=== PATIENT | female | born 1975 | race Caucasian/White ===

== ENCOUNTER 2016-08-14 11:57 | Inpatient (IN) | payer BC ==
--- NOTE | 2016-08-14 12:13 | EDM.PDOC ---
ED HPI GI/ABDOMINAL - General Chief Complaint: Gastrointestinal Problem Stated Complaint: PT WOULD LIKE TO GET CHECK Time Seen by Provider: 08/14/16 12:05 Source of Information: Reports: Patient, Family History Limitations: Reports: No limitations - History of Present Illness INITIAL COMMENTS - FREE TEXT/NARRATIVE: HISTORY AND PHYSICAL: [40-year-old female presenting to the emergency department with abdominal pain, diarrhea. Patient was sent to the emergency room by . Abdominal x-ray and chest x-ray were sent from [facility] to our radiology department.] History of Present Illness: [2 weeks of not feeling well, she is having more diarrhea] Review of Systems: As per history of present illness and below otherwise all systems reviewed and negative. Past medical history: As per history of present illness and as reviewed below otherwise noncontributory. Surgical history: As per history of present illness and as reviewed below otherwise noncontributory. Social history: No reported history of drug or alcohol abuse. Family history: As per history of present illness and as reviewed below otherwise noncontributory. Physical exam: HEENT: Atraumatic, normocehpalic, pupils reactive, negative for conjunctival pallor or scleral icterus, mucous membranes moist, throat clear, neck supple, nontender, trachea midline. Lungs: Clear to auscultation, breath sounds equal bilaterally, chest non tender. Heart: S1S2, regular, negative for clicks, rubs, or JVD. Abdomen: Soft, nondistended, tender to right upper and lower quadrant on initial exam. After the CT scan re-examination abd of abddomen is non-tender. Negative for masses or hepatossplenmegaly. Negative for costovertebral tenderness. Pelvis: Stable nontender. Genitourinary: Deferred. Rectal: Deferred Extremities: Atraumatic, negative for cords or calf pain. Neurovascular unremarkable. Neuro: Awake, alert, oriented. Cranial nerves II through XII unremarkable. Cerebellum unremarkable. Motor and sensory unremarkable throughout. Exam nonfocal. Discussed case with Dr. Hardin. He will come to the emergency department to evaluate the patient. Diagnostics: [CBC CMP lactic acid amylase lipase CT abdomen hCG] Therapeutics: [IV fluids x2 L] Impression: [#1 dehydration #2] tachycardia #3 metabolic acidosis Patient meets SIRS criteria Plan: [Admission] Definitive disposition and diagnosis as appropriate pending reevaluation and review of above. Timing/Duration: Reports: Week(s): (2), Gradual onset Quality: Reports: fullness Severity: moderate Associated Symptoms (-Female): Reports: constipation - Related Data Allergies/ADRs: Allergies Allergy/AdvReac Type Severity Reaction Status Date / Time No Known Allergies Allergy Unverified 06/05/16 14:43 Home Meds: Home Meds Ibuprofen 2 tab PO ASDIRECTED PRN 04/24/15 [History] Omeprazole [priLOSEC OTC] 20 mg PO DAILY 04/24/15 [History] Albuterol Sulfate [Proair Respiclick] 2 puff INH Q4H PRN 08/14/16 [History] Calcium Carbonate/Vitamin D3 [Calcium 500 mg Chewable Tablet] 500 mg PO BID [History] Cholecalciferol (Vitamin D3) [D3 Dots] 5,000 units PO DAILY 08/14/16 [History] Cyanocobalamin (Vitamin B12) [Vitamin B12] 1,000 mcg PO DAILY 08/14/16 [History] Diclofenac Sodium [Voltaren] 1 applic TOP QID PRN 08/14/16 [History] Hydrocodone/Acetaminophen [Hydrocodon-Acetaminophn 10-325] 5 - 325 mg PO ASDIRECTED PRN 08/14/16 [History] Magnesium Oxide 08/14/16 [History] Mometasone Furoate [Nasonex] 2 spray INH DAILY PRN 08/14/16 [History] Multivitamin [Multivitamins] 1 tab DAILY 08/14/16 [History] Multivitamin-Minerals No.55 [Centrum Flavor Burst Adult] 1 tab PO DAILY [History] Ondansetron [Ondansetron Odt] 4 mg PO TID PRN 08/14/16 [History] SUMAtriptan [Imitrex] 25 mg PO DAILY PRN 08/14/16 [History] Valproic Acid 500 mg PO BID 08/14/16 [History] Vit B12/Intrins Fact/Fa Cmb #2 [Intrinsi [id number]] 1,000 mcg SL DAILY [History] Vitamin D3/Vitamin K2 [D3 + K2 Dots 1,000 Unit] 5,000 units PO DAILY 08/14/16 [ History] Past Medical History - Past Health History Medical/Surgical History: Denies Medical/Surgical History Other Respiratory History: Reports 5 yr history of smoking when quite young, quit 10-11 yrs, re-started 5 yrs ago current use 1 - 1 1/2 packs/day Other Gastrointestinal History: hx: Ulcers, experience abdominal pain from time to time Other OB/BYN History: LMP 1 month ago Other Musculoskeletal History: had low bulging discs, now degenerative disc disease, chronic low back pain - Infectious Disease History Infectious Disease History: Reports: Other (see below) Other Infectious Disease History: unknown - Past Surgical History Other GI Surgeries/Procedures: "gastric bypass" Other Musculoskeletal Surgeries/Procedures:: surgery on same hand 1 week ago Social & Family History - Tobacco Use Smoking Status *Q: Current Every Day Smoker Years of Tobacco use: 10 Packs/Tins Daily: 1.5 - Recreational Drug Use Recreational Drug Use: No Drug Use in Last 12 Months: No ED ROS GENERAL - Review of Systems Review Of Systems: ROS reveals no pertinent complaints other than HPI. ED EXAM, GI/ABD - Physical Exam Exam: See Below (see dictation) Course - Vital Signs Last Recorded V/S: Last Vital Signs Temp 37.5 C 08/15/16 08:00 Pulse 109 H 08/14/16 18:03 Resp 28 H 08/15/16 09:00 BP 120/81 08/15/16 09:00 Pulse Ox 98 08/15/16 09:00 - Orders/Labs/Meds Orders: Active Orders 24 hr Category Date Time Status Patient Status [ADT] Stat ADT 08/14/16 17:29 Active CULTURE BLOOD [BC] Stat Lab 08/14/16 14:55 Received CULTURE BLOOD [BC] Stat Lab 08/14/16 15:14 Received Sodium Chloride 0.9% [Saline Flush] Med 08/14/16 12:14 Active 10 ml FLUSH ASDIRECTED PRN Sodium Chloride 0.9% [Saline Flush] Med 08/14/16 12:31 Active 10 ml FLUSH ASDIRECTED PRN Sodium Chloride 0.9% [Saline Flush] Med 08/14/16 12:14 Active 2.5 ml FLUSH ASDIRECTED PRN Sodium Chloride 0.9% [Saline Flush] Med 08/14/16 12:31 Active 2.5 ml FLUSH ASDIRECTED PRN Blood Culture x2 Reflex Set [OM.PC] Stat Ot 08/14/16 14:01 Ordered Saline Lock Insert [OM.PC] Stat Ot 08/14/16 12:14 Ordered Saline Lock Insert [OM.PC] Stat Ot 08/14/16 12:31 Ordered Medication Orders Acetaminophen (Tylenol) 325 mg PO Q6H PRN PRN Reason: Pain Last Admin: 08/15/16 04:00 Dose: 325 mg Admin: 08/14/16 21:07 Dose: 325 mg Folic Acid (Folic Acid) 1 mg SUBCUT DAILY [facility] Last Admin: 08/15/16 09:15 Dose: 1 mg Admin: 08/14/16 18:51 Dose: 1 mg Sodium Chloride (Normal Saline) 1,000 mls @ 200 mls/hr IV ASDIRECTED [facility] Last Admin: 08/15/16 05:20 Dose: 200 mls/hr Infusion: 08/15/16 05:20 Dose: 200 mls/hr Admin: 08/15/16 00:40 Dose: 200 mls/hr Infusion: 08/14/16 23:20 Dose: 200 mls/hr Admin: 08/14/16 18:50 Dose: 200 mls/hr Lorazepam (Ativan) 0 mg IVPUSH Q4H PRN; Protocol PRN Reason: agitation Last Admin: 08/15/16 07:48 Dose: 2 mg Admin: 08/15/16 00:21 Dose: 1 mg Admin: 08/14/16 20:41 Dose: 1 mg Omeprazole (Omeprazole) 20 mg PO ACBREAKFAST [facility] Last Admin: 08/15/16 07:35 Dose: 20 mg Ondansetron HCl (Zofran) 4 mg IVPUSH Q4H PRN PRN Reason: Nausea Sodium Chloride (Saline Flush) 10 ml FLUSH ASDIRECTED PRN PRN Reason: Keep Vein Open Sodium Chloride (Saline Flush) 2.5 ml FLUSH ASDIRECTED PRN PRN Reason: Keep Vein Open Sodium Chloride (Saline Flush) 10 ml FLUSH ASDIRECTED PRN PRN Reason: Keep Vein Open Sodium Chloride (Saline Flush) 2.5 ml FLUSH ASDIRECTED PRN PRN Reason: Keep Vein Open Thiamine HCl (Vitamin B-1) 100 mg IV DAILY [facility] Last Admin: 08/15/16 09:14 Dose: 100 mg Admin: 08/14/16 18:52 Dose: 100 mg Valproic Acid (Depakene) 500 mg PO BID [facility]IRIN Last Admin: 08/15/16 09:14 Dose: 500 mg Admin: 08/14/16 20:40 Dose: 500 mg Labs: Laboratory Tests 08/14/16 08/14/16 08/14/16 Range/Units 13:03 13:03 13:03 WBC 10.67 (4.0-11.0) K/uL RBC 3.43 L (4.30-5.90) M/uL Hgb 11.9 L (12.0-16.0) g/dL Hct 36.8 (36.0-46.0) % MCV 107.3 H (80.0-98.0) fL MCH 34.7 H (27.0-32.0) pg MCHC 32.3 (31.0-37.0) g/dL RDW Std Deviation 73.5 H (28.0-62.0) fl RDW Coeff of Amanda 19 H (11.0-15.0) % Plt Count 192 (150-400) K/uL MPV 10.50 (7.40-12.00) fL Neut % (Auto) 84.4 H (48.0-80.0) % Lymph % (Auto) 8.2 L (16.0-40.0) % Lewis % (Auto) 6.7 (0.0-15.0) % Eos % (Auto) 0.1 (0.0-7.0) % Baso % (Auto) 0.6 (0.0-1.5) % Neut # 9.0 H (1.4-5.7) K/uL Lymph # 0.9 (0.6-2.4) K/uL Lewis # 0.7 (0.0-0.8) K/uL Eos # 0.0 (0.0-0.7) K/uL Baso # 0.1 (0.0-0.1) K/uL Nucleated RBC % 0.0 /100WBC Nucleated RBCs # 0 K/uL Lactate 9.5 H (0.20-2.00) mmol/L Sodium 135 L (136-146) mmol/L Potassium 4.5 (3.5-5.1) mmol/L Chloride 103 (98-110) mmol/L Carbon Dioxide 16 L (21-31) mmol/L BUN 5 L (6.0-23.0) mg/dL Creatinine 0.5 L (0.6-1.5) mg/dL Est Cr Clr Drug Dosing 148.35 mL/min Estimated GFR (MDRD) > 60.0 ml/min Glucose 155 H (60-110) mg/dL Calcium 7.1 L (8.8-10.8) mg/dL Total Bilirubin 2.0 H (0.1-1.5) mg/dL AST 203 H (5-40) IU/L ALT 49 (8-54) IU/L Alkaline Phosphatase 445 H (40-150) Troponin I (0.0-0.29) NG/ML Total Protein 5.3 L (6.0-8.0) g/dL Albumin 1.6 L (3.5-5.0) g/dL Globulin 3.7 H (2.0-3.5) g/dL Albumin/Globulin Ratio 0.4 L (1.3-2.8) Amylase 22 (10-90) U/L Lipase < 8 (7-80) U/L HCG, Quant mIU/mL Urine Color Urine Appearance Urine pH (5.0-8.0) Ur Specific [place] (1.001-1.035) Urine Protein (NEGATIVE) mg/dL Urine Glucose (UA) (NEGATIVE) mg/dL Urine Ketones (NEGATIVE) mg/dL Urine Occult Blood (NEGATIVE) Urine Nitrite (NEGATIVE) Urine Bilirubin (NEGATIVE) Urine Ictotest Urine Urobilinogen (<2.0) EU/dL Ur Leukocyte Esterase (NEGATIVE) Urine RBC (0-2/HPF) Urine WBC (0-5/HPF) Ur Epithelial Cells (NONE-FEW) Urine Bacteria (NEGATIVE) Urine Opiates Screen (NEGATIVE) Ur Oxycodone Screen (NEGATIVE) Urine Methadone Screen (NEGATIVE) Ur Barbiturates Screen (NEGATIVE) Ur Phencyclidine Scrn (NEGATIVE) Ur Amphetamine Screen (NEGATIVE) U Methamphetamines Scrn (NEGATIVE) U Benzodiazepines Scrn (NEGATIVE) U Cocaine Metab Screen (NEGATIVE) U Marijuana (THC) Screen (NEGATIVE) Ethyl Alcohol mg/dL 08/14/16 08/14/16 08/14/16 Range/Units 13:03 13:03 14:42 WBC (4.0-11.0) K/uL RBC (4.30-5.90) M/uL Hgb (12.0-16.0) g/dL Hct (36.0-46.0) % MCV (80.0-98.0) fL MCH (27.0-32.0) pg MCHC (31.0-37.0) g/dL RDW Std Deviation (28.0-62.0) fl RDW Coeff of Amanda (11.0-15.0) % Plt Count (150-400) K/uL MPV (7.40-12.00) fL Neut % (Auto) (48.0-80.0) % Lymph % (Auto) (16.0-40.0) % Lewis % (Auto) (0.0-15.0) % Eos % (Auto) (0.0-7.0) % Baso % (Auto) (0.0-1.5) % Neut # (1.4-5.7) K/uL Lymph # (0.6-2.4) K/uL Lewis # (0.0-0.8) K/uL Eos # (0.0-0.7) K/uL Baso # (0.0-0.1) K/uL Nucleated RBC % /100WBC Nucleated RBCs # K/uL Lactate (0.20-2.00) mmol/L Sodium (136-146) mmol/L Potassium (3.5-5.1) mmol/L Chloride (98-110) mmol/L Carbon Dioxide (21-31) mmol/L BUN (6.0-23.0) mg/dL Creatinine (0.6-1.5) mg/dL Est Cr Clr Drug Dosing mL/min Estimated GFR (MDRD) ml/min Glucose (60-110) mg/dL Calcium (8.8-10.8) mg/dL Total Bilirubin (0.1-1.5) mg/dL AST (5-40) IU/L ALT (8-54) IU/L Alkaline Phosphatase (40-150) Troponin I (0.0-0.29) NG/ML Total Protein (6.0-8.0) g/dL Albumin (3.5-5.0) g/dL Globulin (2.0-3.5) g/dL Albumin/Globulin Ratio (1.3-2.8) Amylase (10-90) U/L Lipase (7-80) U/L HCG, Quant < 1.2 mIU/mL Urine Color YELLOW Urine Appearance CLEAR Urine pH 6.5 (5.0-8.0) Ur Specific [place] <= 1.005 (1.001-1.035) Urine Protein NEGATIVE (NEGATIVE) mg/dL Urine Glucose (UA) NEGATIVE (NEGATIVE) mg/dL Urine Ketones NEGATIVE (NEGATIVE) mg/dL Urine Occult Blood NEGATIVE (NEGATIVE) Urine Nitrite NEGATIVE (NEGATIVE) Urine Bilirubin MODERATE H (NEGATIVE) Urine Ictotest POSITIVE Urine Urobilinogen 2.0 H (<2.0) EU/dL Ur Leukocyte Esterase NEGATIVE (NEGATIVE) Urine RBC NONE SEEN (0-2/HPF) Urine WBC 0-1 (0-5/HPF) Ur Epithelial Cells RARE (NONE-FEW) Urine Bacteria RARE (NEGATIVE) Urine Opiates Screen (NEGATIVE) Ur Oxycodone Screen (NEGATIVE) Urine Methadone Screen (NEGATIVE) Ur Barbiturates Screen (NEGATIVE) Ur Phencyclidine Scrn (NEGATIVE) Ur Amphetamine Screen (NEGATIVE) U Methamphetamines Scrn (NEGATIVE) U Benzodiazepines Scrn (NEGATIVE) U Cocaine Metab Screen (NEGATIVE) U Marijuana (THC) Screen (NEGATIVE) Ethyl Alcohol 229.2 mg/dL 08/14/16 08/14/16 08/14/16 Range/Units 14:42 14:55 14:55 WBC (4.0-11.0) K/uL RBC (4.30-5.90) M/uL Hgb (12.0-16.0) g/dL Hct (36.0-46.0) % MCV (80.0-98.0) fL MCH (27.0-32.0) pg MCHC (31.0-37.0) g/dL RDW Std Deviation (28.0-62.0) fl RDW Coeff of Amanda (11.0-15.0) % Plt Count (150-400) K/uL MPV (7.40-12.00) fL Neut % (Auto) (48.0-80.0) % Lymph % (Auto) (16.0-40.0) % Lewis % (Auto) (0.0-15.0) % Eos % (Auto) (0.0-7.0) % Baso % (Auto) (0.0-1.5) % Neut # (1.4-5.7) K/uL Lymph # (0.6-2.4) K/uL Lewis # (0.0-0.8) K/uL Eos # (0.0-0.7) K/uL Baso # (0.0-0.1) K/uL Nucleated RBC % /100WBC Nucleated RBCs # K/uL Lactate 8.4 H (0.20-2.00) mmol/L Sodium (136-146) mmol/L Potassium (3.5-5.1) mmol/L Chloride (98-110) mmol/L Carbon Dioxide (21-31) mmol/L BUN (6.0-23.0) mg/dL Creatinine (0.6-1.5) mg/dL Est Cr Clr Drug Dosing mL/min Estimated GFR (MDRD) ml/min Glucose (60-110) mg/dL Calcium (8.8-10.8) mg/dL Total Bilirubin (0.1-1.5) mg/dL AST (5-40) IU/L ALT (8-54) IU/L Alkaline Phosphatase (40-150) Troponin I < 0.10 (0.0-0.29) NG/ML Total Protein (6.0-8.0) g/dL Albumin (3.5-5.0) g/dL Globulin (2.0-3.5) g/dL Albumin/Globulin Ratio (1.3-2.8) Amylase (10-90) U/L Lipase (7-80) U/L HCG, Quant mIU/mL Urine Color Urine Appearance Urine pH (5.0-8.0) Ur Specific [place] (1.001-1.035) Urine Protein (NEGATIVE) mg/dL Urine Glucose (UA) (NEGATIVE) mg/dL Urine Ketones (NEGATIVE) mg/dL Urine Occult Blood (NEGATIVE) Urine Nitrite (NEGATIVE) Urine Bilirubin (NEGATIVE) Urine Ictotest Urine Urobilinogen (<2.0) EU/dL Ur Leukocyte Esterase (NEGATIVE) Urine RBC (0-2/HPF) Urine WBC (0-5/HPF) Ur Epithelial Cells (NONE-FEW) Urine Bacteria (NEGATIVE) Urine Opiates Screen NEGATIVE (NEGATIVE) Ur Oxycodone Screen NEGATIVE (NEGATIVE) Urine Methadone Screen NEGATIVE (NEGATIVE) Ur Barbiturates Screen NEGATIVE (NEGATIVE) Ur Phencyclidine Scrn NEGATIVE (NEGATIVE) Ur Amphetamine Screen NEGATIVE (NEGATIVE) U Methamphetamines Scrn NEGATIVE (NEGATIVE) U Benzodiazepines Scrn NEGATIVE (NEGATIVE) U Cocaine Metab Screen NEGATIVE (NEGATIVE) U Marijuana (THC) Screen NEGATIVE (NEGATIVE) Ethyl Alcohol mg/dL Meds: Medications Generic Name Dose Route Start Last Admin Trade Name Freq PRN Reason Stop Dose Admin Acetaminophen 325 mg 08/14/16 20:29 08/15/16 04:00 Tylenol PO 325 mg Q6H PRN Administration Pain Folic Acid 1 mg 08/14/16 18:30 08/15/16 09:15 Folic Acid SUBCUT 1 mg DAILY SHIRIN Administration Sodium Chloride 1,000 mls @ 200 mls/hr 08/14/16 18:15 08/15/16 05:20 Normal Saline IV 200 mls/hr ASDIRECTED SHIRIN Administration Lorazepam 0 mg 08/14/16 18:33 08/15/16 07:48 Ativan IVPUSH 2 mg Q4H PRN Administration agitation Protocol Omeprazole 20 mg 08/15/16 07:30 08/15/16 07:35 Omeprazole PO 20 mg ACBREAKFAST SHIRIN Administration Ondansetron HCl 4 mg 08/14/16 18:08 Zofran IVPUSH Q4H PRN Nausea Sodium Chloride 10 ml 08/14/16 12:14 Saline Flush FLUSH ASDIRECTED PRN Keep Vein Open Sodium Chloride 2.5 ml 08/14/16 12:14 Saline Flush FLUSH ASDIRECTED PRN Keep Vein Open Sodium Chloride 10 ml 08/14/16 12:31 Saline Flush FLUSH ASDIRECTED PRN Keep Vein Open Sodium Chloride 2.5 ml 08/14/16 12:31 Saline Flush FLUSH ASDIRECTED PRN Keep Vein Open Thiamine HCl 100 mg 08/14/16 18:30 08/15/16 09:14 Vitamin B-1 IV 100 mg DAILY [facility]IN Administration Valproic Acid 500 mg 08/14/16 21:00 08/15/16 09:14 Depakene PO 500 mg BID SH[facility]IN Administration Discontinued Medications Generic Name Dose Route Start Last Admin Trade Name Freq PRN Reason Stop Dose Admin Acetaminophen 650 mg 08/14/16 12:50 08/14/16 12:57 Tylenol PO 08/14/16 12:51 650 mg NOW STA Administration Dextrose/Water 50 ml 08/15/16 05:47 08/15/16 05:47 Dextrose 50% In Water IVPUSH 08/15/16 05:48 50 ml ONETIME ONE Administration Sodium Chloride 1,000 mls @ 999 mls/hr 08/14/16 13:52 08/14/16 14:19 Normal Saline IV 08/14/16 14:52 999 mls/hr STAT ONE Administration Sodium Chloride 1,000 mls @ 999 mls/hr 08/14/16 15:12 08/14/16 15:39 Normal Saline IV 08/14/16 16:12 999 mls/hr .Bolus ONE Administration Sodium Chloride 1,000 mls @ 999 mls/hr 08/14/16 19:31 08/14/16 19:54 Normal Saline IV 08/14/16 20:31 999 mls/hr ONETIME ONE Administration Magnesium Sulfate 4 gm/ Premix 100 mls @ 50 mls/hr 08/14/16 20:22 08/14/16 21 :01 IV 08/14/16 22:21 50 mls/hr ONETIME ONE Administration Iopamidol 80 ml 08/14/16 14:15 08/14/16 14:15 Isovue Multipack-370 (76%) IVPUSH 08/14/16 14:16 80 ml ONETIME STA Administration Departure - Departure Time of Disposition: 18:00 Disposition: Admitted As Inpatient 68 Condition: good Clinical Impression: Hypokalemia, Dehydration - My Orders Last 24 Hours: My Active Orders 08/14/16 12:14 Sodium Chloride 0.9% [Saline Flush] 10 ml FLUSH ASDIRECTED PRN Sodium Chloride 0.9% [Saline Flush] 2.5 ml FLUSH ASDIRECTED PRN Saline Lock Insert [OM.PC] Stat 08/14/16 12:31 Sodium Chloride 0.9% [Saline Flush] 10 ml FLUSH ASDIRECTED PRN Sodium Chloride 0.9% [Saline Flush] 2.5 ml FLUSH ASDIRECTED PRN Saline Lock Insert [OM.PC] Stat 08/14/16 14:01 Blood Culture x2 Reflex Set [OM.PC] Stat 08/14/16 14:55 CULTURE BLOOD [BC] Stat 08/14/16 15:14 CULTURE BLOOD [BC] Stat 08/14/16 17:29 Patient Status [ADT] Stat - Assessment/Plan Last 24 Hours: My Active Orders 08/14/16 12:14 Sodium Chloride 0.9% [Saline Flush] 10 ml FLUSH ASDIRECTED PRN Sodium Chloride 0.9% [Saline Flush] 2.5 ml FLUSH ASDIRECTED PRN Saline Lock Insert [OM.PC] Stat 08/14/16 12:31 Sodium Chloride 0.9% [Saline Flush] 10 ml FLUSH ASDIRECTED PRN Sodium Chloride 0.9% [Saline Flush] 2.5 ml FLUSH ASDIRECTED PRN Saline Lock Insert [OM.PC] Stat 08/14/16 14:01 Blood Culture x2 Reflex Set [OM.PC] Stat 08/14/16 14:55 CULTURE BLOOD [BC] Stat 08/14/16 15:14 CULTURE BLOOD [BC] Stat 08/14/16 17:29 Patient Status [ADT] Stat
[2016-08-14] MEDS ORDERED: Sodium Chloride 0.9% 10 ML Syringe FLUSH PRN ×2 (12:14→12:31)
[2016-08-14] MEDS ORDERED: Sodium Chloride 0.9% 2.5 ML Syringe FLUSH PRN ×2 (12:14→12:31)
[2016-08-14] MEDS ORDERED: Acetaminophen 325 MG Tab PO STA (12:50)
[2016-08-14 13:39] LABS: CHLORIDE,CL 103 mmol/L (98-110); SODIUM,NA 135 mmol/L (136-146)
[2016-08-14] MEDS ORDERED: Sodium Chloride 0.9% 1,000 ML IV ONE ×3 (13:52→19:31)
[2016-08-14] MEDS ORDERED: Iopamidol 755 MG/ML 500 ML Multipack Bottle IVPUSH STA (14:15)
--- NOTE | 2016-08-14 14:31 | CT ---
CT of the abdomen and pelvis with contrast. HISTORY: Pain TECHNIQUE: Axial CT images were obtained of the abdomen and pelvis following administration of 80 mL of Isovue-370 in the right arm without complication. Coronal and sagittal reconstructions obtained. FINDINGS: The lungs are clear without focal consolidation. There is a small left pleural effusion. The liver appears markedly hypodense. The gallbladder appears normal. Splenic granulomata are noted. The gallbladder is distended, otherwise unremarkable. The kidneys enhance and function symmetricall y without evidence of obstructive uropathy. There is a small amount of abdominal ascites and free pe lvic fluid. Postsurgical changes are noted secondary to gastric bypass. The portal system appears pa tent. The large and small bowel are normal in caliber without evidence of obstruction. No focal pericoloni c inflammation or stranding. Appendix appears normal. The urinary bladder appears normal. No free ai r. No suspicious osseous abnormalities identified. There are healing left posterior rib fractures. Ther e is a moderate compression deformity at L1 resulting in kyphosis, unchanged. IMPRESSION: 1. Severe hypodense liver with small amount of abdominal ascites, this may represent steatohepatitis . 2. Trace left pleural effusion. 3. Old L1 compression fracture and healing left rib fractures. 4. Postsurgical changes secondary to gastric bypass.
[2016-08-14] MEDS ORDERED: Ondansetron 4 MG/2 ML SDV IVPUSH PRN (18:08)
--- NOTE | 2016-08-14 18:15 | PCM.HP ---
H&P History of Present Illness - General Date of Service: 08/14/16 Admit Problem/Dx: Admission Diagnosis/Problem Admission Diagnosis/Problem Dehydration - History of Present Illness Initial Comments - Free Text/Narative: 40 yo female with pmh of alcohol abuse and gastric bypass. 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 The past week she has noticed increased weakness and fatigue. She has had frequent loose green stools. She stopped eating in hopes it will decrease her diarrhea. She also reports numbness and burning of her feet which has limited her mobility. She reports not getting out of bed in the past three days. Her has had to use diapers as she has not been able to get up out of bed. She denies any recent antibiotic use. She admits to not follow up with doctors after her gastric bypass and does not take any vitamins. She denies any alcohol use. Her when I talked privately with him reports that she has had been in treatment before and has cut back on her drinking but still drinks heavily. She drinks 4-5 airport bottles of liquer a day. He reports she does not feel well in the the morning until she has had two bottles. [facility] referred [facility] to the ED. IN the ED she was noted to have a heart rate in the 150s. Blood pressure of 115/82. Her lactic acid was 9.5 She was given [address] scan of abdomen and pelvis reported no intestinal obstruction or pericolic inflamation. There was steatohepatitis and gallbladder appears normal. Abdomen Pain Score (Numeric/FACES): 7 Headache Pain Score (Numeric/FACES): 4 - Related Data Allergies/Adverse Reactions: Allergies Allergy/AdvReac Type Severity Reaction Status Date / Time No Known Allergies Allergy Unverified 06/05/16 14:43 Home Medications: Home Meds Ibuprofen 2 tab PO ASDIRECTED PRN 04/24/15 [History] Omeprazole [priLOSEC OTC] 20 mg PO DAILY 04/24/15 [History] Albuterol Sulfate [Proair Respiclick] 2 puff INH Q4H PRN 08/14/16 [History] Calcium Carbonate/Vitamin D3 [Calcium 500 mg Chewable Tablet] 500 mg PO BID [History] Cholecalciferol (Vitamin D3) [D3 Dots] 5,000 units PO DAILY 08/14/16 [History] Cyanocobalamin (Vitamin B12) [Vitamin B12] 1,000 mcg PO DAILY 08/14/16 [History] Diclofenac Sodium [Voltaren] 1 applic TOP QID PRN 08/14/16 [History] Hydrocodone/Acetaminophen [Hydrocodon-Acetaminophn 10-325] 5 - 325 mg PO ASDIRECTED PRN 08/14/16 [History] Magnesium Oxide 08/14/16 [History] Mometasone Furoate [Nasonex] 2 spray INH DAILY PRN 08/14/16 [History] Multivitamin [Multivitamins] 1 tab DAILY 08/14/16 [History] Multivitamin-Minerals No.55 [Centrum Flavor Burst Adult] 1 tab PO DAILY [History] Ondansetron [Ondansetron Odt] 4 mg PO TID PRN 08/14/16 [History] SUMAtriptan [Imitrex] 25 mg PO DAILY PRN 08/14/16 [History] Valproic Acid 500 mg PO BID 08/14/16 [History] Vit B12/Intrins Fact/Fa Cmb #2 [Intrinsi [id number]] 1,000 mcg SL DAILY [History] Vitamin D3/Vitamin K2 [D3 + K2 Dots 1,000 Unit] 5,000 units PO DAILY 08/14/16 [ History] Past Medical History - Past Health History Medical/Surgical History: Denies Medical/Surgical History HEENT History: Reports: Head Other HEENT History: had a traumatic brain injury 3 months ago Cardiovascular History: Reports: None Other Respiratory History: Reports 5 yr history of smoking when quite young, quit 10-11 yrs, re-started 5 yrs ago current use 1 - 1 1/2 packs/day Other Gastrointestinal History: hx: Ulcers, experience abdominal pain from time to time Other OB/BYN History: LMP 1 month ago Other Musculoskeletal History: had low bulging discs, now degenerative disc disease, chronic low back pain - Infectious Disease History Infectious Disease History: Reports: Other (see below) Other Infectious Disease History: unknown - Past Surgical History Other GI Surgeries/Procedures: "gastric bypass" Other Musculoskeletal Surgeries/Procedures:: surgery on same hand 1 week ago Social & Family History - Tobacco Use Smoking Status *Q: Current Every Day Smoker Years of Tobacco use: 10 Packs/Tins Daily: 1.5 - Recreational Drug Use Recreational Drug Use: No Drug Use in Last 12 Months: No H&P Review of Systems - Review of Systems: Review Of Systems: See Below General: Reports: chills, malaise, weakness, fatigue, decreased appetite, weight loss. Denies: fever, night sweats HEENT: Reports: no symptoms Pulmonary: Reports: Cough. Denies: Shortness of Breath, Wheezing, Pleuritic Chest Pain Cardiovascular: Reports: no symptoms. Denies: chest pain, palpitations, dyspnea on exertion, orthopnea, PND, edema, syncope Gastrointestinal: Reports: Diarrhea. Denies: Black stool, Bloody stool, Constipation, Difficulty swallowing, Hematemesis, Hematochezia, Melena Genitourinary: Reports: no symptoms Musculoskeletal: Reports: no symptoms Skin: Reports: no symptoms Psychiatric: Reports: no symptoms Neurological: Reports: No Symptoms Hematologic/Lymphatic: Reports: no symptoms Immunologic: Reports: no symptoms Exam - Exam Exam: See Below - Vital Signs Vital Signs: Last Vital Signs Temp 36.3 C 08/14/16 12:03 Pulse 109 H 08/14/16 14:20 Resp 18 08/14/16 14:20 BP 121/82 08/14/16 14:20 Pulse Ox 97 08/14/16 14:20 Weight: 68.039 kg - Exam General: alert, oriented HEENT: Nares patent, Posterior pharynx clear Neck: supple, trachea midline, 2 Lungs: Clear to auscultation, Normal respiratory effort Cardiovascular: regular rate, regular rhythm Abdomen: normal bowel sounds, soft, tenderness (mild tenderness to epigastrum). No: peritoneal signs, distention Extremities: normal inspection Skin: warm, dry, intact Neurological: No: focal deficit - Patient Data Result Diagrams: 08/15/16 04:51 08/15/16 04:51 EKG INTERPRETATION Rhythm: other (sinus tachycardia) Rate (beats/min): 112 P-wave: present QRS: normal ST-T: normal *Q Meaningful Use (ADM) - VTE *Q VTE Criteria *Q: - Stroke *Q Stroke Criteria *Q: - AMI *Q AMI Criteria *Q: Problem List Initiated/Reviewed/Updated: Yes Orders Last 24hrs: Active Orders 24 hr Category Date Time Status Patient Status [ADT] Stat ADT 08/14/16 17:29 Active Abdomen Comp [US] Routine Exams 08/14/16 18:04 Ordered CXR [Chest 1V Frontal] [CR] Routine Exams 08/14/16 18:00 Ordered CULTURE STOOL + CAMPY+SHIGATOX [RM] Routine Lab 08/14/16 18:01 Uncollected CULTURE URINE [RM] Stat Lab 08/14/16 14:42 Received Clostridium Difficile [CDIFF TOX A+B] [OP] Routine Lab 08/14/16 18:01 Uncollected INR,PT,PROTHROMBIN TIME [COAG] Routine Lab 08/14/16 18:05 Ordered KETONES,BLOOD [CHEM] Routine Lab 08/14/16 17:57 Ordered LACTIC ACID,WHOLE BLOOD [BG] Q5H Lab 08/14/16 19:00 Ordered LACTIC ACID,WHOLE BLOOD [BG] Q5H Lab 08/15/16 00:00 Ordered LACTIC ACID,WHOLE BLOOD [BG] Q5H Lab 08/15/16 05:00 Ordered LACTIC ACID,WHOLE BLOOD [BG] Q5H Lab 08/15/16 10:00 Ordered WBC, STOOL [OP] Routine Lab 08/14/16 18:01 Uncollected Sodium Chloride 0.9% [Normal Saline] 1,000 ml Med 08/14/16 18:15 Ordered IV ASDIRECTED Medication Orders Sodium Chloride (Normal Saline) 1,000 mls @ 200 mls/hr IV ASDIRECTED SHIRIN Sodium Chloride (Saline Flush) 10 ml FLUSH ASDIRECTED PRN PRN Reason: Keep Vein Open Sodium Chloride (Saline Flush) 2.5 ml FLUSH ASDIRECTED PRN PRN Reason: Keep Vein Open Sodium Chloride (Saline Flush) 10 ml FLUSH ASDIRECTED PRN PRN Reason: Keep Vein Open Sodium Chloride (Saline Flush) 2.5 ml FLUSH ASDIRECTED PRN PRN Reason: Keep Vein Open Assessment/Plan Comment:: 40 yo female admitted for dehydration, diarrhea, lactic acidosis and alcohol abuse. Her physical exam is rather benign and she does not appear septic. We will resuscitate with IV fluids and trend her lactic acid. We will place on CIWA protocol with thaimine and folic acid. Stool studies have been sent for evaluation of her diarrhea. Her peripheral neuropathy could be from ETOH vs Vit B12 deficiency.
[2016-08-14] MEDS: Sodium Chloride 0.9% 1,000 ML IV SCH (18:50)
[2016-08-14] MEDS: Folic Acid 50 MG/10 ML MDV SUBCUT SCH (18:51)
[2016-08-14] MEDS: Thiamine 200 MG/2 ML MDV IV SCH (18:52)
[2016-08-14] MEDS ORDERED: Magnesium Sulfate/Water 4 GM in Premix Bag 1 BAG IV ONE (20:22)
[2016-08-14] MEDS: Valproic Acid 250 MG/5 ML Soln 5 ML UD Cup PO SCH (20:40)
[2016-08-14] MEDS: LORazepam 2 MG/ML MDV IVPUSH PRN (20:41)
[2016-08-14] MEDS: Acetaminophen 325 MG Tab PO PRN (21:07)
[2016-08-15] MEDS: LORazepam 2 MG/ML MDV IVPUSH PRN ×3 (00:21→14:28)
[2016-08-15] MEDS: Sodium Chloride 0.9% 1,000 ML IV SCH ×3 (00:40→11:42)
[2016-08-15] MEDS: Acetaminophen 325 MG Tab PO PRN (04:00)
[2016-08-15 05:17] LABS: CHLORIDE,CL 102 mmol/L (98-110); SODIUM,NA 130 mmol/L (136-146)
[2016-08-15] MEDS ORDERED: 50% Dextrose in Water 50 ML Syringe IVPUSH ONE (05:47)
[2016-08-15] MEDS ORDERED: Omeprazole 20 MG Cap.CR PO SCH (07:30)
[2016-08-15] MEDS: Thiamine 200 MG/2 ML MDV IV SCH (09:14)
[2016-08-15] MEDS: Valproic Acid 250 MG/5 ML Soln 5 ML UD Cup PO SCH (09:14)
[2016-08-15] MEDS: Folic Acid 50 MG/10 ML MDV SUBCUT SCH (09:15)
--- NOTE | 2016-08-15 10:00 | US ---
EXAMINATION: Right upper quadrant ultrasound HISTORY: Evaluate for cholecystitis COMPARISON: CT dated 08/14/2016 TECHNIQUE: Grayscale and color Doppler images obtained of the right upper quadrant. FINDINGS: The pancreas is not well characterized. The liver is markedly echogenic without a focal he patic mass. The right kidney measures 11.4 cm [id number] without evidence of hydronephrosis. The g allbladder wall thickness is normal. No pericholecystic fluid or shadowing gallstones. There is simpson keo nonshadowing filling defect near the neck of the gallbladder. The common bile duct is also mildl y prominent at 8 mm. There is possibly a filling defect measuring 8 mm within the distal common bile duct also demonstrating notable shadowing. Sonographic Holt sign is not reported. IMPRESSION: 1. Probable filling defect within the distal common bile duct measuring 8 mm, suggesting choledochol ithiasis. 2. The proximal common bile duct is also dilated measuring 8 mm. 3. The gallbladder is mildly distended however no gallbladder wall thickening or pericholecystic flu id is noted. 4. Possible nonshadowing cholelithiasis versus focal sludge. 5. Markedly fatty infiltration of the liver.
[2016-08-15] MEDS ORDERED: Potassium Chloride 20 MEQ Tab.ER PO ONE (10:12)
[2016-08-15] MEDS ORDERED: Phosphorus #1 250 MG Tab PO ONE (10:12)
[2016-08-15] MEDS ORDERED: Sodium Chloride 0.9% 1,000 ML IV ONE (10:14)
[2016-08-15] MEDS: Piperacillin/Tazobactam 3.375 GM in Sodium Chloride 0.9% 50 ML IV SCH ×2 (10:47→15:29)
--- NOTE | 2016-08-15 14:17 | CR ---
EXAM DATE: 08/14/16 PATIENT'S AGE: 40 Patient: AMI DUMAS Facility: [place], [place] Site . Site : [id number] Study: XRay Chest [id number]/17/2017 8:17:23 AM Ordering Physician: Lashawn Sandoval Final Report: HISTORY: Follow up. FINDINGS: AP portable chest radiograph is compared with 14 August 2016. EKG leads overlie the thorax. There are low lung volumes present. There is linear density seen in the left mid lung without change. Atelectasis seen at the left base. Heart is normal in size. No cephalization. No lobar consolidation or pleural effusion is seen. IMPRESSION: 1. Scarring in the left mid lung. 2. Linear atelectasis at the left base. Dictated by Lucero Willis MD @ 08/15/2016 8:21:27 AM Dictated by: Lucero Willis MD @ 08/15/2016 08:21:42 (Electronic Signature) Report Signed by Proxy and Original Signed Document filed in the Medical Record. MTDD
--- NOTE | 2016-08-15 15:59 | PCM.DCSUM1 ---
Discharge Summary - Hospital Course HPI Initial Comments: 40 yo female admitted on 08/14/16 with severe dehydration, lactic acidemia, steatohepatitis and alcohol withdrawl with pmh of alcohol abuse and gastric bypass. 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 Past week before addmitted she had noticed increased weakness and fatigue. She had frequent loose green stools. She stopped eating in hopes it will decrease her diarrhea. She also reported numbness and burning of her feet which had limited her mobility. She reported not getting out of bed in the past three days. Her has had to use diapers as she had not been able to get up. She denied any recent antibiotic use. She admited to not following up with doctors after her gastric bypass and does not take any vitamins. She denies any alcohol use but was positive in ED for ETOH. Her when talked privately with reported that she had been in treatment before and had cut back on her drinking but still drinks heavily. She drinks 4-5 airport bottles of liquer a day. He reported she did not feel well in the the morning until she has had two bottles. She was seen in Dr. Contreras's clinic who referred her to the ED. In the ED she was noted to have a heart rate in the 150s. Blood pressure of 115/82. Her lactic acid was 9.5 She was given [address] scan of abdomen and pelvis reported no intestinal obstruction or pericolic inflamation but left pleural fluid. There was steatohepatitis and gallbladder appears normal. Patient was addmitted and US was scheduled but not available until following morning. - Discharge Data Discharge Date: 08/15/16 Discharge Disposition: DC/Tfer to Acute Hospital 02 Condition: Fair - Patient Summary/Data Operative Procedure(s) Performed: closed reduction pin fixation of right small and ring finger proximal phalanx fractures - Discharge Plan Home Medications: Home Meds Ibuprofen 2 tab PO ASDIRECTED PRN 04/24/15 [History] Omeprazole [priLOSEC OTC] 20 mg PO DAILY 04/24/15 [History] Albuterol Sulfate [Proair Respiclick] 2 puff INH Q4H PRN 08/14/16 [History] Calcium Carbonate/Vitamin D3 [Calcium 500 mg Chewable Tablet] 500 mg PO BID [History] Cholecalciferol (Vitamin D3) [D3 Dots] 5,000 units PO DAILY 08/14/16 [History] Cyanocobalamin (Vitamin B12) [Vitamin B12] 1,000 mcg PO DAILY 08/14/16 [History] Diclofenac Sodium [Voltaren] 1 applic TOP QID PRN 08/14/16 [History] Hydrocodone/Acetaminophen [Hydrocodon-Acetaminophn 10-325] 5 - 325 mg PO ASDIRECTED PRN 08/14/16 [History] Magnesium Oxide 08/14/16 [History] Mometasone Furoate [Nasonex] 2 spray INH DAILY PRN 08/14/16 [History] Multivitamin [Multivitamins] 1 tab DAILY 08/14/16 [History] Multivitamin-Minerals No.55 [Centrum Flavor Burst Adult] 1 tab PO DAILY [History] Ondansetron [Ondansetron Odt] 4 mg PO TID PRN 08/14/16 [History] SUMAtriptan [Imitrex] 25 mg PO DAILY PRN 08/14/16 [History] Valproic Acid 500 mg PO BID 08/14/16 [History] Vit B12/Intrins Fact/Fa Cmb #2 [Intrinsi [id number]] 1,000 mcg SL DAILY [History] Vitamin D3/Vitamin K2 [D3 + K2 Dots 1,000 Unit] 5,000 units PO DAILY 08/14/16 [ History] Referrals: Tawnya Hastings DO [Primary Care Provider] - - Discharge Summary/Plan Comment DC Time >30 min.: Yes Discharge Summary/Plan Comment: 40 yo female admitted on 08/14/16 with severe dehydration, lactic acidemia, steatohepatitis and alcohol withdrawl with pmh of alcohol abuse and gastric bypass. 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 Past week before addmitted she had noticed increased weakness and fatigue. She had frequent loose green stools. She stopped eating in hopes it will decrease her diarrhea. She also reported numbness and burning of her feet which had limited her mobility. She reported not getting out of bed in the past three days. Her has had to use diapers as she had not been able to get up. She denied any recent antibiotic use. She admited to not following up with doctors after her gastric bypass and does not take any vitamins. She denies any alcohol use but was positive in ED for ETOH. Her when talked privately with reported that she had been in treatment before and had cut back on her drinking but still drinks heavily. She drinks 4-5 airport bottles of liquer a day. He reported she did not feel well in the the morning until she has had two bottles. She was seen in Dr. Contreras's clinic who referred her to the ED. In the ED she was noted to have a heart rate in the 150s. Blood pressure of 115/82. Her lactic acid was 9.5 She was given [address] scan of abdomen and pelvis reported no intestinal obstruction or pericolic inflamation but left pleural fluid. There was steatohepatitis and gallbladder appears normal. Patient was addmitted and US was scheduled but not available until following morning. Patient was resuscitated with IV fluids and lactic acid was trended. Patient was placed on CIWA protocol with thaimine and folic acid. Stool studies were sent and were + WBC but neg for shiga toxins,camplobacter,and clostridium. Labs in am showed normal white count, anemia hgb 10.2, low platletes 141, phos 1.9, bicar 20 up from 16, total bili of 3.2, Ast 177, ALT 42, ALK Phos 386. and Ultrasound showed filling defect with distal common bile duct measuring 8mm, suggesting choledochoithiasis, proximal common bile duct dilated 8mm, gallbladder mildly distended but no galbladder wall thickening or percholecystic fluid noted, possible nonshadowing cholelithiasis versus focal sludge, and markedly fatty liver inflitration. Surgery was consulted and given the patients current condition and lack of resources it would be suggested that we transfer patient for possible ERCP which may be difficult secondary to history of gastric bypass. [facility], [facility], [facility], [facility] all were unable to accept the patient either due to complexity, lack of GI endoscopy in house, or availbe beds. Patient was accepted by [facility], Dr. Molina , Internal Medicine with GI Dr. Dodd as well saying that the procedure if needed could be done. Patient's was notified as the patient was still intoxicated and did want the transfer. Patient was transferred by fixed wing. - Patient Data Vitals - Most Recent: Last Vital Signs Temp 37.2 C 08/15/16 12:00 Pulse 109 H 08/14/16 18:03 Resp 33 H 08/15/16 15:00 BP 115/88 08/15/16 15:00 Pulse Ox 96 08/15/16 15:00 Weight - Most Recent: 73.1 kg I&O - Last 24 hours: Intake & Output 08/15/16 08/15/16 08/15/16 06:59 14:59 22:59 Intake Total 4280 Output Total 461 Balance 3819 Lab Results - Last 24 hrs: Laboratory Results - last 24 hr 08/14/16 08/14/16 08/14/16 Range/Units 18:40 18:40 18:40 WBC (4.0-11.0) K/uL RBC (4.30-5.90) M/uL Hgb (12.0-16.0) g/dL Hct (36.0-46.0) % MCV (80.0-98.0) fL MCH (27.0-32.0) pg MCHC (31.0-37.0) g/dL RDW Std Deviation (28.0-62.0) fl RDW Coeff of Amanda (11.0-15.0) % Plt Count (150-400) K/uL MPV (7.40-12.00) fL Neut % (Auto) (48.0-80.0) % Lymph % (Auto) (16.0-40.0) % [place] % (Auto) (0.0-15.0) % Eos % (Auto) (0.0-7.0) % Baso % (Auto) (0.0-1.5) % Neut # (1.4-5.7) K/uL Lymph # (0.6-2.4) K/uL [place] # (0.0-0.8) K/uL Eos # (0.0-0.7) K/uL Baso # (0.0-0.1) K/uL Nucleated RBC % /100WBC Nucleated RBCs # K/uL INR 1.16 H (0.86-1.11) Lactate 7.5 H (0.20-2.00) mmol/L Sodium (136-146) mmol/L Potassium (3.5-5.1) mmol/L Chloride (98-110) mmol/L Carbon Dioxide (21-31) mmol/L BUN (6.0-23.0) mg/dL Creatinine (0.6-1.5) mg/dL Est Cr Clr Drug Dosing mL/min Estimated GFR (MDRD) ml/min Glucose (60-110) mg/dL POC Glucose (60-110) mg/dL Calcium (8.8-10.8) mg/dL Phosphorus (2.4-4.7) mg/dL Magnesium (1.5-2.3) mEq/L Total Bilirubin (0.1-1.5) mg/dL AST (5-40) IU/L ALT (8-54) IU/L Alkaline Phosphatase (40-150) Total Protein (6.0-8.0) g/dL Albumin (3.5-5.0) g/dL Globulin (2.0-3.5) g/dL Albumin/Globulin Ratio (1.3-2.8) Vitamin B12 (200-1100) PG/ML Ketones NEGATIVE (NEG) 08/14/16 08/14/16 08/15/16 Range/Units 18:40 18:40 00:18 WBC (4.0-11.0) K/uL RBC (4.30-5.90) M/uL Hgb (12.0-16.0) g/dL Hct (36.0-46.0) % MCV (80.0-98.0) fL MCH (27.0-32.0) pg MCHC (31.0-37.0) g/dL RDW Std Deviation (28.0-62.0) fl RDW Coeff of Amanda (11.0-15.0) % Plt Count (150-400) K/uL MPV (7.40-12.00) fL Neut % (Auto) (48.0-80.0) % Lymph % (Auto) (16.0-40.0) % [place] % (Auto) (0.0-15.0) % Eos % (Auto) (0.0-7.0) % Baso % (Auto) (0.0-1.5) % Neut # (1.4-5.7) K/uL Lymph # (0.6-2.4) K/uL [place] # (0.0-0.8) K/uL Eos # (0.0-0.7) K/uL Baso # (0.0-0.1) K/uL Nucleated RBC % /100WBC Nucleated RBCs # K/uL INR (0.86-1.11) Lactate 4.7 H (0.20-2.00) mmol/L Sodium (136-146) mmol/L Potassium (3.5-5.1) mmol/L Chloride (98-110) mmol/L Carbon Dioxide (21-31) mmol/L BUN (6.0-23.0) mg/dL Creatinine (0.6-1.5) mg/dL Est Cr Clr Drug Dosing mL/min Estimated GFR (MDRD) ml/min Glucose (60-110) mg/dL POC Glucose (60-110) mg/dL Calcium (8.8-10.8) mg/dL Phosphorus 2.6 (2.4-4.7) mg/dL Magnesium 0.9 L (1.5-2.3) mEq/L Total Bilirubin (0.1-1.5) mg/dL AST (5-40) IU/L ALT (8-54) IU/L Alkaline Phosphatase (40-150) Total Protein (6.0-8.0) g/dL Albumin (3.5-5.0) g/dL Globulin (2.0-3.5) g/dL Albumin/Globulin Ratio (1.3-2.8) Vitamin B12 > 2000 H (200-1100) PG/ML Ketones (NEG) 08/15/16 08/15/16 08/15/16 Range/Units 04:51 04:51 04:51 WBC 10.26 (4.0-11.0) K/uL RBC 2.87 L (4.30-5.90) M/uL Hgb 10.2 L (12.0-16.0) g/dL Hct 30.2 L (36.0-46.0) % MCV 105.2 H (80.0-98.0) fL MCH 35.5 H (27.0-32.0) pg MCHC 33.8 (31.0-37.0) g/dL RDW Std Deviation 71.0 H (28.0-62.0) fl RDW Coeff of Amanda 18 H (11.0-15.0) % Plt Count 141 L (150-400) K/uL MPV 10.60 (7.40-12.00) fL Neut % (Auto) 79.0 (48.0-80.0) % Lymph % (Auto) 14.0 L (16.0-40.0) % [place] % (Auto) 6.3 (0.0-15.0) % Eos % (Auto) 0.3 (0.0-7.0) % Baso % (Auto) 0.4 (0.0-1.5) % Neut # 8.1 H (1.4-5.7) K/uL Lymph # 1.4 (0.6-2.4) K/uL [place] # 0.7 (0.0-0.8) K/uL Eos # 0.0 (0.0-0.7) K/uL Baso # 0.0 (0.0-0.1) K/uL Nucleated RBC % 0.0 /100WBC Nucleated RBCs # 0 K/uL INR (0.86-1.11) Lactate 2.3 H (0.20-2.00) mmol/L Sodium 130 L (136-146) mmol/L Potassium 3.8 (3.5-5.1) mmol/L Chloride 102 (98-110) mmol/L Carbon Dioxide 20 L (21-31) mmol/L BUN 3 L (6.0-23.0) mg/dL Creatinine 0.4 L (0.6-1.5) mg/dL Est Cr Clr Drug Dosing 184.95 mL/min Estimated GFR (MDRD) > 60.0 ml/min Glucose 59 L (60-110) mg/dL POC Glucose (60-110) mg/dL Calcium 5.8 L (8.8-10.8) mg/dL Phosphorus 1.9 L (2.4-4.7) mg/dL Magnesium 1.7 (1.5-2.3) mEq/L Total Bilirubin 3.2 H (0.1-1.5) mg/dL AST 177 H (5-40) IU/L ALT 42 (8-54) IU/L Alkaline Phosphatase 386 H (40-150) Total Protein 4.2 L (6.0-8.0) g/dL Albumin 1.4 L (3.5-5.0) g/dL Globulin 2.8 (2.0-3.5) g/dL Albumin/Globulin Ratio 0.5 L (1.3-2.8) Vitamin B12 (200-1100) PG/ML Ketones (NEG) 08/15/16 08/15/16 08/15/16 Range/Units 05:43 06:43 09:52 WBC (4.0-11.0) K/uL RBC (4.30-5.90) M/uL Hgb (12.0-16.0) g/dL Hct (36.0-46.0) % MCV (80.0-98.0) fL MCH (27.0-32.0) pg MCHC (31.0-37.0) g/dL RDW Std Deviation (28.0-62.0) fl RDW Coeff of Amanda (11.0-15.0) % Plt Count (150-400) K/uL MPV (7.40-12.00) fL Neut % (Auto) (48.0-80.0) % Lymph % (Auto) (16.0-40.0) % [place] % (Auto) (0.0-15.0) % Eos % (Auto) (0.0-7.0) % Baso % (Auto) (0.0-1.5) % Neut # (1.4-5.7) K/uL Lymph # (0.6-2.4) K/uL [place] # (0.0-0.8) K/uL Eos # (0.0-0.7) K/uL Baso # (0.0-0.1) K/uL Nucleated RBC % /100WBC Nucleated RBCs # K/uL INR (0.86-1.11) Lactate 3.7 H (0.20-2.00) mmol/L Sodium (136-146) mmol/L Potassium (3.5-5.1) mmol/L Chloride (98-110) mmol/L Carbon Dioxide (21-31) mmol/L BUN (6.0-23.0) mg/dL Creatinine (0.6-1.5) mg/dL Est Cr Clr Drug Dosing mL/min Estimated GFR (MDRD) ml/min Glucose (60-110) mg/dL POC Glucose 50 L 92 (60-110) mg/dL Calcium (8.8-10.8) mg/dL Phosphorus (2.4-4.7) mg/dL Magnesium (1.5-2.3) mEq/L Total Bilirubin (0.1-1.5) mg/dL AST (5-40) IU/L ALT (8-54) IU/L Alkaline Phosphatase (40-150) Total Protein (6.0-8.0) g/dL Albumin (3.5-5.0) g/dL Globulin (2.0-3.5) g/dL Albumin/Globulin Ratio (1.3-2.8) Vitamin B12 (200-1100) PG/ML Ketones (NEG) JANET Results - Last 24 hrs: Microbiology 08/14/16 17:58 Campylobacter Antigen Assay - Final Stool / Feces NEGATIVE CAMPYLOBACTER AG - Final NEGATIVE FOR SHIGA TOXIN 1 - Final NEGATIVE FOR SHIGA TOXIN 2 08/14/16 21:12 Influenza Type A Antigen Screen - Final Nasopharyngeal Swab - Nare, Left NEGATIVE INFLUENZA A VIRUS AG Influenza Type B Antigen Screen - Final NEGATIVE INFLUENZA B VIRUS AG 08/14/16 17:58 Clostridium difficile Toxin A&B (M) - Final Stool / Feces Negative for C.Diff Toxin/AG 08/14/16 17:58 Stool for WBCs - Final Stool / Feces POSITIVE FOR WBC'S Med Orders - Current: Current Medications Acetaminophen (Tylenol) 325 mg PO Q6H PRN PRN Reason: Pain Last Admin: 08/15/16 04:00 Dose: 325 mg Folic Acid (Folic Acid) 1 mg SUBCUT DAILY [facility] Last Admin: 08/15/16 09:15 Dose: 1 mg Sodium Chloride (Normal Saline) 1,000 mls @ 200 mls/hr IV ASDIRECTED [facility] Last Admin: 08/15/16 11:42 Dose: 200 mls/hr Piperacillin Sod/Tazobactam (Sod 3.375 gm/ Sodium Chloride) 50 mls @ 100 mls/ hr IV Q6H [facility] Last Admin: 08/15/16 15:29 Dose: 100 mls/hr Lorazepam (Ativan) 0 mg IVPUSH Q4H PRN; Protocol PRN Reason: agitation Last Admin: 08/15/16 14:28 Dose: 2 mg Omeprazole (Omeprazole) 20 mg PO ACBREAKFAST [facility] Last Admin: 08/15/16 07:35 Dose: 20 mg Ondansetron HCl (Zofran) 4 mg IVPUSH Q4H PRN PRN Reason: Nausea Sodium Chloride (Saline Flush) 10 ml FLUSH ASDIRECTED PRN PRN Reason: Keep Vein Open Sodium Chloride (Saline Flush) 2.5 ml FLUSH ASDIRECTED PRN PRN Reason: Keep Vein Open Sodium Chloride (Saline Flush) 10 ml FLUSH ASDIRECTED PRN PRN Reason: Keep Vein Open Sodium Chloride (Saline Flush) 2.5 ml FLUSH ASDIRECTED PRN PRN Reason: Keep Vein Open Thiamine HCl (Vitamin B-1) 100 mg IV DAILY [facility] Last Admin: 08/15/16 09:14 Dose: 100 mg Valproic Acid (Depakene) 500 mg PO BID [facility] Last Admin: 08/15/16 09:14 Dose: 500 mg Discontinued Medications Acetaminophen (Tylenol) 650 mg PO NOW STA Stop: 08/14/16 12:51 Last Admin: 08/14/16 12:57 Dose: 650 mg Dextrose/Water (Dextrose 50% In Water) 50 ml IVPUSH ONETIME ONE Stop: 08/15/16 05:48 Last Admin: 08/15/16 05:47 Dose: 50 ml Sodium Chloride (Normal Saline) 1,000 mls @ 999 mls/hr IV STAT ONE Stop: 08/14/16 14:52 Last Admin: 08/14/16 14:19 Dose: 999 mls/hr Sodium Chloride (Normal Saline) 1,000 mls @ 999 mls/hr IV .Bolus ONE Stop: 08/14/16 16:12 Last Admin: 08/14/16 15:39 Dose: 999 mls/hr Sodium Chloride (Normal Saline) 1,000 mls @ 999 mls/hr IV ONETIME ONE Stop: 08/14/16 20:31 Last Admin: 08/14/16 19:54 Dose: 999 mls/hr Magnesium Sulfate 4 gm/ Premix 100 mls @ 50 mls/hr IV ONETIME ONE Stop: 08/14/16 22:21 Last Admin: 08/14/16 21:01 Dose: 50 mls/hr Sodium Chloride (Normal Saline) 1,000 mls @ 999 mls/hr IV .BOLUS ONE Stop: 08/15/16 11:14 Last Admin: 08/15/16 10:15 Dose: 999 mls/hr Iopamidol (Isovue Multipack-370 (76%)) 80 ml IVPUSH ONETIME STA Stop: 08/14/16 14:16 Last Admin: 08/14/16 14:15 Dose: 80 ml Potassium Chloride (Klor-Con M20) 40 meq PO ONETIME ONE Stop: 08/15/16 10:13 Last Admin: 08/15/16 10:28 Dose: 40 meq Sodium Phosphate (Neutra-Phos) 500 mg PO ONETIME ONE Stop: 08/15/16 10:13 Last Admin: 08/15/16 10:28 Dose: 500 mg *Q Meaningful Use (DIS) - VTE *Q VTE Criteria *Q: VTE Anticoagulation Contraindications: Medical/procedure contrai - Stroke *Q Stroke Criteria *Q: - AMI *Q AMI Criteria *Q:
[2016-08-15 16:35] VITALS: BP 119/79
== END 2016-08-15 16:40 | DRG 720 ==
LOC: MW.ED 11:57 → MW.MS 16:30 → OBSVTOIN 17:29 → MW.ICU 17:58
PROVIDERS: ADMIT Internal Medicine; ATTEND Internal Medicine
DX: R65.10 Systemic inflammatory response syndrome (SIRS) of non-infectious origin without acute organ dysfunction (principal); E86.0 Dehydration; R19.7 Diarrhea, unspecified; E87.2 Acidosis; F10.10 Alcohol abuse, uncomplicated; R00.0 Tachycardia, unspecified; R53.1 Weakness; Z87.891 Personal history of nicotine dependence; Z98.84 Bariatric surgery status; Z87.820 Personal history of traumatic brain injury; Z79.899 Other long term (current) drug therapy
CPT/HCPCS: 36415; 71010; 71010-26; 74177; 74177-26; 76705; 76705-26; 80053; 80305; 81001; 82009; 82150; 82607; 82962; 83605; 83630; 83690; 83735; 84100; 84484; 84702; 85025; 85610; 87040; 87046; 87086; 87324; 87804; 87899; 93005; 96360; 96361; 99284; 99285-25; A9270-GY; G0480; J2060; J2543; J3411; J3475; J7040; J7050; J7060; Q9967

== ENCOUNTER 2016-10-03 22:58 | Emergency (ER) | payer BC ==
--- NOTE | 2016-10-03 23:35 | EDM.PDOC ---
ED HPI Trauma - General Chief Complaint: Upper Extremity Injury/Pain Stated Complaint: CUT FINGER Source: Reports: Patient History Limitations: Reports: No limitations - History of Present Illness INITIAL COMMENTS - FREE TEXT/NARRATIVE: PEDS HISTORY AND PHYSICAL: HISTORY AND PHYSICAL: History of present illness: [41-year-old female with a history of brain injury and no anticoagulants now status post avulsion of a small piece of the finger pad of her left index finger while cutting some food with a knife. He happened prior to arrival. She came to the emergency apartment because it had persistent bleeding. The bleeding is now hemostatic. She has no other complaints she still use and move the finger normally is mildly sore at the wound does not involve the fingernail. Tetanus is not up-to-date and will be updated here.] Review of systems: As per history of present illness and below otherwise all systems reviewed and negative. Past medical history: As per history of present illness and as reviewed below otherwise noncontributory. Surgical history: As per history of present illness and as reviewed below otherwise noncontributory. Social history: No reported history of drug or alcohol abuse. Family history: As per history of present illness and as reviewed below otherwise noncontributory. Physical exam: 0.5 cm x 0.75 cm superficial avulsion extreme distal aspect of left index finger. Pad only no nail or nailbed involvement. No bony exposure. Missing piece from Avulsion is approximately 2 mm thick. No gross contamination HEENT: Normocephalic, atraumatic, pupils normal and symmetrical, supple neck, no meningismus, normal color Lungs: Normal and symmetrical chest wall excursion bilateral with no tachypnea or increased work of breathing, grossly normal chest exam Heart: No tachycardia in triage Abdomen: Normal-appearing, nondistended, no visible mass or asymmetry Pelvis: Normal-appearing Genitourinary: Deferred Rectal exam: Deferred Extremities: Atraumatic, normal use and range of motion, no visible evidence of gross neurovascular compromise Neuro: Awake, alert, oriented. Normal and appropriate mental status. Cranial nerves grossly unremarkable. Motor function normal. Nonfocal neurologic exam. Diagnostics: [] Therapeutics: [TdAP given] Impression: [Avulsion left index finger] Tetanus administration Plan: [Small avulsion uncomplicated no further workup or treatment indicated tetanus given followup PCP for wound check return for signs of] Definitive disposition and diagnosis as appropriate pending reevaluation and review of above. Allergies/ADRs: Allergies No Known Allergies Allergy (Verified 10/03/16 23:02) unalbe to verify with patient Home Medications: Ambulatory Orders Ibuprofen 2 tab PO ASDIRECTED PRN 04/24/15 [Confirmed 04/25/15] Omeprazole [priLOSEC OTC] 20 mg PO DAILY 04/24/15 [Confirmed 08/14/16] Albuterol Sulfate [Proair Respiclick] 2 puff INH Q4H PRN 08/14/16 [Confirmed ] Calcium Carbonate/Vitamin D3 [Calcium 500 mg Chewable Tablet] 500 mg PO BID [Confirmed 08/14/16] Cholecalciferol (Vitamin D3) [D3 Dots] 5,000 units PO DAILY 08/14/16 [Confirmed 08/14/16] Cyanocobalamin (Vitamin B12) [Vitamin B12] 1,000 mcg PO DAILY 08/14/16 [ Confirmed 08/14/16] Diclofenac Sodium [Voltaren] 1 applic TOP QID PRN 08/14/16 [Confirmed 08/14/16] Hydrocodone/Acetaminophen [Hydrocodon-Acetaminophn 10-325] 5 - 325 mg PO ASDIRECTED PRN 08/14/16 [Confirmed 08/14/16] Magnesium Oxide 08/14/16 Mometasone Furoate [Nasonex] 2 spray INH DAILY PRN 08/14/16 [Confirmed 08/14/16] Multivitamin [Multivitamins] 1 tab DAILY 08/14/16 [Confirmed 08/14/16] Multivitamin-Minerals No.55 [Centrum Flavor Burst Adult] 1 tab PO DAILY [Confirmed 08/14/16] Ondansetron [Ondansetron Odt] 4 mg PO TID PRN 08/14/16 [Confirmed 08/14/16] SUMAtriptan [Imitrex] 25 mg PO DAILY PRN 08/14/16 [Confirmed 08/14/16] Valproic Acid 500 mg PO BID 08/14/16 [Confirmed 08/14/16] Vit B12/Intrins Fact/Fa Cmb #2 [Intrinsi [id number]] 1,000 mcg SL DAILY [Confirmed 08/14/16] Vitamin D3/Vitamin K2 [D3 + K2 Dots 1,000 Unit] 5,000 units PO DAILY 08/14/16 [ Confirmed 08/14/16] Past Medical History - Past Health History Medical/Surgical History: Denies Medical/Surgical History HEENT History: Reports: Head Other HEENT History: had a traumatic brain injury 3 months ago Cardiovascular History: Reports: None Other Respiratory History: Reports 5 yr history of smoking when quite young, quit 10-11 yrs, re-started 5 yrs ago current use 1 - 1 1/2 packs/day Other Gastrointestinal History: hx: Ulcers, experience abdominal pain from time to time Other OB/BYN History: LMP 1 month ago Other Musculoskeletal History: had low bulging discs, now degenerative disc disease, chronic low back pain - Infectious Disease History Infectious Disease History: Reports: Other (see below) Other Infectious Disease History: unknown - Past Surgical History Other GI Surgeries/Procedures: "gastric bypass" Other Musculoskeletal Surgeries/Procedures:: surgery on same hand 1 week ago Social & Family History - Tobacco Use Smoking Status *Q: Current Every Day Smoker Years of Tobacco use: 10 Packs/Tins Daily: 1.5 Second Hand Smoke Exposure: Yes - Caffeine Use Caffeine Use: Reports: Coffee, Soda - Alcohol Use Days Per Week of Alcohol Use: 7 Number of Drinks Per Day: 1 Total Drinks Per Week: 7 - Recreational Drug Use Recreational Drug Use: No Drug Use in Last 12 Months: No Review of Systems - Review of Systems Review Of Systems: See Below (History of present illness) Trauma Exam - Physical Exam Exam: See Below (History of present illness) Course - Vital Signs Last Recorded V/S: Last Vital Signs Temp 36.5 C 10/03/16 23:03 Pulse 80 10/03/16 23:03 Resp 16 10/03/16 23:03 BP 101/60 10/03/16 23:03 Pulse Ox 98 10/03/16 23:03 - Orders/Labs/Meds Orders: Active Orders 24 hr Category Date Time Status Vaccines to be Administered [RC] PER UNIT ROUTINE Care 10/04/16 00:04 Active Meds: Medications Discontinued Medications Generic Name Dose Route Start Last Admin Trade Name Freq PRN Reason Stop Dose Admin Bacitracin 1 dose 10/04/16 00:03 Bacitracin Oint 1 Gm TOP 10/04/16 00:04 ONETIME ONE Diphtheria/Tetanus/Acell Pertussis 0.5 ml 10/04/16 00:04 Adacel IM 10/04/16 00:05 .ONCE ONE Departure - Departure Time of Disposition: 00:08 Disposition: Home, Self-Care 01 Condition: good Clinical Impression: Fingertip avulsion, Tetanus-diphtheria vaccination administered at current visit Referrals: Tawnya Hastings DO [Primary Care Provider] - Forms: ED Department Discharge Additional Instructions: You have a fingertip avulsion. Case a small piece of your fingertip is missing. Apply anabolic ointment and keep it covered while healing. Watch for supper water pat dry and apply ointment as needed. Followup PCP for recheck. Return for signs of infection. Your tetanus has been updated today and they'll be good for 5 years and also includes pertussis (whooping cough )vaccination - My Orders Last 24 Hours: My Active Orders 10/04/16 00:04 Vaccines to be Administered [RC] PER UNIT ROUTINE - Assessment/Plan Last 24 Hours: My Active Orders 10/04/16 00:04 Vaccines to be Administered [RC] PER UNIT ROUTINE
[2016-10-04] MEDS ORDERED: Bacitracin Oint 1 GM U/D Packet TOP ONE (00:03)
[2016-10-04] MEDS ORDERED: Diphtheria,Pertussis(Acell),Tetanus Vaccine 0.5 ML Syringe IM ONE (00:04)
[2016-10-04 01:44] VITALS: BP 105/60
== END 2016-10-04 00:16 | disposition home or self-care (01) ==
LOC: MW.ED 22:58
DX: S61.201A Unspecified open wound of left index finger without damage to nail, initial encounter (principal); F17.210 Nicotine dependence, cigarettes, uncomplicated; Z98.84 Bariatric surgery status; Z79.899 Other long term (current) drug therapy; Z23 Encounter for immunization; Z98.890 Other specified postprocedural states; W26.0XXA Contact with knife, initial encounter; Y93.G3 Activity, cooking and baking
CPT/HCPCS: 90715; 96372; 99282; 99283-25

== ENCOUNTER 2017-02-07 17:50 | Inpatient (IN) | payer BC ==
[2017-02-08] MEDS ORDERED: Sodium Chloride 0.9% 1,000 ML IV ONE (10:36)
[2017-02-08] MEDS ORDERED: Sodium Chloride 0.9% 2.5 ML Syringe FLUSH PRN (10:36)
[2017-02-08] MEDS ORDERED: Sodium Chloride 0.9% 10 ML Syringe FLUSH PRN (10:36)
--- NOTE | 2017-02-08 10:46 | EDM.PDOC ---
ED HPI GENERAL MEDICAL PROBLEM - General Stated Complaint: AMS Time Seen by Provider: 02/08/17 10:36 - History of Present Illness INITIAL COMMENTS - FREE TEXT/NARRATIVE: HISTORY AND PHYSICAL: History of present illness: The patient is a 41-year-old female with a history of chronic back pain for which she takes tramadol and gabapentin and follows at [facility] with ; she represents today via EMS for inability to arouse/altered mental status for which she was seen yesterday in our ER. Please see my note from yesterday but the patient was seen and admitted for altered mental status of unclear etiology. 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 She was on Depakote for seizures while she was drinking and she stopped that when she stopped assuming alcohol. She was recently restarted on that 4-5 days ago by her provider for depression and possible bipolar disorder. The patient has not seen a psychiatrist. The patient's continues to smoke cigarettes and her family member had just recently refilled her medications and declined that she had taken an overdose yesterday as all the pills were present. The patient had a full workup yesterday and was admitted to our hospitalist and at sometime early this morning she became more awake and wanted to leave and her family member signed her out AMA. According to the report from EMS she was confused when she went home and thought she was in [place] but she went to sleep and at some point in the evening got up and had a fall. The family thought that her right ankle looks swollen and they placed an Jp bandage on it. This morning they were unable to arouse her and when they were able to communicate with her they felt she was more confused than when she was leaving the hospital yesterday. The patient again does not offer any information to me about this history as she is arousable to voice and painful stimuli and follows simple commands here in the ED but is nonverbal. Please review my note from yesterday discussing and at least 4 day history of "nodding off" where she puts her chin to chest and is not responding and then her waking up and her increased somnolence over the last 4 days. Also see my note for the description of the twitching of the hands and the concern by family members yesterday that she might be having seizures. Both yesterday and today she presented without any loss of bowel or bladder and no tongue trauma. Review of systems: As per history of present illness and below otherwise all systems reviewed and negative. Past medical history: As per history of present illness and as reviewed below otherwise noncontributory. Surgical history: As per history of present illness and as reviewed below otherwise noncontributory. Social history: No reported history of drug or alcohol abuse. Family history: As per history of present illness and as reviewed below otherwise noncontributory. Physical exam: General: Well-developed well-nourished female who is nontoxic and maintaining her airway. She is arousable to voice and stimulation and can follow simple commands. Vital signs of the note by me HEENT: Atraumatic, normocephalic, pupils reactive and midrange, negative for conjunctival pallor or scleral icterus, mucous membranes moist, throat clear, neck supple, nontender, trachea midline.There is no evidence of any facial swelling defects or deformities and there is no scalp tenderness or deformities. There are no midline step-offs or deformities of the cervical spine appreciated Lungs: Clear to auscultation but very poor effort and diminished breath sounds in the bases, breath sounds equal bilaterally, chest nontender.Her no palpable deformities of the chest wall, no ecchymosis or erythema and no crepitus Heart: S1S2, regular, negative for clicks, rubs, or JVD. Abdomen: Soft, nondistended, nontender. Negative for masses or hepatosplenomegaly. Negative for costovertebral tenderness. Pelvis: Stable nontender.No lateral hip tenderness Genitourinary: Deferred. Rectal: Deferred. Extremities: Atraumatic with full range of motion passively with the exception of the right lateral ankle where there is some soft tissue swelling and an Jp was on at least by the family on arrival which was removed by us, there is no ecchymosis or erythema no palpable bony deformities and the pulses are intact. The legs are, negative for cords .Neurovascular unremarkable. Neuro: Arousable to voice and painful stimuli which is improved from yesterday' s ER visit. Motor and sensory unremarkable throughout. Exam nonfocal. Back: There are no midline step-offs or deformities of the thoracic or lumbar spine no posterior rib deformities crepitus and no visible evidence of any soft tissue injuries such as abrasion ecchymosis or erythema. Skin: Normal turgor no evidence of any diaphoresis and no evidence of any rashes or lesions Diagnostics: EKG CBC CMP EtOH level troponin ammonia UDS CT scan of the head Patient had a portable chest x-ray, TSH, prolactin, UCG UA UDS valproic acid ( which was 34.6) as well as an ABG yesterday in either her ER for hospitalization stay. Those have been reviewed and will not be repeated. Therapeutics: IV O2 monitor IV fluids air cast to ankle 1245: Case was discussed with the family member at bedside as well as our hospitalist Dr. Fan. We will admit again for observation and further intervention with neurology tomorrow and further monitoring Impression: #1 altered mental status etiology unclear #2 right ankle sprain #3 history of trauma to brain bleed, alcohol abuse Definitive disposition and diagnosis as appropriate pending reevaluation and review of above. - Related Data Allergies Allergy/AdvReac Type Severity Reaction Status Date / Time No Known Allergies Allergy Verified 02/07/17 17:58 Home Meds: Home Meds Ibuprofen 2 tab PO ASDIRECTED PRN 04/24/15 [History] Omeprazole [priLOSEC OTC] 20 mg PO DAILY 04/24/15 [History] Albuterol Sulfate [Proair Respiclick] 2 puff INH Q4H PRN 08/14/16 [History] Calcium Carbonate/Vitamin D3 [Calcium 500 mg Chewable Tablet] 500 mg PO BID [History] Cholecalciferol (Vitamin D3) [D3 Dots] 5,000 units PO DAILY 08/14/16 [History] Cyanocobalamin (Vitamin B12) [Vitamin B12] 1,000 mcg PO DAILY 08/14/16 [History] Diclofenac Sodium [Voltaren] 1 applic TOP QID PRN 08/14/16 [History] Hydrocodone/Acetaminophen [Hydrocodon-Acetaminophn 10-325] 5 - 325 mg PO ASDIRECTED PRN 08/14/16 [History] Magnesium Oxide 08/14/16 [History] Mometasone Furoate [Nasonex] 2 spray INH DAILY PRN 08/14/16 [History] Multivitamin [Multivitamins] 1 tab DAILY 08/14/16 [History] Multivitamin-Minerals No.55 [Centrum Flavor Burst Adult] 1 tab PO DAILY [History] Ondansetron [Ondansetron Odt] 4 mg PO TID PRN 08/14/16 [History] SUMAtriptan [Imitrex] 25 mg PO DAILY PRN 08/14/16 [History] Valproic Acid 250 mg PO TID 08/14/16 [History] Vit B12/Intrins Fact/Fa Cmb #2 [Intrinsi Z13-Syulfw] 1,000 mcg SL DAILY [History] Vitamin D3/Vitamin K2 [D3 + K2 Dots 1,000 Unit] 5,000 units PO DAILY 08/14/16 [ History] Baclofen 20 mg PO TID PRN 02/07/17 [History] Gabapentin [Neurontin] 1 cap PO TID 02/07/17 [History] Cyanocobalamin (Vitamin B-12) [Cyanocobalamin Injection] 1 ml IM WEEKLY [History] Folic Acid 1 mg PO DAILY 02/08/17 [History] Methocarbamol 750 mg PO TID PRN 02/08/17 [History] Rizatriptan Benzoate [Rizatriptan] 1 tab PO Q2HR PRN MDD 2 doses 02/08/17 [ History] Spironolactone [Aldactone] 1 tab PO BID 02/08/17 [History] Venlafaxine HCl [Venlafaxine HCl ER] 75 mg PO DAILY 02/08/17 [History] Past Medical History - Past Health History Medical/Surgical History: Denies Medical/Surgical History HEENT History: Reports: Head Other HEENT History: had a traumatic brain injury June 2016 Cardiovascular History: Reports: None Respiratory History: Reports: Other (See Below) Other Respiratory History: Reports 5 yr history of smoking when quite young, quit 10-11 yrs, re-started 5 yrs ago current use 1 - 1 1/2 packs/day Gastrointestinal History: Reports: Hepatitis Other Gastrointestinal History: hx: Ulcers, experience abdominal pain from time to time VETERINARIAN History: Reports: Other OB/BYN History: LMP 1 month ago Musculoskeletal History: Reports: Other (See Below) Other Musculoskeletal History: had low bulging discs, now degenerative disc disease, chronic low back pain Neurological History: Reports: Brain Injury, Seizure Psychiatric History: Reports: Depression, PTSD Hematologic History: Reports: None Immunologic History: Reports: None Oncologic (Cancer) History: Reports: None - Infectious Disease History Infectious Disease History: Reports: Other (See Below) Other Infectious Disease History: unknown - Past Surgical History GI Surgical History: Reports: Bariatric Procedure Other GI Surgeries/Procedures: "gastric bypass" Musculoskeletal Surgical History: Reports: Other (See Below) Other Musculoskeletal Surgeries/Procedures:: surgery on hand X 2 in 2015 Social & Family History - Family History Family Medical History: Noncontributory - Tobacco Use Smoking Status *Q: Current Every Day Smoker Years of Tobacco use: 10 Packs/Tins Daily: 1.5 Second Hand Smoke Exposure: Yes - Caffeine Use Caffeine Use: Reports: Coffee, Soda - Alcohol Use Days Per Week of Alcohol Use: 7 Number of Drinks Per Day: 1 Total Drinks Per Week: 7 - Recreational Drug Use Recreational Drug Use: No Drug Use in Last 12 Months: No ED ROS GENERAL - Review of Systems Review Of Systems: ROS reveals no pertinent complaints other than HPI. ED EXAM, GENERAL - Physical Exam Exam: See Below (see dictation) Course - Vital Signs Last Recorded V/S: Last Vital Signs Temp 36.3 C 02/08/17 10:44 Pulse 75 02/08/17 10:44 Resp 16 02/08/17 12:00 BP 117/71 02/08/17 12:00 Pulse Ox 95 02/08/17 12:00 - Orders/Labs/Meds Orders: Active Orders 24 hr Category Date Time Status Patient Status [ADT] Stat ADT 02/08/17 12:49 Ordered Cardiac Monitoring [RC] . DIRECTED Care 02/08/17 10:37 Active EKG Documentation Completion [RC] STAT Care 02/08/17 10:37 Active Oxygen Therapy, ED [RC] ASDIRECTED Care 02/08/17 10:37 Active Pulse Oximetry [RC] ASDIRECTED Care 02/08/17 10:37 Active Ankle Min 3V Rt [CR] Stat Exams 02/08/17 10:36 Taken Head wo Cont [CT] Stat Exams 02/08/17 10:38 Taken BLOOD GAS ARTERIAL [BG] Stat Lab 02/08/17 12:05 Ordered Sodium Chloride 0.9% [Saline Flush] Med 02/08/17 10:36 Active 10 ml FLUSH ASDIRECTED PRN Sodium Chloride 0.9% [Saline Flush] Med 02/08/17 10:36 Active 2.5 ml FLUSH ASDIRECTED PRN DME for Discharge [COMM] Stat Ot 02/08/17 11:54 Ordered Saline Lock Insert [OM.PC] Stat Ot 02/08/17 10:37 Ordered Medication Orders Sodium Chloride (Saline Flush) 10 ml FLUSH ASDIRECTED PRN PRN Reason: Keep Vein Open Sodium Chloride (Saline Flush) 2.5 ml FLUSH ASDIRECTED PRN PRN Reason: Keep Vein Open Labs: Laboratory Tests 02/08/17 02/08/17 02/08/17 Range/Units 11:00 11:00 11:00 WBC 7.80 (4.0-11.0) K/uL RBC 4.97 (4.30-5.90) M/uL Hgb 14.1 (12.0-16.0) g/dL Hct 43.1 (36.0-46.0) % MCV 86.7 (80.0-98.0) fL MCH 28.4 (27.0-32.0) pg MCHC 32.7 (31.0-37.0) g/dL RDW Std Deviation 59.1 (28.0-62.0) fl RDW Coeff of Amanda 19 H (11.0-15.0) % Plt Count 230 (150-400) K/uL MPV 10.60 (7.40-12.00) fL Neut % (Auto) 71.2 (48.0-80.0) % Lymph % (Auto) 19.6 (16.0-40.0) % [place] % (Auto) 7.9 (0.0-15.0) % Eos % (Auto) 1.0 (0.0-7.0) % Baso % (Auto) 0.3 (0.0-1.5) % Neut # (Auto) 5.6 (1.4-5.7) K/uL Lymph # (Auto) 1.5 (0.6-2.4) K/uL [place] # (Auto) 0.6 (0.0-0.8) K/uL Eos # (Auto) 0.1 (0.0-0.7) K/uL Baso # (Auto) 0.0 (0.0-0.1) K/uL Nucleated RBC % 0.0 /100WBC Nucleated RBCs # 0 K/uL Sodium 142 (136-146) mmol/L Potassium 3.9 (3.5-5.1) mmol/L Chloride 110 (98-110) mmol/L Carbon Dioxide 25 (21-31) mmol/L BUN 7 (6.0-23.0) mg/dL Creatinine 0.7 (0.6-1.5) mg/dL Est Cr Clr Drug Dosing TNP Estimated GFR (MDRD) > 60.0 ml/min Glucose 94 (60-110) mg/dL Calcium 8.5 L (8.8-10.8) mg/dL Total Bilirubin 0.3 (0.1-1.5) mg/dL AST 18 (5-40) IU/L ALT 11 (8-54) IU/L Alkaline Phosphatase 97 (40-150) Ammonia (14-68) UG/DL Troponin I < 0.10 (0.0-0.29) NG/ML Total Protein 6.2 (6.0-8.0) g/dL Albumin 3.2 L (3.5-5.0) g/dL Globulin 3.0 (2.0-3.5) g/dL Albumin/Globulin Ratio 1.1 L (1.3-2.8) Urine Opiates Screen (NEGATIVE) Ur Oxycodone Screen (NEGATIVE) Urine Methadone Screen (NEGATIVE) Ur Barbiturates Screen (NEGATIVE) Ur Phencyclidine Scrn (NEGATIVE) Ur Amphetamine Screen (NEGATIVE) U Methamphetamines Scrn (NEGATIVE) U Benzodiazepines Scrn (NEGATIVE) U Cocaine Metab Screen (NEGATIVE) U Marijuana (THC) Screen (NEGATIVE) Ethyl Alcohol < 10.0 mg/dL 02/08/17 02/08/17 Range/Units 11:00 12:05 WBC (4.0-11.0) K/uL RBC (4.30-5.90) M/uL Hgb (12.0-16.0) g/dL Hct (36.0-46.0) % MCV (80.0-98.0) fL MCH (27.0-32.0) pg MCHC (31.0-37.0) g/dL RDW Std Deviation (28.0-62.0) fl RDW Coeff of Amanda (11.0-15.0) % Plt Count (150-400) K/uL MPV (7.40-12.00) fL Neut % (Auto) (48.0-80.0) % Lymph % (Auto) (16.0-40.0) % [place] % (Auto) (0.0-15.0) % Eos % (Auto) (0.0-7.0) % Baso % (Auto) (0.0-1.5) % Neut # (Auto) (1.4-5.7) K/uL Lymph # (Auto) (0.6-2.4) K/uL [place] # (Auto) (0.0-0.8) K/uL Eos # (Auto) (0.0-0.7) K/uL Baso # (Auto) (0.0-0.1) K/uL Nucleated RBC % /100WBC Nucleated RBCs # K/uL Sodium (136-146) mmol/L Potassium (3.5-5.1) mmol/L Chloride (98-110) mmol/L Carbon Dioxide (21-31) mmol/L BUN (6.0-23.0) mg/dL Creatinine (0.6-1.5) mg/dL Est Cr Clr Drug Dosing Estimated GFR (MDRD) ml/min Glucose (60-110) mg/dL Calcium (8.8-10.8) mg/dL Total Bilirubin (0.1-1.5) mg/dL AST (5-40) IU/L ALT (8-54) IU/L Alkaline Phosphatase (40-150) Ammonia 58 (14-68) UG/DL Troponin I (0.0-0.29) NG/ML Total Protein (6.0-8.0) g/dL Albumin (3.5-5.0) g/dL Globulin (2.0-3.5) g/dL Albumin/Globulin Ratio (1.3-2.8) Urine Opiates Screen NEGATIVE (NEGATIVE) Ur Oxycodone Screen NEGATIVE (NEGATIVE) Urine Methadone Screen NEGATIVE (NEGATIVE) Ur Barbiturates Screen NEGATIVE (NEGATIVE) Ur Phencyclidine Scrn NEGATIVE (NEGATIVE) Ur Amphetamine Screen NEGATIVE (NEGATIVE) U Methamphetamines Scrn NEGATIVE (NEGATIVE) U Benzodiazepines Scrn NEGATIVE (NEGATIVE) U Cocaine Metab Screen NEGATIVE (NEGATIVE) U Marijuana (THC) Screen NEGATIVE (NEGATIVE) Ethyl Alcohol mg/dL Meds: Medications Generic Name Dose Route Start Last Admin Trade Name Alex PRN Reason Stop Dose Admin Sodium Chloride 10 ml 02/08/17 10:36 Saline Flush FLUSH ASDIRECTED PRN Keep Vein Open Sodium Chloride 2.5 ml 02/08/17 10:36 Saline Flush FLUSH ASDIRECTED PRN Keep Vein Open Discontinued Medications Generic Name Dose Route Start Last Admin Trade Name Alex PRN Reason Stop Dose Admin Sodium Chloride 1,000 mls @ 999 mls/hr 02/08/17 10:36 02/08/17 10:40 Normal Saline IV 02/08/17 11:36 999 mls/hr STAT ONE Administration Departure - Departure Time of Disposition: 12:51 Disposition: Admitted As Inpatient 68 Condition: Good Clinical Impression: Altered mental status Qualifiers: Altered mental status type: unspecified Qualified Code(s): R41.82 - Altered mental status, unspecified - Discharge Information Referrals: PCP,Unknown [Primary Care Provider] - - My Orders Last 24 Hours: My Active Orders 02/08/17 10:36 Ankle Min 3V Rt [CR] Stat Sodium Chloride 0.9% [Saline Flush] 10 ml FLUSH ASDIRECTED PRN Sodium Chloride 0.9% [Saline Flush] 2.5 ml FLUSH ASDIRECTED PRN 02/08/17 10:37 Cardiac Monitoring [RC] . DIRECTED EKG Documentation Completion [RC] STAT Oxygen Therapy, ED [RC] ASDIRECTED Pulse Oximetry [RC] ASDIRECTED Saline Lock Insert [OM.PC] Stat 02/08/17 10:38 Head wo Cont [CT] Stat 02/08/17 11:54 DME for Discharge [COMM] Stat 02/08/17 12:05 BLOOD GAS ARTERIAL [BG] Stat 02/08/17 12:49 Patient Status [ADT] Stat - Assessment/Plan Last 24 Hours: My Active Orders 02/08/17 10:36 Ankle Min 3V Rt [CR] Stat Sodium Chloride 0.9% [Saline Flush] 10 ml FLUSH ASDIRECTED PRN Sodium Chloride 0.9% [Saline Flush] 2.5 ml FLUSH ASDIRECTED PRN 02/08/17 10:37 Cardiac Monitoring [RC] . DIRECTED EKG Documentation Completion [RC] STAT Oxygen Therapy, ED [RC] ASDIRECTED Pulse Oximetry [RC] ASDIRECTED Saline Lock Insert [OM.PC] Stat 02/08/17 10:38 Head wo Cont [CT] Stat 02/08/17 11:54 DME for Discharge [COMM] Stat 02/08/17 12:05 BLOOD GAS ARTERIAL [BG] Stat 02/08/17 12:49 Patient Status [ADT] Stat
[2017-02-08 11:30] LABS: CHLORIDE,CL 110 mmol/L (98-110); SODIUM,NA 142 mmol/L (136-146)
--- NOTE | 2017-02-08 13:37 | PCM.HP ---
H&P History of Present Illness - General Date of Service: 02/08/17 Admit Problem/Dx: Admission Diagnosis/Problem Admission Diagnosis/Problem Altered mental status Source of Information: Patient, Family, Old Records History Limitations: Reports: Altered Mental Status - History of Present Illness Initial Comments - Free Text/Narative: The patient is a 41-year-old lady who is brought to the emergency department today out of concern for altered mental status. She was brought in by EMS. The patient's aunt is with her today. The patient also does not spontaneously open her eyes or grimace. The patient is not able to participate in any meaningful way in her history of physical therefore information has been taken from her previous charting and her family member. 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 The patient had been getting progressively worse over the past several days and prior to presentation the patient was completely obtunded and not able to be aroused. It was also thought that she had some twitching that might of been secondary to seizure activity. The patient did not have any loss of bowel or bladder control and when the patient was catheterized in the emergency room greater than 1 L of urine was obtained. It's unknown if the patient had overdosed on any of her medications or what medication that she might have a reaction to. The patient's adult family members says that she has been diligent with her medications. The records indicate the patient also had been restarted on Depakote 4-5 days prior to presentation. The patient also yesterday evening had recovered somewhat and left AGAINST MEDICAL ADVICE. There was a good deal of confusion between her and the patient and it was noted that the patient had signed her name has "LOVE". Upon returning home the patient thought that she was in [place] and still remained very confused. Physical examination today is unchanged although, the patient will arouse with some difficulty and she is oriented but appears to be confused and delays her answers. The patient has denied any pain and she does not seem to be able to give a good accounting of possibly what happened to her. She keeps repeating that she is abnormally tired. Onset of Symptoms: Reports: Unknown/Unsure Improves with: Reports: None Worsens with: Reports: None - Related Data Allergies/Adverse Reactions: Allergies Allergy/AdvReac Type Severity Reaction Status Date / Time No Known Allergies Allergy Verified 02/07/17 17:58 Home Medications: Home Meds Ibuprofen 2 tab PO ASDIRECTED PRN 04/24/15 [History] Omeprazole [priLOSEC OTC] 20 mg PO DAILY 04/24/15 [History] Albuterol Sulfate [Proair Respiclick] 2 puff INH Q4H PRN 08/14/16 [History] Calcium Carbonate/Vitamin D3 [Calcium 500 mg Chewable Tablet] 500 mg PO BID [History] Cholecalciferol (Vitamin D3) [D3 Dots] 5,000 units PO DAILY 08/14/16 [History] Cyanocobalamin (Vitamin B12) [Vitamin B12] 1,000 mcg PO DAILY 08/14/16 [History] Diclofenac Sodium [Voltaren] 1 applic TOP QID PRN 08/14/16 [History] Hydrocodone/Acetaminophen [Hydrocodon-Acetaminophn 10-325] 5 - 325 mg PO ASDIRECTED PRN 08/14/16 [History] Magnesium Oxide 08/14/16 [History] Mometasone Furoate [Nasonex] 2 spray INH DAILY PRN 08/14/16 [History] Multivitamin [Multivitamins] 1 tab DAILY 08/14/16 [History] Multivitamin-Minerals No.55 [Centrum Flavor Burst Adult] 1 tab PO DAILY [History] Ondansetron [Ondansetron Odt] 4 mg PO TID PRN 08/14/16 [History] SUMAtriptan [Imitrex] 25 mg PO DAILY PRN 08/14/16 [History] Valproic Acid 250 mg PO TID 08/14/16 [History] Vit B12/Intrins Fact/Fa Cmb #2 [Intrinsi [id number]] 1,000 mcg SL DAILY [History] Vitamin D3/Vitamin K2 [D3 + K2 Dots 1,000 Unit] 5,000 units PO DAILY 08/14/16 [ History] Baclofen 20 mg PO TID PRN 02/07/17 [History] Gabapentin [Neurontin] 1 cap PO TID 02/07/17 [History] Cyanocobalamin (Vitamin B-12) [Cyanocobalamin Injection] 1 ml IM WEEKLY [History] Folic Acid 1 mg PO DAILY 02/08/17 [History] Methocarbamol 750 mg PO TID PRN 02/08/17 [History] Rizatriptan Benzoate [Rizatriptan] 1 tab PO Q2HR PRN MDD 2 doses 02/08/17 [ History] Spironolactone [Aldactone] 1 tab PO BID 02/08/17 [History] Venlafaxine HCl [Venlafaxine HCl ER] 75 mg PO DAILY 02/08/17 [History] Past Medical History - Past Health History Medical/Surgical History: Denies Medical/Surgical History HEENT History: Reports: Head Other HEENT History: had a traumatic brain injury June 2016 Cardiovascular History: Reports: None Respiratory History: Reports: Other (See Below) Other Respiratory History: Reports 5 yr history of smoking when quite young, quit 10-11 yrs, re-started 5 yrs ago current use 1 - 1 1/2 packs/day Gastrointestinal History: Reports: Hepatitis Other Gastrointestinal History: hx: Ulcers, experience abdominal pain from time to time [employer] History: Reports: Other OB/BYN History: LMP 1 month ago Musculoskeletal History: Reports: Other (See Below) Other Musculoskeletal History: had low bulging discs, now degenerative disc disease, chronic low back pain Neurological History: Reports: Brain Injury, Seizure Psychiatric History: Reports: Depression, PTSD Hematologic History: Reports: None Immunologic History: Reports: None Oncologic (Cancer) History: Reports: None - Infectious Disease History Infectious Disease History: Reports: Other (See Below) Other Infectious Disease History: unknown - Past Surgical History GI Surgical History: Reports: Bariatric Procedure Other GI Surgeries/Procedures: "gastric bypass" Musculoskeletal Surgical History: Reports: Other (See Below) Other Musculoskeletal Surgeries/Procedures:: surgery on hand X 2 in 2014 Social & Family History - Family History Family Medical History: Noncontributory - Tobacco Use Smoking Status *Q: Current Every Day Smoker Years of Tobacco use: 10 Packs/Tins Daily: 1.5 Second Hand Smoke Exposure: Yes - Caffeine Use Caffeine Use: Reports: Coffee, Soda - Alcohol Use Days Per Week of Alcohol Use: 7 Number of Drinks Per Day: 1 Total Drinks Per Week: 7 - Recreational Drug Use Recreational Drug Use: No Drug Use in Last 12 Months: No H&P Review of Systems - Review of Systems: Review Of Systems: See Below Free Text/Narrative: Not reliable secondary to the patient's altered mental status although she is able to tell me her location, date and time and her full name. Exam - Exam Exam: See Below - Vital Signs Vital Signs: Last Vital Signs Temp 36.3 C 02/08/17 10:44 Pulse 68 02/08/17 13:09 Resp 14 02/08/17 13:09 BP 127/85 02/08/17 13:09 Pulse Ox 100 02/08/17 13:09 Weight: 88.4 kg - Exam Quality Assessment: No: Supplemental Oxygen General: Oriented, Lethargic. No: Alert HEENT: EACs Clear, Nares Patent. No: Mucosa Moist & [place] (Dry) Neck: Supple Lungs: Clear to Auscultation Cardiovascular: Regular Rate, Regular Rhythm GI/Abdominal Exam: Soft, Non-Tender, No Distention Back Exam: Decreased Range of Motion Extremities: No Pedal Edema Skin: Warm, Dry Neuro Extensive - Mental Status: Oriented x3. No: Alert Psychiatric: Normal Affect, Normal Mood. No: Alert - Patient Data Result Diagrams: 02/08/17 11:00 02/08/17 11:00 *Q Meaningful Use (ADM) - VTE *Q VTE Criteria *Q: VTE Mechanical Contraindications *Q: At Risk for Falls VTE Pharmacological Contraindications *Q: Risk of Bleeding - Stroke *Q Stroke Criteria *Q: - AMI *Q AMI Criteria *Q: - Problem List (1) Altered mental status SNOMED Code(s): 355866652 ICD Code: R41.82 - ALTERED MENTAL STATUS, UNSPECIFIED Status: Acute Priority: High Current Visit: Yes Qualifiers: Altered mental status type: disorientation Qualified Code(s): R41.0 - Disorientation, unspecified (2) History of seizure SNOMED Code(s): 121902249 ICD Code: Z87.898 - PERSONAL HISTORY OF OTHER SPECIFIED CONDITIONS Status: Chronic Priority: High Current Visit: Yes (3) History of fracture of skull SNOMED Code(s): 783315959 ICD Code: Z87.81 - PERSONAL HISTORY OF (HEALED) TRAUMATIC FRACTURE Status: Chronic Priority: High Current Visit: Yes (4) Hyperammonemia SNOMED Code(s): 1689022 ICD Code: 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, UNSPECIFIED Status: Chronic Priority: Medium Current Visit: No Onset Date: ~02/07/17 Problem Details: 83 mcg/dL Problem List Initiated/Reviewed/Updated: Yes Orders Last 24hrs: Active Orders 24 hr Category Date Time Status Patient Status [ADT] Routine ADT 02/08/17 13:25 Active Notify Provider Consults [RC] ASDIRECTED Care 02/08/17 13:31 Active Oxygen Therapy [RC] PRN Care 02/08/17 13:25 Active Up With Assistance [RC] ASDIRECTED Care 02/08/17 13:25 Active VTE/DVT Education [RC] PER UNIT ROUTINE Care 02/08/17 13:25 Active Vital Signs [RC] Q4H Care 02/08/17 13:25 Active Consult to Physician [CONS] Routine Cons 02/08/17 13:25 Active Clear Liquid Diet [DIET] Diet 02/08/17 Dinner Active MRA Head Without Contrast [Ang Head wo Cont] [MR] Exams 02/08/17 13:35 Ordered Routine CBC WITH AUTO DIFF [HEME] AM Lab 02/09/17 05:11 Ordered COMPREHENSIVE METABOLIC PN,CMP [CHEM] AM Lab 02/09/17 05:11 Ordered MAGNESIUM [CHEM] AM Lab 02/09/17 05:11 Ordered PHOSPHORUS [CHEM] AM Lab 02/09/17 05:11 Ordered Acetaminophen [Tylenol] Med 02/08/17 13:25 Ordered 650 mg PO Q4H PRN Nicotine [Habitrol] Med 02/09/17 09:00 Ordered 21 mg TRDERM DAILY Sodium Chloride 0.9% [Normal Saline] 1,000 ml Med 02/08/17 13:30 Ordered IV ASDIRECTED VTE Mechanical Contraindications [AST] Per Unit Routine Oth 02/08/17 13:25 Ordered VTE Pharmacological Contraindications [AST] Per Unit Oth 02/08/17 13:25 Ordered Routine Resuscitation Status Routine Resus Stat 02/08/17 13:25 Ordered Medication Orders Acetaminophen (Tylenol) 650 mg PO Q4H PRN PRN Reason: Pain (Mild 1-3)/fever Sodium Chloride (Normal Saline) 1,000 mls @ 100 mls/hr IV ASDIRECTED SHIRIN Nicotine (Habitrol) 21 mg TRDERM DAILY SHIRIN Sodium Chloride (Saline Flush) 10 ml FLUSH ASDIRECTED PRN PRN Reason: Keep Vein Open Sodium Chloride (Saline Flush) 2.5 ml FLUSH ASDIRECTED PRN PRN Reason: Keep Vein Open Assessment/Plan Comment:: The patient is a 41-year-old lady who left AGAINST MEDICAL ADVICE from the ICU early this morning. The patient had repeat presented to the emergency department at a concern with her family members for continuing confusion. The patient does not appear to be alert and she is somewhat lethargic although she is oriented 3. This may be related secondary to possible seizure disorder and or medication usage. The patient's toxicology and alcohol screens of all been negative. I have ordered a consult with neurology and have also ordered an MRI of her brain in order to ascertain any further possibility of damage to her brain. She does have a history of skull fracture with cerebral hemorrhage in June 2016. The patient will be placed on telemetry as an inpatient, her vital signs will be monitored very closely and I've also ordered neuro checks for her. I've ordered a comprehensive metabolic panel, CBC for the morning. I suspect that it'll take time for the patient to regain her mental faculties. Her treatment plan will be adjusted accordingly. She'll be kept on a clear liquid diet in order to prevent aspiration.
[2017-02-08] MEDS: Sodium Chloride 0.9% 1,000 ML IV SCH (14:06)
[2017-02-08] MEDS ORDERED: Nicotine 21 MG/24 Hr Patch TRDERM ONE (14:11)
[2017-02-08] MEDS ORDERED: LORazepam 2 MG/ML MDV IM PRN (17:55)
[2017-02-08] MEDS ORDERED: LORazepam 1 MG Tab PO PRN (17:56)
--- NOTE | 2017-02-08 18:16 | PCM.SN ---
- Free Text/Narrative Note: Patient is a 41-year-old lady who was admitted this morning after leaving AGAINST MEDICAL ADVICE earlier this morning around 4 a.m. The patient came back to the emergency department and was subsequently admitted secondary to altered mental status. The patient has been somnolent and difficult to arouse. I was called to the intensive care unit after the patient had removed her IV, taken off her telemetry and expressed a desire to go home. I had a discussion with the patient and the patient signed and the patient had exhibited bizarre, rambling speech that oftentimes did not make sense. The patient also had misidentified and misused words and referring to common objects as example used the word "eyeball" when referring to her aunt. Also the patient had insisted that the ICU nurse would be available to monitor her medications at her yard sale tomorrow. The patient is also strongly adamant about going out and smoking. She wants to staff to accompany her off-campus in order to have her cigarette. The patient has an MRI as well as a neurology consult tomorrow and my purpose of having this completed is to ensure that there are no organic causes for the patient's bizarre behavior and previous stupor. Patient's alcohol level was not detectable and urine toxicology screens were negative for drugs of abuse. The patient has exhibited psychotic behavior as evidenced earlier in the note. Because of this behavior as well as needing to exclude organic causes of the patient's behavior I have placed the patient on medical hold. I have informed the patient of ramifications of leaving the hospital regardless of clearance. I've also discussed the case with the patient's aunt who is with her. I'm afraid given the patient's agitation and bizarre behavior that restraints might be likely. I have asked the nurse to call for an order if any of these restraints are needed. The patient may likely need to have to be transferred to psychiatric facility tomorrow.
[2017-02-08] MEDS: Acetaminophen 325 MG Tab PO PRN (21:10)
[2017-02-08] MEDS ORDERED: Ibuprofen 800 MG Tab PO PRN (22:11)
[2017-02-08] MEDS: Omeprazole 20 MG Cap.CR PO SCH (22:40)
[2017-02-09] MEDS: Phenazopyridine 200 MG Tab PO SCH ×2 (00:06→06:07)
[2017-02-09] MEDS: Sulfamethoxazole/Trimethoprim 800-160 MG Tab PO SCH ×2 (00:34→08:57)
[2017-02-09] MEDS: Acetaminophen 325 MG Tab PO PRN (05:03)
[2017-02-09 06:30] LABS: CHLORIDE,CL 110 mmol/L (98-110); SODIUM,NA 141 mmol/L (136-146)
[2017-02-09] MEDS ORDERED: Magnesium Oxide 400 MG Tab PO ONE (08:02)
[2017-02-09 08:25] VITALS: BP 110/80
[2017-02-09] MEDS: Omeprazole 20 MG Cap.CR PO SCH (08:57)
[2017-02-09] MEDS: Sodium Chloride 0.9% 1,000 ML IV SCH (08:58)
[2017-02-09] MEDS ORDERED: Nicotine 21 MG/24 Hr Patch TRDERM SCH (09:00)
[2017-02-09] MEDS ORDERED: LORazepam 2 MG/ML MDV IVPUSH ONE (09:25)
--- NOTE | 2017-02-09 10:13 | PCM.PN ---
- General Info Date of Service: 02/09/17 Admission Dx/Problem (Free Text): Admission Diagnosis/Problem Admission Diagnosis/Problem Altered mental status - Patient Data Vitals - Most Recent: Last Vital Signs Temp 98.0 F 02/09/17 08:00 Pulse 79 02/09/17 08:00 Resp 18 02/09/17 08:00 BP 110/80 02/09/17 08:00 Pulse Ox 94 L 02/09/17 08:00 Weight - Most Recent: 83 kg I&O - Last 24 Hours: Intake & Output 02/08/17 02/09/17 02/09/17 22:59 06:59 14:59 Intake Total 487 1700 Output Total 1300 Balance 487 400 Lab Results Last 24 Hours: Laboratory Results - last 24 hr 02/08/17 02/09/17 02/09/17 Range/Units 22:15 05:03 05:03 WBC 9.11 (4.0-11.0) K/uL RBC 4.59 (4.30-5.90) M/uL Hgb 12.8 (12.0-16.0) g/dL Hct 39.5 (36.0-46.0) % MCV 86.1 (80.0-98.0) fL MCH 27.9 (27.0-32.0) pg MCHC 32.4 (31.0-37.0) g/dL RDW Std Deviation 57.1 (28.0-62.0) fl RDW Coeff of Amanda 18 H (11.0-15.0) % Plt Count 237 (150-400) K/uL MPV 10.70 (7.40-12.00) fL Neut % (Auto) 60.0 (48.0-80.0) % Lymph % (Auto) 28.2 (16.0-40.0) % [place] % (Auto) 9.0 (0.0-15.0) % Eos % (Auto) 2.4 (0.0-7.0) % Baso % (Auto) 0.4 (0.0-1.5) % Neut # (Auto) 5.5 (1.4-5.7) K/uL Lymph # (Auto) 2.6 H (0.6-2.4) K/uL [place] # (Auto) 0.8 (0.0-0.8) K/uL Eos # (Auto) 0.2 (0.0-0.7) K/uL Baso # (Auto) 0.0 (0.0-0.1) K/uL Nucleated RBC % 0.0 /100WBC Nucleated RBCs # 0 K/uL Sodium 141 (136-146) mmol/L Potassium 3.6 (3.5-5.1) mmol/L Chloride 110 (98-110) mmol/L Carbon Dioxide 23 (21-31) mmol/L BUN 9 (6.0-23.0) mg/dL Creatinine 0.6 (0.6-1.5) mg/dL Est Cr Clr Drug Dosing 122.09 mL/min Estimated GFR (MDRD) > 60.0 ml/min Glucose 78 (60-110) mg/dL Calcium 8.6 L (8.8-10.8) mg/dL Phosphorus 3.7 (2.4-4.7) mg/dL Magnesium 1.3 L (1.5-2.3) mEq/L Total Bilirubin 0.4 (0.1-1.5) mg/dL AST 16 (5-40) IU/L ALT 10 (8-54) IU/L Alkaline Phosphatase 88 (40-150) Total Protein 5.9 L (6.0-8.0) g/dL Albumin 3.0 L (3.5-5.0) g/dL Globulin 2.9 (2.0-3.5) g/dL Albumin/Globulin Ratio 1.0 L (1.3-2.8) Urine Color YELLOW Urine Appearance SLT CLOUDY Urine pH 6.0 (5.0-8.0) Ur Specific [place] 1.025 (1.001-1.035) Urine Protein TRACE (NEGATIVE) mg/dL Urine Glucose (UA) NEGATIVE (NEGATIVE) mg/dL Urine Ketones TRACE H (NEGATIVE) mg/dL Urine Occult Blood LARGE H (NEGATIVE) Urine Nitrite POSITIVE H (NEGATIVE) Urine Bilirubin SMALL H (NEGATIVE) Urine Ictotest NEGATIVE Urine Urobilinogen 0.2 (<2.0) EU/dL Ur Leukocyte Esterase SMALL (NEGATIVE) Urine RBC 10-15 (0-2/HPF) Urine WBC 20-40 (0-5/HPF) Ur Epithelial Cells MODERATE (NONE-FEW) Urine Bacteria 2+ H (NEGATIVE) Urine Mucus FEW (NONE-MOD) Med Orders - Current: Current Medications Acetaminophen (Tylenol) 650 mg PO Q4H PRN PRN Reason: Pain (Mild 1-3)/fever Last Admin: 02/09/17 05:03 Dose: 650 mg Ibuprofen (Motrin) 800 mg PO Q12H PRN PRN Reason: Pain Last Admin: 02/08/17 22:40 Dose: 800 mg Lorazepam (Ativan) 1 mg IM Q6H PRN PRN Reason: Agitation Lorazepam (Ativan) 1 mg PO Q6H PRN PRN Reason: Agitation Last Admin: 02/08/17 20:54 Dose: 1 mg Nicotine (Habitrol) 21 mg TRDERM Q24H [facility] Last Admin: 02/09/17 08:57 Dose: 21 mg Omeprazole (Omeprazole) 20 mg PO DAILY [facility] Last Admin: 02/09/17 08:57 Dose: 20 mg Phenazopyridine HCl (Pyridium) 100 mg PO TID [facility] Stop: 02/11/17 23:34 Last Admin: 02/09/17 06:07 Dose: 100 mg Sodium Chloride (Saline Flush) 10 ml FLUSH ASDIRECTED PRN PRN Reason: Keep Vein Open Sodium Chloride (Saline Flush) 2.5 ml FLUSH ASDIRECTED PRN PRN Reason: Keep Vein Open Trimethoprim/Sulfamethoxazole (Septra Ds) 1 tab PO BID [facility] Last Admin: 02/09/17 08:57 Dose: 1 tab Discontinued Medications Sodium Chloride (Normal Saline) 1,000 mls @ 999 mls/hr IV STAT ONE Stop: 02/08/17 11:36 Last Admin: 02/08/17 10:40 Dose: 999 mls/hr Sodium Chloride (Normal Saline) 1,000 mls @ 100 mls/hr IV ASDIRECTED [facility] Last Admin: 02/09/17 08:58 Dose: 100 mls/hr Lorazepam (Ativan) 1 mg IVPUSH ONETIME ONE Stop: 02/09/17 09:26 Last Admin: 02/09/17 09:25 Dose: 1 mg Magnesium Oxide (Magnesium Oxide) 400 mg PO ONETIME ONE Stop: 02/09/17 08:03 Last Admin: 02/09/17 08:57 Dose: 400 mg Nicotine (Habitrol) 21 mg TRDERM ONETIME ONE Stop: 02/08/17 14:12 Last Admin: 02/08/17 14:28 Dose: 21 mg Phenazopyridine HCl (Pyridium) 100 mg PO TID SHIRIN Stop: 02/12/17 22:16 - My Orders Last 24 Hours: My Active Orders 02/09/17 10:15 Folic Acid 1 mg SUBCUT DAILY Thiamine [Vitamin B-1] 100 mg IV DAILY - Plan Plan:: The patient is a 41-year-old lady who left AGAINST MEDICAL ADVICE from the ICU early this morning. The patient had repeat presented to the emergency department at a concern with her family members for continuing confusion. The patient does not appear to be alert and she is somewhat lethargic although she is oriented 3. This may be related secondary to possible seizure disorder and or medication usage. The patient's toxicology and alcohol screens of all been negative. I have ordered a consult with neurology and have also ordered an MRI of her brain in order to ascertain any further possibility of damage to her brain. She does have a history of skull fracture with cerebral hemorrhage in June 2016. The patient will be placed on telemetry as an inpatient, her vital signs will be monitored very closely and I've also ordered neuro checks for her. I've ordered a comprehensive metabolic panel, CBC for the morning. I suspect that it'll take time for the patient to regain her mental faculties. Her treatment plan will be adjusted accordingly. She'll be kept on a clear liquid diet in order to prevent aspiration.
[2017-02-09] MEDS ORDERED: Thiamine 200 MG/2 ML MDV IV SCH (10:15)
[2017-02-09] MEDS ORDERED: Folic Acid 50 MG/10 ML MDV SUBCUT SCH (10:15)
[2017-02-09] MEDS ORDERED: Thiamine 100 MG in Sodium Chloride 0.9% 50 ML IV SCH (11:00)
--- NOTE | 2017-02-09 11:24 | MR ---
EXAMINATION: MRA head without contrast HISTORY: Altered mental status COMPARISON: CT dated 02/08/2017 TECHNIQUE: Axial T2 and [id number] images obtained. MIP reconstructions also obtained. FINDINGS: There is a small area of encephalomalacia within the left temporal lobe anteriorly, corresponding to an area of previous hemorrhage. There is no mass, mass effect, or midline shift. The ventricles and s ulci are otherwise unremarkable. Cerebellar pontine angle and midbrain appear grossly normal. The cer ebellum is normal. The craniocervical junction is normal. The orbits and globes are symmetric. The ex pected flow voids are present. Mastoid air cells and paranasal sinuses are clear. The distal internal carotid artery is normal. The vertebral and basilar artery are normal. The anteri or, middle, and posterior cerebral arteries are unremarkable. There is a origin of the right po sterior cerebral artery. No aneurysm or significant stricture. IMPRESSION: 1. Small area of encephalomalacia within the left temporal lobe anteriorly. 2. Grossly unremarkable intracranial articular circulation.
--- NOTE | 2017-02-09 12:01 | PCM.DCSUM1 ---
Discharge Summary - Hospital Course Brief History: This 41 year old lady with pmh of of alcohol abuse with seizures and TBI after a fall while intoxicated last June presented to the ED out of concern for altered mental status. She was brought in by EMS. The patient's aunt was with her. The patient was not spontaneously opening her eyes or grimacing to pain. The patient was not able to participate in any meaningful way in her history of physical therefore information has been taken from her previous charting and her family member. 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 It was also noted that she had been on valproic acid secondary to seizures, thought to be from alcohol, and bipolar disease. The patient had been getting progressively worse over the past several days and prior to presentation the patient was completely obtunded and not able to be aroused. It was also thought that she had some twitching that might of been secondary to seizure activity. The patient did not have any loss of bowel or bladder control and when the patient was catheterized in the emergency room greater than 1 L of urine was obtained. It's unknown if the patient had overdosed on any of her medications or what medication that she might have a reaction to. The patient's adult family members says that she has been diligent with her medications. Per family reports, Depakote dose was increased to 3 tabs from 1-2 daily. She had stopped that and then restarted in 4 -5 days prior to presentation. She was initially admitted 02/07/17 then woke up later that evening had recovered somewhat and left AGAINST MEDICAL ADVICE. There was a good deal of confusion between her aunt and the patient and it was noted that the patient had signed her name has "LOVE". Upon returning home the patient thought that she was in [place] and still remained very confused. Initial Valproic acid level noted 34.6, she has not been taking it for 3-4 days due to being obtunded and sleeping all day. She was placed on medical hold and MRI of brain ordered. - Discharge Data Discharge Date: 02/09/17 Discharge Disposition: Home, Self-Care 01 Condition: Stable - Patient Summary/Data Consults: Consultations 02/09/17 12:00 Consult to Physician [CONS] Routine - Patient Instructions Diet: Regular Diet as Tolerated Activity: As Tolerated Driving: Do Not Drive Showering/Bathing: May Shower Notify Provider of: Fever, Increased Pain, Swelling and Redness, Drainage, Nausea and/or Vomiting - Discharge Plan Prescriptions/Med Rec: Sulfamethoxazole/Trimethoprim [Bactrim Ds Tablet] 1 each PO BID #6 tablet Home Medications: Home Meds Ibuprofen 400 mg PO Q6H PRN 04/24/15 [History] Albuterol Sulfate [Proair Respiclick] 2 puff INH Q4H PRN 08/14/16 [History] Calcium Carbonate/Vitamin D3 [Calcium 500 mg Chewable Tablet] 500 mg PO BID [History] Cholecalciferol (Vitamin D3) [D3 Dots] 5,000 units PO DAILY 08/14/16 [History] Mometasone Furoate [Nasonex] 2 spray NASBOTH DAILY PRN 08/14/16 [History] Multivitamin [Multivitamins] 1 tab PO DAILY 08/14/16 [History] Multivitamin-Minerals No.55 [Centrum Flavor Burst Adult] 1 tab PO DAILY [History] Ondansetron [Ondansetron ODT] 4 mg PO TID PRN 08/14/16 [History] Baclofen 20 mg PO TID PRN 02/07/17 [History] Gabapentin [Neurontin] 900 mg PO TID 02/07/17 [History] Cyanocobalamin (Vitamin B-12) [Cyanocobalamin Injection] 1,000 mcg IM Q30D 02/08 [History] Folic Acid 1 mg PO DAILY 02/08/17 [History] Methocarbamol 750 mg PO TID PRN 02/08/17 [History] Rizatriptan Benzoate [Rizatriptan] 20 mg PO Q2HR PRN MDD 2 doses 02/08/17 [ History] Spironolactone [Aldactone] 25 mg PO BID 02/08/17 [History] Iron Aspgly&PS/B12/C/Ca/FA/Suc [Niferex-150 Forte] 150 mg PO BID 02/09/17 [ History] Sulfamethoxazole/Trimethoprim [Bactrim Ds Tablet] 1 each PO BID #6 tablet [Rx] traMADol [Ultram] 50 mg PO BID PRN 02/09/17 [History] Patient Handouts: Confusion Referrals: Tawnya Hastings DO [Physician] - 02/12/17 12:30 pm (hospital follow up) - Discharge Summary/Plan Comment DC Time >30 min.: No Discharge Summary/Plan Comment: Discharge Diagnoses: AMS- resolved Hx TBI Alcohol abuse- sober for 6 mos Seizure disorder, secondary to alcohol abuse Myra more alert and oriented today. Requesting for discharge immediately this am. She remained on psychiatric hold due to AMS and behavior on admission. MRI performed this morning, which showed small area of encephalomalacia within the left temporal lobe anteriorly, grossly unremarkable intracranial articular circulation. The area of encephalomalacia corresponds to previous TBI from fall in June. I spoke with Dr. Keane, Tele Psych who agreed to evaluate patient for need of inpatient transfer for psychiatric care. He evaluated her and feels this is likely more her normal presentation and she is safe for discharge as long as she is medically stable. He reports this may be from Depakote dosing increase which caused her to be more obtunded and sleeping. He recommends holding this as well as her Effexor. He recommends staying away from Effexor with individuals with TBI due to it potentially causing erratic behaviors. We have arranged her to see her PCP, Dr. Hastings on and I will attempt to call her and update her on medication change for now. Please see Dr. Keane's consultation note. He does recommend restarting Depakote and monitoring very closely. Aunt at bedside and patient very anxious to be discharge home. She is ambulating with ankle brace in place for sprain. She is alert and oriented. Showing no signs of hallucinations or other disturbances. Aunt feels she is back to her normal and wants to take her home. She will be discharged home today. She did have UTI and will be placed on Bactrim DS BID for 3 more days. She is to return to ED or clinic if concerns should arise. - General Info Date of Service: 02/09/17 Admission Dx/Problem (Free Text: AMS Subjective Update: Alert and Oriented. Argumentative and wants to be discharged. But is willing to complete psych evaluation and MRI of brain. Denies any chest pain or SOB. No neck pain - Review of Systems General: Reports: No Symptoms. Denies: Fever HEENT: Reports: No Symptoms. Denies: Sinus Congestion, Sore Throat Pulmonary: Reports: No Symptoms. Denies: Shortness of Breath Cardiovascular: Reports: No Symptoms. Denies: Chest Pain Gastrointestinal: Reports: No Symptoms. Denies: Abdominal Pain, Diarrhea, Nausea, Vomiting Genitourinary: Reports: No Symptoms. Denies: Dysuria, Frequency, Burning, Pain Musculoskeletal: Reports: Joint Pain (R ankle pain, in splint able to ambulate. ) Neurological: Reports: Confusion (intermittent, but aunt reports she is at baseline.). Denies: Dizziness, Headache, Seizure, Weakness, Change in Speech Psychiatric: Reports: No Symptoms - Patient Data Vitals - Most Recent: Last Vital Signs Temp 98.0 F 02/09/17 08:00 Pulse 79 02/09/17 08:00 Resp 18 02/09/17 08:00 BP 110/80 02/09/17 08:00 Pulse Ox 94 L 02/09/17 08:00 Weight - Most Recent: 83 kg I&O - Last 24 hours: Intake & Output 02/08/17 02/09/17 02/09/17 22:59 06:59 14:59 Intake Total 487 1700 Output Total 1300 Balance 487 400 Lab Results - Last 24 hrs: Laboratory Results - last 24 hr 02/08/17 02/09/17 02/09/17 Range/Units 22:15 05:03 05:03 WBC 9.11 (4.0-11.0) K/uL RBC 4.59 (4.30-5.90) M/uL Hgb 12.8 (12.0-16.0) g/dL Hct 39.5 (36.0-46.0) % MCV 86.1 (80.0-98.0) fL MCH 27.9 (27.0-32.0) pg MCHC 32.4 (31.0-37.0) g/dL RDW Std Deviation 57.1 (28.0-62.0) fl RDW Coeff of Amanda 18 H (11.0-15.0) % Plt Count 237 (150-400) K/uL MPV 10.70 (7.40-12.00) fL Neut % (Auto) 60.0 (48.0-80.0) % Lymph % (Auto) 28.2 (16.0-40.0) % [place] % (Auto) 9.0 (0.0-15.0) % Eos % (Auto) 2.4 (0.0-7.0) % Baso % (Auto) 0.4 (0.0-1.5) % Neut # (Auto) 5.5 (1.4-5.7) K/uL Lymph # (Auto) 2.6 H (0.6-2.4) K/uL [place] # (Auto) 0.8 (0.0-0.8) K/uL Eos # (Auto) 0.2 (0.0-0.7) K/uL Baso # (Auto) 0.0 (0.0-0.1) K/uL Nucleated RBC % 0.0 /100WBC Nucleated RBCs # 0 K/uL Sodium 141 (136-146) mmol/L Potassium 3.6 (3.5-5.1) mmol/L Chloride 110 (98-110) mmol/L Carbon Dioxide 23 (21-31) mmol/L BUN 9 (6.0-23.0) mg/dL Creatinine 0.6 (0.6-1.5) mg/dL Est Cr Clr Drug Dosing 122.09 mL/min Estimated GFR (MDRD) > 60.0 ml/min Glucose 78 (60-110) mg/dL Calcium 8.6 L (8.8-10.8) mg/dL Phosphorus 3.7 (2.4-4.7) mg/dL Magnesium 1.3 L (1.5-2.3) mEq/L Total Bilirubin 0.4 (0.1-1.5) mg/dL AST 16 (5-40) IU/L ALT 10 (8-54) IU/L Alkaline Phosphatase 88 (40-150) Total Protein 5.9 L (6.0-8.0) g/dL Albumin 3.0 L (3.5-5.0) g/dL Globulin 2.9 (2.0-3.5) g/dL Albumin/Globulin Ratio 1.0 L (1.3-2.8) Urine Color YELLOW Urine Appearance SLT CLOUDY Urine pH 6.0 (5.0-8.0) Ur Specific [place] 1.025 (1.001-1.035) Urine Protein TRACE (NEGATIVE) mg/dL Urine Glucose (UA) NEGATIVE (NEGATIVE) mg/dL Urine Ketones TRACE H (NEGATIVE) mg/dL Urine Occult Blood LARGE H (NEGATIVE) Urine Nitrite POSITIVE H (NEGATIVE) Urine Bilirubin SMALL H (NEGATIVE) Urine Ictotest NEGATIVE Urine Urobilinogen 0.2 (<2.0) EU/dL Ur Leukocyte Esterase SMALL (NEGATIVE) Urine RBC 10-15 (0-2/HPF) Urine WBC 20-40 (0-5/HPF) Ur Epithelial Cells MODERATE (NONE-FEW) Urine Bacteria 2+ H (NEGATIVE) Urine Mucus FEW (NONE-MOD) Med Orders - Current: Current Medications Acetaminophen (Tylenol) 650 mg PO Q4H PRN PRN Reason: Pain (Mild 1-3)/fever Last Admin: 02/09/17 05:03 Dose: 650 mg Folic Acid (Folic Acid) 1 mg SUBCUT DAILY [facility] Thiamine HCl 100 mg/ Sodium (Chloride) 51 mls @ 204 mls/hr IV DAILY [facility] Ibuprofen (Motrin) 800 mg PO Q12H PRN PRN Reason: Pain Last Admin: 02/08/17 22:40 Dose: 800 mg Lorazepam (Ativan) 1 mg IM Q6H PRN PRN Reason: Agitation Lorazepam (Ativan) 1 mg PO Q6H PRN PRN Reason: Agitation Last Admin: 02/08/17 20:54 Dose: 1 mg Nicotine (Habitrol) 21 mg TRDERM Q24H [facility] Last Admin: 02/09/17 08:57 Dose: 21 mg Omeprazole (Omeprazole) 20 mg PO DAILY [facility] Last Admin: 02/09/17 08:57 Dose: 20 mg Phenazopyridine HCl (Pyridium) 100 mg PO TID [facility] Stop: 02/11/17 23:34 Last Admin: 02/09/17 06:07 Dose: 100 mg Sodium Chloride (Saline Flush) 10 ml FLUSH ASDIRECTED PRN PRN Reason: Keep Vein Open Sodium Chloride (Saline Flush) 2.5 ml FLUSH ASDIRECTED PRN PRN Reason: Keep Vein Open Trimethoprim/Sulfamethoxazole (Septra Ds) 1 tab PO BID [facility] Last Admin: 02/09/17 08:57 Dose: 1 tab Discontinued Medications Sodium Chloride (Normal Saline) 1,000 mls @ 999 mls/hr IV STAT ONE Stop: 02/08/17 11:36 Last Admin: 02/08/17 10:40 Dose: 999 mls/hr Sodium Chloride (Normal Saline) 1,000 mls @ 100 mls/hr IV ASDIRECTED [facility] Last Admin: 02/09/17 08:58 Dose: 100 mls/hr Lorazepam (Ativan) 1 mg IVPUSH ONETIME ONE Stop: 02/09/17 09:26 Last Admin: 02/09/17 09:25 Dose: 1 mg Magnesium Oxide (Magnesium Oxide) 400 mg PO ONETIME ONE Stop: 02/09/17 08:03 Last Admin: 02/09/17 08:57 Dose: 400 mg Nicotine (Habitrol) 21 mg TRDERM ONETIME ONE Stop: 02/08/17 14:12 Last Admin: 02/08/17 14:28 Dose: 21 mg Phenazopyridine HCl (Pyridium) 100 mg PO TID [facility] Stop: 02/12/17 22:16 - Exam General: Reports: Alert, Oriented, Cooperative, No Acute Distress Neck: Reports: Supple Lungs: Reports: Clear to Auscultation, Normal Respiratory Effort Cardiovascular: Reports: Regular Rate, Regular Rhythm GI/Abdominal Exam: Normal Bowel Sounds, Soft, Non-Tender, No Organomegaly, No Distention, No Abnormal Bruit, No Mass, Pelvis Stable Neurological: Reports: No New Focal Deficit Psy/Mental Status: Reports: Alert, Normal Affect, Normal Mood *Q Meaningful Use (DIS) - VTE *Q VTE Criteria *Q: VTE Mechanical Contraindications *Q: At Risk for Falls VTE Pharmacological Contraindications *Q: Risk of Bleeding - Stroke *Q Stroke Criteria *Q: - AMI *Q AMI Criteria *Q:
--- NOTE | 2017-02-09 16:12 | CT ---
EXAM DATE: 02/08/17 PATIENT'S AGE: 41 Patient: AMI DUMAS Facility: [place], [place] Site . Site : 1975 Study: CT Head [id number]/10/2017 11:17:07 AM Ordering Physician: Kalen Garrido Final Report: HISTORY: Headache. TECHNIQUE: Noncontrast head CT. COMPARISON: 02/07/2017. FINDINGS: There is no acute intracranial hemorrhage or acute ischemic infarct. No mass effect midline shift. No hydrocephalus. No acute loss of pope-white differentiation. Mastoid air cells are clear. Paranasal sinuses are clear. No skull fracture. IMPRESSION: No acute intracranial disease. Dictated by Guido Lema MD @ 02/08/2017 11:24:02 AM Dictated by: Guido Lema MD @ 02/08/2017 11:24:07 (Electronic Signature) Report Signed by Proxy. [facility] HEALTHTiffanie
--- NOTE | 2017-02-09 16:14 | CR ---
EXAM DATE: 02/08/17 PATIENT'S AGE: 41 Patient: AMI DUMAS Facility: [place], [place] Site . Site : 1975 Study: XRay Extremity Right Ankle [id number]/10/2017 11:31:21 AM Ordering Physician: Kalen Garrido Final Report: HISTORY: Right ankle pain. TECHNIQUE: Three views of the right ankle. COMPARISON: No prior. FINDINGS: There is subtle obliquely oriented lucency within the distal fibular metaphysis which is of uncertain chronicity. This may reflect deformity related to a remote fracture. Possibility of an acute fracture is not excluded. A CT would allow determination chronicity of this finding. There is a small focus of ossification distal to the medial malleolar tip which may relate either to prior avulsion fracture or to heterotopic ossification. That finding is similarly of uncertain chronicity. An os trigonum is present. Small plantar calcaneal spur. Slight spurring at the Achilles attachment posterior calcaneus. IMPRESSION: 1. Subtle obliquely oriented lucency involving the distal fibular metaphysis which is of uncertain chronicity. This may relate to a more remote fracture though the possibility of an acute fracture is not entirely excluded. 2. Ossicle distal to the medial malleolar tip may relate either to prior avulsion fracture or heterotopic ossification. 3. CT would allow better determination of the acuity of these findings. Dictated by Guido Lema MD @ 02/08/2017 11:45:44 AM Dictated by: Guido Lema MD @ 02/08/2017 11:45:48 (Electronic Signature) Report Signed by Proxy. REBECCA
--- NOTE | 2017-02-09 21:37 | CONS ---
DATE OF CONSULTATION: 02/09/2017 DATE OF : 1975 PRIMARY CARE PHYSICIAN: None PCP This is a 60-minute inpatient clinical event. IDENTIFICATION: The patient is a 41-year-old female who was admitted to the inpatient Med/Surg unit at [facility] in [place], [place] for altered mental status. She is seen for psychiatric evaluation. CHIEF COMPLAINT: "I fell down and sprain my ankle." HISTORY OF PRESENT ILLNESS: The patient is a 41-year-old female, who was admitted on February 07, 2017 through the ER with altered mental status. She was brought to the unit but then left AMA but then brought back by her family because they were concerned about her. Medical workup so far is proving negative, but inpatient staff has concern that the patient has been psychotic and paranoid. For her part, the patient is denying that she is psychotic or paranoid and she states that she only came into hospital because when she woke up after sleeping pretty heavy she got up from bed and sprained her ankle. Her aunt who was with her also participates in the interview, agrees with this assessment stating that the patient "has been doing really good for the past 6 months." The patient states that she had been drinking heavily up until about 6 months ago, but then she got sober. She states that she was using at least 1 to 2 bottles of liquor a day prior to getting sober. She states "I fell and hit my head and that is what did it." She states she is attending AA to stay sober. She states that she had most recently been on Depakote till about a week ago. She has been taking Depakote to help with her mood and her primary MD, Dr. Hastings has been giving this to her according to the patient and the aunt. She states that on January 17 her daughter got . She had been having a hard time with this emotionally. She states that she was "depressed after my daughter got out" and then her primary MD was concerned that the patient may have been getting maniac, so he increased the Depakote. After the Depakote was increased, the patient's aunt states that the patient "slept for like 5 days straight." The patient states "I knew it was my medicine" and she states that is why she sprained her ankle when she got out of bed because she was so sedated. She stopped taking the Depakote not too long ago and she states that she is feeling so much better and aunt is stating that the patient is looking a lot better and more alert too. The patient denies that she is suicidal or homicidal. She denies any psychotic, delusional, or paranoia symptoms. She does state that her "memory is sketchy" since she had the fall and hit her head a while back, but she feels that she is doing really good and she agrees with her aunt's assessment. She states "I am off the wheelchair, off the walker, and off the alcohol, I am doing really good." Clinical staff is reporting that the patient does have reported history of alcoholism, but on admission her BAL was 0 and U-tox was negative. The patient wants to follow up with her regular outpatient doctor to get her psychiatric medications once she is deemed medically stable. She does not feel she needs a transfer to Psychiatry at this point in time. MEDICATIONS: At the time of presentation per clinic staff report the patient is prescribed. 1. Depakote. 2. Effexor. 3. Neurontin. 4. Baclofen. 5. Methocarbamol. ALLERGIES: No known drug allergies. PAST MEDICAL HISTORY: 1. History of alcohol-related seizures. 2. Status post TBI secondary to fall in 2015. REVIEW OF SYSTEMS: Aside from neuro, all other major organ systems are negative at this point in time for acute difficulties or complications. FAMILY PSYCHIATRIC AND CD HISTORY: None reported. PAST PSYCHIATRIC AND CD HISTORY: The patient denies any previous psychiatric hospitalizations or chemical dependency treatments. She states she has been sober from alcohol for 6 months, now she attends to help with her sobriety. Denies any previous suicide attempts, self-injurious behavior, eating disorder history. PAST PSYCHIATRIC DIAGNOSIS: Includes major depressive disorder, possible bipolar affective disease, primary outpatient provider is [facility]. SOCIAL HISTORY: The patient is born and raised in . She is 2nd of two siblings and one sister. The patient's parents were throughout childhood and adolescence. She did not father growing up. Mother was a nurse. The patient's highest level education is 2 years of college. 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 She has 3 children from the marriage. Her works at [employer]. The patient lives in [place], [place]. Denies any legal difficulties. MENTAL STATUS EXAMINATION: The patient is a 41-year-old white female, in no apparent distress. Speech is of regular rate and rhythm. The patient is cognitively oriented x2 to person and place but not to date, thinking it is January 08, 2017. Mood is good overall but frustrated with her hospitalization and worried about potential psych transfer. Affect is cooperative overall for the purposes of the inpatient psychiatric consult. There is no behavioral or stated evidence of acute suicidal or homicidal ideation or acute psychotic delusional paranoid symptoms. Thought processes appear organized for the cognitive deficit of lack of awareness of date. There are no acute manic symptoms or loose associations evident. Judgment and insight appear unimpaired. Overall motivation for help appears good. VITAL SIGNS: At the time of presentation, 110/80, 79, 18, 98 degrees. IMPRESSION: 1. Sterling I:. a. Depression, not otherwise specified, F32.9. b. Anxiety disorder, not otherwise specified, F41.9. c. Rule out bipolar affective disease, not otherwise specified versus mixed type. d. History of alcohol dependence, currently in remission x6 months. 2. Sterling II: None. 3. Sterling III:. a. History of alcohol-related seizures per staff report. b. Status post traumatic brain injury secondary to fall in 2015. 4. Sterling IV: Moderate to severe. 5. Sterling V: 65 to 70. PLAN: 1. Sobriety. 2. Hold Depakote. 3. Hold Effexor XR. 4. Recent increase in Depakote maybe causing patient's increased somnolence and this is the reason for holding her psych medications. 5. Recommend the patient is able to be discharged back to community from psychiatric standpoint when she is deemed medically stable. 6. We will recommend the patient to follow up soon with outpatient Psychiatry and primary MD to review her prescribed medications as the recent changes may have been contributory to her current hospitalization. 7. We will continue to follow up with patient on an as-needed basis while she remains on the Inpatient Medical Unit [facility]. 8. We will follow up with the patient's service or complications in the interim. 9. Crisis plan is in place. JAIME NEGRON /[id number]
[2017-02-09] MEDS ORDERED: Phenazopyridine 200 MG Tab PO SCH (22:15)
== END 2017-02-09 12:45 | disposition home or self-care (01) | DRG 861 ==
LOC: MW.ED 17:50 → MW.ICU 19:20 → MW.ED 19:21 → MW.ICU 20:19 → MW.ED 02-08 04:30 → UNDOADMIN 02-08 12:49 → MW.ICU 02-08 12:49 → MW.ED 02-08 12:49 → UNDOADMIN 02-08 13:25 → MW.ICU 02-08 13:25 → MW.ED 02-09 12:45 → UNDODISIN 02-09 12:45
PROVIDERS: ADMIT Internal Medicine; ATTEND Internal Medicine
DX: R41.82 Altered mental status, unspecified (principal); E72.20 Disorder of urea cycle metabolism, unspecified; F32.9 Major depressive disorder, single episode, unspecified; F43.10 Post-traumatic stress disorder, unspecified; S93.401A Sprain of unspecified ligament of right ankle, initial encounter; W19.XXXA Unspecified fall, initial encounter; Y92.019 Unspecified place in single-family (private) house as the place of occurrence of the external cause; F17.210 Nicotine dependence, cigarettes, uncomplicated; F10.21 Alcohol dependence, in remission; Z87.820 Personal history of traumatic brain injury; Z79.899 Other long term (current) drug therapy; Z87.898 Personal history of other specified conditions; Z87.81 Personal history of (healed) traumatic fracture; G40.89 Other seizures; Z53.21 Procedure and treatment not carried out due to patient leaving prior to being seen by health care provider
CPT/HCPCS: 36415; 36600; 70450; 70450-26; 70544; 70544-26; 71010; 71010-26; 73610-26-RT; 73610-RT; 80053; 80164; 80305; 81001; 81025; 82140; 82803; 82962; 83735; 84100; 84146; 84443; 84484; 85025; 86803; 87340; 87389; 93005; 96360; 99284; 99285-25; 99291; A9270-GY; G0480; J2060; J7040; J7042

== ENCOUNTER 2017-04-28 10:34 | Emergency (ER) | payer BC ==
--- NOTE | 2017-04-28 10:49 | EDM.PDOC ---
ED HPI GENERAL MEDICAL PROBLEM - General Stated Complaint: POSSIBLE SEIZURE Time Seen by Provider: 04/28/17 10:40 Source of Information: Reports: Patient, Other (Friend) History Limitations: Reports: No Limitations - History of Present Illness INITIAL COMMENTS - FREE TEXT/NARRATIVE: HISTORY AND PHYSICAL: History of present illness: Patient is a 41-year-old female who is brought to the emergency room by a friend after having a seizure in her vehicle. The friend states that they were leaving the house to come to the hospital for a meeting when she noticed Myra having a seizure. The friend reports that this lasted approximately "4 minutes... Became to when I got to the hospital". Patient was ambulatory into the emergency department in hospital for special care via wheelchair. Upon arrival, initially the staff reported that she was disoriented and was unaware of the events that occurred prior to arrival to the emergency room. Upon my physical assessment, the patient is alert and oriented (person, place, time, and events). 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 She states she's last saw her neurologist 2 weeks ago in [place], and has no new changes to any of her medications or routine. Asked about her medication usage she states "I have a bunch of them". She does not have a current list with her and did not share her current medication routine with nursing staff. Patient's friend is at the bedside. Patient was not incontinent of urine or stool. She denies any headache, blurred vision, nausea, vomiting or diarrhea. She denies any chest pain or shortness of breath. She denies any recent injury or trauma. Did not fall or hit her head as a result of the seizure activity. Review of systems: As per history of present illness and below otherwise all systems reviewed and negative. Past medical history: As per history of present illness and as reviewed below otherwise noncontributory. Surgical history: As per history of present illness and as reviewed below otherwise noncontributory. Social history: No reported history of drug or alcohol abuse. Family history: As per history of present illness and as reviewed below otherwise noncontributory. Physical exam: Gen.: Well-developed and well-nourished 41-year-old female. Upon physical assessment she is alert and oriented. Answers questions appropriately. HEENT: Atraumatic, normocephalic, pupils reactive, negative for conjunctival pallor or scleral icterus, mucous membranes moist, throat clear, neck supple, nontender, trachea midline. Lungs: Clear to auscultation, breath sounds equal bilaterally, chest nontender. Heart: S1S2, regular, negative for clicks, rubs, or JVD. Abdomen: Soft, nondistended, nontender. Negative for masses or hepatosplenomegaly. Negative for costovertebral tenderness. Pelvis: Stable nontender. Genitourinary: Deferred. Rectal: Deferred. Extremities: Atraumatic, negative for cords or calf pain. Neurovascular unremarkable. Neuro: Awake, alert, oriented. Cranial nerves II through XII unremarkable. Cerebellum unremarkable. Motor and sensory unremarkable throughout. Exam nonfocal. The patient first arrived she was disoriented and told nursing staff that she "wanted to leave". Upon my physical examination the patient is now alert and oriented 3. A general exam was completed. I encouraged that we follow through with some routine lab work and imaging, the patient declined and stated she wanted to sign out AMA. Her friend is at the bedside and states that she will drive the patient to her house. Regardless of multiple attempts to have the patient evaluated she signed out AGAINST MEDICAL ADVICE. She was ambulatory upon discharge and remained A&O x 3. Diagnostics: [] Therapeutics: [] Impression: Medical Screening Plan: 1. Patient declined further care 2. Signed out AGAINST MEDICAL ADVICE Definitive disposition and diagnosis as appropriate pending reevaluation and review of above. Onset: Today Onset Date: 04/28/17 Duration: Minutes: - Related Data Allergies Allergy/AdvReac Type Severity Reaction Status Date / Time No Known Allergies Allergy Verified 02/07/17 17:58 Home Meds: Home Meds Ibuprofen 400 mg PO Q6H PRN 04/24/15 [History] Albuterol Sulfate [Proair Respiclick] 2 puff INH Q4H PRN 08/14/16 [History] Calcium Carbonate/Vitamin D3 [Calcium 500 mg Chewable Tablet] 500 mg PO BID [History] Cholecalciferol (Vitamin D3) [D3 Dots] 5,000 units PO DAILY 08/14/16 [History] Mometasone Furoate [Nasonex] 2 spray NASBOTH DAILY PRN 08/14/16 [History] Multivitamin [Multivitamins] 1 tab PO DAILY 08/14/16 [History] Multivitamin-Minerals No.55 [Centrum Flavor Burst Adult] 1 tab PO DAILY [History] Ondansetron [Ondansetron ODT] 4 mg PO TID PRN 08/14/16 [History] Baclofen 20 mg PO TID PRN 02/07/17 [History] Gabapentin [Neurontin] 900 mg PO TID 02/07/17 [History] Cyanocobalamin (Vitamin B-12) [Cyanocobalamin Injection] 1,000 mcg IM Q30D 02/08 [History] Folic Acid 1 mg PO DAILY 02/08/17 [History] Methocarbamol 750 mg PO TID PRN 02/08/17 [History] Rizatriptan Benzoate [Rizatriptan] 20 mg PO Q2HR PRN MDD 2 doses 02/08/17 [ History] Spironolactone [Aldactone] 25 mg PO BID 02/08/17 [History] Iron Aspgly&PS/B12/C/Ca/FA/Suc [Niferex-150 Forte] 150 mg PO BID 02/09/17 [ History] Sulfamethoxazole/Trimethoprim [Bactrim Ds Tablet] 1 each PO BID #6 tablet [Rx] traMADol [Ultram] 50 mg PO BID PRN 02/09/17 [History] Past Medical History - Past Health History Medical/Surgical History: Denies Medical/Surgical History HEENT History: Reports: Head Other HEENT History: had a traumatic brain injury June 2016 Cardiovascular History: Reports: None Respiratory History: Reports: Other (See Below) Other Respiratory History: Reports 5 yr history of smoking when quite young, quit 10-11 yrs, re-started 5 yrs ago current use 1 - 1 1/2 packs/day Gastrointestinal History: Reports: Hepatitis Other Gastrointestinal History: hx: Ulcers, experience abdominal pain from time to time 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 OB/BYN History: LMP 1 month ago Musculoskeletal History: Reports: Other (See Below) Other Musculoskeletal History: had low bulging discs, now degenerative disc disease, chronic low back pain Neurological History: Reports: Brain Injury, Seizure Psychiatric History: Reports: Depression, PTSD Hematologic History: Reports: None Immunologic History: Reports: None Oncologic (Cancer) History: Reports: None - Infectious Disease History Infectious Disease History: Reports: Other (See Below) Other Infectious Disease History: unknown - Past Surgical History HEENT Surgical History: Reports: None Respiratory Surgical History: Reports: None Neurological Surgical History: Reports: None Social & Family History - Family History Family Medical History: Noncontributory - Tobacco Use Smoking Status *Q: Current Every Day Smoker Years of Tobacco use: 10 Packs/Tins Daily: 1.5 Second Hand Smoke Exposure: Yes - Caffeine Use Caffeine Use: Reports: Coffee, Soda - Alcohol Use Days Per Week of Alcohol Use: 7 Number of Drinks Per Day: 1 Total Drinks Per Week: 7 - Recreational Drug Use Recreational Drug Use: No Drug Use in Last 12 Months: No ED ROS GENERAL - Review of Systems Review Of Systems: ROS reveals no pertinent complaints other than HPI. ED EXAM, NEURO - Physical Exam Exam: See Below (See dictation) Departure - Departure Time of Disposition: 10:49 Disposition: Against Medical Advice 07 Clinical Impression: Encounter for medical screening examination - Discharge Information Referrals: PCP,None [Primary Care Provider] -
[2017-04-28 11:09] VITALS: BP 160/104
== END 2017-04-28 10:45 | disposition left against medical advice (07) ==
LOC: MW.ED 10:34
DX: Z13.858 Encounter for screening for other nervous system disorders (principal); F17.210 Nicotine dependence, cigarettes, uncomplicated; Z79.899 Other long term (current) drug therapy
CPT/HCPCS: 99282

== ENCOUNTER 2018-02-27 13:36 | Inpatient (IN) | payer BC ==
[2018-02-27] MEDS ORDERED: Sodium Chloride 0.9% 1,000 ML IV ONE (13:40)
--- NOTE | 2018-02-27 13:41 | EDM.PDOC ---
ED HPI GENERAL MEDICAL PROBLEM - General Chief Complaint: General Stated Complaint: AMB Time Seen by Provider: 02/27/18 13:40 Source of Information: Reports: Patient, EMS - History of Present Illness INITIAL COMMENTS - FREE TEXT/NARRATIVE: HISTORY AND PHYSICAL: History of present illness: [] Patient presents via EMS She has a history of traumatic brain injury 2 years prior, over the last month she has decreased her oral intake she appears very dehydrated she does have skin tenting She is unable to provide history on her own No review of systems provided Review of systems: As per history of present illness and below otherwise all systems reviewed and negative. Past medical history: As per history of present illness and as reviewed below otherwise noncontributory. Surgical history: As per history of present illness and as reviewed below otherwise noncontributory. Social history: No reported history of drug or alcohol abuse. Family history: As per history of present illness and as reviewed below otherwise noncontributory. Physical exam: HEENT: Atraumatic, normocephalic, pupils reactive, negative for conjunctival pallor or scleral icterus, mucous membranes moist, throat clear, neck supple, nontender, trachea midline. Lungs: Clear to auscultation, breath sounds equal bilaterally, chest nontender. Heart: S1S2, regular, negative for clicks, rubs, or JVD. Abdomen: Soft, nondistended, nontender. Negative for masses or hepatosplenomegaly. Negative for costovertebral tenderness. Pelvis: Stable nontender. Genitourinary: Deferred. Rectal: Deferred. Extremities: Atraumatic, negative for cords or calf pain. Neurovascular unremarkable. Neuro: Awake, alert, oriented. Cranial nerves II through XII unremarkable. Cerebellum unremarkable. Motor and sensory unremarkable throughout. Exam nonfocal. 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 Generalized Pain Score (Numeric/FACES): 4 - Related Data Allergies Allergy/AdvReac Type Severity Reaction Status Date / Time No Known Allergies Allergy Verified 02/27/18 13:46 Home Meds: Home Meds Multivitamin-Minerals No.55 [Centrum Flavor Burst Adult] 1 tab PO DAILY [History] Gabapentin [Neurontin] 900 mg PO TID 02/07/17 [History] Methocarbamol 750 mg PO TID PRN 02/08/17 [History] Spironolactone [Aldactone] 25 mg PO BID 02/08/17 [History] Amitriptyline [Elavil] 50 mg PO BEDTIME 02/27/18 [History] Oxybutynin 10 mg PO DAILY 02/27/18 [History] Past Medical History - Past Health History Medical/Surgical History: Denies Medical/Surgical History HEENT History: Reports: Head Other HEENT History: had a traumatic brain injury June 2016 Cardiovascular History: Reports: None Respiratory History: Reports: Other (See Below) Other Respiratory History: Reports 5 yr history of smoking when quite young, quit 10-11 yrs, re-started 5 yrs ago current use 1 - 1 1/2 packs/day Gastrointestinal History: Reports: Hepatitis Other Gastrointestinal History: hx: Ulcers, experience abdominal pain from time to time 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 Musculoskeletal History: Reports: Other (See Below) Other Musculoskeletal History: had low bulging discs, now degenerative disc disease, chronic low back pain Neurological History: Reports: Brain Injury, Seizure Psychiatric History: Reports: Depression, PTSD Hematologic History: Reports: None Immunologic History: Reports: None Oncologic (Cancer) History: Reports: None - Infectious Disease History Infectious Disease History: Reports: Other (See Below) Other Infectious Disease History: unknown - Past Surgical History HEENT Surgical History: Reports: None Respiratory Surgical History: Reports: None Neurological Surgical History: Reports: None Social & Family History - Family History Family Medical History: Noncontributory - Caffeine Use Caffeine Use: Reports: Coffee, Soda ED ROS GENERAL - Review of Systems Review Of Systems: See Below ED EXAM, GENERAL - Physical Exam Exam: See Below Course - Vital Signs Last Recorded V/S: Last Vital Signs Temp 97.6 F 02/27/18 13:42 Pulse 116 H 02/27/18 13:42 Resp 20 02/27/18 13:42 BP 107/58 L 02/27/18 13:42 Pulse Ox 93 L 02/27/18 13:42 - Orders/Labs/Meds Orders: Active Orders 24 hr Category Date Time Status EKG Documentation Completion [RC] STAT Care 02/27/18 13:40 Active Chest 1V Frontal [CR] Stat Exams 02/27/18 13:40 Taken CULTURE BLOOD [BC] Stat Lab 02/27/18 14:53 Received CULTURE BLOOD [BC] Stat Lab 02/27/18 15:10 Results CULTURE URINE [RM] Stat Lab 02/27/18 16:09 Ordered UA W/MICROSCOPIC [URIN] Stat Lab 02/27/18 13:39 Ordered Blood Culture x2 Reflex Set [OM.PC] Stat Oth 02/27/18 14:18 Ordered Labs: Laboratory Tests 02/27/18 02/27/18 02/27/18 Range/Units 14:53 14:53 14:53 WBC 21.88 H (4.0-11.0) K/uL RBC 2.63 L (4.30-5.90) M/uL Hgb 9.0 L (12.0-16.0) g/dL Hct 27.9 L (36.0-46.0) % MCV 106.1 H (80.0-98.0) fL MCH 34.2 H (27.0-32.0) pg MCHC 32.3 (31.0-37.0) g/dL RDW Std Deviation 53.7 (28.0-62.0) fl RDW Coeff of Amanda 14 (11.0-15.0) % Plt Count 146 L (150-400) K/uL MPV 10.90 (7.40-12.00) fL Add Manual Diff YES Neutrophils % (Manual) 88 H (48.0-80.0) % Band Neutrophils % 2 % Lymphocytes % (Manual) 8 L (16.0-40.0) % Monocytes % (Manual) 2 (0.0-15.0) % Nucleated RBC % 0.0 /100WBC Absolute Seg Neuts 19.3 H (1.4-5.7) Band Neutrophils # 0.4 Lymphocytes # (Manual) 1.8 (0.6-2.4) Monocytes # (Manual) 0.4 (0.0-0.8) Nucleated RBCs # 0 K/uL Lactate 1.3 (0.20-2.00) mmol/L Sodium 144 (136-145) mmol/L Potassium 3.1 L (3.5-5.1) mmol/L Chloride 110 H (98-107) mmol/L Carbon Dioxide 28.3 (21.0-32.0) mmol/L BUN 29 H (7.0-18.0) mg/dL Creatinine 0.9 (0.6-1.0) mg/dL Est Cr Clr Drug Dosing 71.40 mL/min Estimated GFR (MDRD) > 60.0 ml/min Glucose 68 L (74-106) mg/dL Calcium 7.7 L (8.5-10.1) mg/dL Total Bilirubin 1.3 H (0.2-1.0) mg/dL AST 46 H (15-37) IU/L ALT 52 (14-63) IU/L Alkaline Phosphatase 209 H (46-116) U/L Creatine Kinase 62 (26-308) U/L CK-MB (CK-2) (0-3.6) ng/mL Troponin I < 0.050 (0.000-0.056) ng/mL Total Protein 5.3 L (6.4-8.2) g/dL Albumin 0.7 L (3.4-5.0) g/dL Globulin 4.6 H (2.0-3.5) g/dL Albumin/Globulin Ratio 0.2 L (1.3-2.8) 02/27/18 Range/Units 14:53 WBC (4.0-11.0) K/uL RBC (4.30-5.90) M/uL Hgb (12.0-16.0) g/dL Hct (36.0-46.0) % MCV (80.0-98.0) fL MCH (27.0-32.0) pg MCHC (31.0-37.0) g/dL RDW Std Deviation (28.0-62.0) fl RDW Coeff of Amanda (11.0-15.0) % Plt Count (150-400) K/uL MPV (7.40-12.00) fL Add Manual Diff Neutrophils % (Manual) (48.0-80.0) % Band Neutrophils % % Lymphocytes % (Manual) (16.0-40.0) % Monocytes % (Manual) (0.0-15.0) % Nucleated RBC % /100WBC Absolute Seg Neuts (1.4-5.7) Band Neutrophils # Lymphocytes # (Manual) (0.6-2.4) Monocytes # (Manual) (0.0-0.8) Nucleated RBCs # K/uL Lactate (0.20-2.00) mmol/L Sodium (136-145) mmol/L Potassium (3.5-5.1) mmol/L Chloride (98-107) mmol/L Carbon Dioxide (21.0-32.0) mmol/L BUN (7.0-18.0) mg/dL Creatinine (0.6-1.0) mg/dL Est Cr Clr Drug Dosing mL/min Estimated GFR (MDRD) ml/min Glucose (74-106) mg/dL Calcium (8.5-10.1) mg/dL Total Bilirubin (0.2-1.0) mg/dL AST (15-37) IU/L ALT (14-63) IU/L Alkaline Phosphatase (46-116) U/L Creatine Kinase (26-308) U/L CK-MB (CK-2) 0.9 (0-3.6) ng/mL Troponin I (0.000-0.056) ng/mL Total Protein (6.4-8.2) g/dL Albumin (3.4-5.0) g/dL Globulin (2.0-3.5) g/dL Albumin/Globulin Ratio (1.3-2.8) Meds: Medications Discontinued Medications Generic Name Dose Route Start Last Admin Trade Name Freq PRN Reason Stop Dose Admin Sodium Chloride 1,000 mls @ 999 mls/hr 02/27/18 13:40 02/27/18 14:00 Normal Saline IV 02/27/18 14:40 999 mls/hr STAT ONE Administration Departure - Departure Time of Disposition: 16:18 Disposition: Admitted As Inpatient 68 Condition: Poor Clinical Impression: Pneumonia - Discharge Information Referrals: PCP,None [Primary Care Provider] - Forms: ED Department Discharge - My Orders Last 24 Hours: My Active Orders 02/27/18 13:39 UA W/MICROSCOPIC [URIN] Stat 02/27/18 13:40 EKG Documentation Completion [RC] STAT Chest 1V Frontal [CR] Stat 02/27/18 14:18 Blood Culture x2 Reflex Set [OM.PC] Stat 02/27/18 14:53 CULTURE BLOOD [BC] Stat 02/27/18 15:10 CULTURE BLOOD [BC] Stat 02/27/18 16:09 CULTURE URINE [RM] Stat - Assessment/Plan Last 24 Hours: My Active Orders 02/27/18 13:39 UA W/MICROSCOPIC [URIN] Stat 02/27/18 13:40 EKG Documentation Completion [RC] STAT Chest 1V Frontal [CR] Stat 02/27/18 14:18 Blood Culture x2 Reflex Set [OM.PC] Stat 02/27/18 14:53 CULTURE BLOOD [BC] Stat 02/27/18 15:10 CULTURE BLOOD [BC] Stat 02/27/18 16:09 CULTURE URINE [RM] Stat
[2018-02-27 15:21] LABS: CHLORIDE,CL 110 mmol/L (98-107); SODIUM,NA 144 mmol/L (136-145)
[2018-02-27] MEDS ORDERED: Morphine 10 MG/ML Syringe IVPUSH PRN (17:12)
[2018-02-27] MEDS ORDERED: METHOCARBAMOL 750 MG PO PRN (17:17)
[2018-02-27] MEDS ORDERED: Calcium Gluconate 10% 1 GM/10 ML SDV IVPUSH ONE (17:17)
--- NOTE | 2018-02-27 17:32 | PCM.HP ---
H&P History of Present Illness - General Date of Service: 02/27/18 Admit Problem/Dx: Admission Diagnosis/Problem Admission Diagnosis/Problem Pneumonia The patient is a 42-year-old lady who had presented to the emergency department because the family had noticed that she appears to be very dehydrated and has decreased her oral intake over the past several weeks. The patient has a history of traumatic brain injury when she slipped and fell on ice and suffered a skull fracture 2 years ago. The patient was last admitted to acute hospitalization in January 2017. Because of the patient's TBI she is not able to participate in any meaningful way with her history and physical. Therefore, most of the information has been obtained from her previous charting and laboratory studies as no family members are available. Source of Information: Old Records History Limitations: Reports: Altered Mental Status - History of Present Illness Onset of Symptoms: Reports: Gradual Duration of Symptoms: Reports: Week(s): Associated Symptoms: Reports: Loss of Appetite Generalized Pain Score (Numeric/FACES): 4 - Related Data Allergies/Adverse Reactions: Allergies Allergy/AdvReac Type Severity Reaction Status Date / Time No Known Allergies Allergy Verified 02/27/18 13:46 Home Medications: Home Meds Multivitamin-Minerals No.55 [Centrum Flavor Burst Adult] 1 tab PO DAILY [History] Gabapentin [Neurontin] 900 mg PO TID 02/07/17 [History] Methocarbamol 750 mg PO TID PRN 02/08/17 [History] Spironolactone [Aldactone] 25 mg PO BID 02/08/17 [History] Amitriptyline [Elavil] 50 mg PO BEDTIME 02/27/18 [History] Oxybutynin 10 mg PO DAILY 02/27/18 [History] Past Medical History - Past Health History Medical/Surgical History: Denies Medical/Surgical History HEENT History: Reports: Head Other HEENT History: had a traumatic brain injury June 2016 Cardiovascular History: Reports: None Respiratory History: Reports: Other (See Below) Other Respiratory History: Reports 5 yr history of smoking when quite young, quit 10-11 yrs, re-started 5 yrs ago current use 1 - 1 1/2 packs/day Gastrointestinal History: Reports: Hepatitis Other Gastrointestinal History: hx: Ulcers, experience abdominal pain from time to time [employer] History: Reports: Other OB/BYN History: LMP 1 month ago Musculoskeletal History: Reports: Other (See Below) Other Musculoskeletal History: had low bulging discs, now degenerative disc disease, chronic low back pain Neurological History: Reports: Brain Injury, Seizure Psychiatric History: Reports: Depression, PTSD Hematologic History: Reports: None Immunologic History: Reports: None Oncologic (Cancer) History: Reports: None - Infectious Disease History Infectious Disease History: Reports: Other (See Below) Other Infectious Disease History: unknown - Past Surgical History HEENT Surgical History: Reports: None Respiratory Surgical History: Reports: None Neurological Surgical History: Reports: None Social & Family History - Family History Family Medical History: Noncontributory - Tobacco Use Smoking Status *Q: Former Smoker Used Tobacco, but Quit: Yes Month/Year Tobacco Last Used: january 2018 - Caffeine Use Caffeine Use: Reports: Coffee, Soda - Recreational Drug Use Recreational Drug Use: No H&P Review of Systems - Review of Systems: Review Of Systems: Unable To Obtain Exam - Exam Exam: See Below - Vital Signs Vital Signs: Last Vital Signs Temp 36.4 C 02/27/18 13:42 Pulse 116 H 02/27/18 13:42 Resp 20 02/27/18 13:42 BP 107/58 L 02/27/18 13:42 Pulse Ox 93 L 02/27/18 13:42 Weight: 54.431 kg - Exam Quality Assessment: No: Supplemental Oxygen, Urinary Catheter (Generally incontinent) General: Alert, Cooperative, Mild Distress. No: Oriented HEENT: Conjunctiva Clear, EOMI, Nares Patent. No: Mucosa Moist & [place] (Very dry , poor oral hygiene) Neck: Supple, Trachea Midline Lungs: Decreased Breath Sounds, Crackles, Rales (Predominantly left side). No: Clear to Auscultation Cardiovascular: Regular Rate, Regular Rhythm GI/Abdominal Exam: Normal Bowel Sounds, Soft, Non-Tender, No Distention (Female) Exam: Deferred Rectal (Female) Exam: Normal Exam Back Exam: Normal Inspection. No: Full Range of Motion (Age changes) Extremities: Normal Inspection, No Pedal Edema Skin: Warm, Dry, Intact, Other (Decreased skin turgor) Neurological: No: Cranial Nerves Intact (Traumatic brain injury) Neuro Extensive - Mental Status: Alert. No: Oriented x3 Psychiatric: Alert - Patient Data Lab Results Last 24 hrs: Laboratory Results - last 24 hr 0902/27/18 02/27/18 Range/Units 14:53 14:53 14:53 WBC 21.88 H (4.0-11.0) K/uL RBC 2.63 L (4.30-5.90) M/uL Hgb 9.0 L (12.0-16.0) g/dL Hct 27.9 L (36.0-46.0) % MCV 106.1 H (80.0-98.0) fL MCH 34.2 H (27.0-32.0) pg MCHC 32.3 (31.0-37.0) g/dL RDW Std Deviation 53.7 (28.0-62.0) fl RDW Coeff of Amanda 14 (11.0-15.0) % Plt Count 146 L (150-400) K/uL MPV 10.90 (7.40-12.00) fL Add Manual Diff YES Neutrophils % (Manual) 88 H (48.0-80.0) % Band Neutrophils % 2 % Lymphocytes % (Manual) 8 L (16.0-40.0) % Monocytes % (Manual) 2 (0.0-15.0) % Nucleated RBC % 0.0 /100WBC Absolute Seg Neuts 19.3 H (1.4-5.7) Band Neutrophils # 0.4 Lymphocytes # (Manual) 1.8 (0.6-2.4) Monocytes # (Manual) 0.4 (0.0-0.8) Nucleated RBCs # 0 K/uL Lactate 1.3 (0.20-2.00) mmol/L Sodium 144 (136-145) mmol/L Potassium 3.1 L (3.5-5.1) mmol/L Chloride 110 H (98-107) mmol/L Carbon Dioxide 28.3 (21.0-32.0) mmol/L BUN 29 H (7.0-18.0) mg/dL Creatinine 0.9 (0.6-1.0) mg/dL Est Cr Clr Drug Dosing 71.40 mL/min Estimated GFR (MDRD) > 60.0 ml/min Glucose 68 L (74-106) mg/dL Calcium 7.7 L (8.5-10.1) mg/dL Total Bilirubin 1.3 H (0.2-1.0) mg/dL AST 46 H (15-37) IU/L ALT 52 (14-63) IU/L Alkaline Phosphatase 209 H (46-116) U/L Creatine Kinase 62 (26-308) U/L CK-MB (CK-2) (0-3.6) ng/mL Troponin I < 0.050 (0.000-0.056) ng/mL Total Protein 5.3 L (6.4-8.2) g/dL Albumin 0.7 L (3.4-5.0) g/dL Globulin 4.6 H (2.0-3.5) g/dL Albumin/Globulin Ratio 0.2 L (1.3-2.8) Urine Color Urine Appearance Urine pH (5.0-8.0) Ur Specific [place] (1.001-1.035) Urine Protein (NEGATIVE) mg/dL Urine Glucose (UA) (NEGATIVE) mg/dL Urine Ketones (NEGATIVE) mg/dL Urine Occult Blood (NEGATIVE) Urine Nitrite (NEGATIVE) Urine Bilirubin (NEGATIVE) Urine Ictotest Urine Urobilinogen (<2.0) EU/dL Ur Leukocyte Esterase (NEGATIVE) Urine RBC (0-2/HPF) Urine WBC (0-5/HPF) Ur Epithelial Cells (NONE-FEW) Urine Bacteria (NEGATIVE) 02/27/18 02/27/18 Range/Units 14:53 16:25 WBC (4.0-11.0) K/uL RBC (4.30-5.90) M/uL Hgb (12.0-16.0) g/dL Hct (36.0-46.0) % MCV (80.0-98.0) fL MCH (27.0-32.0) pg MCHC (31.0-37.0) g/dL RDW Std Deviation (28.0-62.0) fl RDW Coeff of Amanda (11.0-15.0) % Plt Count (150-400) K/uL MPV (7.40-12.00) fL Add Manual Diff Neutrophils % (Manual) (48.0-80.0) % Band Neutrophils % % Lymphocytes % (Manual) (16.0-40.0) % Monocytes % (Manual) (0.0-15.0) % Nucleated RBC % /100WBC Absolute Seg Neuts (1.4-5.7) Band Neutrophils # Lymphocytes # (Manual) (0.6-2.4) Monocytes # (Manual) (0.0-0.8) Nucleated RBCs # K/uL Lactate (0.20-2.00) mmol/L Sodium (136-145) mmol/L Potassium (3.5-5.1) mmol/L Chloride (98-107) mmol/L Carbon Dioxide (21.0-32.0) mmol/L BUN (7.0-18.0) mg/dL Creatinine (0.6-1.0) mg/dL Est Cr Clr Drug Dosing mL/min Estimated GFR (MDRD) ml/min Glucose (74-106) mg/dL Calcium (8.5-10.1) mg/dL Total Bilirubin (0.2-1.0) mg/dL AST (15-37) IU/L ALT (14-63) IU/L Alkaline Phosphatase (46-116) U/L Creatine Kinase (26-308) U/L CK-MB (CK-2) 0.9 (0-3.6) ng/mL Troponin I (0.000-0.056) ng/mL Total Protein (6.4-8.2) g/dL Albumin (3.4-5.0) g/dL Globulin (2.0-3.5) g/dL Albumin/Globulin Ratio (1.3-2.8) Urine Color DARK YELLOW Urine Appearance SLT CLOUDY Urine pH 6.5 (5.0-8.0) Ur Specific [place] 1.015 (1.001-1.035) Urine Protein TRACE (NEGATIVE) mg/dL Urine Glucose (UA) NEGATIVE (NEGATIVE) mg/dL Urine Ketones TRACE H (NEGATIVE) mg/dL Urine Occult Blood MODERATE (NEGATIVE) Urine Nitrite POSITIVE H (NEGATIVE) Urine Bilirubin SMALL H (NEGATIVE) Urine Ictotest NEGATIVE Urine Urobilinogen >=8.0 H (<2.0) EU/dL Ur Leukocyte Esterase SMALL (NEGATIVE) Urine RBC 5-10 (0-2/HPF) Urine WBC 3-5 (0-5/HPF) Ur Epithelial Cells MODERATE (NONE-FEW) Urine Bacteria 3+ H (NEGATIVE) Result Diagrams: 02/27/18 14:53 02/27/18 14:53 Epifanio Results Last 24 hrs: Microbiology 02/27/18 15:10 Anaerobic Blood Culture - Final Blood - Venous - Lab Draw *Q Meaningful Use (ADM) - VTE *Q VTE Mechanical Contraindications *Q: At Risk for Falls - Problem List (1) Left lower lobe pneumonia SNOMED Code(s): 193714728 ICD Code: J18.1 - LOBAR PNEUMONIA, UNSPECIFIED ORGANISM Status: Acute Priority: High Current Visit: Yes Qualifiers: Pneumonia type: due to unspecified organism Qualified Code(s): J18.1 - Lobar pneumonia, unspecified organism (2) Traumatic brain injury SNOMED Code(s): 236990889 ICD Code: S06.9X9A - UNSP INTRACRANIAL INJURY W LOC OF UNSP DURATION, INIT Status: Acute Current Visit: Yes (3) Anemia SNOMED Code(s): 175070716 ICD Code: D64.9 - ANEMIA, UNSPECIFIED Status: Chronic Priority: High Current Visit: Yes Qualifiers: Anemia type: other cause Other causes of anemia: chronic disease, other Qualified Code(s): D63.8 - Anemia in other chronic diseases classified elsewhere (4) Altered mental status SNOMED Code(s): 416158501 ICD Code: R41.82 - ALTERED MENTAL STATUS, UNSPECIFIED Status: Acute Priority: Medium Current Visit: Yes Qualifiers: Altered mental status type: disorientation Qualified Code(s): R41.0 - Disorientation, unspecified Problem List Initiated/Reviewed/Updated: Yes Orders Last 24hrs: Active Orders 24 hr Category Date Time Status Patient Status [ADT] Routine ADT 02/27/18 17:12 Active Bedrest Bathroom Privileges [RC] ASDIRECTED Care 02/27/18 17:12 Active EKG Documentation Completion [RC] STAT Care 02/27/18 13:40 Active Intake and Output [RC] QSHIFT Care 02/27/18 17:14 Active Oxygen Therapy [RC] PRN Care 02/27/18 17:12 Active Urinary Catheter Assessment [RC] ASDIRECTED Care 02/27/18 17:12 Active VTE/DVT Education [RC] PER UNIT ROUTINE Care 02/27/18 17:12 Active Vital Signs [RC] Q4H Care 02/27/18 17:12 Active Mechanical Soft Diet [DIET] Diet 02/28/18 Breakfast Active Chest 1V Frontal [CR] Stat Exams 02/27/18 13:40 Taken CBC WITH AUTO DIFF [HEME] AM Lab 02/28/18 05:11 Ordered COMPREHENSIVE METABOLIC PN,CMP [CHEM] AM Lab 02/28/18 05:11 Ordered CULTURE BLOOD [BC] Stat Lab 02/27/18 14:53 Received CULTURE BLOOD [BC] Stat Lab 02/27/18 15:10 Results CULTURE URINE [RM] Stat Lab 02/27/18 16:25 Received MAGNESIUM [CHEM] AM Lab 02/28/18 05:11 Ordered PHOSPHORUS [CHEM] AM Lab 02/28/18 05:11 Ordered Acetaminophen [Tylenol] Med 02/27/18 17:12 Active 650 mg PO Q4H PRN Docusate Sodium [Colace] Med 02/27/18 17:12 Active 100 mg PO BID PRN Enoxaparin [Lovenox] Med 02/27/18 17:15 Active 40 mg SUBCUT Q24H Gabapentin [Neurontin] Med 02/27/18 22:00 Active 900 mg PO TID Levofloxacin/Dextrose 5%-Water [Levaquin in D5W 750 MG/ Med 02/27/18 17:30 Active 150 ML] 750 mg Premix Bag 1 bag IV Q24H Methocarbamol [Methocarbamol] Med 02/27/18 17:17 Active 750 mg PO TID PRN Morphine Med 02/27/18 17:12 Active 2 mg IVPUSH Q2H PRN Oxybutynin Med 02/28/18 09:00 Active 10 mg PO DAILY Sodium Chloride 0.9% [Normal Saline] 1,000 ml Med 02/27/18 17:15 Active IV ASDIRECTED Spironolactone [Aldactone] Med 02/27/18 21:00 Active 25 mg PO BID Temazepam [Restoril] Med 02/27/18 17:12 Active 15 mg PO BEDTIME PRN oxyCODONE Med 02/27/18 17:12 Active 5 mg PO Q4H PRN Blood Culture x2 Reflex Set [OM.PC] Stat Oth 02/27/18 14:18 Ordered VTE Mechanical Contraindications [AST] Per Unit Routine Oth 02/27/18 17:12 Ordered Resuscitation Status Routine Resus Stat 02/27/18 17:12 Ordered Medication Orders Acetaminophen (Tylenol) 650 mg PO Q4H PRN PRN Reason: Pain (Mild 1-3)/fever Docusate Sodium (Colace) 100 mg PO BID PRN PRN Reason: Constipation Enoxaparin Sodium (Lovenox) 40 mg SUBCUT Q24H SHIRIN Gabapentin (Neurontin) 900 mg PO TID SHIRIN Sodium Chloride (Normal Saline) 1,000 mls @ 125 mls/hr IV ASDIRECTED SHIRIN Levofloxacin/Dextrose 750 mg/ (Premix) 150 mls @ 100 mls/hr IV Q24H SHIRIN Morphine Sulfate (Morphine) 2 mg IVPUSH Q2H PRN PRN Reason: Pain (severe 7-10) Stop: 02/28/18 17:15 Non-Formulary Medication (Methocarbamol [Methocarbamol]) 750 mg PO TID PRN PRN Reason: Pain Oxybutynin Chloride (Oxybutynin) 10 mg PO DAILY SHIRIN Oxycodone HCl (Oxycodone) 5 mg PO Q4H PRN PRN Reason: Pain (moderate 4-6) Spironolactone (Aldactone) 25 mg PO BID SHIRIN Temazepam (Restoril) 15 mg PO BEDTIME PRN PRN Reason: Sleep Assessment/Plan Comment:: The patient is a 42-year-old lady who had been admitted to inpatient hospitalization secondary to severe left lung pneumonia. The patient's vital signs do show hypoxia on room air at 93%. She is also tachycardic at 116 bpm. The patient will be started secondary to her dehydration on normal saline at 125 mL per hour. As the patient appears to have a urinary tract infection as well as pneumonia she has been started on Levaquin 750 mg IV on a daily basis. Cultures have been obtained. The patient's antibiotics will be changed as cultures and sensitivities indicated. Physical therapy has also been ordered. I have also ordered repeat laboratory testing several morning. Oral care has also been ordered for the patient. The patient might likely need to have assisted care in the future. The patient will also be kept on a regular mechanical soft diet as tolerated. With the patient's severe dehydration her hemoglobin is been noted to be at 9.0 g/dL. I think that with the fluid resuscitation that the patient's hemoglobin may drop to transfusion levels. If her hemoglobin has dropped to 7.0 g/dL we will consider transfusion.
[2018-02-27] MEDS: Enoxaparin 40 MG/0.4 ML Syringe SUBCUT SCH (17:54)
[2018-02-27] MEDS: Levofloxacin/Dextrose 5%-Water 750 MG in Premix Bag 1 BAG IV SCH (17:54)
[2018-02-27] MEDS: Sodium Chloride 0.9% 1,000 ML IV SCH (17:55)
[2018-02-27] MEDS ORDERED: Haloperidol Lactate 5 MG/ML SDV IM ONE ×2 (19:34→22:09)
[2018-02-27] MEDS: Spironolactone 25 MG Tab PO SCH (20:25)
[2018-02-27] MEDS: Gabapentin 300 MG Cap PO SCH (21:47)
[2018-02-27] MEDS ORDERED: LORazepam 2 MG/ML SDV IVPUSH ONE (23:26)
[2018-02-28] MEDS: Sodium Chloride 0.9% 1,000 ML IV SCH (04:11)
[2018-02-28] MEDS: Gabapentin 300 MG Cap PO SCH ×3 (06:23→21:38)
[2018-02-28 06:36] LABS: CHLORIDE,CL 112 mmol/L (98-107); SODIUM,NA 142 mmol/L (136-145)
[2018-02-28] MEDS ORDERED: Morphine 2 MG/ML Syringe IVPUSH PRN (08:30)
[2018-02-28] MEDS: NS + KCl 20mEq/L 1,000 ML IV SCH ×2 (10:26→21:38)
--- NOTE | 2018-02-28 12:55 | PCM.PN ---
<Roc Oneill - Last Filed: 02/28/18 12:59> - General Info Date of Service: 02/28/18 Subjective Update: Myra Bryant is a 42 y/o non-verbal female with history of traumatic brain injury who was admitted for CAP and UTI. Does not look to be in distress. Remained afebrile overnight. - Patient Data Vitals - Most Recent: Last Vital Signs Temp 36.7 C 02/28/18 08:00 Pulse 90 02/28/18 08:00 Resp 16 02/28/18 08:00 BP 100/62 02/28/18 08:00 Pulse Ox 93 L 02/28/18 08:00 Weight - Most Recent: 60.963 kg I&O - Last 24 Hours: Intake & Output 02/27/18 02/28/18 02/28/18 22:59 06:59 14:59 Intake Total 250 Output Total 35 225 Balance -35 25 Lab Results Last 24 Hours: Laboratory Results - last 24 hr 02/27/18 02/27/18 02/27/18 Range/Units 14:53 14:53 14:53 WBC 21.88 H (4.0-11.0) K/uL RBC 2.63 L (4.30-5.90) M/uL Hgb 9.0 L (12.0-16.0) g/dL Hct 27.9 L (36.0-46.0) % MCV 106.1 H (80.0-98.0) fL MCH 34.2 H (27.0-32.0) pg MCHC 32.3 (31.0-37.0) g/dL RDW Std Deviation 53.7 (28.0-62.0) fl RDW Coeff of Amanda 14 (11.0-15.0) % Plt Count 146 L (150-400) K/uL MPV 10.90 (7.40-12.00) fL Add Manual Diff YES Neutrophils % (Manual) 88 H (48.0-80.0) % Band Neutrophils % 2 % Lymphocytes % (Manual) 8 L (16.0-40.0) % Monocytes % (Manual) 2 (0.0-15.0) % Eosinophils % (Manual) (0.0-7.0) % Nucleated RBC % 0.0 /100WBC Absolute Seg Neuts 19.3 H (1.4-5.7) Band Neutrophils # 0.4 Lymphocytes # (Manual) 1.8 (0.6-2.4) Monocytes # (Manual) 0.4 (0.0-0.8) Eosinophils # (Manual) (0.0-0.7) Nucleated RBCs # 0 K/uL Lactate 1.3 (0.20-2.00) mmol/L Sodium 144 (136-145) mmol/L Potassium 3.1 L (3.5-5.1) mmol/L Chloride 110 H (98-107) mmol/L Carbon Dioxide 28.3 (21.0-32.0) mmol/L BUN 29 H (7.0-18.0) mg/dL Creatinine 0.9 (0.6-1.0) mg/dL Est Cr Clr Drug Dosing 71.40 mL/min Estimated GFR (MDRD) > 60.0 ml/min Glucose 68 L (74-106) mg/dL Calcium 7.7 L (8.5-10.1) mg/dL Phosphorus (2.6-4.7) mg/dL Magnesium (1.8-2.4) mg/dL Total Bilirubin 1.3 H (0.2-1.0) mg/dL AST 46 H (15-37) IU/L ALT 52 (14-63) IU/L Alkaline Phosphatase 209 H (46-116) U/L Creatine Kinase 62 (26-308) U/L CK-MB (CK-2) (0-3.6) ng/mL Troponin I < 0.050 (0.000-0.056) ng/mL Total Protein 5.3 L (6.4-8.2) g/dL Albumin 0.7 L (3.4-5.0) g/dL Globulin 4.6 H (2.0-3.5) g/dL Albumin/Globulin Ratio 0.2 L (1.3-2.8) Urine Color Urine Appearance Urine pH (5.0-8.0) Ur Specific [place] (1.001-1.035) Urine Protein (NEGATIVE) mg/dL Urine Glucose (UA) (NEGATIVE) mg/dL Urine Ketones (NEGATIVE) mg/dL Urine Occult Blood (NEGATIVE) Urine Nitrite (NEGATIVE) Urine Bilirubin (NEGATIVE) Urine Ictotest Urine Urobilinogen (<2.0) EU/dL Ur Leukocyte Esterase (NEGATIVE) Urine RBC (0-2/HPF) Urine WBC (0-5/HPF) Ur Epithelial Cells (NONE-FEW) Urine Bacteria (NEGATIVE) 02/27/18 02/27/18 02/28/18 Range/Units 14:53 16:25 05:30 WBC 17.19 H (4.0-11.0) K/uL RBC 2.72 L (4.30-5.90) M/uL Hgb 9.1 L (12.0-16.0) g/dL Hct 28.9 L (36.0-46.0) % MCV 106.3 H (80.0-98.0) fL MCH 33.5 H (27.0-32.0) pg MCHC 31.5 (31.0-37.0) g/dL RDW Std Deviation 54.3 (28.0-62.0) fl RDW Coeff of Amanda 14 (11.0-15.0) % Plt Count 137 L (150-400) K/uL MPV 11.30 (7.40-12.00) fL Add Manual Diff YES Neutrophils % (Manual) 74 (48.0-80.0) % Band Neutrophils % 4 % Lymphocytes % (Manual) 16 (16.0-40.0) % Monocytes % (Manual) 3 (0.0-15.0) % Eosinophils % (Manual) 3 (0.0-7.0) % Nucleated RBC % 0.0 /100WBC Absolute Seg Neuts 12.7 H (1.4-5.7) Band Neutrophils # 0.7 Lymphocytes # (Manual) 2.8 H (0.6-2.4) Monocytes # (Manual) 0.5 (0.0-0.8) Eosinophils # (Manual) 0.5 (0.0-0.7) Nucleated RBCs # 0 K/uL Lactate (0.20-2.00) mmol/L Sodium (136-145) mmol/L Potassium (3.5-5.1) mmol/L Chloride (98-107) mmol/L Carbon Dioxide (21.0-32.0) mmol/L BUN (7.0-18.0) mg/dL Creatinine (0.6-1.0) mg/dL Est Cr Clr Drug Dosing mL/min Estimated GFR (MDRD) ml/min Glucose (74-106) mg/dL Calcium (8.5-10.1) mg/dL Phosphorus (2.6-4.7) mg/dL Magnesium (1.8-2.4) mg/dL Total Bilirubin (0.2-1.0) mg/dL AST (15-37) IU/L ALT (14-63) IU/L Alkaline Phosphatase (46-116) U/L Creatine Kinase (26-308) U/L CK-MB (CK-2) 0.9 (0-3.6) ng/mL Troponin I (0.000-0.056) ng/mL Total Protein (6.4-8.2) g/dL Albumin (3.4-5.0) g/dL Globulin (2.0-3.5) g/dL Albumin/Globulin Ratio (1.3-2.8) Urine Color DARK YELLOW Urine Appearance SLT CLOUDY Urine pH 6.5 (5.0-8.0) Ur Specific [place] 1.015 (1.001-1.035) Urine Protein TRACE (NEGATIVE) mg/dL Urine Glucose (UA) NEGATIVE (NEGATIVE) mg/dL Urine Ketones TRACE H (NEGATIVE) mg/dL Urine Occult Blood MODERATE (NEGATIVE) Urine Nitrite POSITIVE H (NEGATIVE) Urine Bilirubin SMALL H (NEGATIVE) Urine Ictotest NEGATIVE Urine Urobilinogen >=8.0 H (<2.0) EU/dL Ur Leukocyte Esterase SMALL (NEGATIVE) Urine RBC 5-10 (0-2/HPF) Urine WBC 3-5 (0-5/HPF) Ur Epithelial Cells MODERATE (NONE-FEW) Urine Bacteria 3+ H (NEGATIVE) 02/28/18 Range/Units 05:30 WBC (4.0-11.0) K/uL RBC (4.30-5.90) M/uL Hgb (12.0-16.0) g/dL Hct (36.0-46.0) % MCV (80.0-98.0) fL MCH (27.0-32.0) pg MCHC (31.0-37.0) g/dL RDW Std Deviation (28.0-62.0) fl RDW Coeff of Amanda (11.0-15.0) % Plt Count (150-400) K/uL MPV (7.40-12.00) fL Add Manual Diff Neutrophils % (Manual) (48.0-80.0) % Band Neutrophils % % Lymphocytes % (Manual) (16.0-40.0) % Monocytes % (Manual) (0.0-15.0) % Eosinophils % (Manual) (0.0-7.0) % Nucleated RBC % /100WBC Absolute Seg Neuts (1.4-5.7) Band Neutrophils # Lymphocytes # (Manual) (0.6-2.4) Monocytes # (Manual) (0.0-0.8) Eosinophils # (Manual) (0.0-0.7) Nucleated RBCs # K/uL Lactate (0.20-2.00) mmol/L Sodium 142 (136-145) mmol/L Potassium 3.0 L (3.5-5.1) mmol/L Chloride 112 H (98-107) mmol/L Carbon Dioxide 24.0 (21.0-32.0) mmol/L BUN 22 H (7.0-18.0) mg/dL Creatinine 0.8 (0.6-1.0) mg/dL Est Cr Clr Drug Dosing 89.96 mL/min Estimated GFR (MDRD) > 60.0 ml/min Glucose 73 L (74-106) mg/dL Calcium 7.6 L (8.5-10.1) mg/dL Phosphorus 2.5 L (2.6-4.7) mg/dL Magnesium 2.1 (1.8-2.4) mg/dL Total Bilirubin 1.0 (0.2-1.0) mg/dL AST 46 H (15-37) IU/L ALT 49 (14-63) IU/L Alkaline Phosphatase 204 H (46-116) U/L Creatine Kinase (26-308) U/L CK-MB (CK-2) (0-3.6) ng/mL Troponin I (0.000-0.056) ng/mL Total Protein 5.0 L (6.4-8.2) g/dL Albumin 0.6 L (3.4-5.0) g/dL Globulin 4.4 H (2.0-3.5) g/dL Albumin/Globulin Ratio 0.1 L (1.3-2.8) Urine Color Urine Appearance Urine pH (5.0-8.0) Ur Specific [place] (1.001-1.035) Urine Protein (NEGATIVE) mg/dL Urine Glucose (UA) (NEGATIVE) mg/dL Urine Ketones (NEGATIVE) mg/dL Urine Occult Blood (NEGATIVE) Urine Nitrite (NEGATIVE) Urine Bilirubin (NEGATIVE) Urine Ictotest Urine Urobilinogen (<2.0) EU/dL Ur Leukocyte Esterase (NEGATIVE) Urine RBC (0-2/HPF) Urine WBC (0-5/HPF) Ur Epithelial Cells (NONE-FEW) Urine Bacteria (NEGATIVE) Epifanio Results Last 24 Hours: Microbiology 02/27/18 15:10 Anaerobic Blood Culture - Final Blood - Venous - Lab Draw Med Orders - Current: Current Medications Acetaminophen (Tylenol) 650 mg PO Q4H PRN PRN Reason: Pain (Mild 1-3)/fever Docusate Sodium (Colace) 100 mg PO BID PRN PRN Reason: Constipation Enoxaparin Sodium (Lovenox) 40 mg SUBCUT Q24H [facility] Last Admin: 02/27/18 17:54 Dose: 40 mg Gabapentin (Neurontin) 900 mg PO TID [facility] Last Admin: 02/28/18 06:23 Dose: Not Given Levofloxacin/Dextrose 750 mg/ (Premix) 150 mls @ 100 mls/hr IV Q24H [facility] Last Admin: 02/27/18 17:54 Dose: 100 mls/hr Potassium Chloride/Sodium Chloride (Normal Saline With 20 Meq Kcl) 1,000 mls @ 125 mls/hr IV ASDIRECTED [facility] Last Admin: 02/28/18 10:26 Dose: 125 mls/hr Morphine Sulfate (Morphine) 2 mg IVPUSH Q2H PRN PRN Reason: Pain (severe 7-10) Stop: 02/28/18 17:15 Non-Formulary Medication (Methocarbamol [Methocarbamol]) 750 mg PO TID PRN PRN Reason: Pain Oxybutynin Chloride (Oxybutynin) 10 mg PO DAILY [facility] Oxycodone HCl (Oxycodone) 5 mg PO Q4H PRN PRN Reason: Pain (moderate 4-6) Spironolactone (Aldactone) 25 mg PO BID [facility] Last Admin: 02/27/18 20:25 Dose: 25 mg Temazepam (Restoril) 15 mg PO BEDTIME PRN PRN Reason: Sleep Discontinued Medications Calcium Gluconate (Calcium Gluconate) 1 gm IVPUSH ONETIME ONE Stop: 02/27/18 17:18 Last Admin: 02/27/18 17:55 Dose: 1 gm Haloperidol Lactate (Haldol) 2.5 mg IM ONETIME ONE Stop: 02/27/18 19:35 Last Admin: 02/27/18 19:49 Dose: 2.5 mg Haloperidol Lactate (Haldol) 5 mg IM ONETIME ONE Stop: 02/27/18 22:10 Last Admin: 02/27/18 22:43 Dose: 5 mg Sodium Chloride (Normal Saline) 1,000 mls @ 999 mls/hr IV STAT ONE Stop: 02/27/18 14:40 Last Admin: 02/27/18 14:00 Dose: 999 mls/hr Sodium Chloride (Normal Saline) 1,000 mls @ 125 mls/hr IV ASDIRECTED [facility] Last Admin: 02/28/18 04:11 Dose: 125 mls/hr Lorazepam (Ativan) 1 mg IVPUSH ONETIME ONE Stop: 02/27/18 23:27 Last Admin: 02/28/18 00:11 Dose: 1 mg Morphine Sulfate (Morphine) 2 mg IVPUSH Q2H PRN PRN Reason: Pain (severe 7-10) Stop: 02/28/18 17:15 Last Admin: 02/27/18 21:46 Dose: 2 mg - Exam General: Alert, No Acute Distress, Other (non verbal) Lungs: Other (Decreased left lung sounds with some rhonchi.) Cardiovascular: Regular Rate, Regular Rhythm GI/Abdominal Exam: Normal Bowel Sounds, Soft, Non-Tender Extremities: Normal Inspection, Non-Tender, No Pedal Edema Skin: Warm, Dry - Problem List Review Problem List Initiated/Reviewed/Updated: Yes - My Orders Last 24 Hours: My Active Orders 02/28/18 10:15 NS + KCl 20mEq/L [Normal Saline with 20 mEq KCl] 1,000 ml IV ASDIRECTED - Plan Plan:: 1. Community acquired pneumonia- continue with IV levaquin for now. 2. Urinary tract infection- continue with IV levaquin. Pending ID and susceptibilities 3. Hypokalemia- Ordered NS+KCl 20 mEq. Will continue to monitor. 4. Macrocytic anemia- ordered iron panel, B12 and folate levels. 5. Severe protein malnutrition- Patient may possibly need placement. Will speak with family regarding their wishes. 6. Leukocytosis due to above Dispo: 1-2 days. <Ant Fan M - Last Filed: 02/28/18 15:49> - General Info Admission Dx/Problem (Free Text): I seen and examined the patient independently of medical auditor. The patient is a 42-year-old lady with a history of traumatic brain injury 2 years ago from a fall on ice resulting in skull fracture and history of alcohol abuse who presented to the emergency department with alteration in her mentation. The patient had been not eating for several days. She was severely dehydrated. The patient also required 7.5 mg of Haldol yesterday evening as she was pulling out IVs and Evans catheter. Today the patient is somewhat lethargic although she appears comfortable. The patient also has exhibited some traits associated with severe protein malnutrition and that her total albumin was less than then 1.0 mg /dL. She does not have any peripheral swelling associated with hypoalbuminemia. The patient also has shown signs of anemia but this has been stable in spite of hydration. The patient will have repeat laboratory testing with regards to hemoglobin and may be considered for transfusion. The patient also has mild thrombocytopenia which also indicates or nutritional status. The patient will also be kept on antibiotics for her UTI until cultures have returned. I have reviewed and agree with the medical residents plan of care. See orders. - Patient Data Vitals - Most Recent: Last Vital Signs Temp 36.3 C 02/28/18 12:00 Pulse 98 02/28/18 12:00 Resp 16 02/28/18 12:00 BP 99/69 02/28/18 12:00 Pulse Ox 92 L 02/28/18 12:00 I&O - Last 24 Hours: Intake & Output 02/28/18 02/28/18 02/28/18 06:59 14:59 22:59 Intake Total 250 Output Total 225 Balance 25 Lab Results Last 24 Hours: Laboratory Results - last 24 hr 02/27/18 02/28/18 02/28/18 Range/Units 16:25 05:30 05:30 WBC 17.19 H (4.0-11.0) K/uL RBC 2.72 L (4.30-5.90) M/uL Hgb 9.1 L (12.0-16.0) g/dL Hct 28.9 L (36.0-46.0) % MCV 106.3 H (80.0-98.0) fL MCH 33.5 H (27.0-32.0) pg MCHC 31.5 (31.0-37.0) g/dL RDW Std Deviation 54.3 (28.0-62.0) fl RDW Coeff of Amanda 14 (11.0-15.0) % Plt Count 137 L (150-400) K/uL MPV 11.30 (7.40-12.00) fL Add Manual Diff YES Neutrophils % (Manual) 74 (48.0-80.0) % Band Neutrophils % 4 % Lymphocytes % (Manual) 16 (16.0-40.0) % Monocytes % (Manual) 3 (0.0-15.0) % Eosinophils % (Manual) 3 (0.0-7.0) % Nucleated RBC % 0.0 /100WBC Absolute Seg Neuts 12.7 H (1.4-5.7) Band Neutrophils # 0.7 Lymphocytes # (Manual) 2.8 H (0.6-2.4) Monocytes # (Manual) 0.5 (0.0-0.8) Eosinophils # (Manual) 0.5 (0.0-0.7) Nucleated RBCs # 0 K/uL Sodium 142 (136-145) mmol/L Potassium 3.0 L (3.5-5.1) mmol/L Chloride 112 H (98-107) mmol/L Carbon Dioxide 24.0 (21.0-32.0) mmol/L BUN 22 H (7.0-18.0) mg/dL Creatinine 0.8 (0.6-1.0) mg/dL Est Cr Clr Drug Dosing 89.96 mL/min Estimated GFR (MDRD) > 60.0 ml/min Glucose 73 L (74-106) mg/dL Calcium 7.6 L (8.5-10.1) mg/dL Phosphorus 2.5 L (2.6-4.7) mg/dL Magnesium 2.1 (1.8-2.4) mg/dL Iron (50-175) ug/dL TIBC (250-450) ug/dL % Saturation (20-55) % Ferritin (8-252) ng/mL Total Bilirubin 1.0 (0.2-1.0) mg/dL AST 46 H (15-37) IU/L ALT 49 (14-63) IU/L Alkaline Phosphatase 204 H (46-116) U/L Total Protein 5.0 L (6.4-8.2) g/dL Albumin 0.6 L (3.4-5.0) g/dL Globulin 4.4 H (2.0-3.5) g/dL Albumin/Globulin Ratio 0.1 L (1.3-2.8) Vitamin B12 (193-986) pg/mL Folate (8.60-58.90) ng/mL Urine Color DARK YELLOW Urine Appearance SLT CLOUDY Urine pH 6.5 (5.0-8.0) Ur Specific [place] 1.015 (1.001-1.035) Urine Protein TRACE (NEGATIVE) mg/dL Urine Glucose (UA) NEGATIVE (NEGATIVE) mg/dL Urine Ketones TRACE H (NEGATIVE) mg/dL Urine Occult Blood MODERATE (NEGATIVE) Urine Nitrite POSITIVE H (NEGATIVE) Urine Bilirubin SMALL H (NEGATIVE) Urine Ictotest NEGATIVE Urine Urobilinogen >=8.0 H (<2.0) EU/dL Ur Leukocyte Esterase SMALL (NEGATIVE) Urine RBC 5-10 (0-2/HPF) Urine WBC 3-5 (0-5/HPF) Ur Epithelial Cells MODERATE (NONE-FEW) Urine Bacteria 3+ H (NEGATIVE) 02/28/18 02/28/18 02/28/18 Range/Units 13:27 13:27 13:27 WBC (4.0-11.0) K/uL RBC (4.30-5.90) M/uL Hgb (12.0-16.0) g/dL Hct (36.0-46.0) % MCV (80.0-98.0) fL MCH (27.0-32.0) pg MCHC (31.0-37.0) g/dL RDW Std Deviation (28.0-62.0) fl RDW Coeff of Amanda (11.0-15.0) % Plt Count (150-400) K/uL MPV (7.40-12.00) fL Add Manual Diff Neutrophils % (Manual) (48.0-80.0) % Band Neutrophils % % Lymphocytes % (Manual) (16.0-40.0) % Monocytes % (Manual) (0.0-15.0) % Eosinophils % (Manual) (0.0-7.0) % Nucleated RBC % /100WBC Absolute Seg Neuts (1.4-5.7) Band Neutrophils # Lymphocytes # (Manual) (0.6-2.4) Monocytes # (Manual) (0.0-0.8) Eosinophils # (Manual) (0.0-0.7) Nucleated RBCs # K/uL Sodium (136-145) mmol/L Potassium (3.5-5.1) mmol/L Chloride (98-107) mmol/L Carbon Dioxide (21.0-32.0) mmol/L BUN (7.0-18.0) mg/dL Creatinine (0.6-1.0) mg/dL Est Cr Clr Drug Dosing mL/min Estimated GFR (MDRD) ml/min Glucose (74-106) mg/dL Calcium (8.5-10.1) mg/dL Phosphorus (2.6-4.7) mg/dL Magnesium (1.8-2.4) mg/dL Iron 15 L (50-175) ug/dL TIBC 38 L (250-450) ug/dL % Saturation 39.47 (20-55) % Ferritin 875 H (8-252) ng/mL Total Bilirubin (0.2-1.0) mg/dL AST (15-37) IU/L ALT (14-63) IU/L Alkaline Phosphatase (46-116) U/L Total Protein (6.4-8.2) g/dL Albumin (3.4-5.0) g/dL Globulin (2.0-3.5) g/dL Albumin/Globulin Ratio (1.3-2.8) Vitamin B12 2281 H (193-986) pg/mL Folate 10.70 (8.60-58.90) ng/mL Urine Color Urine Appearance Urine pH (5.0-8.0) Ur Specific [place] (1.001-1.035) Urine Protein (NEGATIVE) mg/dL Urine Glucose (UA) (NEGATIVE) mg/dL Urine Ketones (NEGATIVE) mg/dL Urine Occult Blood (NEGATIVE) Urine Nitrite (NEGATIVE) Urine Bilirubin (NEGATIVE) Urine Ictotest Urine Urobilinogen (<2.0) EU/dL Ur Leukocyte Esterase (NEGATIVE) Urine RBC (0-2/HPF) Urine WBC (0-5/HPF) Ur Epithelial Cells (NONE-FEW) Urine Bacteria (NEGATIVE) Epifanio Results Last 24 Hours: Microbiology 02/27/18 15:10 Aerobic Blood Culture - Preliminary Blood - Venous - Lab Draw NO GROWTH AFTER 1 DAY Anaerobic Blood Culture - Final 02/27/18 14:53 Aerobic Blood Culture - Preliminary Blood - Venous NO GROWTH AFTER 1 DAY Anaerobic Blood Culture - Preliminary NO GROWTH AFTER 1 DAY Med Orders - Current: Current Medications Acetaminophen (Tylenol) 650 mg PO Q4H PRN PRN Reason: Pain (Mild 1-3)/fever Docusate Sodium (Colace) 100 mg PO BID PRN PRN Reason: Constipation Enoxaparin Sodium (Lovenox) 40 mg SUBCUT Q24H [facility] Last Admin: 02/27/18 17:54 Dose: 40 mg Gabapentin (Neurontin) 900 mg PO TID [facility] Last Admin: 02/28/18 14:24 Dose: 900 mg Levofloxacin/Dextrose 750 mg/ (Premix) 150 mls @ 100 mls/hr IV Q24H [facility] Last Admin: 02/27/18 17:54 Dose: 100 mls/hr Potassium Chloride/Sodium Chloride (Normal Saline With 20 Meq Kcl) 1,000 mls @ 125 mls/hr IV ASDIRECTED [facility] Last Admin: 02/28/18 10:26 Dose: 125 mls/hr Morphine Sulfate (Morphine) 2 mg IVPUSH Q2H PRN PRN Reason: Pain (severe 7-10) Stop: 02/28/18 17:15 Last Admin: 02/28/18 14:41 Dose: 2 mg Non-Formulary Medication (Methocarbamol [Methocarbamol]) 750 mg PO TID PRN PRN Reason: Pain Oxybutynin Chloride (Oxybutynin) 10 mg PO DAILY [facility] Last Admin: 02/28/18 14:24 Dose: 10 mg Oxycodone HCl (Oxycodone) 5 mg PO Q4H PRN PRN Reason: Pain (moderate 4-6) Spironolactone (Aldactone) 25 mg PO BID [facility] Last Admin: 02/28/18 14:24 Dose: 25 mg Temazepam (Restoril) 15 mg PO BEDTIME PRN PRN Reason: Sleep Discontinued Medications Calcium Gluconate (Calcium Gluconate) 1 gm IVPUSH ONETIME ONE Stop: 02/27/18 17:18 Last Admin: 02/27/18 17:55 Dose: 1 gm Haloperidol Lactate (Haldol) 2.5 mg IM ONETIME ONE Stop: 02/27/18 19:35 Last Admin: 02/27/18 19:49 Dose: 2.5 mg Haloperidol Lactate (Haldol) 5 mg IM ONETIME ONE Stop: 02/27/18 22:10 Last Admin: 02/27/18 22:43 Dose: 5 mg Sodium Chloride (Normal Saline) 1,000 mls @ 999 mls/hr IV STAT ONE Stop: 02/27/18 14:40 Last Admin: 02/27/18 14:00 Dose: 999 mls/hr Sodium Chloride (Normal Saline) 1,000 mls @ 125 mls/hr IV ASDIRECTED [facility] Last Admin: 02/28/18 04:11 Dose: 125 mls/hr Lorazepam (Ativan) 1 mg IVPUSH ONETIME ONE Stop: 02/27/18 23:27 Last Admin: 02/28/18 00:11 Dose: 1 mg Morphine Sulfate (Morphine) 2 mg IVPUSH Q2H PRN PRN Reason: Pain (severe 7-10) Stop: 02/28/18 17:15 Last Admin: 02/27/18 21:46 Dose: 2 mg - Problem List & Annotations (1) Left lower lobe pneumonia SNOMED Code(s): 115626835 Code(s): J18.1 - LOBAR PNEUMONIA, UNSPECIFIED ORGANISM Status: Acute Priority: High Current Visit: Yes Qualifiers: Pneumonia type: due to unspecified organism Qualified Code(s): J18.1 - Lobar pneumonia, unspecified organism (2) Traumatic brain injury SNOMED Code(s): 718086781 Code(s): S06.9X9A - UNSP INTRACRANIAL INJURY W LOC OF UNSP DURATION, INIT Status: Acute Current Visit: Yes (3) Anemia SNOMED Code(s): 604172061 Code(s): D64.9 - ANEMIA, UNSPECIFIED Status: Chronic Priority: High Current Visit: Yes Qualifiers: Anemia type: other cause Other causes of anemia: chronic disease, other Qualified Code(s): D63.8 - Anemia in other chronic diseases classified elsewhere (4) Altered mental status SNOMED Code(s): 573107873 Code(s): R41.82 - ALTERED MENTAL STATUS, UNSPECIFIED Status: Acute Priority: Medium Current Visit: Yes Qualifiers: Altered mental status type: disorientation Qualified Code(s): R41.0 - Disorientation, unspecified - My Orders Last 24 Hours: My Active Orders 02/27/18 17:12 Patient Status [ADT] Routine Bedrest Bathroom Privileges [RC] ASDIRECTED Oxygen Therapy [RC] PRN Urinary Catheter Assessment [RC] ASDIRECTED VTE/DVT Education [RC] PER UNIT ROUTINE Vital Signs [RC] Q4H Acetaminophen [Tylenol] 650 mg PO Q4H PRN Docusate Sodium [Colace] 100 mg PO BID PRN Temazepam [Restoril] 15 mg PO BEDTIME PRN oxyCODONE 5 mg PO Q4H PRN VTE Mechanical Contraindications [AST] Per Unit Routine Resuscitation Status Routine 02/27/18 17:14 Intake and Output [RC] QSHIFT 02/27/18 17:15 Enoxaparin [Lovenox] 40 mg SUBCUT Q24H 02/27/18 17:17 Methocarbamol [Methocarbamol] 750 mg PO TID PRN 02/27/18 17:30 Levofloxacin/Dextrose 5%-Water [Levaquin in D5W 750 MG/150 ML] 750 mg Premix Bag 1 bag IV Q24H 02/27/18 21:00 Spironolactone [Aldactone] 25 mg PO BID 02/27/18 22:00 Gabapentin [Neurontin] 900 mg PO TID 02/28/18 08:30 Morphine 2 mg IVPUSH Q2H PRN 02/28/18 09:00 Oxybutynin 10 mg PO DAILY 02/28/18 Breakfast Mechanical Soft Diet [DIET]
[2018-02-28] MEDS: Oxybutynin 5 MG Tab PO SCH (14:24)
[2018-02-28] MEDS: Spironolactone 25 MG Tab PO SCH ×2 (14:24→20:35)
[2018-02-28] MEDS ORDERED: LORazepam 2 MG/ML SDV IM PRN (17:22)
[2018-02-28] MEDS ORDERED: LORazepam 2 MG/ML SDV IVPUSH PRN (17:24)
[2018-02-28] MEDS: Enoxaparin 40 MG/0.4 ML Syringe SUBCUT SCH (18:00)
[2018-02-28] MEDS: Levofloxacin/Dextrose 5%-Water 750 MG in Premix Bag 1 BAG IV SCH (18:22)
[2018-02-28] MEDS: Temazepam 15 MG Cap PO PRN (23:21)
[2018-03-01] MEDS: Gabapentin 300 MG Cap PO SCH ×3 (06:30→22:25)
[2018-03-01 06:34] LABS: CHLORIDE,CL 110 mmol/L (98-107); SODIUM,NA 141 mmol/L (136-145)
[2018-03-01] MEDS: NS + KCl 20mEq/L 1,000 ML IV SCH (07:14)
[2018-03-01] MEDS: Oxybutynin 5 MG Tab PO SCH (08:31)
[2018-03-01] MEDS: Spironolactone 25 MG Tab PO SCH (08:36)
--- NOTE | 2018-03-01 09:46 | CR ---
EXAMINATION: Portable chest radiograph. HISTORY: Pneumonia. FINDINGS: The trachea is midline. The cardiomediastinal silhouette is within normal limits. There is a moderate to large left pleural effusion with adjacent atelectasis and/or infiltrate. Right basilar infiltrate s also noted, increased from the day prior. Osseous structures appear unremarkable. IMPRESSION: 1. Bilateral pulmonary infiltrates noted mildly increased from the day prior. 2. Moderate to large left pleural effusion.
[2018-03-01] MEDS ORDERED: Potassium Chloride 20 MEQ Tab.ER PO ONE (11:51)
[2018-03-01] MEDS ORDERED: Magnesium Sulfate/Water 2 GM in Premix Bag 1 BAG IV ONE (12:04)
[2018-03-01] MEDS ORDERED: Furosemide 40 MG/4 ML VIAL IVPUSH ONE ×2 (12:05→20:14)
[2018-03-01] MEDS ORDERED: Albumin 25% 12.5 GM/50 ML BAG IV ONE (12:06)
[2018-03-01] MEDS: Phosphorus #1 250 MG Tab PO SCH ×3 (12:16→23:10)
[2018-03-01] MEDS: Folic Acid 1 MG Tab PO SCH (12:18)
--- NOTE | 2018-03-01 13:22 | PCM.PN ---
- General Info Date of Service: 03/01/18 Subjective Update: Myra Bryant jenifer 42 y/o female with history of traumatic brain injury in the past who was admitted for community acquired pneumonia and a urinary tract infection which is growing E.coli. This morning, the patient was alert to self but not time or place. She denied any chest pain, shortness of breath, abdominal pain. - Patient Data Vitals - Most Recent: Last Vital Signs Temp 36.5 C 03/01/18 11:36 Pulse 113 H 03/01/18 11:36 Resp 20 03/01/18 11:36 BP 96/60 03/01/18 11:36 Pulse Ox 92 L 03/01/18 11:36 Weight - Most Recent: 60.963 kg I&O - Last 24 Hours: Intake & Output 02/28/18 03/01/18 03/01/18 22:59 06:59 14:59 Intake Total 3339 Output Total 500 Balance 2839 Lab Results Last 24 Hours: Laboratory Results - last 24 hr 02/28/18 02/28/18 02/28/18 Range/Units 13:27 13:27 13:27 WBC (4.0-11.0) K/uL RBC (4.30-5.90) M/uL Hgb (12.0-16.0) g/dL Hct (36.0-46.0) % MCV (80.0-98.0) fL MCH (27.0-32.0) pg MCHC (31.0-37.0) g/dL RDW Std Deviation (28.0-62.0) fl RDW Coeff of Amanda (11.0-15.0) % Plt Count (150-400) K/uL MPV (7.40-12.00) fL Add Manual Diff Neutrophils % (Manual) (48.0-80.0) % Band Neutrophils % % Lymphocytes % (Manual) (16.0-40.0) % Monocytes % (Manual) (0.0-15.0) % Eosinophils % (Manual) (0.0-7.0) % Absolute Seg Neuts (1.4-5.7) Band Neutrophils # Lymphocytes # (Manual) (0.6-2.4) Monocytes # (Manual) (0.0-0.8) Eosinophils # (Manual) (0.0-0.7) Lactate (0.20-2.00) mmol/L Sodium (136-145) mmol/L Potassium (3.5-5.1) mmol/L Chloride (98-107) mmol/L Carbon Dioxide (21.0-32.0) mmol/L BUN (7.0-18.0) mg/dL Creatinine (0.6-1.0) mg/dL Est Cr Clr Drug Dosing mL/min Estimated GFR (MDRD) ml/min Glucose (74-106) mg/dL Calcium (8.5-10.1) mg/dL Phosphorus (2.6-4.7) mg/dL Magnesium (1.8-2.4) mg/dL Iron 15 L (50-175) ug/dL TIBC 38 L (250-450) ug/dL % Saturation 39.47 (20-55) % Ferritin 875 H (8-252) ng/mL Total Bilirubin (0.2-1.0) mg/dL AST (15-37) IU/L ALT (14-63) IU/L Alkaline Phosphatase (46-116) U/L Total Protein (6.4-8.2) g/dL Albumin (3.4-5.0) g/dL Globulin (2.0-3.5) g/dL Albumin/Globulin Ratio (1.3-2.8) Vitamin B12 2281 H (193-986) pg/mL Folate 10.70 (8.60-58.90) ng/mL 03/01/18 03/01/18 03/01/18 Range/Units 05:35 05:35 05:35 WBC 14.78 H (4.0-11.0) K/uL RBC 2.80 L (4.30-5.90) M/uL Hgb 9.6 L (12.0-16.0) g/dL Hct 30.7 L (36.0-46.0) % MCV 109.6 H (80.0-98.0) fL MCH 34.3 H (27.0-32.0) pg MCHC 31.3 (31.0-37.0) g/dL RDW Std Deviation 53.6 (28.0-62.0) fl RDW Coeff of Amanda 14 (11.0-15.0) % Plt Count 145 L (150-400) K/uL MPV 11.30 (7.40-12.00) fL Add Manual Diff YES Neutrophils % (Manual) 75 (48.0-80.0) % Band Neutrophils % 1 % Lymphocytes % (Manual) 11 L (16.0-40.0) % Monocytes % (Manual) 11 (0.0-15.0) % Eosinophils % (Manual) 2 (0.0-7.0) % Absolute Seg Neuts 11.1 H (1.4-5.7) Band Neutrophils # 0.1 Lymphocytes # (Manual) 1.6 (0.6-2.4) Monocytes # (Manual) 1.6 H (0.0-0.8) Eosinophils # (Manual) 0.3 (0.0-0.7) Lactate (0.20-2.00) mmol/L Sodium 141 (136-145) mmol/L Potassium 3.3 L (3.5-5.1) mmol/L Chloride 110 H (98-107) mmol/L Carbon Dioxide 25.1 (21.0-32.0) mmol/L BUN 13 (7.0-18.0) mg/dL Creatinine 0.7 (0.6-1.0) mg/dL Est Cr Clr Drug Dosing 102.81 mL/min Estimated GFR (MDRD) > 60.0 ml/min Glucose 74 (74-106) mg/dL Calcium 7.3 L (8.5-10.1) mg/dL Phosphorus 2.2 L (2.6-4.7) mg/dL Magnesium 1.8 (1.8-2.4) mg/dL Iron (50-175) ug/dL TIBC (250-450) ug/dL % Saturation (20-55) % Ferritin (8-252) ng/mL Total Bilirubin 0.8 (0.2-1.0) mg/dL AST 44 H (15-37) IU/L ALT 59 (14-63) IU/L Alkaline Phosphatase 200 H (46-116) U/L Total Protein 4.6 L (6.4-8.2) g/dL Albumin 0.6 L (3.4-5.0) g/dL Globulin 4.0 H (2.0-3.5) g/dL Albumin/Globulin Ratio 0.2 L (1.3-2.8) Vitamin B12 (193-986) pg/mL Folate (8.60-58.90) ng/mL 03/01/18 Range/Units 08:55 WBC (4.0-11.0) K/uL RBC (4.30-5.90) M/uL Hgb (12.0-16.0) g/dL Hct (36.0-46.0) % MCV (80.0-98.0) fL MCH (27.0-32.0) pg MCHC (31.0-37.0) g/dL RDW Std Deviation (28.0-62.0) fl RDW Coeff of Amanda (11.0-15.0) % Plt Count (150-400) K/uL MPV (7.40-12.00) fL Add Manual Diff Neutrophils % (Manual) (48.0-80.0) % Band Neutrophils % % Lymphocytes % (Manual) (16.0-40.0) % Monocytes % (Manual) (0.0-15.0) % Eosinophils % (Manual) (0.0-7.0) % Absolute Seg Neuts (1.4-5.7) Band Neutrophils # Lymphocytes # (Manual) (0.6-2.4) Monocytes # (Manual) (0.0-0.8) Eosinophils # (Manual) (0.0-0.7) Lactate 2.0 (0.20-2.00) mmol/L Sodium (136-145) mmol/L Potassium (3.5-5.1) mmol/L Chloride (98-107) mmol/L Carbon Dioxide (21.0-32.0) mmol/L BUN (7.0-18.0) mg/dL Creatinine (0.6-1.0) mg/dL Est Cr Clr Drug Dosing mL/min Estimated GFR (MDRD) ml/min Glucose (74-106) mg/dL Calcium (8.5-10.1) mg/dL Phosphorus (2.6-4.7) mg/dL Magnesium (1.8-2.4) mg/dL Iron (50-175) ug/dL TIBC (250-450) ug/dL % Saturation (20-55) % Ferritin (8-252) ng/mL Total Bilirubin (0.2-1.0) mg/dL AST (15-37) IU/L ALT (14-63) IU/L Alkaline Phosphatase (46-116) U/L Total Protein (6.4-8.2) g/dL Albumin (3.4-5.0) g/dL Globulin (2.0-3.5) g/dL Albumin/Globulin Ratio (1.3-2.8) Vitamin B12 (193-986) pg/mL Folate (8.60-58.90) ng/mL Epifanio Results Last 24 Hours: Microbiology 02/27/18 16:25 Urine Culture - Final Urine, Clean Catch Escherichia Coli 02/27/18 15:10 Aerobic Blood Culture - Preliminary Blood - Venous - Lab Draw NO GROWTH AFTER 1 DAY Anaerobic Blood Culture - Final 02/27/18 14:53 Aerobic Blood Culture - Preliminary Blood - Venous NO GROWTH AFTER 1 DAY Anaerobic Blood Culture - Preliminary NO GROWTH AFTER 1 DAY Med Orders - Current: Current Medications Acetaminophen (Tylenol) 650 mg PO Q4H PRN PRN Reason: Pain (Mild 1-3)/fever Docusate Sodium (Colace) 100 mg PO BID PRN PRN Reason: Constipation Enoxaparin Sodium (Lovenox) 40 mg SUBCUT Q24H [facility] Last Admin: 02/28/18 18:00 Dose: 40 mg Folic Acid (Folic Acid) 1 mg PO DAILY [facility] Last Admin: 03/01/18 12:18 Dose: 1 mg Gabapentin (Neurontin) 900 mg PO TID [facility] Last Admin: 03/01/18 06:30 Dose: 900 mg Levofloxacin/Dextrose 750 mg/ (Premix) 150 mls @ 100 mls/hr IV Q24H [facility] Last Admin: 02/28/18 18:22 Dose: 100 mls/hr Magnesium Sulfate 2 gm/ Premix 50 mls @ 25 mls/hr IV ONETIME ONE Stop: 03/01/18 14:03 Lorazepam (Ativan) 1 mg IVPUSH Q6H PRN PRN Reason: Agitation Non-Formulary Medication (Methocarbamol [Methocarbamol]) 750 mg PO TID PRN PRN Reason: Pain Oxybutynin Chloride (Oxybutynin) 10 mg PO DAILY [facility] Last Admin: 03/01/18 08:31 Dose: 10 mg Oxycodone HCl (Oxycodone) 5 mg PO Q4H PRN PRN Reason: Pain (moderate 4-6) Sodium Phosphate (Neutra-Phos) 250 mg PO QID [facility] Stop: 03/04/18 12:01 Last Admin: 03/01/18 12:16 Dose: 250 mg Temazepam (Restoril) 15 mg PO BEDTIME PRN PRN Reason: Sleep Last Admin: 02/28/18 23:21 Dose: 15 mg Discontinued Medications Calcium Gluconate (Calcium Gluconate) 1 gm IVPUSH ONETIME ONE Stop: 02/27/18 17:18 Last Admin: 02/27/18 17:55 Dose: 1 gm Furosemide (Lasix) 20 mg IVPUSH NOW ONE Stop: 03/01/18 12:06 Last Admin: 03/01/18 13:13 Dose: Not Given Haloperidol Lactate (Haldol) 2.5 mg IM ONETIME ONE Stop: 02/27/18 19:35 Last Admin: 02/27/18 19:49 Dose: 2.5 mg Haloperidol Lactate (Haldol) 5 mg IM ONETIME ONE Stop: 02/27/18 22:10 Last Admin: 02/27/18 22:43 Dose: 5 mg Sodium Chloride (Normal Saline) 1,000 mls @ 999 mls/hr IV STAT ONE Stop: 02/27/18 14:40 Last Admin: 02/27/18 14:00 Dose: 999 mls/hr Sodium Chloride (Normal Saline) 1,000 mls @ [facility] Admin: 02/28/18 04:11 Dose: 125 mls/hr Potassium Chloride/Sodium Chloride (Normal Saline With 20 Meq Kcl) 1,000 mls @ 75 mls/hr IV ASDIRECTED [facility] Last Admin: 03/01/18 07:14 Dose: 125 mls/hr Albumin Human (Flexbumin 25%) 12.5 gm in 50 mls @ 100 mls/hr IV ONETIME ONE Stop: 03/01/18 12:35 Last Admin: 03/01/18 13:01 Dose: 100 mls/hr Lorazepam (Ativan) 1 mg IVPUSH ONETIME ONE Stop: 02/27/18 23:27 Last Admin: 02/28/18 00:11 Dose: 1 mg Morphine Sulfate (Morphine) 2 mg IVPUSH Q2H PRN PRN Reason: Pain (severe 7-10) Stop: 02/28/18 17:15 Last Admin: 02/27/18 21:46 Dose: 2 mg Morphine Sulfate (Morphine) 2 mg IVPUSH Q2H PRN PRN Reason: Pain (severe 7-10) Stop: 02/28/18 17:15 Last Admin: 02/28/18 14:41 Dose: 2 mg Potassium Chloride (Klor-Con M20) 40 meq PO ONETIME ONE Stop: 03/01/18 11:52 Last Admin: 03/01/18 12:15 Dose: 40 meq Spironolactone (Aldactone) 25 mg PO BID [facility] Last Admin: 03/01/18 08:36 Dose: Not Given - Exam Quality Assessment: Supplemental Oxygen General: Alert, Oriented (to self, not place or time.), No Acute Distress Lungs: Normal Respiratory Effort, Crackles (crackles worse on on left compared to right.). No: Wheezing Cardiovascular: Other (Tachycardic, no murmurs) GI/Abdominal Exam: Normal Bowel Sounds, Soft, Non-Tender, No Distention. No: Guarding Extremities: Normal Inspection, No Pedal Edema Skin: Warm, Dry - Problem List Review Problem List Initiated/Reviewed/Updated: Yes - My Orders Last 24 Hours: My Active Orders 03/01/18 08:33 Consult to Physical Therapy [PT Evaluation and Treatment] [CONS] Routine 03/01/18 11:57 Consult to Pricing Supervisor [CONS] Routine 03/01/18 12:00 Folic Acid 1 mg PO DAILY Phosphorus #1 [Neutra-Phos] 250 mg PO QID 03/01/18 12:04 Magnesium Sulfate/Water [Magnesium Sulfate 2 GM in Water 50 ML] 2 gm Premix Bag 1 bag IV ONETIME - Plan Plan:: 1. Community acquired pneumonia- continue with IV levaquin for now. 2. Left pleural effusion- likely secondary to IV fluids she has received since she was dehydrated on admission. I've stopped the NS IV fluids for now. Ordered albumin IV. Will order lasix 20 mg IV once after albumin administration. I suspect that she is third spacing since her albumin level is low. 3. E. coli urinary tract infection- continue with IV levaquin. 4. Hypokalemia- discontinue IV fluids. ordered KCl 40 mEq PO once. Will recheck electrolytes tomorrow. 5. Tachycardia- Suspect that her tachycardia is secondary to the left pleural effusion and CAP. Will diurese patient and see how she responds. May consider starting a beta trudy if still tachy. 6. Mixed iron deficiency and anemia of chronic disease- I suspect that her anemia is due to iron deficiency on top of anemia of chronic disease. Will continue to monitor for now. start Iron polysaccharide 150 mg PO BID. 7. Severe protein malnutrition- High risk for re-feeding syndrome. Will continue to monitor electrolytes closely and replace as needed. Patient will most likely need placement. Will speak with family regarding their wishes and process. Consulted dietitian, PT. 8. Low folate- ordered folic acid supplementation. 9. hypophosphotemia- ordered phosphorus supplementation. 10. Leukocytosis, improving secondary to above. Dispo: pending improvement. possible placement.
--- NOTE | 2018-03-01 13:32 | CR ---
EXAM DATE: 02/27/18 PATIENT'S AGE: 42 Patient: AMI DUMAS Facility: [place], [place] Site . Site : 1975 Study: XRay Chest [id number]/29/2018 2:43:31 PM Ordering Physician: Sun Maza Final Report: INDICATION: Pain. Shortness of breath. FINDINGS: A portable AP supine view of the chest was obtained. The cardiac silhouette and pulmonary vasculature are within normal limits. The right lung is clear. There is a left pleural effusion. There are hazy opacities in the left lung which could be pleural effusion layering posteriorly and/or atelectasis/infiltrate. IMPRESSION: Left pleural effusion with atelectasis and/or infiltrate. Dictated by Terry Ta MD @ 02/27/2018 2:56:57 PM Dictated by: Terry Ta MD @ 02/27/2018 14:57:15 (Electronic Signature) Report Signed by Proxy. [facility] FOR THE CRIMINALLY INSANETiffanie
[2018-03-01] MEDS ORDERED: Furosemide 20 MG/2 ML VIAL IVPUSH ONE (15:00)
[2018-03-01] MEDS: Iron Polysaccharides Complex 150 MG Cap PO SCH (15:06)
[2018-03-01] MEDS: Levofloxacin/Dextrose 5%-Water 750 MG in Premix Bag 1 BAG IV SCH (16:57)
[2018-03-01] MEDS: Enoxaparin 40 MG/0.4 ML Syringe SUBCUT SCH (17:06)
--- NOTE | 2018-03-01 21:18 | PCM.SN ---
- Free Text/Narrative Note: I was called by nursing as patient was noted to be desatting to mid 80s on nasal canula. Patient on exam is not in any acute distress but has decreased breaths sounds on left lung base. CXR reports pulmonary vascular congestion is noted, patchy bilateral airspace opacities and stable left pleural effusion. Patient did receive albumin with lasix today. Have given additional IV lasix and will broaden antibiotic coverage. Repeating cultures. We will monitor overnight in ICU.
[2018-03-01] MEDS: Thiamine 100 MG Tab PO SCH (22:25)
[2018-03-01] MEDS: Piperacillin/Tazobactam 3.375 GM in Sodium Chloride 0.9% 50 ML IV SCH (22:27)
[2018-03-01] MEDS ORDERED: Vancomycin 1.5 GM in Sodium Chloride 0.9% 500 ML IV ONE (23:00)
[2018-03-02] MEDS: oxyCODONE 5 MG Tab PO PRN (03:35)
[2018-03-02] MEDS: Piperacillin/Tazobactam 3.375 GM in Sodium Chloride 0.9% 50 ML IV SCH (03:47)
[2018-03-02] MEDS: Phosphorus #1 250 MG Tab PO SCH (05:34)
[2018-03-02] MEDS: Gabapentin 300 MG Cap PO SCH ×3 (05:34→21:25)
[2018-03-02 06:10] LABS: CHLORIDE,CL 106 mmol/L (98-107); SODIUM,NA 137 mmol/L (136-145)
[2018-03-02] MEDS ORDERED: Sodium Chloride 0.9% with KCl 500 ML IV SCH (07:15)
[2018-03-02] MEDS ORDERED: Potassium Chloride 40 MEQ in Sodium Chloride 0.9% 500 ML IV ONE (07:30)
[2018-03-02] MEDS: Folic Acid 1 MG Tab PO SCH (08:01)
[2018-03-02] MEDS: Oxybutynin 5 MG Tab PO SCH (08:01)
[2018-03-02] MEDS: Iron Polysaccharides Complex 150 MG Cap PO SCH (08:01)
[2018-03-02] MEDS ORDERED: Albumin 25% 12.5 GM/50 ML BAG IV ONE (08:18)
[2018-03-02] MEDS ORDERED: Potassium Chloride 20 MEQ Tab.ER PO ONE (08:38)
[2018-03-02] MEDS ORDERED: Furosemide 40 MG/4 ML VIAL IVPUSH ONE (08:50)
--- NOTE | 2018-03-02 09:33 | CR ---
EXAM DATE: 02/27/18 PATIENT'S AGE: 42 Patient: AMI DUMAS Facility: [place], [place] Site . Site : 1975 Study: XRay Chest [id number]/1/2018 8:42:44 PM Ordering Physician: Mita Cain Final Report: INDICATION: Hypoxia. TECHNIQUE: Portable upright AP view of the chest at 2035 hours. COMPARISON: 0919 hours. IMPRESSION: Stable cardiac, mediastinal and hilar contours. Pulmonary vascular congestion pattern is noted with diffuse interstitial prominence. Patchy bilateral airspace opacities could be related to pulmonary edema or potentially an infectious or inflammatory process. Moderate to large left pleural effusion is relatively stable. There is likely a small right pleural effusion. No pneumothorax. Dictated by Rafael Ackerman MD @ 03/01/2018 8:52:57 PM Dictated by: Rafael Ackerman MD @ 03/01/2018 20:53:05 (Electronic Signature) Report Signed by Proxy. REBECCA
[2018-03-02] MEDS ORDERED: Piperacillin/Tazobactam 4.5 GM in Sodium Chloride 0.9% 50 ML IV SCH (09:57)
--- NOTE | 2018-03-02 10:04 | US ---
EXAMINATION: Right upper quadrant ultrasound HISTORY: Liver disease COMPARISON: None TECHNIQUE: Grayscale and color Doppler imaging obtained of the right upper quadrant FINDINGS: The gallbladder wall thickness is normal. No pericholecystic fluid noted. There is nonshado wing debris within the gallbladder. The liver is at least moderately increased in generalized echotex ture without a focal hepatic mass. Pancreas is not well characterized. The right kidney measures 9.9 cm [id number] without evidence of hydronephrosis. Common bile duct measures 2 mm. Sonographic Maeve y sign is not reported. IMPRESSION: 1. Moderate fatty infiltration of the liver versus hepatocellular disease. 2. Likely sludge within the otherwise unremarkable gallbladder.
[2018-03-02] MEDS: Piperacillin/Tazobactam 4.5 GM in Sodium Chloride 0.9% 100 ML IV SCH ×3 (10:13→22:05)
--- NOTE | 2018-03-02 11:31 | CR ---
EXAMINATION: Portable chest radiograph. HISTORY: Left pleural effusion. Comparison: 03/01/2018. FINDINGS: The trachea is midline. There is a moderate to large left pleural effusion, similar to mildly increas ed from the prior film. There is adjacent atelectasis and/or infiltrate noted. Similarly mild infiltr ate within the right lung base. Osseous structures appear unremarkable. IMPRESSION: 1. Moderate to large left pleural effusion, similar to mildly increased from the prior film. 2. Bilateral pulmonary infiltrates, similar to the prior film.
--- NOTE | 2018-03-02 13:35 | PCM.PN ---
- General Info Date of Service: 03/02/18 Subjective Update: Myra Bryant is a 42 y/o female with history of alcohol abuse and prior traumatic brain injury who was admitted for encephalopathy and found to have a pneumonia and UTI. Overnight, the patient was transferred to the ICU since the patient became more hypoxic requiring 10 L on high flow. Subsequently the patient was diuresed and that seemed to alleviate some of her dyspnea. However, she still has a left pleural effusion that is concerning for loculation. patient will undergo a symptomatic and diagnostic thoracenteses today. This morning the patient was alert and oriented to person, place and time. Her mentation has improved compared to day of admission. She denies any pain. No chest pain, abdominal pain. - Patient Data Vitals - Most Recent: Last Vital Signs Temp 37 C 03/02/18 12:00 Pulse 106 H 03/01/18 20:40 Resp 30 H 03/02/18 13:00 BP 90/51 L 03/02/18 13:00 Pulse Ox 94 L 03/02/18 13:00 Weight - Most Recent: 61.689 kg I&O - Last 24 Hours: Intake & Output 03/01/18 03/02/18 03/02/18 22:59 06:59 14:59 Intake Total 3060 1100 1800 Output Total 3250 1250 2750 Balance -190 -150 -950 Lab Results Last 24 Hours: Laboratory Results - last 24 hr 03/02/18 03/02/18 03/02/18 Range/Units 05:37 05:37 05:37 WBC 12.54 H (4.0-11.0) K/uL RBC 2.45 L (4.30-5.90) M/uL Hgb 8.5 L (12.0-16.0) g/dL Hct 25.7 L (36.0-46.0) % MCV 104.9 H (80.0-98.0) fL MCH 34.7 H (27.0-32.0) pg MCHC 33.1 (31.0-37.0) g/dL RDW Std Deviation 51.6 (28.0-62.0) fl RDW Coeff of Amanda 14 (11.0-15.0) % Plt Count 127 L (150-400) K/uL MPV 11.50 (7.40-12.00) fL Add Manual Diff YES Neutrophils % (Manual) 78 (48.0-80.0) % Band Neutrophils % 1 % Lymphocytes % (Manual) 12 L (16.0-40.0) % Monocytes % (Manual) 8 (0.0-15.0) % Eosinophils % (Manual) 1 (0.0-7.0) % Nucleated RBC % 0.0 /100WBC Absolute Seg Neuts 9.8 H (1.4-5.7) Band Neutrophils # 0.1 Lymphocytes # (Manual) 1.5 (0.6-2.4) Monocytes # (Manual) 1.0 H (0.0-0.8) Eosinophils # (Manual) 0.1 (0.0-0.7) Nucleated RBCs # 0 K/uL INR Sodium 137 (136-145) mmol/L Potassium 3.0 L (3.5-5.1) mmol/L Chloride 106 (98-107) mmol/L Carbon Dioxide 24.8 (21.0-32.0) mmol/L BUN 10 (7.0-18.0) mg/dL Creatinine 0.8 (0.6-1.0) mg/dL Est Cr Clr Drug Dosing 90.90 mL/min Estimated GFR (MDRD) > 60.0 ml/min Glucose 105 (74-106) mg/dL Calcium 7.0 L (8.5-10.1) mg/dL Phosphorus 3.0 (2.6-4.7) mg/dL Magnesium 2.0 (1.8-2.4) mg/dL Total Bilirubin 0.8 (0.2-1.0) mg/dL GGT (5-85) U/L AST 37 (15-37) IU/L ALT 51 (14-63) IU/L Alkaline Phosphatase 166 H (46-116) U/L Ammonia (19-54) ug/dL Total Protein 4.3 L (6.4-8.2) g/dL Albumin 0.9 L (3.4-5.0) g/dL Globulin 3.4 (2.0-3.5) g/dL Albumin/Globulin Ratio 0.3 L (1.3-2.8) 03/02/18 03/02/18 03/02/18 Range/Units 05:37 05:37 10:23 WBC (4.0-11.0) K/uL RBC (4.30-5.90) M/uL Hgb (12.0-16.0) g/dL Hct (36.0-46.0) % MCV (80.0-98.0) fL MCH (27.0-32.0) pg MCHC (31.0-37.0) g/dL RDW Std Deviation (28.0-62.0) fl RDW Coeff of Amanda (11.0-15.0) % Plt Count (150-400) K/uL MPV (7.40-12.00) fL Add Manual Diff Neutrophils % (Manual) (48.0-80.0) % Band Neutrophils % % Lymphocytes % (Manual) (16.0-40.0) % Monocytes % (Manual) (0.0-15.0) % Eosinophils % (Manual) (0.0-7.0) % Nucleated RBC % /100WBC Absolute Seg Neuts (1.4-5.7) Band Neutrophils # Lymphocytes # (Manual) (0.6-2.4) Monocytes # (Manual) (0.0-0.8) Eosinophils # (Manual) (0.0-0.7) Nucleated RBCs # K/uL INR 1.24 Sodium (136-145) mmol/L Potassium (3.5-5.1) mmol/L Chloride (98-107) mmol/L Carbon Dioxide (21.0-32.0) mmol/L BUN (7.0-18.0) mg/dL Creatinine (0.6-1.0) mg/dL Est Cr Clr Drug Dosing mL/min Estimated GFR (MDRD) ml/min Glucose (74-106) mg/dL Calcium (8.5-10.1) mg/dL Phosphorus (2.6-4.7) mg/dL Magnesium (1.8-2.4) mg/dL Total Bilirubin (0.2-1.0) mg/dL GGT 74 (5-85) U/L AST (15-37) IU/L ALT (14-63) IU/L Alkaline Phosphatase (46-116) U/L Ammonia 62 H (19-54) ug/dL Total Protein (6.4-8.2) g/dL Albumin (3.4-5.0) g/dL Globulin (2.0-3.5) g/dL Albumin/Globulin Ratio (1.3-2.8) Epifanio Results Last 24 Hours: Microbiology 02/27/18 15:10 Aerobic Blood Culture - Preliminary Blood - Venous - Lab Draw NO GROWTH AFTER 2 DAYS Anaerobic Blood Culture - Final 02/27/18 14:53 Aerobic Blood Culture - Preliminary Blood - Venous NO GROWTH AFTER 2 DAYS Anaerobic Blood Culture - Preliminary NO GROWTH AFTER 2 DAYS Med Orders - Current: Current Medications Acetaminophen (Tylenol) 650 mg PO Q4H PRN PRN Reason: Pain (Mild 1-3)/fever Docusate Sodium (Colace) 100 mg PO BID PRN PRN Reason: Constipation Enoxaparin Sodium (Lovenox) 40 mg SUBCUT Q24H [facility] Last Admin: 03/01/18 17:06 Dose: 40 mg Folic Acid (Folic Acid) 1 mg PO DAILY [facility] Last Admin: 03/02/18 08:01 Dose: 1 mg Gabapentin (Neurontin) 900 mg PO TID [facility] Last Admin: 03/02/18 13:01 Dose: 900 mg Levofloxacin/Dextrose 750 mg/ (Premix) 150 mls @ 100 mls/hr IV Q24H [facility] Last Admin: 03/01/18 16:57 Dose: 100 mls/hr Vancomycin HCl 1 gm/ Sodium (Chloride) 250 mls @ 166 mls/hr IV Q8H [facility] Last Admin: 03/02/18 06:38 Dose: 166 mls/hr Piperacillin Sod/Tazobactam (Sod 4.5 gm/ Sodium Chloride) 100 mls @ 200 mls/hr IV Q6H [facility] Last Admin: 03/02/18 10:13 Dose: 200 mls/hr Lorazepam (Ativan) 1 mg IVPUSH Q6H PRN PRN Reason: Agitation Oxybutynin Chloride (Oxybutynin) 10 mg PO DAILY [facility] Last Admin: 03/02/18 08:01 Dose: 10 mg Oxycodone HCl (Oxycodone) 5 mg PO Q4H PRN PRN Reason: Pain (moderate 4-6) Last Admin: 03/02/18 03:35 Dose: 5 mg Polysaccharide Iron Complex (Ferrex 150) 150 mg PO DAILY [facility] Last Admin: 03/02/18 08:01 Dose: 150 mg Temazepam (Restoril) 15 mg PO BEDTIME PRN PRN Reason: Sleep Last Admin: 02/28/18 23:21 Dose: 15 mg Thiamine HCl (Vitamin B-1) 100 mg PO BEDTIME [facility] Last Admin: 03/01/18 22:25 Dose: 100 mg Vancomycin HCl (Pharmacy To Dose - Vancomycin) 1 dose .XX ASDIRECTED [facility] Discontinued Medications Calcium Gluconate (Calcium Gluconate) 1 gm IVPUSH ONETIME ONE Stop: 02/27/18 17:18 Last Admin: 02/27/18 17:55 Dose: 1 gm Furosemide (Lasix) 20 mg IVPUSH NOW ONE Stop: 03/01/18 12:06 Last Admin: 03/01/18 13:13 Dose: Not Given Furosemide (Lasix) 20 mg IVPUSH NOW ONE Stop: 03/01/18 15:01 Last Admin: 03/01/18 15:10 Dose: 20 mg Furosemide (Lasix) 40 mg IVPUSH NOW ONE Stop: 03/01/18 20:15 Last Admin: 03/01/18 20:40 Dose: 40 mg Furosemide (Lasix) 40 mg IVPUSH NOW ONE Stop: 03/02/18 08:51 Last Admin: 03/02/18 08:59 Dose: 40 mg Haloperidol Lactate (Haldol) 2.5 mg IM ONETIME ONE Stop: 02/27/18 19:35 Last Admin: 02/27/18 19:49 Dose: 2.5 mg Haloperidol Lactate (Haldol) 5 mg IM ONETIME ONE Stop: 02/27/18 22:10 Last Admin: 02/27/18 22:43 Dose: 5 mg Sodium Chloride (Normal Saline) 1,000 mls @ 999 mls/hr IV STAT ONE Stop: 02/27/18 14:40 Last Admin: 02/27/18 14:00 Dose: 999 mls/hr Sodium Chloride (Normal Saline) 1,000 mls @ 125 mls/hr IV ASDIRECTED [facility] Last Admin: 02/28/18 04:11 Dose: 125 mls/hr Potassium Chloride/Sodium Chloride (Normal Saline With 20 Meq Kcl) 1,000 mls @ 75 mls/hr IV ASDIRECTED [facility] Last Admin: 03/01/18 07:14 Dose: 125 mls/hr Magnesium Sulfate 2 gm/ Premix 50 mls @ 25 mls/hr IV ONETIME ONE Stop: 03/01/18 14:03 Last Admin: 03/01/18 13:41 Dose: 25 mls/hr Albumin Human (Flexbumin 25%) 12.5 gm in 50 mls @ 100 mls/hr IV ONETIME ONE Stop: 03/01/18 12:35 Last Admin: 03/01/18 13:01 Dose: 100 mls/hr Piperacillin Sod/Tazobactam (Sod 3.375 gm/ Sodium Chloride) 50 mls @ 100 mls/ hr IV Q6H [facility] Last Admin: 03/02/18 03:47 Dose: 100 mls/hr Vancomycin HCl 1.5 gm/ Sodium (Chloride) 500 mls @ 333.333 mls/hr IV ONETIME ONE Stop: 03/02/18 00:29 Last Admin: 03/01/18 23:05 Dose: 333.333 mls/hr Potassium Chloride/Sodium Chloride (Normal Saline With 40 Meq Kcl) 500 mls @ 125 mls/hr IV ASDIRECTED [facility] Potassium Chloride 40 meq/ (Sodium Chloride) 520 mls @ 125 mls/hr IV ONETIME ONE Stop: 03/02/18 11:39 Last Admin: 03/02/18 08:22 Dose: 125 mls/hr Albumin Human (Flexbumin 25%) 12.5 gm in 50 mls @ 100 mls/hr IV ONETIME ONE Stop: 03/02/18 08:47 Last Admin: 03/02/18 08:36 Dose: Not Given Piperacillin Sod/Tazobactam (Sod 4.5 gm/ Sodium Chloride) 50 mls @ 100 mls/hr IV Q6H [facility] Last Admin: 03/02/18 10:06 Dose: Not Given Lorazepam (Ativan) 1 mg IVPUSH ONETIME ONE Stop: 02/27/18 23:27 Last Admin: 02/28/18 00:11 Dose: 1 mg Morphine Sulfate (Morphine) 2 mg IVPUSH Q2H PRN PRN Reason: Pain (severe 7-10) Stop: 02/28/18 17:15 Last Admin: 02/27/18 21:46 Dose: 2 mg Morphine Sulfate (Morphine) 2 mg IVPUSH Q2H PRN PRN Reason: Pain (severe 7-10) Stop: 02/28/18 17:15 Last Admin: 02/28/18 14:41 Dose: 2 mg Non-Formulary Medication (Methocarbamol [Methocarbamol]) 750 mg PO TID PRN PRN Reason: Pain Potassium Chloride (Klor-Con M20) 40 meq PO ONETIME ONE Stop: 03/01/18 11:52 Last Admin: 03/01/18 12:15 Dose: 40 meq Potassium Chloride (Klor-Con M20) 40 meq PO ONETIME ONE Stop: 03/02/18 08:39 Last Admin: 03/02/18 08:59 Dose: 40 meq Sodium Phosphate (Neutra-Phos) 250 mg PO QID [facility] Stop: 03/04/18 12:01 Last Admin: 03/02/18 05:34 Dose: 250 mg Spironolactone (Aldactone) 25 mg PO BID [facility] Last Admin: 03/01/18 08:36 Dose: Not Given - Exam General: Alert (Oriented to person, place.), No Acute Distress Lungs: Other (Crackles in left lower lung field. No wheezing.) Cardiovascular: Other (Tachycardic) GI/Abdominal Exam: Normal Bowel Sounds, Soft, Non-Tender Extremities: Normal Inspection, No Pedal Edema Skin: Warm, Dry - Problem List Review Problem List Initiated/Reviewed/Updated: Yes - My Orders Last 24 Hours: My Active Orders 03/01/18 13:58 Intake and Output Strict [RC] Q12H 03/01/18 14:15 Iron Polysaccharides Complex [Ferrex 150] 150 mg PO DAILY 03/01/18 21:00 Thiamine [Vitamin B-1] 100 mg PO BEDTIME 03/02/18 08:05 Modified Cheek Swallow Screen [Nursing Bedside Swallow Screen] [RC] ASDIRECTED 03/02/18 09:34 ALBUMIN,BODY FLUID [BF] Routine BODY FLUID, SPECIFIC GRAVITY Routine CELL COUNT,BODY FLUID [BF] Routine CHOLESTEROL,BODY FLUID [BF] Routine CULTURE BODY FLUID + SMEAR [RM] Routine GLUCOSE,BODY FLUID [BF] Routine LACTATE DEHYDROGENASE,BODY FL [BF] Routine LACTATE DEHYDROGENASE,LDH [CHEM] Routine PH,BODY FLUID [BF] Routine PROTEIN,BODY FLUID [BF] Routine TRIGLYCERIDES,BODY FLUID [BF] Routine 03/02/18 10:00 Piperacillin/Tazobactam [Piperacil-Tazobact] 4.5 gm Sodium Chloride 0.9% [ Normal Saline] 100 ml IV Q6H 03/02/18 11:41 Thoracentesis W/ US Guide [US] Urgent 03/02/18 16:00 BASIC METABOLIC PANEL,BMP [CHEM] Routine 03/02/18 Lunch Regular Diet [DIET] - Plan Plan:: 1. Community acquired pneumonia- Continue with current broad spectrum antibiotics Levaquin, Zosyn and Vancomycin. Will de-escalate once blood cultures and urine cultures are back. 2. Left pleural effusion- unknown etiology. I suspect it may be due to her pneumonia on top of her severe hypoalbuminemia. There is a concern that this may be loculated. Ordered fluid analysis. Will order CT chest after thoracentesis to better evaluate this. 3. E. coli urinary tract infection- continue with current antibiotics. 4. Hypokalemia- replaced with KCl 40 mEq PO once. Recheck again later today since patient has been on lasix. 5. Tachycardia- Suspect that her tachycardia is secondary to the left pleural effusion and CAP. Will diurese patient and see how she responds. May consider starting a beta trudy if still tachy. 6. Mixed iron deficiency and anemia of chronic disease- I suspect that her anemia is due to iron deficiency on top of anemia of chronic disease. Will continue to monitor for now. start Iron polysaccharide 150 mg PO BID. 7. Severe protein malnutrition- High risk for re-feeding syndrome. Will continue to monitor electrolytes closely and replace as needed. 8. Elevated liver enzymes- ordered RUQ U/S. F/u results. Suspect this is due to her history of alcohol consumption. 9. Low folate- ordered folic acid supplementation. 10. hypophosphotemia- resolved. 11. Leukocytosis, improving secondary to above. 12. Alcohol abuse- not withdrawing. Ordered thiamine and folate. Dispo: pending improvement.
[2018-03-02] MEDS: Acetaminophen 325 MG Tab PO PRN (15:50)
[2018-03-02] MEDS: Enoxaparin 40 MG/0.4 ML Syringe SUBCUT SCH (16:15)
[2018-03-02 16:34] LABS: CHLORIDE,CL 101 mmol/L (98-107); SODIUM,NA 133 mmol/L (136-145)
--- NOTE | 2018-03-02 16:43 | US ---
EXAMINATION: Ultrasound guided left thoracentesis. HISTORY: Pleural effusion TECHNIQUE/FINDINGS: The procedure, benefits and risks were discussed,. And informed consent was obta ined from . Under ultrasound guidance and utilizing 1% lidocaine as local anesthesia the left pleural effusion was accessed using a 5 [place] one-step needle. Following access the catheter was pl aced into the effusion, 750 cc of pleural effusion was drained. US images demonstrate residual compo nent of pleural effusion with septations consistent with loculation. The patient tolerated the proced ure well. IMPRESSION: Successful ultrasound guided left thoracentesis. Fluid was dark red.
[2018-03-02] MEDS: Levofloxacin/Dextrose 5%-Water 750 MG in Premix Bag 1 BAG IV SCH (17:30)
[2018-03-02] MEDS: Thiamine 100 MG Tab PO SCH (20:43)
[2018-03-02] MEDS: Temazepam 15 MG Cap PO PRN (21:25)
[2018-03-03] MEDS: Piperacillin/Tazobactam 4.5 GM in Sodium Chloride 0.9% 100 ML IV SCH ×3 (04:16→16:05)
[2018-03-03] MEDS: Gabapentin 300 MG Cap PO SCH ×3 (05:30→21:41)
[2018-03-03 06:59] LABS: CHLORIDE,CL 106 mmol/L (98-107); SODIUM,NA 138 mmol/L (136-145)
--- NOTE | 2018-03-03 08:26 | CR ---
EXAMINATION: Portable chest radiograph. HISTORY: Status post thoracentesis. FINDINGS: The trachea is midline. The heart is normal in size. Again noted are bibasilar infiltrates. There is a small residual loculated left pleural effusion. No pneumothorax is noted. Osseous structures appear unremarkable. IMPRESSION: 1. Small residual, likely loculated left pleural effusion. 2. Bilateral pulmonary infiltrates again noted, correlate for pneumonia.
[2018-03-03] MEDS: Acetaminophen 325 MG Tab PO PRN ×3 (09:10→22:44)
[2018-03-03] MEDS: Folic Acid 1 MG Tab PO SCH (09:11)
[2018-03-03] MEDS: Iron Polysaccharides Complex 150 MG Cap PO SCH (09:11)
[2018-03-03] MEDS: Oxybutynin 5 MG Tab PO SCH (09:11)
[2018-03-03] MEDS: Docusate Sodium 100 MG Cap PO PRN ×2 (09:28→22:44)
[2018-03-03] MEDS: oxyCODONE 5 MG Tab PO PRN ×2 (09:28→21:42)
--- NOTE | 2018-03-03 11:01 | PCM.PN ---
- General Info Date of Service: 03/03/18 Subjective Update: Patient had therapeutic/diagnostic left thoracentesis. She did well overnight. Requiring less supplemental oxygen down to 2 L/min. More alert today. Her orientation waxes and wanes but much improved compared to day of admission. Denies chest pain, abdominal pain, dysuria, diarrhea. - Patient Data Vitals - Most Recent: Last Vital Signs Temp 36.6 C 03/03/18 08:00 Pulse 106 H 03/01/18 20:40 Resp 20 03/03/18 09:00 BP 104/68 03/03/18 09:00 Pulse Ox 94 L 03/03/18 09:00 Weight - Most Recent: 59.647 kg I&O - Last 24 Hours: Intake & Output 03/02/18 03/03/18 03/03/18 22:59 06:59 14:59 Intake Total 1080 1300 Output Total 650 1000 Balance 430 300 Lab Results Last 24 Hours: Laboratory Results - last 24 hr 03/02/18 03/02/18 03/02/18 Range/Units 10:23 10:23 15:37 WBC (4.0-11.0) K/uL RBC (4.30-5.90) M/uL Hgb (12.0-16.0) g/dL Hct (36.0-46.0) % MCV (80.0-98.0) fL MCH (27.0-32.0) pg MCHC (31.0-37.0) g/dL RDW Std Deviation (28.0-62.0) fl RDW Coeff of Amanda (11.0-15.0) % Plt Count (150-400) K/uL MPV (7.40-12.00) fL Add Manual Diff Neutrophils % (Manual) (48.0-80.0) % Band Neutrophils % % Lymphocytes % (Manual) (16.0-40.0) % Monocytes % (Manual) (0.0-15.0) % Eosinophils % (Manual) (0.0-7.0) % Nucleated RBC % /100WBC Absolute Seg Neuts (1.4-5.7) Band Neutrophils # Lymphocytes # (Manual) (0.6-2.4) Monocytes # (Manual) (0.0-0.8) Eosinophils # (Manual) (0.0-0.7) Nucleated RBCs # K/uL INR 1.24 Sodium (136-145) mmol/L Potassium (3.5-5.1) mmol/L Chloride (98-107) mmol/L Carbon Dioxide (21.0-32.0) mmol/L BUN (7.0-18.0) mg/dL Creatinine (0.6-1.0) mg/dL Est Cr Clr Drug Dosing mL/min Estimated GFR (MDRD) ml/min Glucose (74-106) mg/dL Calcium (8.5-10.1) mg/dL Total Bilirubin (0.2-1.0) mg/dL AST (15-37) IU/L ALT (14-63) IU/L Alkaline Phosphatase (46-116) U/L Lactate Dehydrogenase 754 H (81-234) U/L Total Protein (6.4-8.2) g/dL Albumin (3.4-5.0) g/dL Globulin (2.0-3.5) g/dL Albumin/Globulin Ratio (1.3-2.8) Fluid Type PL Fluid Color RED Fluid Appearance BLOODY Fluid pH 8.0 Fluid WBC 1.75 K/uL Fluid RBC 0.18 M/uL Fluid Mononuclear Cell 66.4 % Fl Polymorphonucl Cell 33.6 % Fluid Glucose 95 mg/dL Fluid Total Protein 2.3 g/dL Fluid Albumin 0.4 g/dL Fluid LDH 440 U/L Fluid Cholesterol 58.0 g/dL Fluid Triglycerides 51 mg/dL Vancomycin Trough (5.0-10.0) ug/mL 03/02/18 03/03/18 03/03/18 Range/Units 16:02 06:32 06:32 WBC 11.32 H (4.0-11.0) K/uL RBC 2.67 L (4.30-5.90) M/uL Hgb 9.0 L (12.0-16.0) g/dL Hct 28.0 L (36.0-46.0) % MCV 104.9 H (80.0-98.0) fL MCH 33.7 H (27.0-32.0) pg MCHC 32.1 (31.0-37.0) g/dL RDW Std Deviation 50.8 (28.0-62.0) fl RDW Coeff of Amanda 13 (11.0-15.0) % Plt Count 147 L (150-400) K/uL MPV 11.60 (7.40-12.00) fL Add Manual Diff YES Neutrophils % (Manual) 73 (48.0-80.0) % Band Neutrophils % 8 % Lymphocytes % (Manual) 7 L (16.0-40.0) % Monocytes % (Manual) 7 (0.0-15.0) % Eosinophils % (Manual) 5 (0.0-7.0) % Nucleated RBC % 0.0 /100WBC Absolute Seg Neuts 8.3 H (1.4-5.7) Band Neutrophils # 0.9 Lymphocytes # (Manual) 0.8 (0.6-2.4) Monocytes # (Manual) 0.8 (0.0-0.8) Eosinophils # (Manual) 0.6 (0.0-0.7) Nucleated RBCs # 0 K/uL INR Sodium 133 L (136-145) mmol/L Potassium 3.9 (3.5-5.1) mmol/L Chloride 101 (98-107) mmol/L Carbon Dioxide 26.1 (21.0-32.0) mmol/L BUN 9 (7.0-18.0) mg/dL Creatinine 0.9 (0.6-1.0) mg/dL Est Cr Clr Drug Dosing 80.80 mL/min Estimated GFR (MDRD) > 60.0 ml/min Glucose 101 (74-106) mg/dL Calcium 7.5 L (8.5-10.1) mg/dL Total Bilirubin (0.2-1.0) mg/dL AST (15-37) IU/L ALT (14-63) IU/L Alkaline Phosphatase (46-116) U/L Lactate Dehydrogenase (81-234) U/L Total Protein (6.4-8.2) g/dL Albumin (3.4-5.0) g/dL Globulin (2.0-3.5) g/dL Albumin/Globulin Ratio (1.3-2.8) Fluid Type Fluid Color Fluid Appearance Fluid pH Fluid WBC K/uL Fluid RBC M/uL Fluid Mononuclear Cell % Fl Polymorphonucl Cell % Fluid Glucose mg/dL Fluid Total Protein g/dL Fluid Albumin g/dL Fluid LDH U/L Fluid Cholesterol g/dL Fluid Triglycerides mg/dL Vancomycin Trough 24.9 H (5.0-10.0) ug/mL 03/03/18 Range/Units 06:32 WBC (4.0-11.0) K/uL RBC (4.30-5.90) M/uL Hgb (12.0-16.0) g/dL Hct (36.0-46.0) % MCV (80.0-98.0) fL MCH (27.0-32.0) pg MCHC (31.0-37.0) g/dL RDW Std Deviation (28.0-62.0) fl RDW Coeff of Amanda (11.0-15.0) % Plt Count (150-400) K/uL MPV (7.40-12.00) fL Add Manual Diff Neutrophils % (Manual) (48.0-80.0) % Band Neutrophils % % Lymphocytes % (Manual) (16.0-40.0) % Monocytes % (Manual) (0.0-15.0) % Eosinophils % (Manual) (0.0-7.0) % Nucleated RBC % /100WBC Absolute Seg Neuts (1.4-5.7) Band Neutrophils # Lymphocytes # (Manual) (0.6-2.4) Monocytes # (Manual) (0.0-0.8) Eosinophils # (Manual) (0.0-0.7) Nucleated RBCs # K/uL INR Sodium 138 (136-145) mmol/L Potassium 3.6 (3.5-5.1) mmol/L Chloride 106 (98-107) mmol/L Carbon Dioxide 26.7 (21.0-32.0) mmol/L BUN 8 (7.0-18.0) mg/dL Creatinine 0.9 (0.6-1.0) mg/dL Est Cr Clr Drug Dosing 78.24 mL/min Estimated GFR (MDRD) > 60.0 ml/min Glucose 86 (74-106) mg/dL Calcium 7.6 L (8.5-10.1) mg/dL Total Bilirubin 0.7 (0.2-1.0) mg/dL AST 44 H (15-37) IU/L ALT 46 (14-63) IU/L Alkaline Phosphatase 160 H (46-116) U/L Lactate Dehydrogenase (81-234) U/L Total Protein 4.8 L (6.4-8.2) g/dL Albumin 0.7 L (3.4-5.0) g/dL Globulin 4.1 H (2.0-3.5) g/dL Albumin/Globulin Ratio 0.2 L (1.3-2.8) Fluid Type Fluid Color Fluid Appearance Fluid pH Fluid WBC K/uL Fluid RBC M/uL Fluid Mononuclear Cell % Fl Polymorphonucl Cell % Fluid Glucose mg/dL Fluid Total Protein g/dL Fluid Albumin g/dL Fluid LDH U/L Fluid Cholesterol g/dL Fluid Triglycerides mg/dL Vancomycin Trough (5.0-10.0) ug/mL Epifanio Results Last 24 Hours: Microbiology 03/02/18 15:37 Gram Stain - Preliminary Pleural Fluid Body Fluid Culture - Preliminary NO GROWTH AFTER 1 DAY 03/01/18 21:31 Aerobic Blood Culture - Preliminary Blood - Venous - Lab Draw NO GROWTH AFTER 1 DAY Anaerobic Blood Culture - Preliminary NO GROWTH AFTER 1 DAY 03/01/18 21:22 Aerobic Blood Culture - Preliminary Blood - Venous NO GROWTH AFTER 1 DAY Anaerobic Blood Culture - Preliminary NO GROWTH AFTER 1 DAY 02/27/18 15:10 Aerobic Blood Culture - Preliminary Blood - Venous - Lab Draw NO GROWTH AFTER 3 DAYS Anaerobic Blood Culture - Final 02/27/18 14:53 Aerobic Blood Culture - Preliminary Blood - Venous NO GROWTH AFTER 3 DAYS Anaerobic Blood Culture - Preliminary NO GROWTH AFTER 3 DAYS Med Orders - Current: Current Medications Acetaminophen (Tylenol) 650 mg PO Q4H PRN PRN Reason: Pain (Mild 1-3)/fever Last Admin: 03/03/18 09:10 Dose: 650 mg Docusate Sodium (Colace) 100 mg PO BID PRN PRN Reason: Constipation Last Admin: 03/03/18 09:28 Dose: 100 mg Enoxaparin Sodium (Lovenox) 40 mg SUBCUT Q24H [facility] Last Admin: 03/02/18 16:15 Dose: 40 mg Folic Acid (Folic Acid) 1 mg PO DAILY [facility] Last Admin: 03/03/18 09:11 Dose: 1 mg Gabapentin (Neurontin) 900 mg PO TID [facility] Last Admin: 03/03/18 05:30 Dose: 900 mg Levofloxacin/Dextrose 750 mg/ (Premix) 150 mls @ 100 mls/hr IV Q24H [facility] Last Admin: 03/02/18 17:30 Dose: 100 mls/hr Piperacillin Sod/Tazobactam (Sod 4.5 gm/ Sodium Chloride) 100 mls @ 200 mls/hr IV Q6H [facility] Last Admin: 03/03/18 04:16 Dose: 200 mls/hr Vancomycin HCl 1 gm/ Sodium (Chloride) 250 mls @ 166 mls/hr IV Q12H [facility] Last Admin: 03/03/18 09:11 Dose: 166 mls/hr Lorazepam (Ativan) 1 mg IVPUSH Q6H PRN PRN Reason: Agitation Oxybutynin Chloride (Oxybutynin) 10 mg PO DAILY [facility] Last Admin: 03/03/18 09:11 Dose: 10 mg Oxycodone HCl (Oxycodone) 5 mg PO Q4H PRN PRN Reason: Pain (moderate 4-6) Last Admin: 03/03/18 09:28 Dose: 5 mg Polysaccharide Iron Complex (Ferrex 150) 150 mg PO DAILY [facility] Last Admin: 03/03/18 09:11 Dose: 150 mg Temazepam (Restoril) 15 mg PO BEDTIME PRN PRN Reason: Sleep Last Admin: 03/02/18 21:25 Dose: 15 mg Thiamine HCl (Vitamin B-1) 100 mg PO BEDTIME [facility] Last Admin: 03/02/18 20:43 Dose: 100 mg Vancomycin HCl (Pharmacy To Dose - Vancomycin) 1 dose .XX ASDIRECTED [facility] Discontinued Medications Calcium Gluconate (Calcium Gluconate) 1 gm IVPUSH ONETIME ONE Stop: 02/27/18 17:18 Last Admin: 02/27/18 17:55 Dose: 1 gm Furosemide (Lasix) 20 mg IVPUSH NOW ONE Stop: 03/01/18 12:06 Last Admin: 03/01/18 13:13 Dose: Not Given Furosemide (Lasix) 20 mg IVPUSH NOW ONE Stop: 03/01/18 15:01 Last Admin: 03/01/18 15:10 Dose: 20 mg Furosemide (Lasix) 40 mg IVPUSH NOW ONE Stop: 03/01/18 20:15 Last Admin: 03/01/18 20:40 Dose: 40 mg Furosemide (Lasix) 40 mg IVPUSH NOW ONE Stop: 03/02/18 08:51 Last Admin: 03/02/18 08:59 Dose: 40 mg Haloperidol Lactate (Haldol) 2.5 mg IM ONETIME ONE Stop: 02/27/18 19:35 Last Admin: 02/27/18 19:49 Dose: 2.5 mg Haloperidol Lactate (Haldol) 5 mg IM ONETIME ONE Stop: 02/27/18 22:10 Last Admin: 02/27/18 22:43 Dose: 5 mg Sodium Chloride (Normal Saline) 1,000 mls @ 999 mls/hr IV STAT ONE Stop: 02/27/18 14:40 Last Admin: 02/27/18 14:00 Dose: 999 mls/hr Sodium Chloride (Normal Saline) 1,000 mls @ 125 mls/hr IV ASDIRECTED [facility] Last Admin: 02/28/18 04:11 Dose: 125 mls/hr Potassium Chloride/Sodium Chloride (Normal Saline With 20 Meq Kcl) 1,000 mls @ 75 mls/hr IV ASDIRECTED [facility] Last Admin: 03/01/18 07:14 Dose: 125 mls/hr Magnesium Sulfate 2 gm/ Premix 50 mls @ 25 mls/hr IV ONETIME ONE Stop: 03/01/18 14:03 Last Admin: 03/01/18 13:41 Dose: 25 mls/hr Albumin Human (Flexbumin 25%) 12.5 gm in 50 mls @ 100 mls/hr IV ONETIME ONE Stop: 03/01/18 12:35 Last Admin: 03/01/18 13:01 Dose: 100 mls/hr Piperacillin Sod/Tazobactam (Sod 3.375 gm/ Sodium Chloride) 50 mls @ 100 mls/ hr IV Q6H [facility] Last Admin: 03/02/18 03:47 Dose: 100 mls/hr Vancomycin HCl 1.5 gm/ Sodium (Chloride) 500 mls @ 333.333 mls/hr IV ONETIME ONE Stop: 03/02/18 00:29 Last Admin: 03/01/18 23:05 Dose: 333.333 mls/hr Vancomycin HCl 1 gm/ Sodium (Chloride) 250 mls @ 166 mls/hr IV Q8H [facility] Last Admin: 03/03/18 07:23 Dose: Not Given Potassium Chloride/Sodium Chloride (Normal Saline With 40 Meq Kcl) 500 mls @ 125 mls/hr IV ASDIRECTED [facility] Potassium Chloride 40 meq/ (Sodium Chloride) 520 mls @ 125 mls/hr IV ONETIME ONE Stop: 03/02/18 11:39 Last Admin: 03/02/18 08:22 Dose: 125 mls/hr Albumin Human (Flexbumin 25%) 12.5 gm in 50 mls @ 100 mls/hr IV ONETIME ONE Stop: 03/02/18 08:47 Last Admin: 03/02/18 08:36 Dose: Not Given Piperacillin Sod/Tazobactam (Sod 4.5 gm/ Sodium Chloride) 50 mls @ 100 mls/hr IV Q6H [facility] Last Admin: 03/02/18 10:06 Dose: Not Given Lorazepam (Ativan) 1 mg IVPUSH ONETIME ONE Stop: 02/27/18 23:27 Last Admin: 02/28/18 00:11 Dose: 1 mg Morphine Sulfate (Morphine) 2 mg IVPUSH Q2H PRN PRN Reason: Pain (severe 7-10) Stop: 02/28/18 17:15 Last Admin: 02/27/18 21:46 Dose: 2 mg Morphine Sulfate (Morphine) 2 mg IVPUSH Q2H PRN PRN Reason: Pain (severe 7-10) Stop: 02/28/18 17:15 Last Admin: 02/28/18 14:41 Dose: 2 mg Non-Formulary Medication (Methocarbamol [Methocarbamol]) 750 mg PO TID PRN PRN Reason: Pain Potassium Chloride (Klor-Con M20) 40 meq PO ONETIME ONE Stop: 03/01/18 11:52 Last Admin: 03/01/18 12:15 Dose: 40 meq Potassium Chloride (Klor-Con M20) 40 meq PO ONETIME ONE Stop: 03/02/18 08:39 Last Admin: 03/02/18 08:59 Dose: 40 meq Sodium Phosphate (Neutra-Phos) 250 mg PO QID [facility] Stop: 03/04/18 12:01 Last Admin: 03/02/18 05:34 Dose: 250 mg Spironolactone (Aldactone) 25 mg PO BID [facility] Last Admin: 03/01/18 08:36 Dose: Not Given - Exam General: Alert, Cooperative, No Acute Distress (left lung field is more clear and aeration has improved.) Cardiovascular: No Murmurs, Tachycardia GI/Abdominal Exam: Normal Bowel Sounds, Soft, Non-Tender Extremities: Normal Inspection, Non-Tender, No Pedal Edema Skin: Warm, Dry - Problem List Review Problem List Initiated/Reviewed/Updated: Yes - My Orders Last 24 Hours: My Active Orders 03/02/18 10:00 Piperacillin/Tazobactam [Piperacil-Tazobact] 4.5 gm Sodium Chloride 0.9% [ Normal Saline] 100 ml IV Q6H 03/02/18 13:55 OT Evaluation and Treatment [CONS] Routine PT Evaluation and Treatment [CONS] Routine 03/02/18 15:37 BODY FLUID, SPECIFIC GRAVITY Routine CULTURE BODY FLUID + SMEAR [RM] Routine 03/02/18 Lunch Regular Diet [DIET] 03/03/18 09:34 Chest w Cont [CT] Routine 03/04/18 05:11 CBC WITH AUTO DIFF [HEME] AM COMPREHENSIVE METABOLIC PN,CMP [CHEM] AM MAGNESIUM [CHEM] AM - Plan Plan:: 1. Community acquired pneumonia- Continue with current broad spectrum antibiotics Levaquin, Zosyn and Vancomycin. Will de-escalate once blood cultures and CT chest is performed to see if she has a loculated PNA. 2. Left pleural effusion s/p thoracentesis- unknown etiology. Pleural fluid is exudative. Ordered CT Chest w/contrast to further assess this for possible loculation. 3. E. coli urinary tract infection- continue with current antibiotics day 10/05. 4. Hypokalemia- replaced with KCl 40 mEq PO once. Will recheck tomorrow. 5. Tachycardia- Suspect that her tachycardia is secondary to the left pleural effusion and CAP. 6. Mixed iron deficiency and anemia of chronic disease- I suspect that her anemia is due to iron deficiency on top of anemia of chronic disease. Will continue to monitor for now. Continue Iron polysaccharide 150 mg PO BID. 7. Severe protein malnutrition- High risk for re-feeding syndrome. Will continue to monitor electrolytes closely and replace as needed. 8. Elevated liver enzymes- 2/2 to alcoholic hepatosteatosis. 9. 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 9. Low folate- continue folic acid supplementation. 10. hypophosphotemia- resolved. 11. Leukocytosis, improving. Continue to monitor. 12. Alcohol abuse- not withdrawing. continue thiamine and folate. Dispo: pending improvement.
[2018-03-03] MEDS ORDERED: Potassium Chloride 20 MEQ Tab.ER PO ONE (11:11)
[2018-03-03] MEDS ORDERED: Iopamidol 755 MG/ML 500 ML Multipack Bottle IVPUSH STA (11:50)
--- NOTE | 2018-03-03 12:23 | CT ---
EXAMINATION: CT chest without contrast HISTORY: Left pleural effusion COMPARISON: Radiographs from the same day TECHNIQUE: Contiguous CT imaging obtained through the chest following the administration of 75 mL of [id number] in the left antecubital fossa. Coronal and sagittal reconstructions obtained. FINDINGS: There is a moderate left and small right pleural effusion. There is increased reticulation and groundglass within the lungs bilaterally. There are likely confined collections within the lower lobes bilaterally near the lung bases measuring 3 x 1.8 cm on the right and 3.3 x 2 cm on the left. T he heart is normal in size without pericardial effusion. The thoracic aorta is normal in caliber. Yuri ateral segmental pulmonary emboli are noted. An central airways are clear. Postsurgical changes are noted secondary to gastric bypass. No suspicious osseous abnormalities. IMPRESSION: 1. Several segmental pulmonary emboli noted bilaterally. 2. Small collections within the lung bases are noted, possibly secondary to pulmonary infarcts, absce sses are not excluded. 3. Moderate left and small right pleural effusion. 4. Extensive reticulation and groundglass within the lungs bilaterally. Differential includes pulmona ry edema and/or atypical infection.
[2018-03-03] MEDS ORDERED: Enoxaparin 60 MG/0.6 ML Syringe SUBCUT SCH (13:00)
[2018-03-03] MEDS ORDERED: Heparin Sodium 5,000 Units/ML Vial IVPUSH PRN (13:15)
[2018-03-03] MEDS: Heparin Sod,Pork In 0.45% Nacl 25,000 UNIT/500 ML IV.SOLN IV SCH ×2 (15:34→21:53)
[2018-03-03] MEDS: Levofloxacin/Dextrose 5%-Water 750 MG in Premix Bag 1 BAG IV SCH (18:22)
[2018-03-03] MEDS: Thiamine 100 MG Tab PO SCH (21:42)
[2018-03-03] MEDS: Temazepam 15 MG Cap PO PRN (22:44)
[2018-03-04] MEDS: Piperacillin/Tazobactam 4.5 GM in Sodium Chloride 0.9% 100 ML IV SCH ×5 (00:19→21:56)
[2018-03-04] MEDS: Gabapentin 300 MG Cap PO SCH ×3 (05:01→21:22)
[2018-03-04 05:56] LABS: CHLORIDE,CL 104 mmol/L (98-107); SODIUM,NA 135 mmol/L (136-145)
[2018-03-04] MEDS ORDERED: Magnesium Sulfate/Water 2 GM in Premix Bag 1 BAG IV ONE (07:29)
[2018-03-04] MEDS: Folic Acid 1 MG Tab PO SCH (09:55)
[2018-03-04] MEDS: Potassium Chloride 10% 20 MEQ/15 ML Soln 30 ML UD Cup PO SCH ×2 (09:55→14:27)
[2018-03-04] MEDS: Oxybutynin 5 MG Tab PO SCH (09:55)
[2018-03-04] MEDS: Iron Polysaccharides Complex 150 MG Cap PO SCH (09:55)
[2018-03-04] MEDS: oxyCODONE 5 MG Tab PO PRN ×2 (09:56→20:14)
--- NOTE | 2018-03-04 10:02 | US ---
ULTRASOUND EXAMINATION OF the left and right lower extremities WITH DOPPLER HISTORY: Rule out DVT FINDINGS: Examination of the left and right legs were performed from the groin to the calf region. All visuali zed segments including common femoral, proximal greater saphenous, superficial femoral, popliteal and calf veins appear patent with good compressibility and augmentation. There is no evidence of deep v ein thrombosis. IMPRESSION: No evidence of a DVT.
[2018-03-04] MEDS ORDERED: Sodium Chloride 0.9% 100 ML ONE (10:41)
--- NOTE | 2018-03-04 13:44 | ECHO ---
EXAM DATE: 02/27/18 PATIENT'S AGE: 42 The echocardiogram report can be seen in this patient's EMR (Electronic Medical Record) in the Reports section. The report has also been scanned into PACs. REBECCA
--- NOTE | 2018-03-04 16:50 | PCM.PN ---
- General Info Date of Service: 03/04/18 Subjective Update: The patient was found to have bilateral segmental pulmonary emboli with infarctions. She was started on heparin drip. This morning the patient endorses some shortness of breath with exertion. No hematemesis or chest pain. States she feels better. - Patient Data Vitals - Most Recent: Last Vital Signs Temp 36.6 C 03/04/18 12:00 Pulse 106 H 03/01/18 20:40 Resp 24 H 03/04/18 15:00 BP 103/64 03/04/18 15:00 Pulse Ox 95 03/04/18 15:00 Weight - Most Recent: 59.647 kg I&O - Last 24 Hours: Intake & Output 03/04/18 03/04/18 03/04/18 06:59 14:59 22:59 Intake Total 1305 740 Output Total 800 900 Balance 505 -160 Lab Results Last 24 Hours: Laboratory Results - last 24 hr 03/02/18 03/03/18 03/04/18 Range/Units 15:37 20:07 02:03 WBC (4.0-11.0) K/uL RBC (4.30-5.90) M/uL Hgb (12.0-16.0) g/dL Hct (36.0-46.0) % MCV (80.0-98.0) fL MCH (27.0-32.0) pg MCHC (31.0-37.0) g/dL RDW Std Deviation (28.0-62.0) fl RDW Coeff of Amanda (11.0-15.0) % Plt Count (150-400) K/uL MPV (7.40-12.00) fL Add Manual Diff Neutrophils % (Manual) (48.0-80.0) % Lymphocytes % (Manual) (16.0-40.0) % Monocytes % (Manual) (0.0-15.0) % Eosinophils % (Manual) (0.0-7.0) % Nucleated RBC % /100WBC Absolute Seg Neuts (1.4-5.7) Lymphocytes # (Manual) (0.6-2.4) Monocytes # (Manual) (0.0-0.8) Eosinophils # (Manual) (0.0-0.7) Nucleated RBCs # K/uL APTT 131.9 H 76.0 H (18.6-31.3) SEC Sodium (136-145) mmol/L Potassium (3.5-5.1) mmol/L Chloride (98-107) mmol/L Carbon Dioxide (21.0-32.0) mmol/L BUN (7.0-18.0) mg/dL Creatinine (0.6-1.0) mg/dL Est Cr Clr Drug Dosing mL/min Estimated GFR (MDRD) ml/min Glucose (74-106) mg/dL Calcium (8.5-10.1) mg/dL Magnesium (1.8-2.4) mg/dL Total Bilirubin (0.2-1.0) mg/dL AST (15-37) IU/L ALT (14-63) IU/L Alkaline Phosphatase (46-116) U/L Total Protein (6.4-8.2) g/dL Albumin (3.4-5.0) g/dL Globulin (2.0-3.5) g/dL Albumin/Globulin Ratio (1.3-2.8) Fluid Source Pleural Fluid Specific Grav 1.018 03/04/18 03/04/18 03/04/18 Range/Units 05:10 05:10 08:12 WBC 11.69 H (4.0-11.0) K/uL RBC 2.48 L (4.30-5.90) M/uL Hgb 8.3 L (12.0-16.0) g/dL Hct 25.8 L (36.0-46.0) % MCV 104.0 H (80.0-98.0) fL MCH 33.5 H (27.0-32.0) pg MCHC 32.2 (31.0-37.0) g/dL RDW Std Deviation 50.7 (28.0-62.0) fl RDW Coeff of Amanda 14 (11.0-15.0) % Plt Count 164 (150-400) K/uL MPV 11.80 (7.40-12.00) fL Add Manual Diff YES Neutrophils % (Manual) 68 (48.0-80.0) % Lymphocytes % (Manual) 22 (16.0-40.0) % Monocytes % (Manual) 6 (0.0-15.0) % Eosinophils % (Manual) 4 (0.0-7.0) % Nucleated RBC % 0.0 /100WBC Absolute Seg Neuts 7.9 H (1.4-5.7) Lymphocytes # (Manual) 2.6 H (0.6-2.4) Monocytes # (Manual) 0.7 (0.0-0.8) Eosinophils # (Manual) 0.5 (0.0-0.7) Nucleated RBCs # 0 K/uL APTT 52.8 H (18.6-31.3) SEC Sodium 135 L (136-145) mmol/L Potassium 3.2 L (3.5-5.1) mmol/L Chloride 104 (98-107) mmol/L Carbon Dioxide 24.1 (21.0-32.0) mmol/L BUN 6 L (7.0-18.0) mg/dL Creatinine 0.8 (0.6-1.0) mg/dL Est Cr Clr Drug Dosing 88.02 mL/min Estimated GFR (MDRD) > 60.0 ml/min Glucose 71 L (74-106) mg/dL Calcium 7.4 L (8.5-10.1) mg/dL Magnesium 1.7 L (1.8-2.4) mg/dL Total Bilirubin 0.6 (0.2-1.0) mg/dL AST 46 H (15-37) IU/L ALT 55 (14-63) IU/L Alkaline Phosphatase 162 H (46-116) U/L Total Protein 4.5 L (6.4-8.2) g/dL Albumin 0.6 L (3.4-5.0) g/dL Globulin 3.9 H (2.0-3.5) g/dL Albumin/Globulin Ratio 0.2 L (1.3-2.8) Fluid Source Fluid Specific Grav 03/04/18 Range/Units 14:40 WBC (4.0-11.0) K/uL RBC (4.30-5.90) M/uL Hgb (12.0-16.0) g/dL Hct (36.0-46.0) % MCV (80.0-98.0) fL MCH (27.0-32.0) pg MCHC (31.0-37.0) g/dL RDW Std Deviation (28.0-62.0) fl RDW Coeff of Amanda (11.0-15.0) % Plt Count (150-400) K/uL MPV (7.40-12.00) fL Add Manual Diff Neutrophils % (Manual) (48.0-80.0) % Lymphocytes % (Manual) (16.0-40.0) % Monocytes % (Manual) (0.0-15.0) % Eosinophils % (Manual) (0.0-7.0) % Nucleated RBC % /100WBC Absolute Seg Neuts (1.4-5.7) Lymphocytes # (Manual) (0.6-2.4) Monocytes # (Manual) (0.0-0.8) Eosinophils # (Manual) (0.0-0.7) Nucleated RBCs # K/uL APTT 53.3 H (18.6-31.3) SEC Sodium (136-145) mmol/L Potassium (3.5-5.1) mmol/L Chloride (98-107) mmol/L Carbon Dioxide (21.0-32.0) mmol/L BUN (7.0-18.0) mg/dL Creatinine (0.6-1.0) mg/dL Est Cr Clr Drug Dosing mL/min Estimated GFR (MDRD) ml/min Glucose (74-106) mg/dL Calcium (8.5-10.1) mg/dL Magnesium (1.8-2.4) mg/dL Total Bilirubin (0.2-1.0) mg/dL AST (15-37) IU/L ALT (14-63) IU/L Alkaline Phosphatase (46-116) U/L Total Protein (6.4-8.2) g/dL Albumin (3.4-5.0) g/dL Globulin (2.0-3.5) g/dL Albumin/Globulin Ratio (1.3-2.8) Fluid Source Fluid Specific Grav Epifanio Results Last 24 Hours: Microbiology 02/27/18 15:10 Aerobic Blood Culture - Final Blood - Venous - Lab Draw NO GROWTH AFTER 5 DAYS Anaerobic Blood Culture - Final 02/27/18 14:53 Aerobic Blood Culture - Final Blood - Venous NO GROWTH AFTER 5 DAYS Anaerobic Blood Culture - Final NO GROWTH AFTER 5 DAYS 03/02/18 15:37 Gram Stain - Preliminary Pleural Fluid Body Fluid Culture - Preliminary NO GROWTH AFTER 2 DAYS 03/01/18 21:31 Aerobic Blood Culture - Preliminary Blood - Venous - Lab Draw NO GROWTH AFTER 2 DAYS Anaerobic Blood Culture - Preliminary NO GROWTH AFTER 2 DAYS 03/01/18 21:22 Aerobic Blood Culture - Preliminary Blood - Venous NO GROWTH AFTER 2 DAYS Anaerobic Blood Culture - Preliminary NO GROWTH AFTER 2 DAYS Med Orders - Current: Current Medications Acetaminophen (Tylenol) 650 mg PO Q4H PRN PRN Reason: Pain (Mild 1-3)/fever Last Admin: 03/03/18 22:44 Dose: 650 mg Docusate Sodium (Colace) 100 mg PO BID PRN PRN Reason: Constipation Last Admin: 03/03/18 22:44 Dose: 100 mg Folic Acid (Folic Acid) 1 mg PO DAILY [facility] Last Admin: 03/04/18 09:55 Dose: 1 mg Gabapentin (Neurontin) 900 mg PO TID [facility] Last Admin: 03/04/18 14:26 Dose: 900 mg Heparin Sodium (Porcine) (Heparin Sodium) 0 units IVPUSH Q6H PRN PRN Reason: PER PTT PROTOCOL Last Admin: 03/03/18 15:30 Dose: 4,800 units Levofloxacin/Dextrose 750 mg/ (Premix) 150 mls @ 100 mls/hr IV Q24H [facility] Last Admin: 03/03/18 18:22 Dose: 100 mls/hr Piperacillin Sod/Tazobactam (Sod 4.5 gm/ Sodium Chloride) 100 mls @ 200 mls/hr IV Q6H [facility] Last Admin: 03/04/18 10:43 Dose: 200 mls/hr Vancomycin HCl 1 gm/ Sodium (Chloride) 250 mls @ 166 mls/hr IV Q12H [facility] Last Admin: 03/04/18 10:37 Dose: 166 mls/hr Heparin Sodium/Sodium Chloride (Heparin-1/2ns 25,000 Units/500) 25,000 unit in 500 mls @ 21.473 mls/hr IV TITRATE [facility]; Protocol Last Titration: 03/04/18 02:39 Dose: 13 units/kg/hr, 15.508 mls/hr Lorazepam (Ativan) 1 mg IVPUSH Q6H PRN PRN Reason: Agitation Oxybutynin Chloride (Oxybutynin) 10 mg PO DAILY [facility] Last Admin: 03/04/18 09:55 Dose: 10 mg Oxycodone HCl (Oxycodone) 5 mg PO Q4H PRN PRN Reason: Pain (moderate 4-6) Last Admin: 03/04/18 09:56 Dose: 5 mg Polysaccharide Iron Complex (Ferrex 150) 150 mg PO DAILY [facility] Last Admin: 03/04/18 09:55 Dose: 150 mg Temazepam (Restoril) 15 mg PO BEDTIME PRN PRN Reason: Sleep Last Admin: 03/03/18 22:44 Dose: 15 mg Thiamine HCl (Vitamin B-1) 100 mg PO BEDTIME [facility] Last Admin: 03/03/18 21:42 Dose: 100 mg Vancomycin HCl (Pharmacy To Dose - Vancomycin) 1 dose .XX ASDIRECTED [facility] Discontinued Medications Calcium Gluconate (Calcium Gluconate) 1 gm IVPUSH ONETIME ONE Stop: 02/27/18 17:18 Last Admin: 02/27/18 17:55 Dose: 1 gm Enoxaparin Sodium (Lovenox) 40 mg SUBCUT Q24H [facility] Last Admin: 03/02/18 16:15 Dose: 40 mg Enoxaparin Sodium (Lovenox) 60 mg SUBCUT Q12H [facility] Last Admin: 03/03/18 13:36 Dose: Not Given Furosemide (Lasix) 20 mg IVPUSH NOW ONE Stop: 03/01/18 12:06 Last Admin: 03/01/18 13:13 Dose: Not Given Furosemide (Lasix) 20 mg IVPUSH NOW ONE Stop: 03/01/18 15:01 Last Admin: 03/01/18 15:10 Dose: 20 mg Furosemide (Lasix) 40 mg IVPUSH NOW ONE Stop: 03/01/18 20:15 Last Admin: 03/01/18 20:40 Dose: 40 mg Furosemide (Lasix) 40 mg IVPUSH NOW ONE Stop: 03/02/18 08:51 Last Admin: 03/02/18 08:59 Dose: 40 mg Haloperidol Lactate (Haldol) 2.5 mg IM ONETIME ONE Stop: 02/27/18 19:35 Last Admin: 02/27/18 19:49 Dose: 2.5 mg Haloperidol Lactate (Haldol) 5 mg IM ONETIME ONE Stop: 02/27/18 22:10 Last Admin: 02/27/18 22:43 Dose: 5 mg Sodium Chloride (Normal Saline) 1,000 mls @ 999 mls/hr IV STAT ONE Stop: 02/27/18 14:40 Last Admin: 02/27/18 14:00 Dose: 999 mls/hr Sodium Chloride (Normal Saline) 1,000 mls @ 125 mls/hr IV ASDIRECTED [facility] Last Admin: 02/28/18 04:11 Dose: 125 mls/hr Potassium Chloride/Sodium Chloride (Normal Saline With 20 Meq Kcl) 1,000 mls @ 75 mls/hr IV ASDIRECTED [facility] Last Admin: 03/01/18 07:14 Dose: 125 mls/hr Magnesium Sulfate 2 gm/ Premix 50 mls @ 25 mls/hr IV ONETIME ONE Stop: 03/01/18 14:03 Last Admin: 03/01/18 13:41 Dose: 25 mls/hr Albumin Human (Flexbumin 25%) 12.5 gm in 50 mls @ 100 mls/hr IV ONETIME ONE Stop: 03/01/18 12:35 Last Admin: 03/01/18 13:01 Dose: 100 mls/hr Piperacillin Sod/Tazobactam (Sod 3.375 gm/ Sodium Chloride) 50 mls @ 100 mls/ hr IV Q6H [facility] Last Admin: 03/02/18 03:47 Dose: 100 mls/hr Vancomycin HCl 1.5 gm/ Sodium (Chloride) 500 mls @ 333.333 mls/hr IV ONETIME ONE Stop: 03/02/18 00:29 Last Admin: 03/01/18 23:05 Dose: 333.333 mls/hr Vancomycin HCl 1 gm/ Sodium (Chloride) 250 mls @ 166 mls/hr IV Q8H [facility] Last Admin: 03/03/18 07:23 Dose: Not Given Potassium Chloride/Sodium Chloride (Normal Saline With 40 Meq Kcl) 500 mls @ 125 mls/hr IV ASDIRECTED [facility] Potassium Chloride 40 meq/ (Sodium Chloride) 520 mls @ 125 mls/hr IV ONETIME ONE Stop: 03/02/18 11:39 Last Admin: 03/02/18 08:22 Dose: 125 mls/hr Albumin Human (Flexbumin 25%) 12.5 gm in 50 mls @ 100 mls/hr IV ONETIME ONE Stop: 03/02/18 08:47 Last Admin: 03/02/18 08:36 Dose: Not Given Piperacillin Sod/Tazobactam (Sod 4.5 gm/ Sodium Chloride) 50 mls @ 100 mls/hr IV Q6H [facility] Last Admin: 03/02/18 10:06 Dose: Not Given Magnesium Sulfate 2 gm/ Premix 50 mls @ 25 mls/hr IV ONETIME ONE Stop: 03/04/18 09:28 Last Admin: 03/04/18 09:30 Dose: 25 mls/hr Sodium Chloride (Normal Saline) Confirm Administered Dose 100 mls @ as directed .ROUTE .STK-MED ONE Stop: 03/04/18 10:42 Last Admin: 03/04/18 14:10 Dose: Not Given Iopamidol (Isovue Multipack-370 (76%)) 75 ml IVPUSH ONETIME STA Stop: 03/03/18 11:51 Last Admin: 03/03/18 11:50 Dose: 75 ml Lorazepam (Ativan) 1 mg IVPUSH ONETIME ONE Stop: 02/27/18 23:27 Last Admin: 02/28/18 00:11 Dose: 1 mg Morphine Sulfate (Morphine) 2 mg IVPUSH Q2H PRN PRN Reason: Pain (severe 7-10) Stop: 02/28/18 17:15 Last Admin: 02/27/18 21:46 Dose: 2 mg Morphine Sulfate (Morphine) 2 mg IVPUSH Q2H PRN PRN Reason: Pain (severe 7-10) Stop: 02/28/18 17:15 Last Admin: 02/28/18 14:41 Dose: 2 mg Non-Formulary Medication (Methocarbamol [Methocarbamol]) 750 mg PO TID PRN PRN Reason: Pain Potassium Chloride (Klor-Con M20) 40 meq PO ONETIME ONE Stop: 03/01/18 11:52 Last Admin: 03/01/18 12:15 Dose: 40 meq Potassium Chloride (Klor-Con M20) 40 meq PO ONETIME ONE Stop: 03/02/18 08:39 Last Admin: 03/02/18 08:59 Dose: 40 meq Potassium Chloride (Klor-Con M20) 40 meq PO ONETIME ONE Stop: 03/03/18 11:12 Last Admin: 03/03/18 12:00 Dose: 40 meq Potassium Chloride (Potassium Chloride) 40 meq PO Q4H [facility] Stop: 03/04/18 11:31 Last Admin: 03/04/18 14:27 Dose: Not Given Sodium Phosphate (Neutra-Phos) 250 mg PO QID [facility] Stop: 03/04/18 12:01 Last Admin: 03/02/18 05:34 Dose: 250 mg Spironolactone (Aldactone) 25 mg PO BID [facility] Last Admin: 03/01/18 08:36 Dose: Not Given - Exam Quality Assessment: Supplemental Oxygen (2L nasal canula) General: Alert (Decreased breath sound in left lung field. Crackles noticed on the left lung. No wheezing.) Cardiovascular: Tachycardia GI/Abdominal Exam: Normal Bowel Sounds, Soft, Non-Tender, No Distention Extremities: Non-Tender, No Pedal Edema Skin: Warm, Dry Neurological: No New Focal Deficit - Problem List Review Problem List Initiated/Reviewed/Updated: Yes - Plan Plan:: 1. Bilateral segmental pulmonary emboli- continue heparin drip for now. Will try to get in touch with Tele ICU for recommendations. 2. Community acquired pneumonia- Continue with current broad spectrum antibiotics Levaquin, Zosyn and Vancomycin. Day 6 of antibiotics. 3. Left pleural effusion s/p thoracentesis-suspect that this is due to infarcted pulmonary emboli. Will continue to monitor pleural effusion for re- accumulation and possible need for a repeat thoracentesis. 4. E. coli urinary tract infection- continue with current antibiotics day 6/7. 5. Hypokalemia- replaced with KCl 40 mEq PO once. Will recheck tomorrow. 6. Hypomagnesemia- replaced with MgS 2g IV once. Will recheck. 7. Mixed iron deficiency and anemia of chronic disease- I suspect that her anemia is due to iron deficiency on top of anemia of chronic disease. Will continue to monitor for now. Continue Iron polysaccharide 150 mg PO BID. 8. Severe protein malnutrition- High risk for re-feeding syndrome. Will continue to monitor electrolytes closely and replace as needed. 9. Elevated liver enzymes- 2/2 to alcoholic hepatosteatosis. 10. 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 11. Low folate- continue folic acid supplementation. 12. Hypophosphotemia- resolved. 13. Leukocytosis, improving. Continue to monitor. 14. Alcohol abuse- not withdrawing. continue thiamine and folate. Dispo: pending improvement.
[2018-03-04] MEDS: Levofloxacin/Dextrose 5%-Water 750 MG in Premix Bag 1 BAG IV SCH (18:05)
[2018-03-04] MEDS: Heparin Sod,Pork In 0.45% Nacl 25,000 UNIT/500 ML IV.SOLN IV SCH (19:27)
[2018-03-04] MEDS: Docusate Sodium 100 MG Cap PO PRN (20:13)
[2018-03-04] MEDS: Thiamine 100 MG Tab PO SCH (20:13)
[2018-03-04] MEDS: Temazepam 15 MG Cap PO PRN (21:22)
[2018-03-05] MEDS: Piperacillin/Tazobactam 4.5 GM in Sodium Chloride 0.9% 100 ML IV SCH ×4 (03:19→22:11)
[2018-03-05 05:44] LABS: CHLORIDE,CL 104 mmol/L (98-107); SODIUM,NA 134 mmol/L (136-145)
[2018-03-05] MEDS: oxyCODONE 5 MG Tab PO PRN (06:52)
[2018-03-05] MEDS: Gabapentin 300 MG Cap PO SCH ×3 (06:52→21:12)
[2018-03-05] MEDS ORDERED: Furosemide 20 MG/2 ML VIAL IVPUSH ONE (08:13)
[2018-03-05] MEDS ORDERED: Furosemide 20 MG/2 ML VIAL ONE (08:23)
[2018-03-05] MEDS: Iron Polysaccharides Complex 150 MG Cap PO SCH (08:29)
[2018-03-05] MEDS: Oxybutynin 5 MG Tab PO SCH (08:29)
[2018-03-05] MEDS: Folic Acid 1 MG Tab PO SCH (08:29)
--- NOTE | 2018-03-05 09:00 | CR ---
EXAMINATION: Portable chest radiograph. HISTORY: Dyspnea. Comparison: 03/03/2018. FINDINGS: The trachea is midline. The heart is normal in size. There is a moderate left-sided pleural effusion, slightly increased from the day study. Adjacent bibasilar atelectasis/infiltrate is again noted. Osseous structures appear unremarkable. IMPRESSION: 1. Likely loculated Moderate left pleural effusion, mildly increased from the prior study.
[2018-03-05] MEDS ORDERED: Metoprolol Tartrate 5 MG/5 ML SDV IVPUSH ONE (11:53)
--- NOTE | 2018-03-05 13:53 | PCM.PN ---
- General Info Date of Service: 03/05/18 Admission Dx/Problem (Free Text): Patient's O2 requirements went up to 3 L/min O2. A chest xray showed a left pleural effusion increasing in size. She was given lasix 20 mg IV once with good urine output. Patient overall, is doing better than when she presented on admission. Her mentation is back to baseline. Currently working on physical therapy and continue on heparin drip for bilateral PEs. This morning the patient denied any chest pain. Endorses some dyspnea with exertion. No abdominal pain, dysuria or diarrhea. - Patient Data Vitals - Most Recent: Last Vital Signs Temp 36.5 C 03/05/18 12:00 Pulse 119 H 03/05/18 13:00 Resp 24 H 03/05/18 13:00 BP 104/63 03/05/18 13:00 Pulse Ox 88 L 03/05/18 13:00 Weight - Most Recent: 59.647 kg I&O - Last 24 Hours: Intake & Output 03/04/18 03/05/18 03/05/18 22:59 06:59 14:59 Intake Total 1115 1772 Output Total 900 1300 Balance 215 472 Lab Results Last 24 Hours: Laboratory Results - last 24 hr 03/04/18 03/05/18 03/05/18 Range/Units 14:40 05:00 05:00 WBC 16.59 H (4.0-11.0) K/uL RBC 2.68 L (4.30-5.90) M/uL Hgb 8.9 L (12.0-16.0) g/dL Hct 28.0 L (36.0-46.0) % MCV 104.5 H (80.0-98.0) fL MCH 33.2 H (27.0-32.0) pg MCHC 31.8 (31.0-37.0) g/dL RDW Std Deviation 51.1 (28.0-62.0) fl RDW Coeff of Amanda 14 (11.0-15.0) % Plt Count 227 (150-400) K/uL MPV 11.30 (7.40-12.00) fL Add Manual Diff YES Neutrophils % (Manual) 63 (48.0-80.0) % Band Neutrophils % 4 % Lymphocytes % (Manual) 15 L (16.0-40.0) % Monocytes % (Manual) 12 (0.0-15.0) % Eosinophils % (Manual) 6 (0.0-7.0) % Nucleated RBC % 0.1 /100WBC Absolute Seg Neuts 10.5 H (1.4-5.7) Band Neutrophils # 0.7 Lymphocytes # (Manual) 2.5 H (0.6-2.4) Monocytes # (Manual) 2.0 H (0.0-0.8) Eosinophils # (Manual) 1.0 H (0.0-0.7) Nucleated RBCs # 0 K/uL APTT 53.3 H 53.6 H (18.6-31.3) SEC Sodium (136-145) mmol/L Potassium (3.5-5.1) mmol/L Chloride (98-107) mmol/L Carbon Dioxide (21.0-32.0) mmol/L BUN (7.0-18.0) mg/dL Creatinine (0.6-1.0) mg/dL Est Cr Clr Drug Dosing mL/min Estimated GFR (MDRD) ml/min Glucose (74-106) mg/dL Calcium (8.5-10.1) mg/dL Magnesium (1.8-2.4) mg/dL 03/05/18 Range/Units 05:00 WBC (4.0-11.0) K/uL RBC (4.30-5.90) M/uL Hgb (12.0-16.0) g/dL Hct (36.0-46.0) % MCV (80.0-98.0) fL MCH (27.0-32.0) pg MCHC (31.0-37.0) g/dL RDW Std Deviation (28.0-62.0) fl RDW Coeff of Amanda (11.0-15.0) % Plt Count (150-400) K/uL MPV (7.40-12.00) fL Add Manual Diff Neutrophils % (Manual) (48.0-80.0) % Band Neutrophils % % Lymphocytes % (Manual) (16.0-40.0) % Monocytes % (Manual) (0.0-15.0) % Eosinophils % (Manual) (0.0-7.0) % Nucleated RBC % /100WBC Absolute Seg Neuts (1.4-5.7) Band Neutrophils # Lymphocytes # (Manual) (0.6-2.4) Monocytes # (Manual) (0.0-0.8) Eosinophils # (Manual) (0.0-0.7) Nucleated RBCs # K/uL APTT (18.6-31.3) SEC Sodium 134 L (136-145) mmol/L Potassium 3.6 (3.5-5.1) mmol/L Chloride 104 (98-107) mmol/L Carbon Dioxide 22.0 (21.0-32.0) mmol/L BUN 4 L (7.0-18.0) mg/dL Creatinine 0.9 (0.6-1.0) mg/dL Est Cr Clr Drug Dosing 78.24 mL/min Estimated GFR (MDRD) > 60.0 ml/min Glucose 92 (74-106) mg/dL Calcium 7.6 L (8.5-10.1) mg/dL Magnesium 1.9 (1.8-2.4) mg/dL Epifanio Results Last 24 Hours: Microbiology 03/02/18 15:37 Gram Stain - Final Pleural Fluid Body Fluid Culture - Final NO GROWTH AFTER 3 DAYS 03/01/18 21:31 Aerobic Blood Culture - Preliminary Blood - Venous - Lab Draw NO GROWTH AFTER 3 DAYS Anaerobic Blood Culture - Preliminary NO GROWTH AFTER 3 DAYS 03/01/18 21:22 Aerobic Blood Culture - Preliminary Blood - Venous NO GROWTH AFTER 3 DAYS Anaerobic Blood Culture - Preliminary NO GROWTH AFTER 3 DAYS 02/27/18 15:10 Aerobic Blood Culture - Final Blood - Venous - Lab Draw NO GROWTH AFTER 5 DAYS Anaerobic Blood Culture - Final 02/27/18 14:53 Aerobic Blood Culture - Final Blood - Venous NO GROWTH AFTER 5 DAYS Anaerobic Blood Culture - Final NO GROWTH AFTER 5 DAYS Med Orders - Current: Current Medications Acetaminophen (Tylenol) 650 mg PO Q4H PRN PRN Reason: Pain (Mild 1-3)/fever Last Admin: 03/03/18 22:44 Dose: 650 mg Docusate Sodium (Colace) 100 mg PO BID PRN PRN Reason: Constipation Last Admin: 03/04/18 20:13 Dose: 100 mg Folic Acid (Folic Acid) 1 mg PO DAILY [facility] Last Admin: 03/05/18 08:29 Dose: 1 mg Gabapentin (Neurontin) 900 mg PO TID [facility] Last Admin: 03/05/18 13:08 Dose: 900 mg Heparin Sodium (Porcine) (Heparin Sodium) 0 units IVPUSH Q6H PRN PRN Reason: PER PTT PROTOCOL Last Admin: 03/03/18 15:30 Dose: 4,800 units Levofloxacin/Dextrose 750 mg/ (Premix) 150 mls @ 100 mls/hr IV Q24H [facility] Last Admin: 03/04/18 18:05 Dose: 100 mls/hr Piperacillin Sod/Tazobactam (Sod 4.5 gm/ Sodium Chloride) 100 mls @ 200 mls/hr IV Q6H [facility] Last Admin: 03/05/18 10:43 Dose: 200 mls/hr Vancomycin HCl 1 gm/ Sodium (Chloride) 250 mls @ 166 mls/hr IV Q12H [facility] Last Admin: 03/05/18 08:30 Dose: 166 mls/hr Heparin Sodium/Sodium Chloride (Heparin-1/2ns 25,000 Units/500) 25,000 unit in 500 mls @ 21.473 mls/hr IV TITRATE [facility]; Protocol Last Admin: 03/04/18 19:27 Dose: 13 units/kg/hr, 15.508 mls/hr Lorazepam (Ativan) 1 mg IVPUSH Q6H PRN PRN Reason: Agitation Oxybutynin Chloride (Oxybutynin) 10 mg PO DAILY [facility] Last Admin: 03/05/18 08:29 Dose: 10 mg Oxycodone HCl (Oxycodone) 5 mg PO Q4H PRN PRN Reason: Pain (moderate 4-6) Last Admin: 03/05/18 06:52 Dose: 5 mg Polysaccharide Iron Complex (Ferrex 150) 150 mg PO DAILY [facility] Last Admin: 03/05/18 08:29 Dose: 150 mg Temazepam (Restoril) 15 mg PO BEDTIME PRN PRN Reason: Sleep Last Admin: 03/04/18 21:22 Dose: 15 mg Thiamine HCl (Vitamin B-1) 100 mg PO BEDTIME [facility] Last Admin: 03/04/18 20:13 Dose: 100 mg Vancomycin HCl (Pharmacy To Dose - Vancomycin) 1 dose .XX ASDIRECTED [facility] Discontinued Medications Calcium Gluconate (Calcium Gluconate) 1 gm IVPUSH ONETIME ONE Stop: 02/27/18 17:18 Last Admin: 02/27/18 17:55 Dose: 1 gm Enoxaparin Sodium (Lovenox) 40 mg SUBCUT Q24H [facility] Last Admin: 03/02/18 16:15 Dose: 40 mg Enoxaparin Sodium (Lovenox) 60 mg SUBCUT Q12H [facility] Last Admin: 03/03/18 13:36 Dose: Not Given Furosemide (Lasix) 20 mg IVPUSH NOW ONE Stop: 03/01/18 12:06 Last Admin: 03/01/18 13:13 Dose: Not Given Furosemide (Lasix) 20 mg IVPUSH NOW ONE Stop: 03/01/18 15:01 Last Admin: 03/01/18 15:10 Dose: 20 mg Furosemide (Lasix) 40 mg IVPUSH NOW ONE Stop: 03/01/18 20:15 Last Admin: 03/01/18 20:40 Dose: 40 mg Furosemide (Lasix) 40 mg IVPUSH NOW ONE Stop: 03/02/18 08:51 Last Admin: 03/02/18 08:59 Dose: 40 mg Furosemide (Lasix) 20 mg IVPUSH NOW ONE Stop: 03/05/18 08:14 Last Admin: 03/05/18 08:31 Dose: 20 mg Furosemide (Lasix) Confirm Administered Dose 20 mg .ROUTE .STK-MED ONE Stop: 03/05/18 08:24 Last Admin: 03/05/18 08:30 Dose: Not Given Haloperidol Lactate (Haldol) 2.5 mg IM ONETIME ONE Stop: 02/27/18 19:35 Last Admin: 02/27/18 19:49 Dose: 2.5 mg Haloperidol Lactate (Haldol) 5 mg IM ONETIME ONE Stop: 02/27/18 22:10 Last Admin: 02/27/18 22:43 Dose: 5 mg Sodium Chloride (Normal Saline) 1,000 mls @ 999 mls/hr IV STAT ONE Stop: 02/27/18 14:40 Last Admin: 02/27/18 14:00 Dose: 999 mls/hr Sodium Chloride (Normal Saline) 1,000 mls @ 125 mls/hr IV ASDIRECTED [facility] Last Admin: 02/28/18 04:11 Dose: 125 mls/hr Potassium Chloride/Sodium Chloride (Normal Saline With 20 Meq Kcl) 1,000 mls @ 75 mls/hr IV ASDIRECTED [facility] Last Admin: 03/01/18 07:14 Dose: 125 mls/hr Magnesium Sulfate 2 gm/ Premix 50 mls @ 25 mls/hr IV ONETIME ONE Stop: 03/01/18 14:03 Last Admin: 03/01/18 13:41 Dose: 25 mls/hr Albumin Human (Flexbumin 25%) 12.5 gm in 50 mls @ 100 mls/hr IV ONETIME ONE Stop: 03/01/18 12:35 Last Admin: 03/01/18 13:01 Dose: 100 mls/hr Piperacillin Sod/Tazobactam (Sod 3.375 gm/ Sodium Chloride) 50 mls @ 100 mls/ hr IV Q6H [facility] Last Admin: 03/02/18 03:47 Dose: 100 mls/hr Vancomycin HCl 1.5 gm/ Sodium (Chloride) 500 mls @ 333.333 mls/hr IV ONETIME ONE Stop: 03/02/18 00:29 Last Admin: 03/01/18 23:05 Dose: 333.333 mls/hr Vancomycin HCl 1 gm/ Sodium (Chloride) 250 mls @ 166 mls/hr IV Q8H [facility] Last Admin: 03/03/18 07:23 Dose: Not Given Potassium Chloride/Sodium Chloride (Normal Saline With 40 Meq Kcl) 500 mls @ 125 mls/hr IV ASDIRECTED [facility] Potassium Chloride 40 meq/ (Sodium Chloride) 520 mls @ 125 mls/hr IV ONETIME ONE Stop: 03/02/18 11:39 Last Admin: 03/02/18 08:22 Dose: 125 mls/hr Albumin Human (Flexbumin 25%) 12.5 gm in 50 mls @ 100 mls/hr IV ONETIME ONE Stop: 03/02/18 08:47 Last Admin: 03/02/18 08:36 Dose: Not Given Piperacillin Sod/Tazobactam (Sod 4.5 gm/ Sodium Chloride) 50 mls @ 100 mls/hr IV Q6H [facility] Last Admin: 03/02/18 10:06 Dose: Not Given Magnesium Sulfate 2 gm/ Premix 50 mls @ 25 mls/hr IV ONETIME ONE Stop: 03/04/18 09:28 Last Admin: 03/04/18 09:30 Dose: 25 mls/hr Sodium Chloride (Normal Saline) Confirm Administered Dose 100 mls @ as directed .ROUTE .STK-MED ONE Stop: 03/04/18 10:42 Last Admin: 03/04/18 14:10 Dose: Not Given Iopamidol (Isovue Multipack-370 (76%)) 75 ml IVPUSH ONETIME STA Stop: 03/03/18 11:51 Last Admin: 03/03/18 11:50 Dose: 75 ml Lorazepam (Ativan) 1 mg IVPUSH ONETIME ONE Stop: 02/27/18 23:27 Last Admin: 02/28/18 00:11 Dose: 1 mg Metoprolol Tartrate (Lopressor) 2.5 mg IVPUSH ONETIME ONE Stop: 03/05/18 11:54 Last Admin: 03/05/18 13:00 Dose: 2.5 mg Morphine Sulfate (Morphine) 2 mg IVPUSH Q2H PRN PRN Reason: Pain (severe 7-10) Stop: 02/28/18 17:15 Last Admin: 02/27/18 21:46 Dose: 2 mg Morphine Sulfate (Morphine) 2 mg IVPUSH Q2H PRN PRN Reason: Pain (severe 7-10) Stop: 02/28/18 17:15 Last Admin: 02/28/18 14:41 Dose: 2 mg Non-Formulary Medication (Methocarbamol [Methocarbamol]) 750 mg PO TID PRN PRN Reason: Pain Potassium Chloride (Klor-Con M20) 40 meq PO ONETIME ONE Stop: 03/01/18 11:52 Last Admin: 03/01/18 12:15 Dose: 40 meq Potassium Chloride (Klor-Con M20) 40 meq PO ONETIME ONE Stop: 03/02/18 08:39 Last Admin: 03/02/18 08:59 Dose: 40 meq Potassium Chloride (Klor-Con M20) 40 meq PO ONETIME ONE Stop: 03/03/18 11:12 Last Admin: 03/03/18 12:00 Dose: 40 meq Potassium Chloride (Potassium Chloride) 40 meq PO Q4H [facility] Stop: 03/04/18 11:31 Last Admin: 03/04/18 14:27 Dose: Not Given Sodium Phosphate (Neutra-Phos) 250 mg PO QID [facility] Stop: 03/04/18 12:01 Last Admin: 03/02/18 05:34 Dose: 250 mg Spironolactone (Aldactone) 25 mg PO BID [facility] Last Admin: 03/01/18 08:36 Dose: Not Given - Exam General: Alert, Oriented, No Acute Distress (oriented to person, place and time) HEENT: Pupils Equal, Pupils Reactive Lungs: Other (decreased breath sounds worse on left compared to right. Crackles heard on left lung ball.) Cardiovascular: Tachycardia GI/Abdominal Exam: Normal Bowel Sounds, Soft, Non-Tender Extremities: Normal Inspection, Non-Tender, No Pedal Edema Skin: Warm, Dry Neurological: No New Focal Deficit - Problem List Review Problem List Initiated/Reviewed/Updated: Yes - Plan Plan:: 1. Bilateral segmental pulmonary emboli- needing more O2 via NC. Ordered chest xray showing an increase in her left pleural effusion. Gave lasix 20 mg IV once. continue heparin drip for now. Patient will be transitioned to oral anticoagulant in the upcoming days once she has improvement in her Oxygen requirements. 2. Community acquired pneumonia- Continue with current broad spectrum antibiotics Levaquin, Zosyn and Vancomycin. Day 7 of antibiotics. 3. Left pleural effusion s/p thoracentesis-suspect that this is due to infarcted pulmonary emboli. Will continue to monitor pleural effusion for re- accumulation and possible need for a repeat thoracentesis. 4. Possilbe depression, anxiety- I appreciate eICU recommendations. I tried contacting Dr. Keane, Psychiatry for a consult, however, unable to get in touch with him. Will try again. Possibly start Buspirone to help with her anxiety and smoking cessation. 4. E. coli urinary tract infection- Patient will finish last dose of antibiotics for her UTI. 5. Hypokalemia- replaced with KCl 40 mEq PO once. Will recheck tomorrow. 6. Hypomagnesemia- resolved. 7. 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 Continue Iron polysaccharide 150 mg PO BID. 8. Severe protein malnutrition- High risk for re-feeding syndrome. Will continue to monitor electrolytes closely and replace as needed. Appreciate dietitian recommendations. 9. Elevated liver enzymes- 2/2 to alcoholic hepatosteatosis. Stable. Continue to monitor. 10. 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 11. Low folate- continue folic acid supplementation. 12. Hypophosphotemia- resolved. 13. Leukocytosis. continue to monitor. 14. Alcohol abuse- not withdrawing. continue thiamine and folate. Dispo: pending improvement.
[2018-03-05] MEDS: Levofloxacin/Dextrose 5%-Water 750 MG in Premix Bag 1 BAG IV SCH (17:20)
[2018-03-05] MEDS: Metoprolol Tartrate 5 MG/5 ML SDV IVPUSH SCH (18:45)
[2018-03-05] MEDS: Thiamine 100 MG Tab PO SCH (20:23)
[2018-03-05] MEDS: Acetaminophen 325 MG Tab PO PRN (20:38)
[2018-03-05] MEDS: Temazepam 15 MG Cap PO PRN (20:38)
[2018-03-06] MEDS: Metoprolol Tartrate 5 MG/5 ML SDV IVPUSH SCH ×3 (00:02→13:24)
[2018-03-06] MEDS: oxyCODONE 5 MG Tab PO PRN (01:06)
[2018-03-06] MEDS: Heparin Sod,Pork In 0.45% Nacl 25,000 UNIT/500 ML IV.SOLN IV SCH (03:56)
[2018-03-06] MEDS: Piperacillin/Tazobactam 4.5 GM in Sodium Chloride 0.9% 100 ML IV SCH ×2 (04:00→10:27)
[2018-03-06] MEDS: Gabapentin 300 MG Cap PO SCH ×2 (05:14→13:26)
[2018-03-06] MEDS: Acetaminophen 325 MG Tab PO PRN ×2 (05:15→13:26)
[2018-03-06 05:58] LABS: CHLORIDE,CL 107 mmol/L (98-107); SODIUM,NA 139 mmol/L (136-145)
[2018-03-06] MEDS ORDERED: Potassium Chloride 20 MEQ Tab.ER PO ONE (07:53)
[2018-03-06] MEDS: Folic Acid 1 MG Tab PO SCH (09:00)
[2018-03-06] MEDS: Oxybutynin 5 MG Tab PO SCH (09:00)
[2018-03-06] MEDS: Iron Polysaccharides Complex 150 MG Cap PO SCH (09:01)
[2018-03-06] MEDS ORDERED: Furosemide 40 MG/4 ML VIAL IVPUSH ONE (09:40)
[2018-03-06] MEDS ORDERED: Vancomycin 25 MG/ML Compounding Kit PO SCH (10:00)
--- NOTE | 2018-03-06 11:40 | PCM.DCSUM1 ---
Discharge Summary - Hospital Course Free Text/Narrative:: Admission date: 02/27/2018 Transfer date: 03/06/2018 Transfer to: [facility] to ER Accepting physician: Dr. Crystal, ER Admission diagnosis: #1. LLL Pneumonia #2. Hypoxia #3. UTI #4. History of alcoholism, TBI, malnutrition Diagnosis at the time of transfer: #1. Bilateral pulmonary emboli - on heparin. #2. LLL pneumonia seen on latest CXR as loculated left pleural effusion s/p thoracentesis, slightly improved #3. Hypoxia secondary to #1,2 #4. C. Diff #5. UTI w/ urine cultures + E. Coli pansensitive #6. Depression #7. Anxiety #8. Hypokalemia #9. Hypomagnesemia #10. History of TBI, Alcoholism, severe malnutrition - on thiamine/folic acid #11. Hypoalbuminemia #12. Iron deficiency, anemia of chronic disease #13. Hypophosphatemia #13. Transaminitis Hospital course: 42F with the above history was admitted secondary to generalized weakness and unresponsive by her brought in found to be hypoxic on room air and with a LLL pneumonia. She was admitted to the inpatient floor treated for CAP, incidentally also then found to have a UTI. Patient did not improve for treatment on levaquin, a CT was obtained given the pleural effusion noted which then found bilateral pulmonary emboli. She was started on IV heparin and is still currently on that. Abx were expanded to Vanc, Zosyn, Levaquin. She was also noted to have severe protein malnutrition with an albumin of 0.6. Patient has had a poor appetite for years along with alcohol use. On 03/06, nursing staff noted new onset diarrhea which a sample was obtained. She was +C. Diff, Campylobacter. IV vanc was stopped, PO vancomycin was started. Patient's case was discussed with e-ICU who recommended that given that she has had multiple infections going on including a loculated pleural effusion, UTI, C. Diff, + Campylobacter, that she needs an infectious disease work up for being immunocompromised. Patient also would benefit from an evaluation by a CT surgeon /pulmonology in regards to the effusion. In regards to the malnutrition, starting TPN feeds is likely necessary. Case was dicussed with Dr. Crystal, who agrees for transfer. Patient's case was also discussed with patients and herself, who agree. She is to be transferred via ambulance. - Discharge Data Discharge Date: 03/06/18 Discharge Disposition: DC/Tfer to Acute Hospital 02 Condition: Poor - Patient Summary/Data Consults: Consultations 03/01/18 11:57 Consult to Screw Machine Adjuster Automatic [CONS] Routine 03/02/18 13:55 OT Evaluation and Treatment [CONS] Routine PT Evaluation and Treatment [CONS] Routine 03/05/18 18:36 Respiratory Care Assess and Treatment [CONS] Routine - Discharge Plan Home Medications: Home Meds Multivitamin-Minerals No.55 [Centrum Flavor Burst Adult] 1 tab PO DAILY [History] Gabapentin [Neurontin] 900 mg PO TID 02/07/17 [History] Methocarbamol 750 mg PO TID PRN 02/08/17 [History] Spironolactone [Aldactone] 25 mg PO BID 02/08/17 [History] Amitriptyline [Elavil] 50 mg PO BEDTIME 02/27/18 [History] Oxybutynin 10 mg PO DAILY 02/27/18 [History] Forms: ED Department Discharge Referrals: PCP,None [Primary Care Provider] - - Patient Data Vitals - Most Recent: Last Vital Signs Temp 36.8 C 03/06/18 04:00 Pulse 108 H 03/06/18 06:41 Resp 23 H 03/06/18 07:00 BP 91/60 03/06/18 07:00 Pulse Ox 96 03/06/18 07:00 Weight - Most Recent: 59.647 kg I&O - Last 24 hours: Intake & Output 03/05/18 03/06/18 03/06/18 22:59 06:59 14:59 Intake Total 1935 1807 Output Total 3102 8430 Balance -1165 -518 Lab Results - Last 24 hrs: Laboratory Results - last 24 hr 03/06/18 03/06/18 03/06/18 Range/Units 05:25 05:25 05:25 WBC 17.12 H (4.0-11.0) K/uL RBC 2.54 L (4.30-5.90) M/uL Hgb 8.7 L (12.0-16.0) g/dL Hct 26.4 L (36.0-46.0) % MCV 103.9 H (80.0-98.0) fL MCH 34.3 H (27.0-32.0) pg MCHC 33.0 (31.0-37.0) g/dL RDW Std Deviation 51.1 (28.0-62.0) fl RDW Coeff of Amanda 14 (11.0-15.0) % Plt Count 190 (150-400) K/uL MPV 11.40 (7.40-12.00) fL Add Manual Diff YES Neutrophils % (Manual) 58 (48.0-80.0) % Band Neutrophils % 1 % Lymphocytes % (Manual) 21 (16.0-40.0) % Monocytes % (Manual) 9 (0.0-15.0) % Eosinophils % (Manual) 8 H (0.0-7.0) % Basophils % (Manual) 3 H (0.0-1.5) % Nucleated RBC % 0.1 /100WBC Absolute Seg Neuts 9.9 H (1.4-5.7) Band Neutrophils # 0.2 Lymphocytes # (Manual) 3.6 H (0.6-2.4) Monocytes # (Manual) 1.5 H (0.0-0.8) Eosinophils # (Manual) 1.4 H (0.0-0.7) Basophils # (Manual) 0.5 H (0.0-0.1) Nucleated RBCs # 0 K/uL APTT 51.6 H (18.6-31.3) SEC Sodium 139 (136-145) mmol/L Potassium 3.1 L (3.5-5.1) mmol/L Chloride 107 (98-107) mmol/L Carbon Dioxide 24.6 (21.0-32.0) mmol/L BUN 2 L (7.0-18.0) mg/dL Creatinine 0.8 (0.6-1.0) mg/dL Est Cr Clr Drug Dosing 88.02 mL/min Estimated GFR (MDRD) > 60.0 ml/min Glucose 84 (74-106) mg/dL Calcium 7.8 L (8.5-10.1) mg/dL Phosphorus (2.6-4.7) mg/dL Magnesium (1.8-2.4) mg/dL TSH 3rd Generation (0.36-3.74) uIU/mL 03/06/18 03/06/18 Range/Units 05:25 05:28 WBC (4.0-11.0) K/uL RBC (4.30-5.90) M/uL Hgb (12.0-16.0) g/dL Hct (36.0-46.0) % MCV (80.0-98.0) fL MCH (27.0-32.0) pg MCHC (31.0-37.0) g/dL RDW Std Deviation (28.0-62.0) fl RDW Coeff of Amanda (11.0-15.0) % Plt Count (150-400) K/uL MPV (7.40-12.00) fL Add Manual Diff Neutrophils % (Manual) (48.0-80.0) % Band Neutrophils % % Lymphocytes % (Manual) (16.0-40.0) % Monocytes % (Manual) (0.0-15.0) % Eosinophils % (Manual) (0.0-7.0) % Basophils % (Manual) (0.0-1.5) % Nucleated RBC % /100WBC Absolute Seg Neuts (1.4-5.7) Band Neutrophils # Lymphocytes # (Manual) (0.6-2.4) Monocytes # (Manual) (0.0-0.8) Eosinophils # (Manual) (0.0-0.7) Basophils # (Manual) (0.0-0.1) Nucleated RBCs # K/uL APTT (18.6-31.3) SEC Sodium (136-145) mmol/L Potassium (3.5-5.1) mmol/L Chloride (98-107) mmol/L Carbon Dioxide (21.0-32.0) mmol/L BUN (7.0-18.0) mg/dL Creatinine (0.6-1.0) mg/dL Est Cr Clr Drug Dosing mL/min Estimated GFR (MDRD) ml/min Glucose (74-106) mg/dL Calcium (8.5-10.1) mg/dL Phosphorus 2.8 (2.6-4.7) mg/dL Magnesium 1.9 (1.8-2.4) mg/dL TSH 3rd Generation 5.88 H (0.36-3.74) uIU/mL JANET Results - Last 24 hrs: Microbiology 03/06/18 09:00 Clostridium difficile Toxin A & B - Final Stool / Feces Positive C. Diff Antigen 03/06/18 09:00 Campylobacter Antigen Assay - Final Stool / Feces Positive Campylobacter Ag 03/01/18 21:31 Aerobic Blood Culture - Preliminary Blood - Venous - Lab Draw NO GROWTH AFTER 4 DAYS Anaerobic Blood Culture - Preliminary NO GROWTH AFTER 4 DAYS 03/01/18 21:22 Aerobic Blood Culture - Preliminary Blood - Venous NO GROWTH AFTER 4 DAYS Anaerobic Blood Culture - Preliminary NO GROWTH AFTER 4 DAYS 03/02/18 15:37 Gram Stain - Final Pleural Fluid Body Fluid Culture - Final NO GROWTH AFTER 3 DAYS Med Orders - Current: Current Medications Acetaminophen (Tylenol) 650 mg PO Q4H PRN PRN Reason: Pain (Mild 1-3)/fever Last Admin: 03/06/18 05:15 Dose: 650 mg Docusate Sodium (Colace) 100 mg PO BID PRN PRN Reason: Constipation Last Admin: 03/04/18 20:13 Dose: 100 mg Folic Acid (Folic Acid) 1 mg PO DAILY [facility] Last Admin: 03/06/18 09:00 Dose: 1 mg Gabapentin (Neurontin) 900 mg PO TID [facility] Last Admin: 03/06/18 05:14 Dose: 900 mg Heparin Sodium (Porcine) (Heparin Sodium) 0 units IVPUSH Q6H PRN PRN Reason: PER PTT PROTOCOL Last Admin: 03/03/18 15:30 Dose: 4,800 units Levofloxacin/Dextrose 750 mg/ (Premix) 150 mls @ 100 mls/hr IV Q24H [facility] Last Admin: 03/05/18 17:20 Dose: 100 mls/hr Piperacillin Sod/Tazobactam (Sod 4.5 gm/ Sodium Chloride) 100 mls @ 200 mls/hr IV Q6H [facility] Last Admin: 03/06/18 10:27 Dose: 200 mls/hr Heparin Sodium/Sodium Chloride (Heparin-1/2ns 25,000 Units/500) 25,000 unit in 500 mls @ 21.473 mls/hr IV TITRATE SHIRIN; Protocol Last Admin: 03/06/18 03:56 Dose: 13 units/kg/hr, 15.508 mls/hr Lorazepam (Ativan) 1 mg IVPUSH Q6H PRN PRN Reason: Agitation Metoprolol Tartrate (Lopressor) 5 mg IVPUSH Q6H [facility] Last Admin: 03/06/18 06:41 Dose: 5 mg Oxybutynin Chloride (Oxybutynin) 10 mg PO DAILY [facility] Last Admin: 03/06/18 09:00 Dose: 10 mg Oxycodone HCl (Oxycodone) 5 mg PO Q4H PRN PRN Reason: Pain (moderate 4-6) Last Admin: 03/06/18 01:06 Dose: 5 mg Polysaccharide Iron Complex (Ferrex 150) 150 mg PO DAILY [facility] Last Admin: 03/06/18 09:01 Dose: 150 mg Temazepam (Restoril) 15 mg PO BEDTIME PRN PRN Reason: Sleep Last Admin: 03/05/18 20:38 Dose: 15 mg Thiamine HCl (Vitamin B-1) 100 mg PO BEDTIME [facility] Last Admin: 03/05/18 20:23 Dose: 100 mg Vancomycin HCl (First-Vancomycin 25 Compounding Kit) 125 mg PO Q6H [facility] Last Admin: 03/06/18 10:34 Dose: 5 ml Discontinued Medications Calcium Gluconate (Calcium Gluconate) 1 gm IVPUSH ONETIME ONE Stop: 02/27/18 17:18 Last Admin: 02/27/18 17:55 Dose: 1 gm Enoxaparin Sodium (Lovenox) 40 mg SUBCUT Q24H [facility] Last Admin: 03/02/18 16:15 Dose: 40 mg Enoxaparin Sodium (Lovenox) 60 mg SUBCUT Q12H [facility] Last Admin: 03/03/18 13:36 Dose: Not Given Furosemide (Lasix) 20 mg IVPUSH NOW ONE Stop: 03/01/18 12:06 Last Admin: 03/01/18 13:13 Dose: Not Given Furosemide (Lasix) 20 mg IVPUSH NOW ONE Stop: 03/01/18 15:01 Last Admin: 03/01/18 15:10 Dose: 20 mg Furosemide (Lasix) 40 mg IVPUSH NOW ONE Stop: 03/01/18 20:15 Last Admin: 03/01/18 20:40 Dose: 40 mg Furosemide (Lasix) 40 mg IVPUSH NOW ONE Stop: 03/02/18 08:51 Last Admin: 03/02/18 08:59 Dose: 40 mg Furosemide (Lasix) 20 mg IVPUSH NOW ONE Stop: 03/05/18 08:14 Last Admin: 03/05/18 08:31 Dose: 20 mg Furosemide (Lasix) Confirm Administered Dose 20 mg .ROUTE .STK-MED ONE Stop: 03/05/18 08:24 Last Admin: 03/05/18 08:30 Dose: Not Given Furosemide (Lasix) 40 mg IVPUSH NOW ONE Stop: 03/06/18 09:41 Last Admin: 03/06/18 10:09 Dose: 40 mg Haloperidol Lactate (Haldol) 2.5 mg IM ONETIME ONE Stop: 02/27/18 19:35 Last Admin: 02/27/18 19:49 Dose: 2.5 mg Haloperidol Lactate (Haldol) 5 mg IM ONETIME ONE Stop: 02/27/18 22:10 Last Admin: 02/27/18 22:43 Dose: 5 mg Sodium Chloride (Normal Saline) 1,000 mls @ 999 mls/hr IV STAT ONE Stop: 02/27/18 14:40 Last Admin: 02/27/18 14:00 Dose: 999 mls/hr Sodium Chloride (Normal Saline) 1,000 mls @ 125 mls/hr IV ASDIRECTED [facility] Last Admin: 02/28/18 04:11 Dose: 125 mls/hr Potassium Chloride/Sodium Chloride (Normal Saline With 20 Meq Kcl) 1,000 mls @ 75 mls/hr IV ASDIRECTED [facility] Last Admin: 03/01/18 07:14 Dose: 125 mls/hr Magnesium Sulfate 2 gm/ Premix 50 mls @ 25 mls/hr IV ONETIME ONE Stop: 03/01/18 14:03 Last Admin: 03/01/18 13:41 Dose: 25 mls/hr Albumin Human (Flexbumin 25%) 12.5 gm in 50 mls @ 100 mls/hr IV ONETIME ONE Stop: 03/01/18 12:35 Last Admin: 03/01/18 13:01 Dose: 100 mls/hr Piperacillin Sod/Tazobactam (Sod 3.375 gm/ Sodium Chloride) 50 mls @ 100 mls/ hr IV Q6H [facility] Last Admin: 03/02/18 03:47 Dose: 100 mls/hr Vancomycin HCl 1.5 gm/ Sodium (Chloride) 500 mls @ 333.333 mls/hr IV ONETIME ONE Stop: 03/02/18 00:29 Last Admin: 03/01/18 23:05 Dose: 333.333 mls/hr Vancomycin HCl 1 gm/ Sodium (Chloride) 250 mls @ 166 mls/hr IV Q8H [facility] Last Admin: 03/03/18 07:23 Dose: Not Given Potassium Chloride/Sodium Chloride (Normal Saline With 40 Meq Kcl) 500 mls @ 125 mls/hr IV ASDIRECTED [facility] Potassium Chloride 40 meq/ (Sodium Chloride) 520 mls @ 125 mls/hr IV ONETIME ONE Stop: 03/02/18 11:39 Last Admin: 03/02/18 08:22 Dose: 125 mls/hr Albumin Human (Flexbumin 25%) 12.5 gm in 50 mls @ 100 mls/hr IV ONETIME ONE Stop: 03/02/18 08:47 Last Admin: 03/02/18 08:36 Dose: Not Given Piperacillin Sod/Tazobactam (Sod 4.5 gm/ Sodium Chloride) 50 mls @ 100 mls/hr IV Q6H [facility] Last Admin: 03/02/18 10:06 Dose: Not Given Vancomycin HCl 1 gm/ Sodium (Chloride) 250 mls @ 166 mls/hr IV Q12H [facility] Last Admin: 03/06/18 08:51 Dose: 166 mls/hr Magnesium Sulfate 2 gm/ Premix 50 mls @ 25 mls/hr IV ONETIME ONE Stop: 03/04/18 09:28 Last Admin: 03/04/18 09:30 Dose: 25 mls/hr Sodium Chloride (Normal Saline) Confirm Administered Dose 100 mls @ as directed .ROUTE .STK-MED ONE Stop: 03/04/18 10:42 Last Admin: 03/04/18 14:10 Dose: Not Given Iopamidol (Isovue Multipack-370 (76%)) 75 ml IVPUSH ONETIME STA Stop: 03/03/18 11:51 Last Admin: 03/03/18 11:50 Dose: 75 ml Lorazepam (Ativan) 1 mg IVPUSH ONETIME ONE Stop: 02/27/18 23:27 Last Admin: 02/28/18 00:11 Dose: 1 mg Metoprolol Tartrate (Lopressor) 2.5 mg IVPUSH ONETIME ONE Stop: 03/05/18 11:54 Last Admin: 03/05/18 13:00 Dose: 2.5 mg Morphine Sulfate (Morphine) 2 mg IVPUSH Q2H PRN PRN Reason: Pain (severe 7-10) Stop: 02/28/18 17:15 Last Admin: 02/27/18 21:46 Dose: 2 mg Morphine Sulfate (Morphine) 2 mg IVPUSH Q2H PRN PRN Reason: Pain (severe 7-10) Stop: 02/28/18 17:15 Last Admin: 02/28/18 14:41 Dose: 2 mg Non-Formulary Medication (Methocarbamol [Methocarbamol]) 750 mg PO TID PRN PRN Reason: Pain Potassium Chloride (Klor-Con M20) 40 meq PO ONETIME ONE Stop: 03/01/18 11:52 Last Admin: 03/01/18 12:15 Dose: 40 meq Potassium Chloride (Klor-Con M20) 40 meq PO ONETIME ONE Stop: 03/02/18 08:39 Last Admin: 03/02/18 08:59 Dose: 40 meq Potassium Chloride (Klor-Con M20) 40 meq PO ONETIME ONE Stop: 03/03/18 11:12 Last Admin: 03/03/18 12:00 Dose: 40 meq Potassium Chloride (Potassium Chloride) 40 meq PO Q4H [facility] Stop: 03/04/18 11:31 Last Admin: 03/04/18 14:27 Dose: Not Given Potassium Chloride (Klor-Con M20) 40 meq PO ONETIME ONE Stop: 03/06/18 07:54 Last Admin: 03/06/18 09:01 Dose: 40 meq Sodium Phosphate (Neutra-Phos) 250 mg PO QID [facility] Stop: 03/04/18 12:01 Last Admin: 03/02/18 05:34 Dose: 250 mg Spironolactone (Aldactone) 25 mg PO BID [facility] Last Admin: 03/01/18 08:36 Dose: Not Given Vancomycin HCl (Pharmacy To Dose - Vancomycin) 1 dose .XX ASDIRECTED [facility] *Q Meaningful Use (DIS) - VTE *Q VTE Mechanical Contraindications *Q: At Risk for Falls
[2018-03-06 12:04] LABS: HIV12 AG/AB 4TH GEN W/REFLEX 0.1 (<1.0)
[2018-03-06 13:04] VITALS: BP 110/78
--- NOTE | 2018-03-08 11:42 | CR ---
EXAM DATE: 02/27/18 PATIENT'S AGE: 42 Patient: AMI DUMAS Facility: [place], [place] Site . Site : 1975 Study: XRay Chest [id number]/6/2018 8:55:26 AM Ordering Physician: Lashawn Sandoval Final Report: COMPARISON: 03/01/2018. FINDINGS: Single portable AP view of the chest demonstrates hypoventilatory changes. Diffuse vascular congestion and interstitial prominence, similar to prior. Probable loculated left pleural effusion, mildly improved from prior. No pneumothorax. No acute osseous findings. Dictated by Winston Gordon MD @ Mar 06 2018 8:59AM (Electronic Signature) Report Signed by Proxy. REBECCA
== END 2018-03-06 14:00 | DRG 134 ==
LOC: MW.ED 13:36 → MW.MS 17:12 → MW.ICU 03-01 21:26
PROVIDERS: ADMIT Internal Medicine; ATTEND Internal Medicine
PROC: 0W9B3ZZ Drainage of Left Pleural Cavity, Percutaneous Approach (ICD-10-PCS; principal; 2018-03-02)
DX: I26.99 Other pulmonary embolism without acute cor pulmonale (principal); J18.9 Pneumonia, unspecified organism; J90 Pleural effusion, not elsewhere classified; R09.02 Hypoxemia; N39.0 Urinary tract infection, site not specified; B96.20 Unspecified Escherichia coli [E. coli] as the cause of diseases classified elsewhere; A04.72 Enterocolitis due to Clostridium difficile, not specified as recurrent; E87.6 Hypokalemia; E83.42 Hypomagnesemia; E88.09 Other disorders of plasma-protein metabolism, not elsewhere classified; D50.9 Iron deficiency anemia, unspecified; D63.8 Anemia in other chronic diseases classified elsewhere; E83.39 Other disorders of phosphorus metabolism; R74.0 Nonspecific elevation of levels of transaminase and lactic acid dehydrogenase [LDH]; E46 Unspecified protein-calorie malnutrition; F41.9 Anxiety disorder, unspecified; R41.82 Altered mental status, unspecified; M51.36 Other intervertebral disc degeneration, lumbar region; F32.9 Major depressive disorder, single episode, unspecified; F17.210 Nicotine dependence, cigarettes, uncomplicated; F10.10 Alcohol abuse, uncomplicated; Z87.820 Personal history of traumatic brain injury; Z79.899 Other long term (current) drug therapy
CPT/HCPCS: 32555; 36415; 71045; 71045-26; 71260; 71260-26; 76705; 76705-26; 80048; 80053; 80202; 81001; 82140; 82550; 82553; 82607; 82728; 82746; 82945; 82977; 83550; 83605; 83615; 83735; 83986; 84100; 84157; 84315; 84443; 84478; 84484; 85025; 85610; 85730; 87040; 87046; 87070; 87086; 87088; 87186; 87205; 87324; 87389; 87899; 88104; 88305; 89050; 93005; 93306; 93970; 93970-26; 96360; 97110-GP; 97161-GP; 97164-GP; 97530-GP; 99283; 99285-25; A9270-GY; J0610; J1630; J1644; J1650; J1940; J1956; J2060; J2270; J2543; J3370; J3475; J3480; J3490; J7030; J7040; J7050; P9047; Q9967

== ENCOUNTER 2018-07-11 12:48 | Inpatient (IN) | payer BC ==
[2018-07-11] MEDS ORDERED: Sodium Chloride 0.9% 1,000 ML IV ONE (12:49)
[2018-07-11] MEDS ORDERED: Sodium Chloride 0.9% 10 ML Syringe FLUSH PRN (12:49)
[2018-07-11] MEDS ORDERED: Sodium Chloride 0.9% 2.5 ML Syringe FLUSH PRN (12:49)
[2018-07-11 14:06] LABS: CHLORIDE,CL 102 mmol/L (98-107); SODIUM,NA 135 mmol/L (136-145)
--- NOTE | 2018-07-11 14:33 | EDM.PDOC ---
ED HPI GENERAL MEDICAL PROBLEM - General Chief Complaint: Neurological Problem Stated Complaint: AMS Time Seen by Provider: 07/11/18 12:49 Source of Information: Reports: EMS History Limitations: Reports: No Limitations - History of Present Illness INITIAL COMMENTS - FREE TEXT/NARRATIVE: History of present illness: []Patient has a history of TBI and has been admitted several times for waxing and waning mental status and seizures. Had a decrease in mental status for one week and called ambulance to have her evaluated. Review of systems: As per history of present illness and below otherwise all systems reviewed and negative. Past medical history: As per history of present illness and as reviewed below otherwise noncontributory. Surgical history: As per history of present illness and as reviewed below otherwise noncontributory. Social history: No reported history of drug or alcohol abuse. Family history: As per history of present illness and as reviewed below otherwise noncontributory. Physical exam: General: Well developed, cachectic and dehydrated HEENT: Atraumatic, sunken eyes, cracked lips, pupils reactive, negative for conjunctival pallor or scleral icterus, mucous membranes dry, throat clear, neck supple, nontender, trachea midline. Lungs: Clear to auscultation, breath sounds equal bilaterally, chest nontender. Heart: S1S2, regular, negative for clicks, rubs, or JVD. Tachycardic Abdomen: NABS, Soft, nondistended, nontender. Negative for masses or hepatosplenomegaly. Negative for costovertebral tenderness. Pelvis: Stable nontender. Genitourinary: Deferred. Rectal: Deferred. Extremities: Atraumatic, negative for cords or calf pain. Neurovascular unremarkable. Neuro: Awake, somnolent, Exam nonfocal. Skin:warm and dry Diagnostics: CBC, chemistry, UA, EKG Therapeutics: IV hydration ED Course: Unremarkable Impression: Controlled hypertension, dehydration Prescriptions: None Plan: Admit for IV hydration, blood pressure control and further workup. Definitive disposition and diagnosis as appropriate pending reevaluation and review of above. - Related Data Allergies Allergy/AdvReac Type Severity Reaction Status Date / Time No Known Allergies Allergy Verified 07/11/18 12:53 Home Meds: Home Meds Amitriptyline HCl 50 mg PO DAILY 07/11/18 [History] Folic Acid 1 mg PO DAILY 07/11/18 [History] Gabapentin [Gralise] 1,200 mg PO TID 07/11/18 [History] Methocarbamol 750 mg PO TID 07/11/18 [History] Mirtazapine 45 mg PO BEDTIME 07/11/18 [History] Omeprazole 20 mg PO ACBREAKFAST 07/11/18 [History] Oxybutynin Chloride [Ditropan Xl] 10 mg PO DAILY 07/11/18 [History] Spironolactone [Aldactone] 25 mg PO BID 07/11/18 [History] Valproic Acid 500 mg PO BID 07/11/18 [History] Venlafaxine HCl [Venlafaxine HCl ER] 150 mg PO BID 07/11/18 [History] Past Medical History - Past Health History Medical/Surgical History: Denies Medical/Surgical History HEENT History: Reports: Head Other HEENT History: had a traumatic brain injury June 2016 Cardiovascular History: Reports: None Respiratory History: Reports: Other (See Below) Other Respiratory History: Reports 5 yr history of smoking when quite young, quit 10-11 yrs, re-started 5 yrs ago current use 1 - 1 1/2 packs/day Gastrointestinal History: Reports: Hepatitis Other Gastrointestinal History: hx: Ulcers, experience abdominal pain from time to time CLEAN UP PERSON History: Reports: Other CLEAN UP PERSON History: LMP 1 month ago Musculoskeletal History: Reports: Other (See Below) Other Musculoskeletal History: had low bulging discs, now degenerative disc disease, chronic low back pain Neurological History: Reports: Brain Injury, Seizure Psychiatric History: Reports: Depression, PTSD Hematologic History: Reports: None Immunologic History: Reports: None Oncologic (Cancer) History: Reports: None - Infectious Disease History Infectious Disease History: Reports: Other (See Below) Other Infectious Disease History: unknown - Past Surgical History HEENT Surgical History: Reports: None Respiratory Surgical History: Reports: None Neurological Surgical History: Reports: None Social & Family History - Family History Family Medical History: Noncontributory - Tobacco Use Smoking Status *Q: Unknown Ever Smoked - Caffeine Use Caffeine Use: Reports: Soda - Recreational Drug Use Recreational Drug Use: No ED ROS GENERAL - Review of Systems Review Of Systems: ROS reveals no pertinent complaints other than HPI. ED EXAM, GENERAL - Physical Exam Exam: See Below (History of present illness) Course - Vital Signs Last Recorded V/S: Last Vital Signs Temp 97.0 F 07/12/18 07:42 Pulse 131 H 07/12/18 07:42 Resp 24 H 07/12/18 07:42 BP 138/97 H 07/12/18 07:42 Pulse Ox 100 07/12/18 07:42 - Orders/Labs/Meds Orders: Active Orders 24 hr Category Date Time Status Patient Status [ADT] Stat ADT 07/11/18 14:36 Active Cardiac Monitoring [RC] CONTINUOUS Care 07/11/18 14:51 Active EKG Documentation Completion [RC] STAT Care 07/11/18 14:26 Active Oxygen Therapy [RC] PRN Care 07/11/18 14:50 Active Up With Assistance [RC] ASDIRECTED Care 07/11/18 14:50 Active VTE/DVT Education [RC] PER UNIT ROUTINE Care 07/11/18 14:50 Active Vital Signs [RC] Q4H Care 07/11/18 14:50 Active Nothing per Oral Now Diet [DIET] Diet 07/11/18 Lunch Active CULTURE URINE [RM] Routine Lab 07/11/18 13:30 Received PREALBUMIN [REF] Stat Lab 07/11/18 14:50 Ordered Docusate Sodium [Colace] Med 07/11/18 14:50 Active 100 mg PO BID PRN Folic Acid Med 07/12/18 09:00 Active 1 mg PO DAILY Heparin Sodium Med 07/11/18 15:00 Active 5,000 units SUBCUT Q8H Omeprazole Med 07/12/18 07:30 Active 20 mg PO ACBREAKFAST Ondansetron [Zofran] Med 07/11/18 14:50 Active 4 mg IVPUSH Q4H PRN Sodium Chloride 0.9% [Normal Saline] 1,000 ml Med 07/11/18 15:00 Active IV ASDIRECTED Sodium Chloride 0.9% [Saline Flush] Med 07/11/18 12:49 Active 10 ml FLUSH ASDIRECTED PRN Sodium Chloride 0.9% [Saline Flush] Med 07/11/18 12:49 Active 2.5 ml FLUSH ASDIRECTED PRN Spironolactone [Aldactone] Med 07/11/18 21:00 Active 25 mg PO BID Temazepam [Restoril] Med 07/11/18 14:50 Active 15 mg PO BEDTIME PRN Saline Lock Insert [OM.PC] Stat Oth 07/11/18 12:49 Ordered Resuscitation Status Routine Resus Stat 07/11/18 14:50 Ordered Medication Orders Amitriptyline HCl (Elavil) 50 mg PO DAILY [facility] Divalproex Sodium (Depakote Er) 500 mg PO BID [facility] Docusate Sodium (Colace) 100 mg PO BID PRN PRN Reason: Constipation Folic Acid (Folic Acid) 1 mg PO DAILY [facility] Folic Acid (Folic Acid) 1 mg SUBCUT DAILY [facility] Last Admin: 07/11/18 17:28 Dose: 1 mg Gabapentin (Neurontin) 1,200 mg PO TID [facility] Heparin Sodium (Porcine) (Heparin Sodium) 5,000 units SUBCUT Q8H [facility] Last Admin: 07/12/18 06:04 Dose: 5,000 units Admin: 07/11/18 23:57 Dose: 5,000 units Admin: 07/11/18 17:29 Dose: 5,000 units Sodium Chloride (Normal Saline) 1,000 mls @ 125 mls/hr IV ASDIRECTED [facility] Last Admin: 07/11/18 23:58 Dose: 125 mls/hr Infusion: 07/11/18 23:37 Dose: 125 mls/hr Admin: 07/11/18 15:37 Dose: 125 mls/hr Mirtazapine (Remeron) 45 mg PO BEDTIME [facility] Morphine Sulfate (Morphine) 2 mg IVPUSH Q2H PRN PRN Reason: Pain (severe 7-10) Stop: 07/12/18 14:52 Omeprazole (Omeprazole) 20 mg PO ACBREAKFAST [facility] Ondansetron HCl (Zofran) 4 mg IVPUSH Q4H PRN PRN Reason: Nausea/Vomiting Oxybutynin Chloride ([Ditropan Xl] 10 Mg) 1 each PO DAILY [facility] Methocarbamol [ Methocarbamol] 750 Mg 1 each PO TID [facility] Sodium Chloride (Saline Flush) 10 ml FLUSH ASDIRECTED PRN PRN Reason: Keep Vein Open Sodium Chloride (Saline Flush) 2.5 ml FLUSH ASDIRECTED PRN PRN Reason: Keep Vein Open Spironolactone (Aldactone) 25 mg PO BID [facility] Last Admin: 07/11/18 21:07 Dose: Temazepam (Restoril) 15 mg PO BEDTIME PRN PRN Reason: Sleep Thiamine HCl (Vitamin B-1) 100 mg IV DAILY [facility] Last Admin: 07/11/18 17:28 Dose: 100 mg Venlafaxine HCl (Effexor Xr) 150 mg PO BID [facility] Labs: Laboratory Tests 07/11/18 07/11/18 07/11/18 Range/Units 00:50 13:09 13:30 WBC 15.73 H (4.0-11.0) K/uL RBC 4.97 (4.30-5.90) M/uL Hgb 16.2 H (12.0-16.0) g/dL Hct 47.1 H (36.0-46.0) % MCV 94.8 (80.0-98.0) fL MCH 32.6 H (27.0-32.0) pg MCHC 34.4 (31.0-37.0) g/dL RDW Std Deviation 47.9 (28.0-62.0) fl RDW Coeff of Amanda 14 (11.0-15.0) % Plt Count 252 (150-400) K/uL MPV 10.70 (7.40-12.00) fL Neut % (Auto) 80.2 H (48.0-80.0) % Lymph % (Auto) 12.1 L (16.0-40.0) % [place] % (Auto) 6.9 (0.0-15.0) % Eos % (Auto) 0.6 (0.0-7.0) % Baso % (Auto) 0.2 (0.0-1.5) % Neut # (Auto) 12.6 H (1.4-5.7) K/uL Lymph # (Auto) 1.9 (0.6-2.4) K/uL [place] # (Auto) 1.1 H (0.0-0.8) K/uL Eos # (Auto) 0.1 (0.0-0.7) K/uL Baso # (Auto) 0.0 (0.0-0.1) K/uL Nucleated RBC % 0.0 /100WBC Nucleated RBCs # 0 K/uL Sodium (136-145) mmol/L Potassium (3.5-5.1) mmol/L Chloride (98-107) mmol/L Carbon Dioxide (21.0-32.0) mmol/L BUN (7.0-18.0) mg/dL Creatinine (0.6-1.0) mg/dL Est Cr Clr Drug Dosing mL/min Estimated GFR (MDRD) ml/min Glucose (74-106) mg/dL Calcium (8.5-10.1) mg/dL Total Bilirubin (0.2-1.0) mg/dL AST (15-37) IU/L ALT (14-63) IU/L Alkaline Phosphatase (46-116) U/L Creatine Kinase 33 (26-308) U/L Total Protein (6.4-8.2) g/dL Albumin (3.4-5.0) g/dL Globulin (2.6-4.0) g/dL Albumin/Globulin Ratio (0.9-1.6) Urine Color YELLOW Urine Appearance CLEAR Urine pH 6.0 (5.0-8.0) Ur Specific [place] >= 1.030 (1.001-1.035) Urine Protein TRACE H (NEGATIVE) mg/dL Urine Glucose (UA) NEGATIVE (NEGATIVE) mg/dL Urine Ketones >=80 (NEGATIVE) mg/dL Urine Occult Blood NEGATIVE (NEGATIVE) Urine Nitrite NEGATIVE (NEGATIVE) Urine Bilirubin MODERATE H (NEGATIVE) Urine Ictotest NEGATIVE Urine Urobilinogen 0.2 (<2.0) EU/dL Ur Leukocyte Esterase NEGATIVE (NEGATIVE) Urine RBC 0-1 (0-2/HPF) Urine WBC 1-2 (0-5/HPF) Ur Epithelial Cells RARE (NONE-FEW) Urine Bacteria FEW (NEGATIVE) Urine Mucus FEW (NONE-MOD) Urine Opiates Screen (NEGATIVE) Ur Oxycodone Screen (NEGATIVE) Urine Methadone Screen (NEGATIVE) Ur Barbiturates Screen (NEGATIVE) Ur Phencyclidine Scrn (NEGATIVE) Ur Amphetamine Screen (NEGATIVE) U Methamphetamines Scrn (NEGATIVE) U Benzodiazepines Scrn (NEGATIVE) U Cocaine Metab Screen (NEGATIVE) U Marijuana (THC) Screen (NEGATIVE) 07/11/18 07/11/18 Range/Units 13:30 13:35 WBC (4.0-11.0) K/uL RBC (4.30-5.90) M/uL Hgb (12.0-16.0) g/dL Hct (36.0-46.0) % MCV (80.0-98.0) fL MCH (27.0-32.0) pg MCHC (31.0-37.0) g/dL RDW Std Deviation (28.0-62.0) fl RDW Coeff of Amanda (11.0-15.0) % Plt Count (150-400) K/uL MPV (7.40-12.00) fL Neut % (Auto) (48.0-80.0) % Lymph % (Auto) (16.0-40.0) % [place] % (Auto) (0.0-15.0) % Eos % (Auto) (0.0-7.0) % Baso % (Auto) (0.0-1.5) % Neut # (Auto) (1.4-5.7) K/uL Lymph # (Auto) (0.6-2.4) K/uL [place] # (Auto) (0.0-0.8) K/uL Eos # (Auto) (0.0-0.7) K/uL Baso # (Auto) (0.0-0.1) K/uL Nucleated RBC % /100WBC Nucleated RBCs # K/uL Sodium 135 L (136-145) mmol/L Potassium 4.1 (3.5-5.1) mmol/L Chloride 102 (98-107) mmol/L Carbon Dioxide 10.6 L (21.0-32.0) mmol/L BUN 17 (7.0-18.0) mg/dL Creatinine 0.8 (0.6-1.0) mg/dL Est Cr Clr Drug Dosing 71.87 mL/min Estimated GFR (MDRD) > 60.0 ml/min Glucose 79 (74-106) mg/dL Calcium 9.8 (8.5-10.1) mg/dL Total Bilirubin 0.8 (0.2-1.0) mg/dL AST 22 (15-37) IU/L ALT 11 L (14-63) IU/L Alkaline Phosphatase 143 H (46-116) U/L Creatine Kinase (26-308) U/L Total Protein 7.1 (6.4-8.2) g/dL Albumin 2.0 L (3.4-5.0) g/dL Globulin 5.1 H (2.6-4.0) g/dL Albumin/Globulin Ratio 0.4 L (0.9-1.6) Urine Color Urine Appearance Urine pH (5.0-8.0) Ur Specific [place] (1.001-1.035) Urine Protein (NEGATIVE) mg/dL Urine Glucose (UA) (NEGATIVE) mg/dL Urine Ketones (NEGATIVE) mg/dL Urine Occult Blood (NEGATIVE) Urine Nitrite (NEGATIVE) Urine Bilirubin (NEGATIVE) Urine Ictotest Urine Urobilinogen (<2.0) EU/dL Ur Leukocyte Esterase (NEGATIVE) Urine RBC (0-2/HPF) Urine WBC (0-5/HPF) Ur Epithelial Cells (NONE-FEW) Urine Bacteria (NEGATIVE) Urine Mucus (NONE-MOD) Urine Opiates Screen NEGATIVE (NEGATIVE) Ur Oxycodone Screen NEGATIVE (NEGATIVE) Urine Methadone Screen NEGATIVE (NEGATIVE) Ur Barbiturates Screen NEGATIVE (NEGATIVE) Ur Phencyclidine Scrn NEGATIVE (NEGATIVE) Ur Amphetamine Screen NEGATIVE (NEGATIVE) U Methamphetamines Scrn NEGATIVE (NEGATIVE) U Benzodiazepines Scrn NEGATIVE (NEGATIVE) U Cocaine Metab Screen NEGATIVE (NEGATIVE) U Marijuana (THC) Screen NEGATIVE (NEGATIVE) Meds: Medications Generic Name Dose Route Start Last Admin Trade Name Freq PRN Reason Stop Dose Admin Amitriptyline HCl 50 mg 07/12/18 09:00 Elavil PO DAILY [facility] Divalproex Sodium 500 mg 07/12/18 09:00 Depakote Er PO BID [facility] Docusate Sodium 100 mg 07/11/18 14:50 Colace PO BID PRN Constipation Folic Acid 1 mg 07/12/18 09:00 Folic Acid PO DAILY [facility] Folic Acid 1 mg 07/11/18 15:00 07/11/18 17:28 Folic Acid SUBCUT 1 mg DAILY SHIRIN Administration Gabapentin 1,200 mg 07/12/18 14:00 Neurontin PO TID [facility] Heparin Sodium (Porcine) 5,000 units 07/11/18 15:00 07/12/18 06:04 Heparin Sodium SUBCUT 5,000 units Q8H SHIRIN Administration Sodium Chloride 1,000 mls @ 125 mls/hr 07/11/18 15:00 07/11/18 23:58 Normal Saline IV 125 mls/hr ASDIRECTED SHIRIN Administration Mirtazapine 45 mg 07/12/18 21:00 Remeron PO BEDTIME SHIRIN Morphine Sulfate 2 mg 07/12/18 07:18 Morphine IVPUSH 07/12/18 14:52 Q2H PRN Pain (severe 7-10) Omeprazole 20 mg 07/12/18 07:30 Omeprazole PO ACBREAKFAST [facility] Ondansetron HCl 4 mg 07/11/18 14:50 Zofran IVPUSH Q4H PRN Nausea/Vomiting Oxybutynin Chloride 1 each 07/12/18 09:00 [Ditropan Xl] 10 Mg PO DAILY [facility] Methocarbamol [ 1 each 07/12/18 14:00 Methocarbamol] 750 PO Mg TID SHIRIN Sodium Chloride 10 ml 07/11/18 12:49 Saline Flush FLUSH ASDIRECTED PRN Keep Vein Open Sodium Chloride 2.5 ml 07/11/18 12:49 Saline Flush FLUSH ASDIRECTED PRN Keep Vein Open Spironolactone 25 mg 07/11/18 21:00 07/11/18 21:07 Aldactone PO Not Given BID [facility] Temazepam 15 mg 07/11/18 14:50 Restoril PO BEDTIME PRN Sleep Thiamine HCl 100 mg 07/11/18 15:00 07/11/18 17:28 Vitamin B-1 IV 100 mg DAILY SHIRIN Administration Venlafaxine HCl 150 mg 07/12/18 09:00 Effexor Xr PO BID [facility] Discontinued Medications Generic Name Dose Route Start Last Admin Trade Name Freq PRN Reason Stop Dose Admin Sodium Chloride 1,000 mls @ 999 mls/hr 07/11/18 12:49 07/11/18 13:10 Normal Saline IV 07/11/18 13:49 999 mls/hr .Bolus ONE Administration Ceftriaxone Sodium/Dextrose 1 50 mls @ 100 mls/hr 07/12/18 00:08 07/12/18 01: 08 gm/ Premix IV 07/12/18 00:37 100 mls/hr ONETIME ONE Administration Sodium Chloride 1,000 mls @ 999 mls/hr 07/12/18 00:09 07/12/18 01:10 Normal Saline IV 07/12/18 01:09 999 mls/hr ONETIME ONE Administration Mirtazapine 45 mg 07/12/18 09:00 Remeron PO DAILY [facility] Morphine Sulfate 2 mg 07/11/18 14:50 07/11/18 20:36 Morphine IVPUSH 07/12/18 14:52 2 mg Q2H PRN Administration Pain (severe 7-10) Non-Formulary Medication 50 mg 07/12/18 09:00 Amitriptyline Hcl [Amitriptyline Hcl] PO DAILY SHIRIN Non-Formulary Medication 1,200 mg 07/11/18 22:00 07/12/18 05:13 Gabapentin [Gralise] PO Not Given TID SHIRIN Non-Formulary Medication 750 mg 07/11/18 22:00 07/12/18 05:13 Methocarbamol [Methocarbamol] PO Not Given TID SHIRIN Non-Formulary Medication 45 mg 07/12/18 09:00 Mirtazapine [Mirtazapine] PO DAILY SHIRIN Non-Formulary Medication 10 mg 07/12/18 09:00 Oxybutynin Chloride [Ditropan Xl] PO DAILY SHIRIN Non-Formulary Medication 500 mg 07/11/18 21:00 07/11/18 21:08 Valproic Acid PO Not Given BID SHIRIN Non-Formulary Medication 150 mg 07/11/18 21:00 07/11/18 21:08 Venlafaxine Hcl [Venlafaxine Hcl Er] PO Not Given BID SHIRIN Departure - Departure Time of Disposition: 07:57 Disposition: Refer to Observation Condition: Good, Fair Clinical Impression: Dehydration, Uncontrolled hypertension - Discharge Information - My Orders Last 24 Hours: My Active Orders 07/11/18 12:49 Sodium Chloride 0.9% [Saline Flush] 10 ml FLUSH ASDIRECTED PRN Sodium Chloride 0.9% [Saline Flush] 2.5 ml FLUSH ASDIRECTED PRN Saline Lock Insert [OM.PC] Stat 07/11/18 13:30 CULTURE URINE [RM] Routine 07/11/18 14:26 EKG Documentation Completion [RC] STAT 07/11/18 14:36 Patient Status [ADT] Stat - Assessment/Plan Last 24 Hours: My Active Orders 07/11/18 12:49 Sodium Chloride 0.9% [Saline Flush] 10 ml FLUSH ASDIRECTED PRN Sodium Chloride 0.9% [Saline Flush] 2.5 ml FLUSH ASDIRECTED PRN Saline Lock Insert [OM.PC] Stat 07/11/18 13:30 CULTURE URINE [RM] Routine 07/11/18 14:26 EKG Documentation Completion [RC] STAT 07/11/18 14:36 Patient Status [ADT] Stat
[2018-07-11] MEDS ORDERED: Morphine 10 MG/ML Syringe IVPUSH PRN (14:50)
[2018-07-11] MEDS ORDERED: Docusate Sodium 100 MG Cap PO PRN (14:50)
[2018-07-11] MEDS ORDERED: Temazepam 15 MG Cap PO PRN (14:50)
[2018-07-11] MEDS ORDERED: Ondansetron 4 MG/2 ML SDV IVPUSH PRN (14:50)
[2018-07-11] MEDS: Sodium Chloride 0.9% 1,000 ML IV SCH ×2 (15:37→23:58)
--- NOTE | 2018-07-11 16:29 | PCM.HP ---
H&P History of Present Illness - General Date of Service: 07/11/18 Admit Problem/Dx: Admission Diagnosis/Problem Admission Diagnosis/Problem Dehydration Source of Information: Old Records History Limitations: Reports: Altered Mental Status - History of Present Illness Initial Comments - Free Text/Narative: The patient is a 42-year-old lady who is well-known to hospital staff her multiple visits and multiple hospitalizations. She had presented to the emergency department with altered mental status and she was brought in by her who left shortly afterwards. The patient was last admitted to acute hospitalization on May 25, 2018. This is secondary to altered mental status compounded by her history of traumatic brain injury. The patient today is awake however, she was minimally responsive and nonverbal. She at this time is not able to participate in any meaningful way in her history of physical. Information therefore has been obtained from her previous charting. Onset of Symptoms: Reports: Unknown/Unsure Associated Symptoms: Reports: Confusion - Related Data Allergies/Adverse Reactions: Allergies Allergy/AdvReac Type Severity Reaction Status Date / Time No Known Allergies Allergy Verified 07/11/18 12:53 Home Medications: Home Meds Amitriptyline HCl 50 mg PO DAILY 07/11/18 [History] Folic Acid 1 mg PO DAILY 07/11/18 [History] Gabapentin [Gralise] 1,200 mg PO TID 07/11/18 [History] Methocarbamol 750 mg PO TID 07/11/18 [History] Mirtazapine 45 mg PO DAILY 07/11/18 [History] Omeprazole 20 mg PO DAILY 07/11/18 [History] Oxybutynin Chloride [Ditropan Xl] 10 mg PO DAILY 07/11/18 [History] Spironolactone [Aldactone] 25 mg PO BID 07/11/18 [History] Valproic Acid 500 mg PO BID 07/11/18 [History] Venlafaxine HCl [Venlafaxine HCl ER] 150 mg PO BID 07/11/18 [History] Past Medical History - Past Health History Medical/Surgical History: Denies Medical/Surgical History HEENT History: Reports: Head Other HEENT History: had a traumatic brain injury June 2016 Cardiovascular History: Reports: None Respiratory History: Reports: Other (See Below) Other Respiratory History: Reports 5 yr history of smoking when quite young, quit 10-11 yrs, re-started 5 yrs ago current use 1 - 1 1/2 packs/day Gastrointestinal History: Reports: Hepatitis Other Gastrointestinal History: hx: Ulcers, experience abdominal pain from time to time [employer] History: Reports: Other OB/BYN History: LMP 1 month ago Musculoskeletal History: Reports: Other (See Below) Other Musculoskeletal History: had low bulging discs, now degenerative disc disease, chronic low back pain Neurological History: Reports: Brain Injury, Seizure Psychiatric History: Reports: Depression, PTSD Hematologic History: Reports: None Immunologic History: Reports: None Oncologic (Cancer) History: Reports: None - Infectious Disease History Infectious Disease History: Reports: Other (See Below) Other Infectious Disease History: unknown - Past Surgical History HEENT Surgical History: Reports: None Respiratory Surgical History: Reports: None Neurological Surgical History: Reports: None Social & Family History - Family History Family Medical History: Noncontributory - Tobacco Use Smoking Status *Q: Unknown Ever Smoked - Caffeine Use Caffeine Use: Reports: Soda - Recreational Drug Use Recreational Drug Use: No H&P Review of Systems - Review of Systems: Review Of Systems: Unable To Obtain Exam - Exam Exam: See Below - Vital Signs Vital Signs: Last Vital Signs Temp 36.4 C 07/11/18 15:00 Pulse 136 H 07/11/18 14:23 Resp 18 07/11/18 14:23 BP 149/105 H 07/11/18 14:23 Pulse Ox 100 07/11/18 14:23 Weight: 48.7 kg - Exam Quality Assessment: Supplemental Oxygen, Other (Very disheveled, dirty matted hair, unkempt nails and teeth) General: Cooperative, Mild Distress. No: Alert, Oriented HEENT: Conjunctiva Clear, EACs Clear, EOMI, Nares Patent. No: Mucosa Moist & [place] (Extremely dry) Neck: Supple, Trachea Midline Lungs: Clear to Auscultation, Normal Respiratory Effort Cardiovascular: Regular Rhythm, Tachycardia GI/Abdominal Exam: Normal Bowel Sounds, Soft, Non-Tender (Female) Exam: Deferred Rectal (Female) Exam: Deferred Back Exam: Normal Inspection. No: Full Range of Motion Extremities: Normal Inspection. No: Normal Range of Motion, No Pedal Edema Skin: Warm, Dry, Intact Neurological: No: Cranial Nerves Intact (Not able to assess) Neuro Extensive - Mental Status: No: Alert, Oriented x3 Psychiatric: No: Alert, Normal Affect, Normal Mood - Patient Data Lab Results Last 24 hrs: Laboratory Results - last 24 hr 07/11/18 07/11/18 07/11/18 Range/Units 13:09 13:30 13:35 WBC 15.73 H (4.0-11.0) K/uL RBC 4.97 (4.30-5.90) M/uL Hgb 16.2 H (12.0-16.0) g/dL Hct 47.1 H (36.0-46.0) % MCV 94.8 (80.0-98.0) fL MCH 32.6 H (27.0-32.0) pg MCHC 34.4 (31.0-37.0) g/dL RDW Std Deviation 47.9 (28.0-62.0) fl RDW Coeff of Amanda 14 (11.0-15.0) % Plt Count 252 (150-400) K/uL MPV 10.70 (7.40-12.00) fL Neut % (Auto) 80.2 H (48.0-80.0) % Lymph % (Auto) 12.1 L (16.0-40.0) % [place] % (Auto) 6.9 (0.0-15.0) % Eos % (Auto) 0.6 (0.0-7.0) % Baso % (Auto) 0.2 (0.0-1.5) % Neut # (Auto) 12.6 H (1.4-5.7) K/uL Lymph # (Auto) 1.9 (0.6-2.4) K/uL [place] # (Auto) 1.1 H (0.0-0.8) K/uL Eos # (Auto) 0.1 (0.0-0.7) K/uL Baso # (Auto) 0.0 (0.0-0.1) K/uL Nucleated RBC % 0.0 /100WBC Nucleated RBCs # 0 K/uL Sodium 135 L (136-145) mmol/L Potassium 4.1 (3.5-5.1) mmol/L Chloride 102 (98-107) mmol/L Carbon Dioxide 10.6 L (21.0-32.0) mmol/L BUN 17 (7.0-18.0) mg/dL Creatinine 0.8 (0.6-1.0) mg/dL Est Cr Clr Drug Dosing 71.87 mL/min Estimated GFR (MDRD) > 60.0 ml/min Glucose 79 (74-106) mg/dL Calcium 9.8 (8.5-10.1) mg/dL Total Bilirubin 0.8 (0.2-1.0) mg/dL AST 22 (15-37) IU/L ALT 11 L (14-63) IU/L Alkaline Phosphatase 143 H (46-116) U/L Total Protein 7.1 (6.4-8.2) g/dL Albumin 2.0 L (3.4-5.0) g/dL Globulin 5.1 H (2.6-4.0) g/dL Albumin/Globulin Ratio 0.4 L (0.9-1.6) Urine Color YELLOW Urine Appearance CLEAR Urine pH 6.0 (5.0-8.0) Ur Specific [place] >= 1.030 (1.001-1.035) Urine Protein TRACE H (NEGATIVE) mg/dL Urine Glucose (UA) NEGATIVE (NEGATIVE) mg/dL Urine Ketones >=80 (NEGATIVE) mg/dL Urine Occult Blood NEGATIVE (NEGATIVE) Urine Nitrite NEGATIVE (NEGATIVE) Urine Bilirubin MODERATE H (NEGATIVE) Urine Ictotest NEGATIVE Urine Urobilinogen 0.2 (<2.0) EU/dL Ur Leukocyte Esterase NEGATIVE (NEGATIVE) Urine RBC 0-1 (0-2/HPF) Urine WBC 1-2 (0-5/HPF) Ur Epithelial Cells RARE (NONE-FEW) Urine Bacteria FEW (NEGATIVE) Urine Mucus FEW (NONE-MOD) Result Diagrams: 07/11/18 13:09 07/11/18 13:35 - Problem List (1) Altered mental status SNOMED Code(s): 535831790 ICD Code: R41.82 - ALTERED MENTAL STATUS, UNSPECIFIED Status: Acute Priority: High Current Visit: Yes Qualifiers: Altered mental status type: transient alteration of awareness Qualified Code(s): R40.4 - Transient alteration of awareness (2) Total self-care deficit SNOMED Code(s): 73332042 ICD Code: R41.89 - OTH SYMPTOMS AND SIGNS W COGNITIVE FUNCTIONS AND AWARENESS Status: Chronic Priority: High Current Visit: Yes (3) Breakthrough seizure SNOMED Code(s): 803878682 ICD Code: G40.919 - EPILEPSY, UNSP, INTRACTABLE, WITHOUT STATUS EPILEPTICUS Status: Chronic Priority: High Current Visit: Yes (4) Dehydration, mild SNOMED Code(s): 3086024858076 ICD Code: E86.0 - DEHYDRATION Status: Acute Priority: High Current Visit: Yes (5) Traumatic brain injury SNOMED Code(s): 776318348 ICD Code: S06.9X9A - UNSP INTRACRANIAL INJURY W LOC OF UNSP DURATION, INIT Status: Chronic Priority: High Current Visit: Yes Qualifiers: Encounter type: subsequent encounter Loss of consciousness presence/ duration: with LOC of unspecified duration Qualified Code(s): S06.9X9D - Unspecified intracranial injury with loss of consciousness of unspecified duration, subsequent encounter (6) Cachexia SNOMED Code(s): 824021329 ICD Code: R64 - CACHEXIA Status: Chronic Priority: High Current Visit: Yes Problem Details: BMI 15.9 kg/m (7) Severe protein-calorie malnutrition SNOMED Code(s): 889906527, 725277220, 149869024 ICD Code: E43 - UNSPECIFIED SEVERE PROTEIN-CALORIE MALNUTRITION Status: Acute Current Visit: Yes Problem List Initiated/Reviewed/Updated: Yes Orders Last 24hrs: Active Orders 24 hr Category Date Time Status Patient Status [ADT] Stat ADT 07/11/18 14:36 Active Cardiac Monitoring [RC] CONTINUOUS Care 07/11/18 14:51 Active EKG Documentation Completion [RC] STAT Care 07/11/18 14:26 Active Oxygen Therapy [RC] PRN Care 07/11/18 14:50 Active Up With Assistance [RC] ASDIRECTED Care 07/11/18 14:50 Active VTE/DVT Education [RC] PER UNIT ROUTINE Care 07/11/18 14:50 Active Vital Signs [RC] Q4H Care 07/11/18 14:50 Active Nothing per Oral Now Diet [DIET] Diet 07/11/18 Lunch Active CBC WITH AUTO DIFF [HEME] AM Lab 07/12/18 05:11 Ordered COMPREHENSIVE METABOLIC PN,CMP [CHEM] AM Lab 07/12/18 05:11 Ordered CULTURE URINE [RM] Routine Lab 07/11/18 13:30 Received MAGNESIUM [CHEM] AM Lab 07/12/18 05:11 Ordered PHOSPHORUS [CHEM] AM Lab 07/12/18 05:11 Ordered PREALBUMIN [REF] Stat Lab 07/11/18 14:50 Ordered Amitriptyline HCl [Amitriptyline HCl] Med 07/12/18 09:00 Active 50 mg PO DAILY Docusate Sodium [Colace] Med 07/11/18 14:50 Active 100 mg PO BID PRN Folic Acid Med 07/12/18 09:00 Active 1 mg PO DAILY Folic Acid Med 07/11/18 15:00 Active 1 mg SUBCUT DAILY Gabapentin [Gralise] Med 07/11/18 22:00 Active 1,200 mg PO TID Heparin Sodium Med 07/11/18 15:00 Active 5,000 units SUBCUT Q8H Methocarbamol [Methocarbamol] Med 07/11/18 22:00 Active 750 mg PO TID Mirtazapine [Mirtazapine] Med 07/12/18 09:00 Active 45 mg PO DAILY Morphine Med 07/11/18 14:50 Active 2 mg IVPUSH Q2H PRN Omeprazole Med 07/12/18 09:00 Active 20 mg PO DAILY Ondansetron [Zofran] Med 07/11/18 14:50 Active 4 mg IVPUSH Q4H PRN Oxybutynin Chloride [Ditropan Xl] Med 07/12/18 09:00 Active 10 mg PO DAILY Sodium Chloride 0.9% [Normal Saline] 1,000 ml Med 07/11/18 15:00 Active IV ASDIRECTED Sodium Chloride 0.9% [Saline Flush] Med 07/11/18 12:49 Active 10 ml FLUSH ASDIRECTED PRN Sodium Chloride 0.9% [Saline Flush] Med 07/11/18 12:49 Active 2.5 ml FLUSH ASDIRECTED PRN Spironolactone [Aldactone] Med 07/11/18 21:00 Active 25 mg PO BID Temazepam [Restoril] Med 07/11/18 14:50 Active 15 mg PO BEDTIME PRN Thiamine [Vitamin B-1] Med 07/11/18 15:00 Active 100 mg IV DAILY Valproic Acid Med 07/11/18 21:00 Active 500 mg PO BID Venlafaxine HCl [Venlafaxine HCl ER] Med 07/11/18 21:00 Active 150 mg PO BID Saline Lock Insert [OM.PC] Stat Oth 07/11/18 12:49 Ordered Resuscitation Status Routine Resus Stat 07/11/18 14:50 Ordered Medication Orders Docusate Sodium (Colace) 100 mg PO BID PRN PRN Reason: Constipation Folic Acid (Folic Acid) 1 mg PO DAILY [facility] Folic Acid (Folic Acid) 1 mg SUBCUT DAILY [facility] Heparin Sodium (Porcine) (Heparin Sodium) 5,000 units SUBCUT Q8H [facility] Sodium Chloride (Normal Saline) 1,000 mls @ 125 mls/hr IV ASDIRECTED [facility] Last Admin: 07/11/18 15:37 Dose: 125 mls/hr Morphine Sulfate (Morphine) 2 mg IVPUSH Q2H PRN PRN Reason: Pain (severe 7-10) Stop: 07/12/18 14:52 Non-Formulary Medication (Amitriptyline Hcl [Amitriptyline Hcl]) 50 mg PO DAILY [facility] Non-Formulary Medication (Gabapentin [Gralise]) 1,200 mg PO TID [facility] Non-Formulary Medication (Methocarbamol [Methocarbamol]) 750 mg PO TID [facility] Non-Formulary Medication (Mirtazapine [Mirtazapine]) 45 mg PO DAILY [facility] Non-Formulary Medication (Oxybutynin Chloride [Ditropan Xl]) 10 mg PO DAILY [facility] Non-Formulary Medication (Valproic Acid) 500 mg PO BID [facility] Non-Formulary Medication (Venlafaxine Hcl [Venlafaxine Hcl Er]) 150 mg PO BID [facility] Omeprazole (Omeprazole) 20 mg PO DAILY [facility] Ondansetron HCl (Zofran) 4 mg IVPUSH Q4H PRN PRN Reason: Nausea/Vomiting Sodium Chloride (Saline Flush) 10 ml FLUSH ASDIRECTED PRN PRN Reason: Keep Vein Open Sodium Chloride (Saline Flush) 2.5 ml FLUSH ASDIRECTED PRN PRN Reason: Keep Vein Open Spironolactone (Aldactone) 25 mg PO BID [facility] Temazepam (Restoril) 15 mg PO BEDTIME PRN PRN Reason: Sleep Thiamine HCl (Vitamin B-1) 100 mg IV DAILY [facility] Assessment/Plan Comment:: The patient is a medically complex 42-year-old lady who was hospitalized May 25, 2018 secondary to altered mental status. At that time she is also very dehydrated and essentially nonverbal similar to today. The patient's laboratory testing does show signs that would be indicative of dehydration. Her urine is also very concentrated. The patient will be aggressively rehydrated and she also have an indwelling Evans catheter placed. The patient will be On DVT prophylaxis secondary to her previous history of pulmonary emboli. The patient today also has been noted to be very cachectic and I've ordered a prealbumin as I suspect that she does have severe protein calorie malnutrition. Repeat laboratory studies have been ordered for the morning. I believe that the patient at this time does have inability to meet her activities of daily living. This may result in her being evaluated for possible placement at skilled nursing. If this does not occur I suspect that the patient will likely return to the hospital on a fairly frequent basis with essentially the same problem.
[2018-07-11] MEDS: Thiamine 200 MG/2 ML MDV IV SCH ×2 (17:17→17:28)
[2018-07-11] MEDS: Folic Acid 50 MG/10 ML MDV SUBCUT SCH (17:28)
[2018-07-11] MEDS: Heparin Sodium 5,000 Units/ML Vial SUBCUT SCH ×2 (17:29→23:57)
[2018-07-11] MEDS ORDERED: VALPROIC ACID 500 MG PO SCH (21:00)
[2018-07-11] MEDS ORDERED: VENLAFAXINE HCL 150 MG PO SCH (21:00)
[2018-07-11] MEDS: Spironolactone 25 MG Tab PO SCH (21:07)
[2018-07-11] MEDS: GABAPENTIN 1200 MG PO SCH (21:08)
[2018-07-11] MEDS: METHOCARBAMOL 750 MG PO SCH (21:08)
--- NOTE | 2018-07-11 22:27 | CR ---
Indication: Tachycardia. Technique: A single AP portable view of the chest was obtained. Comparison: None Findings: The patient is rotated to the right. The heart is normal in size. The lungs are clear. No infiltrate, pleural effusion, or pneumothorax is identified. Impression: No acute cardiopulmonary process. Dictated by Darlene Gusman MD @ Jul 11 2018 10:25PM Signed by Dr. Darlene Gusman @ Jul 11 2018 10:25PM
--- NOTE | 2018-07-11 23:49 | CT ---
Indication: Altered mental status. Technique: Multiple contiguous axial images were obtained from the skullbase to the vertex without intravenous contrast enhancement. Please note that all CT scans at this facility use dose modulation, iterative reconstruction, and/or weight-based dosing when appropriate to reduce radiation dose to as low as reasonably achievable. Comparison: May 24, 2018. Findings: The ventricles are prominent, consistent with the size of the sulci. No intra-axial or extra-axial hemorrhages identified. No mass, mass effect, or midline shift is identified. No intra-axial or extra-axial hemorrhage is identified. The bony calvarium is intact. The visualized paranasal sinuses and mastoid air cells are clear. Impression: Stable CT scan of the head. No acute intracranial process. Please note that all CT scans at this facility use dose modulation, iterative reconstruction, and/or weight-based dosing when appropriate to reduce radiation dose to as low as reasonably achievable. Dictated by Darlene Gusman MD @ Jul 11 2018 11:47PM Signed by Dr. Darlene Gusman @ Jul 11 2018 11:48PM
[2018-07-12] MEDS ORDERED: cefTRIAXone 1 GM in Premix Bag 1 BAG IV ONE (00:08)
[2018-07-12] MEDS ORDERED: Sodium Chloride 0.9% 1,000 ML IV ONE (00:09)
[2018-07-12] MEDS: METHOCARBAMOL 750 MG PO SCH ×3 (05:13→23:33)
[2018-07-12] MEDS: GABAPENTIN 1200 MG PO SCH (05:13)
[2018-07-12] MEDS: Heparin Sodium 5,000 Units/ML Vial SUBCUT SCH ×3 (06:04→23:41)
[2018-07-12 06:57] LABS: CHLORIDE,CL 108 mmol/L (98-107); SODIUM,NA 141 mmol/L (136-145)
[2018-07-12] MEDS ORDERED: Morphine 2 MG/ML Syringe IVPUSH PRN (07:18)
[2018-07-12] MEDS ORDERED: 50% Dextrose in Water 50 ML Syringe IVPUSH ONE (08:34)
[2018-07-12] MEDS ORDERED: Magnesium Sulfate/Water 4 GM in Premix Bag 1 BAG IV ONE (08:35)
--- NOTE | 2018-07-12 08:44 | PCM.PN ---
- General Info Date of Service: 07/12/18 Subjective Update: Patient is still not responsive, when speaking to her she is able to open up her eyes but is not coherent in terms of speech. She is tachycardic and tachypneic. - Patient Data Vitals - Most Recent: Last Vital Signs Temp 36.1 C 07/12/18 07:42 Pulse 131 H 07/12/18 07:42 Resp 24 H 07/12/18 07:42 BP 138/97 H 07/12/18 07:42 Pulse Ox 100 07/12/18 07:42 Weight - Most Recent: 48.7 kg I&O - Last 24 Hours: Intake & Output 07/11/18 07/12/18 07/12/18 22:59 06:59 14:59 Intake Total 2268 Output Total 900 Balance 1368 Lab Results Last 24 Hours: Laboratory Results - last 24 hr 07/11/18 07/11/18 07/11/18 Range/Units 00:50 13:09 13:30 WBC 15.73 H (4.0-11.0) K/uL RBC 4.97 (4.30-5.90) M/uL Hgb 16.2 H (12.0-16.0) g/dL Hct 47.1 H (36.0-46.0) % MCV 94.8 (80.0-98.0) fL MCH 32.6 H (27.0-32.0) pg MCHC 34.4 (31.0-37.0) g/dL RDW Std Deviation 47.9 (28.0-62.0) fl RDW Coeff of Amanda 14 (11.0-15.0) % Plt Count 252 (150-400) K/uL MPV 10.70 (7.40-12.00) fL Neut % (Auto) 80.2 H (48.0-80.0) % Lymph % (Auto) 12.1 L (16.0-40.0) % Major % (Auto) 6.9 (0.0-15.0) % Eos % (Auto) 0.6 (0.0-7.0) % Baso % (Auto) 0.2 (0.0-1.5) % Neut # (Auto) 12.6 H (1.4-5.7) K/uL Lymph # (Auto) 1.9 (0.6-2.4) K/uL Major # (Auto) 1.1 H (0.0-0.8) K/uL Eos # (Auto) 0.1 (0.0-0.7) K/uL Baso # (Auto) 0.0 (0.0-0.1) K/uL Nucleated RBC % 0.0 /100WBC Nucleated RBCs # 0 K/uL Lactate (0.20-2.00) mmol/L Sodium (136-145) mmol/L Potassium (3.5-5.1) mmol/L Chloride (98-107) mmol/L Carbon Dioxide (21.0-32.0) mmol/L BUN (7.0-18.0) mg/dL Creatinine (0.6-1.0) mg/dL Est Cr Clr Drug Dosing mL/min Estimated GFR (MDRD) ml/min Glucose (74-106) mg/dL Calcium (8.5-10.1) mg/dL Phosphorus (2.6-4.7) mg/dL Magnesium (1.8-2.4) mg/dL Total Bilirubin (0.2-1.0) mg/dL AST (15-37) IU/L ALT (14-63) IU/L Alkaline Phosphatase (46-116) U/L Creatine Kinase 33 (26-308) U/L Total Protein (6.4-8.2) g/dL Albumin (3.4-5.0) g/dL Globulin (2.6-4.0) g/dL Albumin/Globulin Ratio (0.9-1.6) Urine Color YELLOW Urine Appearance CLEAR Urine pH 6.0 (5.0-8.0) Ur Specific [place] >= 1.030 (1.001-1.035) Urine Protein TRACE H (NEGATIVE) mg/dL Urine Glucose (UA) NEGATIVE (NEGATIVE) mg/dL Urine Ketones >=80 (NEGATIVE) mg/dL Urine Occult Blood NEGATIVE (NEGATIVE) Urine Nitrite NEGATIVE (NEGATIVE) Urine Bilirubin MODERATE H (NEGATIVE) Urine Ictotest NEGATIVE Urine Urobilinogen 0.2 (<2.0) EU/dL Ur Leukocyte Esterase NEGATIVE (NEGATIVE) Urine RBC 0-1 (0-2/HPF) Urine WBC 1-2 (0-5/HPF) Ur Epithelial Cells RARE (NONE-FEW) Urine Bacteria FEW (NEGATIVE) Urine Mucus FEW (NONE-MOD) Urine Opiates Screen (NEGATIVE) Ur Oxycodone Screen (NEGATIVE) Urine Methadone Screen (NEGATIVE) Ur Barbiturates Screen (NEGATIVE) Ur Phencyclidine Scrn (NEGATIVE) Ur Amphetamine Screen (NEGATIVE) U Methamphetamines Scrn (NEGATIVE) U Benzodiazepines Scrn (NEGATIVE) U Cocaine Metab Screen (NEGATIVE) U Marijuana (THC) Screen (NEGATIVE) Ethyl Alcohol mg/dL 07/11/18 07/11/18 07/11/18 Range/Units 13:30 13:35 22:43 WBC (4.0-11.0) K/uL RBC (4.30-5.90) M/uL Hgb (12.0-16.0) g/dL Hct (36.0-46.0) % MCV (80.0-98.0) fL MCH (27.0-32.0) pg MCHC (31.0-37.0) g/dL RDW Std Deviation (28.0-62.0) fl RDW Coeff of Amanda (11.0-15.0) % Plt Count (150-400) K/uL MPV (7.40-12.00) fL Neut % (Auto) (48.0-80.0) % Lymph % (Auto) (16.0-40.0) % Major % (Auto) (0.0-15.0) % Eos % (Auto) (0.0-7.0) % Baso % (Auto) (0.0-1.5) % Neut # (Auto) (1.4-5.7) K/uL Lymph # (Auto) (0.6-2.4) K/uL Major # (Auto) (0.0-0.8) K/uL Eos # (Auto) (0.0-0.7) K/uL Baso # (Auto) (0.0-0.1) K/uL Nucleated RBC % /100WBC Nucleated RBCs # K/uL Lactate 1.6 (0.20-2.00) mmol/L Sodium 135 L (136-145) mmol/L Potassium 4.1 (3.5-5.1) mmol/L Chloride 102 (98-107) mmol/L Carbon Dioxide 10.6 L (21.0-32.0) mmol/L BUN 17 (7.0-18.0) mg/dL Creatinine 0.8 (0.6-1.0) mg/dL Est Cr Clr Drug Dosing 71.87 mL/min Estimated GFR (MDRD) > 60.0 ml/min Glucose 79 (74-106) mg/dL Calcium 9.8 (8.5-10.1) mg/dL Phosphorus (2.6-4.7) mg/dL Magnesium (1.8-2.4) mg/dL Total Bilirubin 0.8 (0.2-1.0) mg/dL AST 22 (15-37) IU/L ALT 11 L (14-63) IU/L Alkaline Phosphatase 143 H (46-116) U/L Creatine Kinase (26-308) U/L Total Protein 7.1 (6.4-8.2) g/dL Albumin 2.0 L (3.4-5.0) g/dL Globulin 5.1 H (2.6-4.0) g/dL Albumin/Globulin Ratio 0.4 L (0.9-1.6) Urine Color Urine Appearance Urine pH (5.0-8.0) Ur Specific [place] (1.001-1.035) Urine Protein (NEGATIVE) mg/dL Urine Glucose (UA) (NEGATIVE) mg/dL Urine Ketones (NEGATIVE) mg/dL Urine Occult Blood (NEGATIVE) Urine Nitrite (NEGATIVE) Urine Bilirubin (NEGATIVE) Urine Ictotest Urine Urobilinogen (<2.0) EU/dL Ur Leukocyte Esterase (NEGATIVE) Urine RBC (0-2/HPF) Urine WBC (0-5/HPF) Ur Epithelial Cells (NONE-FEW) Urine Bacteria (NEGATIVE) Urine Mucus (NONE-MOD) Urine Opiates Screen NEGATIVE (NEGATIVE) Ur Oxycodone Screen NEGATIVE (NEGATIVE) Urine Methadone Screen NEGATIVE (NEGATIVE) Ur Barbiturates Screen NEGATIVE (NEGATIVE) Ur Phencyclidine Scrn NEGATIVE (NEGATIVE) Ur Amphetamine Screen NEGATIVE (NEGATIVE) U Methamphetamines Scrn NEGATIVE (NEGATIVE) U Benzodiazepines Scrn NEGATIVE (NEGATIVE) U Cocaine Metab Screen NEGATIVE (NEGATIVE) U Marijuana (THC) Screen NEGATIVE (NEGATIVE) Ethyl Alcohol mg/dL 07/11/18 07/12/18 07/12/18 Range/Units 22:55 05:55 05:55 WBC 17.48 H (4.0-11.0) K/uL RBC 4.51 (4.30-5.90) M/uL Hgb 14.7 (12.0-16.0) g/dL Hct 43.1 (36.0-46.0) % MCV 95.6 (80.0-98.0) fL MCH 32.6 H (27.0-32.0) pg MCHC 34.1 (31.0-37.0) g/dL RDW Std Deviation 49.3 (28.0-62.0) fl RDW Coeff of Amanda 14 (11.0-15.0) % Plt Count 233 (150-400) K/uL MPV 11.30 (7.40-12.00) fL Neut % (Auto) 77.1 (48.0-80.0) % Lymph % (Auto) 11.3 L (16.0-40.0) % Major % (Auto) 11.3 (0.0-15.0) % Eos % (Auto) 0.1 (0.0-7.0) % Baso % (Auto) 0.2 (0.0-1.5) % Neut # (Auto) 13.5 H (1.4-5.7) K/uL Lymph # (Auto) 2.0 (0.6-2.4) K/uL Major # (Auto) 2.0 H (0.0-0.8) K/uL Eos # (Auto) 0.0 (0.0-0.7) K/uL Baso # (Auto) 0.0 (0.0-0.1) K/uL Nucleated RBC % 0.0 /100WBC Nucleated RBCs # 0 K/uL Lactate (0.20-2.00) mmol/L Sodium 141 (136-145) mmol/L Potassium 4.1 (3.5-5.1) mmol/L Chloride 108 H (98-107) mmol/L Carbon Dioxide 10.3 L (21.0-32.0) mmol/L BUN 11 (7.0-18.0) mg/dL Creatinine 0.7 (0.6-1.0) mg/dL Est Cr Clr Drug Dosing 82.13 mL/min Estimated GFR (MDRD) > 60.0 ml/min Glucose 56 L (74-106) mg/dL Calcium 9.4 (8.5-10.1) mg/dL Phosphorus 3.0 (2.6-4.7) mg/dL Magnesium 1.6 L (1.8-2.4) mg/dL Total Bilirubin 0.5 (0.2-1.0) mg/dL AST 17 (15-37) IU/L ALT 10 L (14-63) IU/L Alkaline Phosphatase 127 H (46-116) U/L Creatine Kinase (26-308) U/L Total Protein 6.2 L (6.4-8.2) g/dL Albumin 1.8 L (3.4-5.0) g/dL Globulin 4.4 H (2.6-4.0) g/dL Albumin/Globulin Ratio 0.4 L (0.9-1.6) Urine Color Urine Appearance Urine pH (5.0-8.0) Ur Specific [place] (1.001-1.035) Urine Protein (NEGATIVE) mg/dL Urine Glucose (UA) (NEGATIVE) mg/dL Urine Ketones (NEGATIVE) mg/dL Urine Occult Blood (NEGATIVE) Urine Nitrite (NEGATIVE) Urine Bilirubin (NEGATIVE) Urine Ictotest Urine Urobilinogen (<2.0) EU/dL Ur Leukocyte Esterase (NEGATIVE) Urine RBC (0-2/HPF) Urine WBC (0-5/HPF) Ur Epithelial Cells (NONE-FEW) Urine Bacteria (NEGATIVE) Urine Mucus (NONE-MOD) Urine Opiates Screen (NEGATIVE) Ur Oxycodone Screen (NEGATIVE) Urine Methadone Screen (NEGATIVE) Ur Barbiturates Screen (NEGATIVE) Ur Phencyclidine Scrn (NEGATIVE) Ur Amphetamine Screen (NEGATIVE) U Methamphetamines Scrn (NEGATIVE) U Benzodiazepines Scrn (NEGATIVE) U Cocaine Metab Screen (NEGATIVE) U Marijuana (THC) Screen (NEGATIVE) Ethyl Alcohol <3 mg/dL Epifanio Results Last 24 Hours: Microbiology 07/12/18 00:40 Anaerobic Blood Culture - Final Blood - Venous Med Orders - Current: Current Medications Amitriptyline HCl (Elavil) 50 mg PO DAILY [facility] Divalproex Sodium (Depakote Er) 500 mg PO BID SHIRIN Docusate Sodium (Colace) 100 mg PO BID PRN PRN Reason: Constipation Folic Acid (Folic Acid) 1 mg PO DAILY [facility] Folic Acid (Folic Acid) 1 mg SUBCUT DAILY [facility] Last Admin: 07/11/18 17:28 Dose: 1 mg Gabapentin (Neurontin) 1,200 mg PO TID [facility] Heparin Sodium (Porcine) (Heparin Sodium) 5,000 units SUBCUT Q8H [facility] Last Admin: 07/12/18 06:04 Dose: 5,000 units Sodium Chloride (Normal Saline) 1,000 mls @ 125 mls/hr IV ASDIRECTED [facility] Last Admin: 07/11/18 23:58 Dose: 125 mls/hr Magnesium Sulfate 4 gm/ Premix 100 mls @ 25 mls/hr IV ONETIME ONE Stop: 07/12/18 12:34 Levofloxacin/Dextrose 750 mg/ (Premix) 150 mls @ 100 mls/hr IV Q24H [facility] Mirtazapine (Remeron) 45 mg PO BEDTIME [facility] Morphine Sulfate (Morphine) 2 mg IVPUSH Q2H PRN PRN Reason: Pain (severe 7-10) Stop: 07/12/18 14:52 Omeprazole (Omeprazole) 20 mg PO ACBREAKFAST [facility] Ondansetron HCl (Zofran) 4 mg IVPUSH Q4H PRN PRN Reason: Nausea/Vomiting Oxybutynin Chloride ([Ditropan Xl] 10 Mg) 1 each PO DAILY [facility] Methocarbamol [ Methocarbamol] 750 Mg 1 each PO TID [facility] Sodium Chloride (Saline Flush) 10 ml FLUSH ASDIRECTED PRN PRN Reason: Keep Vein Open Sodium Chloride (Saline Flush) 2.5 ml FLUSH ASDIRECTED PRN PRN Reason: Keep Vein Open Spironolactone (Aldactone) 25 mg PO BID [facility] Last Admin: 07/11/18 21:07 Dose: Not Given Temazepam (Restoril) 15 mg PO BEDTIME PRN PRN Reason: Sleep Thiamine HCl (Vitamin B-1) 100 mg IV DAILY [facility] Last Admin: 07/11/18 17:28 Dose: 100 mg Venlafaxine HCl (Effexor Xr) 150 mg PO BID [facility] Discontinued Medications Dextrose/Water (Dextrose 50% In Water) 50 ml IVPUSH ONETIME ONE Stop: 07/12/18 08:35 Sodium Chloride (Normal Saline) 1,000 mls @ 999 mls/hr IV .Bolus ONE Stop: 07/11/18 13:49 Last Admin: 07/11/18 13:10 Dose: 999 mls/hr Ceftriaxone Sodium/Dextrose 1 (gm/ Premix) 50 mls @ 100 mls/hr IV ONETIME ONE Stop: 07/12/18 00:37 Last Admin: 07/12/18 01:08 Dose: 100 mls/hr Sodium Chloride (Normal Saline) 1,000 mls @ 999 mls/hr IV ONETIME ONE Stop: 07/12/18 01:09 Last Admin: 07/12/18 01:10 Dose: 999 mls/hr Mirtazapine (Remeron) 45 mg PO DAILY [facility] Morphine Sulfate (Morphine) 2 mg IVPUSH Q2H PRN PRN Reason: Pain (severe 7-10) Stop: 07/12/18 14:52 Last Admin: 07/11/18 20:36 Dose: 2 mg Non-Formulary Medication (Amitriptyline Hcl [Amitriptyline Hcl]) 50 mg PO DAILY [facility] Non-Formulary Medication (Gabapentin [Gralise]) 1,200 mg PO TID [facility] Last Admin: 07/12/18 05:13 Dose: Not Given Non-Formulary Medication (Methocarbamol [Methocarbamol]) 750 mg PO TID [facility] Last Admin: 07/12/18 05:13 Dose: Not Given Non-Formulary Medication (Mirtazapine [Mirtazapine]) 45 mg PO DAILY [facility] Non-Formulary Medication (Oxybutynin Chloride [Ditropan Xl]) 10 mg PO DAILY [facility] Non-Formulary Medication (Valproic Acid) 500 mg PO BID [facility] Last Admin: 07/11/18 21:08 Dose: Not Given Non-Formulary Medication (Venlafaxine Hcl [Venlafaxine Hcl Er]) 150 mg PO BID [facility] Last Admin: 07/11/18 21:08 Dose: Not Given - Exam General: Sedated, Lethargic Lungs: Clear to Auscultation Cardiovascular: Tachycardia Extremities: Limited Range of Motion - Problem List Review Problem List Initiated/Reviewed/Updated: Yes - My Orders Last 24 Hours: My Active Orders 07/12/18 08:20 BLOOD GAS VENOUS [BG] Routine 07/12/18 08:35 Magnesium Sulfate/Water [Magnesium Sulfate 4 GM in Water 100 ML] 4 gm Premix Bag 1 bag IV ONETIME 07/12/18 08:42 Patient Status [ADT] Stat 07/12/18 08:45 Levofloxacin/Dextrose 5%-Water [Levaquin in D5W 750 MG/150 ML] 750 mg Premix Bag 1 bag IV Q24H - Plan Plan:: The patient is a medically complex 42-year-old lady who was hospitalized May 25, 2018 secondary to altered mental status. At that time she is also very dehydrated and essentially nonverbal similar to today. The patient's laboratory testing does show signs that would be indicative of dehydration. Her urine is also very concentrated. The patient will be aggressively rehydrated and she also have an indwelling Evans catheter placed. The patient will be On DVT prophylaxis secondary to her previous history of pulmonary emboli. The patient today also has been noted to be very cachectic and I've ordered a prealbumin as I suspect that she does have severe protein calorie malnutrition. Repeat laboratory studies have been ordered for the morning. I believe that the patient at this time does have inability to meet her activities of daily living. This may result in her being evaluated for possible placement at skilled nursing. If this does not occur I suspect that the patient will likely return to the hospital on a fairly frequent basis with essentially the same problem. Problems: #1. Elevated WBC, UA indicating UTI, Ucx indicating enterococcus M.I.C. shall be available in the AM -Patient on ceftriaxone 1 g every 24 hours, shall await sensitivities in the a.m. Patient status continues to be monitored #2. Altered mental status in the setting of past medical history of traumatic brain injury, dehydration, possible infection, hypoglycemia -Shall continue to watch the patient's altered mental status to ensure that it is improving shall assess for possible etiologies that can be reversible for this patient. #3. Severe malnutrition -Shall assess for ketones in the setting of severe malnutrition as the patient does appear to have a l ketoacidosis -Shall be getting an ABG to assess the patient's pH levels #4. Starvation ketoacidosis -Based on the cachectic picture of this patient assessment for possible ketones and starvation ketoacidosis needs to be assessed as the patient does have a and iron gap metabolic acidosis with a low serum bicarbonate level -ABG also needed for further assessment of the starvation ketoacidosis -Patient to be given D5W normal saline at maintenance which should help with improving the ketoacidosis #4. Patient has failed swallow study unable to take oral intake -Patient had hypoglycemia secondary to inability to take any parental nutrition , as such patient shall be placed on D5W fluid replacement and status post shall be continued to be monitored. #5. Hypomagnesemia -Patient to be given 4 g of magnesium and shall have magnesium and phosphorus levels reassessed.
[2018-07-12] MEDS ORDERED: Levofloxacin/Dextrose 5%-Water 750 MG in Premix Bag 1 BAG IV SCH ×2 (08:45→12:30)
[2018-07-12] MEDS ORDERED: AMITRIPTYLINE HCL 50 MG PO SCH (09:00)
[2018-07-12] MEDS ORDERED: Non-Formulary Medication 1 Each (Oxybutynin Chloride [Ditropan Xl] 10 MG) PO SCH (09:00)
[2018-07-12] MEDS ORDERED: Non-Formulary Medication 1 Each (Mirtazapine [Mirtazapine] 45 MG) PO SCH (09:00)
[2018-07-12] MEDS ORDERED: Mirtazapine 15 MG Tab PO SCH (09:00)
[2018-07-12] MEDS: Sodium Chloride 0.9% 1,000 ML IV SCH (09:01)
[2018-07-12] MEDS: Spironolactone 25 MG Tab PO SCH ×2 (09:34→22:05)
[2018-07-12] MEDS: Amitriptyline 25 MG Tab PO SCH (09:34)
[2018-07-12] MEDS: Venlafaxine 75 MG Cap.ER PO SCH ×2 (09:34→22:05)
[2018-07-12] MEDS: Divalproex Sodium 500 MG Tab.ER PO SCH ×2 (09:34→22:05)
[2018-07-12] MEDS: Folic Acid 1 MG Tab PO SCH (09:35)
[2018-07-12] MEDS: OXYBUTYNIN CHLORIDE 10 MG PO SCH (09:35)
[2018-07-12] MEDS: Omeprazole 20 MG Cap.CR PO SCH (09:36)
[2018-07-12] MEDS: Thiamine 200 MG/2 ML MDV IV SCH (09:47)
[2018-07-12] MEDS: Folic Acid 50 MG/10 ML MDV SUBCUT SCH (09:47)
[2018-07-12] MEDS: Gabapentin 300 MG Cap PO SCH ×2 (15:53→23:32)
[2018-07-12] MEDS ORDERED: Dextrose 5%-0.45% NaCl 1,000 ML IV SCH (16:15)
[2018-07-12] MEDS: Dextrose 5%-0.9% NaCl 1,000 ML IV SCH (17:33)
[2018-07-12 17:36] LABS: HEMOGLOBIN A1C 4.5 % (4.5-6.2)
[2018-07-12 17:55] LABS: CHLORIDE,CL 109 mmol/L (98-107); SODIUM,NA 141 mmol/L (136-145)
[2018-07-12] MEDS ORDERED: Sodium Phosphate 15 mMole/5 ML SDV IV ONE (19:07)
[2018-07-12] MEDS ORDERED: Digoxin 250 MCG Tab PO SCH (19:15)
[2018-07-12] MEDS: Mirtazapine 15 MG Tab PO SCH (22:06)
[2018-07-13] MEDS: cefTRIAXone 1 GM in Sodium Chloride 0.9% 50 ML IV SCH (01:07)
[2018-07-13] MEDS: Dextrose 5%-0.9% NaCl 1,000 ML IV SCH ×3 (03:28→19:51)
[2018-07-13] MEDS: METHOCARBAMOL 750 MG PO SCH ×3 (06:08→21:27)
[2018-07-13] MEDS: Gabapentin 300 MG Cap PO SCH ×3 (06:08→21:27)
[2018-07-13 06:42] LABS: CHLORIDE,CL 115 mmol/L (98-107); SODIUM,NA 142 mmol/L (136-145)
[2018-07-13] MEDS: Heparin Sodium 5,000 Units/ML Vial SUBCUT SCH ×3 (06:49→23:00)
[2018-07-13] MEDS: Omeprazole 20 MG Cap.CR PO SCH (06:49)
[2018-07-13] MEDS ORDERED: Potassium Chloride 10% 20 MEQ/15 ML Soln 30 ML UD Cup PO ONE (08:46)
[2018-07-13] MEDS: Amitriptyline 25 MG Tab PO SCH (09:05)
[2018-07-13] MEDS: Venlafaxine 75 MG Cap.ER PO SCH ×2 (09:05→21:27)
[2018-07-13] MEDS: Folic Acid 1 MG Tab PO SCH (09:05)
[2018-07-13] MEDS: Potassium Chloride 20 MEQ Tab.ER PO SCH ×2 (09:06→21:27)
[2018-07-13] MEDS: Folic Acid 50 MG/10 ML MDV SUBCUT SCH (09:06)
[2018-07-13] MEDS: Divalproex Sodium 500 MG Tab.ER PO SCH ×2 (09:06→21:27)
[2018-07-13] MEDS: Spironolactone 25 MG Tab PO SCH ×2 (09:06→21:26)
[2018-07-13] MEDS: Thiamine 200 MG/2 ML MDV IV SCH (09:07)
[2018-07-13] MEDS: OXYBUTYNIN CHLORIDE 10 MG PO SCH (09:24)
--- NOTE | 2018-07-13 11:39 | PCM.PN ---
- General Info Date of Service: 07/13/18 Subjective Update: The patient is awake and somewhat alert this morning. She is unable to fully answer the questions that are being asked of her. Her is here today as well and was explaining that he is having a difficult time in terms of her nutritional intake when she is at home. - Patient Data Vitals - Most Recent: Last Vital Signs Temp 36.6 C 07/13/18 08:00 Pulse 129 H 07/13/18 08:00 Resp 16 07/13/18 08:00 BP 138/88 07/13/18 08:00 Pulse Ox 100 07/13/18 08:00 Weight - Most Recent: 48.7 kg I&O - Last 24 Hours: Intake & Output 07/12/18 07/13/18 07/13/18 22:59 06:59 14:59 Intake Total 1087 0 Output Total 450 600 Balance 637 -600 Lab Results Last 24 Hours: Laboratory Results - last 24 hr 07/11/18 07/12/18 07/12/18 Range/Units 15:18 16:50 16:50 WBC (4.0-11.0) K/uL RBC (4.30-5.90) M/uL Hgb (12.0-16.0) g/dL Hct (36.0-46.0) % MCV (80.0-98.0) fL MCH (27.0-32.0) pg MCHC (31.0-37.0) g/dL RDW Std Deviation (28.0-62.0) fl RDW Coeff of Amanda (11.0-15.0) % Plt Count (150-400) K/uL MPV (7.40-12.00) fL Neut % (Auto) (48.0-80.0) % Lymph % (Auto) (16.0-40.0) % [place] % (Auto) (0.0-15.0) % Eos % (Auto) (0.0-7.0) % Baso % (Auto) (0.0-1.5) % Neut # (Auto) (1.4-5.7) K/uL Lymph # (Auto) (0.6-2.4) K/uL [place] # (Auto) (0.0-0.8) K/uL Eos # (Auto) (0.0-0.7) K/uL Baso # (Auto) (0.0-0.1) K/uL Nucleated RBC % /100WBC Nucleated RBCs # K/uL Sodium (136-145) mmol/L Potassium (3.5-5.1) mmol/L Chloride (98-107) mmol/L Carbon Dioxide (21.0-32.0) mmol/L BUN (7.0-18.0) mg/dL Creatinine (0.6-1.0) mg/dL Est Cr Clr Drug Dosing mL/min Estimated GFR (MDRD) ml/min Glucose (74-106) mg/dL POC Glucose (60-110) mg/dL Hemoglobin A1c 4.5 (4.5-6.2) % Calcium (8.5-10.1) mg/dL Phosphorus (2.6-4.7) mg/dL Magnesium (1.8-2.4) mg/dL Total Bilirubin (0.2-1.0) mg/dL AST (15-37) IU/L ALT (14-63) IU/L Alkaline Phosphatase (46-116) U/L Total Protein (6.4-8.2) g/dL Albumin (3.4-5.0) g/dL Globulin (2.6-4.0) g/dL Albumin/Globulin Ratio (0.9-1.6) Prealbumin 12.8 L (17.0-34.0) mg/dL Ketones MODERATE H (NEG) 07/12/18 07/12/18 07/12/18 Range/Units 17:25 18:22 19:56 WBC (4.0-11.0) K/uL RBC (4.30-5.90) M/uL Hgb (12.0-16.0) g/dL Hct (36.0-46.0) % MCV (80.0-98.0) fL MCH (27.0-32.0) pg MCHC (31.0-37.0) g/dL RDW Std Deviation (28.0-62.0) fl RDW Coeff of Amanda (11.0-15.0) % Plt Count (150-400) K/uL MPV (7.40-12.00) fL Neut % (Auto) (48.0-80.0) % Lymph % (Auto) (16.0-40.0) % [place] % (Auto) (0.0-15.0) % Eos % (Auto) (0.0-7.0) % Baso % (Auto) (0.0-1.5) % Neut # (Auto) (1.4-5.7) K/uL Lymph # (Auto) (0.6-2.4) K/uL [place] # (Auto) (0.0-0.8) K/uL Eos # (Auto) (0.0-0.7) K/uL Baso # (Auto) (0.0-0.1) K/uL Nucleated RBC % /100WBC Nucleated RBCs # K/uL Sodium 141 (136-145) mmol/L Potassium 4.5 (3.5-5.1) mmol/L Chloride 109 H (98-107) mmol/L Carbon Dioxide 10.4 L (21.0-32.0) mmol/L BUN 6 L (7.0-18.0) mg/dL Creatinine 0.6 (0.6-1.0) mg/dL Est Cr Clr Drug Dosing 95.82 mL/min Estimated GFR (MDRD) > 60.0 ml/min Glucose 67 L (74-106) mg/dL POC Glucose 77 118 H (60-110) mg/dL Hemoglobin A1c (4.5-6.2) % Calcium 9.2 (8.5-10.1) mg/dL Phosphorus 2.5 L (2.6-4.7) mg/dL Magnesium 2.3 (1.8-2.4) mg/dL Total Bilirubin (0.2-1.0) mg/dL AST (15-37) IU/L ALT (14-63) IU/L Alkaline Phosphatase (46-116) U/L Total Protein (6.4-8.2) g/dL Albumin (3.4-5.0) g/dL Globulin (2.6-4.0) g/dL Albumin/Globulin Ratio (0.9-1.6) Prealbumin (17.0-34.0) mg/dL Ketones (NEG) 07/12/18 07/12/18 07/13/18 Range/Units 21:56 23:18 00:14 WBC (4.0-11.0) K/uL RBC (4.30-5.90) M/uL Hgb (12.0-16.0) g/dL Hct (36.0-46.0) % MCV (80.0-98.0) fL MCH (27.0-32.0) pg MCHC (31.0-37.0) g/dL RDW Std Deviation (28.0-62.0) fl RDW Coeff of Amanda (11.0-15.0) % Plt Count (150-400) K/uL MPV (7.40-12.00) fL Neut % (Auto) (48.0-80.0) % Lymph % (Auto) (16.0-40.0) % [place] % (Auto) (0.0-15.0) % Eos % (Auto) (0.0-7.0) % Baso % (Auto) (0.0-1.5) % Neut # (Auto) (1.4-5.7) K/uL Lymph # (Auto) (0.6-2.4) K/uL [place] # (Auto) (0.0-0.8) K/uL Eos # (Auto) (0.0-0.7) K/uL Baso # (Auto) (0.0-0.1) K/uL Nucleated RBC % /100WBC Nucleated RBCs # K/uL Sodium (136-145) mmol/L Potassium (3.5-5.1) mmol/L Chloride (98-107) mmol/L Carbon Dioxide (21.0-32.0) mmol/L BUN (7.0-18.0) mg/dL Creatinine (0.6-1.0) mg/dL Est Cr Clr Drug Dosing mL/min Estimated GFR (MDRD) ml/min Glucose (74-106) mg/dL POC Glucose 96 75 96 (60-110) mg/dL Hemoglobin A1c (4.5-6.2) % Calcium (8.5-10.1) mg/dL Phosphorus (2.6-4.7) mg/dL Magnesium (1.8-2.4) mg/dL Total Bilirubin (0.2-1.0) mg/dL AST (15-37) IU/L ALT (14-63) IU/L Alkaline Phosphatase (46-116) U/L Total Protein (6.4-8.2) g/dL Albumin (3.4-5.0) g/dL Globulin (2.6-4.0) g/dL Albumin/Globulin Ratio (0.9-1.6) Prealbumin (17.0-34.0) mg/dL Ketones (NEG) 07/13/18 07/13/18 07/13/18 Range/Units 01:25 02:15 04:31 WBC (4.0-11.0) K/uL RBC (4.30-5.90) M/uL Hgb (12.0-16.0) g/dL Hct (36.0-46.0) % MCV (80.0-98.0) fL MCH (27.0-32.0) pg MCHC (31.0-37.0) g/dL RDW Std Deviation (28.0-62.0) fl RDW Coeff of Amanda (11.0-15.0) % Plt Count (150-400) K/uL MPV (7.40-12.00) fL Neut % (Auto) (48.0-80.0) % Lymph % (Auto) (16.0-40.0) % [place] % (Auto) (0.0-15.0) % Eos % (Auto) (0.0-7.0) % Baso % (Auto) (0.0-1.5) % Neut # (Auto) (1.4-5.7) K/uL Lymph # (Auto) (0.6-2.4) K/uL [place] # (Auto) (0.0-0.8) K/uL Eos # (Auto) (0.0-0.7) K/uL Baso # (Auto) (0.0-0.1) K/uL Nucleated RBC % /100WBC Nucleated RBCs # K/uL Sodium (136-145) mmol/L Potassium (3.5-5.1) mmol/L Chloride (98-107) mmol/L Carbon Dioxide (21.0-32.0) mmol/L BUN (7.0-18.0) mg/dL Creatinine (0.6-1.0) mg/dL Est Cr Clr Drug Dosing mL/min Estimated GFR (MDRD) ml/min Glucose (74-106) mg/dL POC Glucose 94 100 126 H (60-110) mg/dL Hemoglobin A1c (4.5-6.2) % Calcium (8.5-10.1) mg/dL Phosphorus (2.6-4.7) mg/dL Magnesium (1.8-2.4) mg/dL Total Bilirubin (0.2-1.0) mg/dL AST (15-37) IU/L ALT (14-63) IU/L Alkaline Phosphatase (46-116) U/L Total Protein (6.4-8.2) g/dL Albumin (3.4-5.0) g/dL Globulin (2.6-4.0) g/dL Albumin/Globulin Ratio (0.9-1.6) Prealbumin (17.0-34.0) mg/dL Ketones (NEG) 07/13/18 07/13/18 07/13/18 Range/Units 05:43 05:43 06:05 WBC 8.47 (4.0-11.0) K/uL RBC 4.01 L (4.30-5.90) M/uL Hgb 12.9 (12.0-16.0) g/dL Hct 38.0 (36.0-46.0) % MCV 94.8 (80.0-98.0) fL MCH 32.2 H (27.0-32.0) pg MCHC 33.9 (31.0-37.0) g/dL RDW Std Deviation 48.3 (28.0-62.0) fl RDW Coeff of Amanda 14 (11.0-15.0) % Plt Count 210 (150-400) K/uL MPV 10.80 (7.40-12.00) fL Neut % (Auto) 74.0 (48.0-80.0) % Lymph % (Auto) 13.3 L (16.0-40.0) % [place] % (Auto) 11.7 (0.0-15.0) % Eos % (Auto) 0.8 (0.0-7.0) % Baso % (Auto) 0.2 (0.0-1.5) % Neut # (Auto) 6.3 H (1.4-5.7) K/uL Lymph # (Auto) 1.1 (0.6-2.4) K/uL [place] # (Auto) 1.0 H (0.0-0.8) K/uL Eos # (Auto) 0.1 (0.0-0.7) K/uL Baso # (Auto) 0.0 (0.0-0.1) K/uL Nucleated RBC % 0.0 /100WBC Nucleated RBCs # 0 K/uL Sodium 142 (136-145) mmol/L Potassium 3.2 L (3.5-5.1) mmol/L Chloride 115 H (98-107) mmol/L Carbon Dioxide 12.4 L (21.0-32.0) mmol/L BUN 4 L (7.0-18.0) mg/dL Creatinine 0.6 (0.6-1.0) mg/dL Est Cr Clr Drug Dosing 95.82 mL/min Estimated GFR (MDRD) > 60.0 ml/min Glucose 147 H (74-106) mg/dL POC Glucose 148 H (60-110) mg/dL Hemoglobin A1c (4.5-6.2) % Calcium 9.1 (8.5-10.1) mg/dL Phosphorus (2.6-4.7) mg/dL Magnesium 1.9 (1.8-2.4) mg/dL Total Bilirubin 0.3 (0.2-1.0) mg/dL AST 28 (15-37) IU/L ALT 10 L (14-63) IU/L Alkaline Phosphatase 115 (46-116) U/L Total Protein 5.7 L (6.4-8.2) g/dL Albumin 1.3 L (3.4-5.0) g/dL Globulin 4.4 H (2.6-4.0) g/dL Albumin/Globulin Ratio 0.3 L (0.9-1.6) Prealbumin (17.0-34.0) mg/dL Ketones (NEG) 07/13/18 07/13/18 07/13/18 Range/Units 07:58 09:15 09:51 WBC (4.0-11.0) K/uL RBC (4.30-5.90) M/uL Hgb (12.0-16.0) g/dL Hct (36.0-46.0) % MCV (80.0-98.0) fL MCH (27.0-32.0) pg MCHC (31.0-37.0) g/dL RDW Std Deviation (28.0-62.0) fl RDW Coeff of Amanda (11.0-15.0) % Plt Count (150-400) K/uL MPV (7.40-12.00) fL Neut % (Auto) (48.0-80.0) % Lymph % (Auto) (16.0-40.0) % [place] % (Auto) (0.0-15.0) % Eos % (Auto) (0.0-7.0) % Baso % (Auto) (0.0-1.5) % Neut # (Auto) (1.4-5.7) K/uL Lymph # (Auto) (0.6-2.4) K/uL [place] # (Auto) (0.0-0.8) K/uL Eos # (Auto) (0.0-0.7) K/uL Baso # (Auto) (0.0-0.1) K/uL Nucleated RBC % /100WBC Nucleated RBCs # K/uL Sodium (136-145) mmol/L Potassium (3.5-5.1) mmol/L Chloride (98-107) mmol/L Carbon Dioxide (21.0-32.0) mmol/L BUN (7.0-18.0) mg/dL Creatinine (0.6-1.0) mg/dL Est Cr Clr Drug Dosing mL/min Estimated GFR (MDRD) ml/min Glucose (74-106) mg/dL POC Glucose 108 104 (60-110) mg/dL Hemoglobin A1c (4.5-6.2) % Calcium (8.5-10.1) mg/dL Phosphorus 2.2 L (2.6-4.7) mg/dL Magnesium (1.8-2.4) mg/dL Total Bilirubin (0.2-1.0) mg/dL AST (15-37) IU/L ALT (14-63) IU/L Alkaline Phosphatase (46-116) U/L Total Protein (6.4-8.2) g/dL Albumin (3.4-5.0) g/dL Globulin (2.6-4.0) g/dL Albumin/Globulin Ratio (0.9-1.6) Prealbumin (17.0-34.0) mg/dL Ketones (NEG) 07/13/18 Range/Units 11:17 WBC (4.0-11.0) K/uL RBC (4.30-5.90) M/uL Hgb (12.0-16.0) g/dL Hct (36.0-46.0) % MCV (80.0-98.0) fL MCH (27.0-32.0) pg MCHC (31.0-37.0) g/dL RDW Std Deviation (28.0-62.0) fl RDW Coeff of Amanda (11.0-15.0) % Plt Count (150-400) K/uL MPV (7.40-12.00) fL Neut % (Auto) (48.0-80.0) % Lymph % (Auto) (16.0-40.0) % [place] % (Auto) (0.0-15.0) % Eos % (Auto) (0.0-7.0) % Baso % (Auto) (0.0-1.5) % Neut # (Auto) (1.4-5.7) K/uL Lymph # (Auto) (0.6-2.4) K/uL [place] # (Auto) (0.0-0.8) K/uL Eos # (Auto) (0.0-0.7) K/uL Baso # (Auto) (0.0-0.1) K/uL Nucleated RBC % /100WBC Nucleated RBCs # K/uL Sodium (136-145) mmol/L Potassium (3.5-5.1) mmol/L Chloride (98-107) mmol/L Carbon Dioxide (21.0-32.0) mmol/L BUN (7.0-18.0) mg/dL Creatinine (0.6-1.0) mg/dL Est Cr Clr Drug Dosing mL/min Estimated GFR (MDRD) ml/min Glucose (74-106) mg/dL POC Glucose 109 (60-110) mg/dL Hemoglobin A1c (4.5-6.2) % Calcium (8.5-10.1) mg/dL Phosphorus (2.6-4.7) mg/dL Magnesium (1.8-2.4) mg/dL Total Bilirubin (0.2-1.0) mg/dL AST (15-37) IU/L ALT (14-63) IU/L Alkaline Phosphatase (46-116) U/L Total Protein (6.4-8.2) g/dL Albumin (3.4-5.0) g/dL Globulin (2.6-4.0) g/dL Albumin/Globulin Ratio (0.9-1.6) Prealbumin (17.0-34.0) mg/dL Ketones (NEG) Epifanio Results Last 24 Hours: Microbiology 07/11/18 13:30 Urine Culture - Preliminary Urine, Catheterized 07/12/18 00:50 Aerobic Blood Culture - Preliminary Blood - Venous - Lab Draw NO GROWTH AFTER 1 DAY Anaerobic Blood Culture - Preliminary NO GROWTH AFTER 1 DAY 07/12/18 00:40 Aerobic Blood Culture - Preliminary Blood - Venous NO GROWTH AFTER 1 DAY Anaerobic Blood Culture - Final Med Orders - Current: Current Medications Amitriptyline HCl (Elavil) 50 mg PO DAILY [facility] Last Admin: 07/13/18 09:05 Dose: 50 mg Divalproex Sodium (Depakote Er) 500 mg PO BID [facility] Last Admin: 07/13/18 09:06 Dose: 500 mg Docusate Sodium (Colace) 100 mg PO BID PRN PRN Reason: Constipation Folic Acid (Folic Acid) 1 mg PO DAILY [facility] Last Admin: 07/13/18 09:05 Dose: 1 mg Folic Acid (Folic Acid) 1 mg SUBCUT DAILY [facility] Last Admin: 07/13/18 09:06 Dose: 1 mg Gabapentin (Neurontin) 1,200 mg PO TID [facility] Last Admin: 07/13/18 06:08 Dose: Not Given Heparin Sodium (Porcine) (Heparin Sodium) 5,000 units SUBCUT Q8H [facility] Last Admin: 07/13/18 06:49 Dose: 5,000 units Ceftriaxone Sodium 1 gm/ (Sodium Chloride) 50 mls @ 100 mls/hr IV Q24H [facility] Last Admin: 07/13/18 01:07 Dose: 100 mls/hr Dextrose/Sodium Chloride (Dextrose 5%-Normal Saline) 1,000 mls @ 125 mls/hr IV ASDIRECTED [facility] Last Admin: 07/13/18 11:24 Dose: 125 mls/hr Mirtazapine (Remeron) 45 mg PO BEDTIME [facility] Last Admin: 07/12/18 22:06 Dose: Not Given Omeprazole (Omeprazole) 20 mg PO ACBREAKFAST [facility] Last Admin: 07/13/18 06:49 Dose: Not Given Ondansetron HCl (Zofran) 4 mg IVPUSH Q4H PRN PRN Reason: Nausea/Vomiting Oxybutynin Chloride ([Ditropan Xl] 10 Mg) 1 each PO DAILY [facility] Last Admin: 07/13/18 09:24 Dose: Not Given Methocarbamol [ Methocarbamol] 750 Mg 1 each PO TID [facility] Last Admin: 07/13/18 06:08 Dose: Not Given Potassium Chloride (Klor-Con M20) 40 meq PO BID [facility] Last Admin: 07/13/18 09:06 Dose: 40 meq Sodium Chloride (Saline Flush) 10 ml FLUSH ASDIRECTED PRN PRN Reason: Keep Vein Open Sodium Chloride (Saline Flush) 2.5 ml FLUSH ASDIRECTED PRN PRN Reason: Keep Vein Open Spironolactone (Aldactone) 25 mg PO BID [facility] Last Admin: 07/13/18 09:06 Dose: 25 mg Temazepam (Restoril) 15 mg PO BEDTIME PRN PRN Reason: Sleep Thiamine HCl (Vitamin B-1) 100 mg IV DAILY [facility] Last Admin: 07/13/18 09:07 Dose: 100 mg Venlafaxine HCl (Effexor Xr) 150 mg PO BID [facility] Last Admin: 07/13/18 09:05 Dose: 150 mg Discontinued Medications Dextrose/Water (Dextrose 50% In Water) 50 ml IVPUSH ONETIME ONE Stop: 07/12/18 08:35 Last Admin: 07/12/18 08:58 Dose: 50 ml Sodium Chloride (Normal Saline) 1,000 mls @ 999 mls/hr IV .Bolus ONE Stop: 07/11/18 13:49 Last Admin: 07/11/18 13:10 Dose: 999 mls/hr Sodium Chloride (Normal Saline) 1,000 mls @ 125 mls/hr IV ASDIRECTED [facility] Last Admin: 07/12/18 09:01 Dose: 125 mls/hr Ceftriaxone Sodium/Dextrose 1 (gm/ Premix) 50 mls @ 100 mls/hr IV ONETIME ONE Stop: 07/12/18 00:37 Last Admin: 07/12/18 01:08 Dose: 100 mls/hr Sodium Chloride (Normal Saline) 1,000 mls @ 999 mls/hr IV ONETIME ONE Stop: 07/12/18 01:09 Last Admin: 07/12/18 01:10 Dose: 999 mls/hr Magnesium Sulfate 4 gm/ Premix 100 mls @ 25 mls/hr IV ONETIME ONE Stop: 07/12/18 12:34 Last Admin: 07/12/18 08:58 Dose: 25 mls/hr Levofloxacin/Dextrose 750 mg/ (Premix) 150 mls @ 100 mls/hr IV Q24H [facility] Last Admin: 07/12/18 11:23 Dose: Not Given Levofloxacin/Dextrose 750 mg/ (Premix) 150 mls @ 100 mls/hr IV Q24H [facility] Dextrose/Sodium Chloride (Dextrose 5%-1/2 Ns) 1,000 mls @ 125 mls/hr IV ASDIRECTED [facility] Sodium Phosphate 15 mmole/ (Sodium Chloride) 105 mls @ 52.5 mls/hr IV Q2H [facility] Stop: 07/12/18 21:29 Last Admin: 07/12/18 21:12 Dose: 52.5 mls/hr Mirtazapine (Remeron) 45 mg PO DAILY [facility] Morphine Sulfate (Morphine) 2 mg IVPUSH Q2H PRN PRN Reason: Pain (severe 7-10) Stop: 07/12/18 14:52 Last Admin: 07/11/18 20:36 Dose: 2 mg Morphine Sulfate (Morphine) 2 mg IVPUSH Q2H PRN PRN Reason: Pain (severe 7-10) Stop: 07/12/18 14:52 Non-Formulary Medication (Amitriptyline Hcl [Amitriptyline Hcl]) 50 mg PO DAILY [facility] Non-Formulary Medication (Gabapentin [Gralise]) 1,200 mg PO TID [facility] Last Admin: 07/12/18 05:13 Dose: Not Given Non-Formulary Medication (Methocarbamol [Methocarbamol]) 750 mg PO TID [facility] Last Admin: 07/12/18 05:13 Dose: Not Given Non-Formulary Medication (Mirtazapine [Mirtazapine]) 45 mg PO DAILY [facility] Non-Formulary Medication (Oxybutynin Chloride [Ditropan Xl]) 10 mg PO DAILY [facility] Non-Formulary Medication (Valproic Acid) 500 mg PO BID [facility] Last Admin: 07/11/18 21:08 Dose: Not Given Non-Formulary Medication (Venlafaxine Hcl [Venlafaxine Hcl Er]) 150 mg PO BID [facility] Last Admin: 07/11/18 21:08 Dose: Not Given Sodium Phosphate (Sodium Phosphate) 15 mmole IV ONETIME ONE Stop: 07/12/18 19:08 - Exam Quality Assessment: Supplemental Oxygen General: Alert, Cooperative, No Acute Distress Lungs: Clear to Auscultation, Normal Respiratory Effort Cardiovascular: Regular Rate, Regular Rhythm GI/Abdominal Exam: Normal Bowel Sounds, Soft - Problem List Review Problem List Initiated/Reviewed/Updated: Yes - My Orders Last 24 Hours: My Active Orders 07/12/18 11:30 Blood Glucose Check, Bedside [RC] Q1H 07/12/18 16:30 Dextrose 5%-0.9% NaCl [Dextrose 5%-Normal Saline] 1,000 ml IV ASDIRECTED 07/12/18 17:25 B-HYDROXYBUTYRATE [REF] Routine 07/13/18 01:00 cefTRIAXone [Rocephin] 1 gm Sodium Chloride 0.9% [Normal Saline] 50 ml IV Q24H 07/13/18 09:00 Potassium Chloride [Klor-Con M20] 40 meq PO BID 07/13/18 09:34 Consult to Pin Puller [CONS] Routine 07/13/18 10:08 PT Evaluation and Treatment [CONS] Routine 07/13/18 Lunch Clear Liquid Diet [DIET] - Plan Plan:: This is a 42-year-old female that is admitted secondary to somnolence likely in the setting of starvation ketosis due to severe malnutrition. Patient has a significant and complex medical history secondary to traumatic brain injury. Patient is awake and somewhat alert today not oriented, is able to answer some questions but does not appear to comprehend most of what is being asked of her Evans. Problems: #1. WBC has normalized, UA indicating UTI, Ucx indicating enterococcus awaiting M.I.C. -Patient on ceftriaxone 1 g every 24 hours, shall await sensitivities Patient status continues to be monitored #2. Altered mental status is improving, her status is in the setting of past medical history of traumatic brain injury, dehydration, possible infection, hypoglycemia -Shall continue to watch the patient's status, she is awake and alert which is a significant change from yesterday when she was somnolent and not responsive. Likely the improvement is secondary to her improvement of her starvation ketosis. #3. Severe malnutrition -Patient isn't starvation ketosis as a result of her severe malnutrition. Consultation of the dietitian has been done. -After speaking with the patient's it is clear the patient is not taking the appropriate caloric intake for her needs despite the best efforts from her and family. #4. Starvation ketoacidosis -Patient starvation ketosis does appear to be improving after receiving D5 normal saline fluids, her hypoglycemia has also improved -Shall continue to monitor #5. Hypomagnesemia, hypokalemia, hypophosphatemia -Patient's magnesium level has normalized, patient does have hypokalemia for which she is having her potassium replaced, and she still has hypophosphatemia for which she will have her phosphorus levels replaced.
[2018-07-13] MEDS: Phosphorus #1 250 MG Tab PO SCH ×2 (13:42→19:40)
[2018-07-13] MEDS: Mirtazapine 15 MG Tab PO SCH (21:27)
[2018-07-14] MEDS: Phosphorus #1 250 MG Tab PO SCH ×5 (00:51→18:46)
[2018-07-14] MEDS: cefTRIAXone 1 GM in Sodium Chloride 0.9% 50 ML IV SCH (00:51)
[2018-07-14 05:45] LABS: CHLORIDE,CL 110 mmol/L (98-107); SODIUM,NA 140 mmol/L (136-145)
[2018-07-14] MEDS: Heparin Sodium 5,000 Units/ML Vial SUBCUT SCH ×3 (06:33→23:00)
[2018-07-14] MEDS: METHOCARBAMOL 750 MG PO SCH ×3 (06:34→21:17)
[2018-07-14] MEDS: Omeprazole 20 MG Cap.CR PO SCH (06:34)
[2018-07-14] MEDS: Gabapentin 300 MG Cap PO SCH ×3 (06:34→21:07)
[2018-07-14] MEDS ORDERED: Potassium Chloride 20 MEQ Tab.ER PO ONE (08:49)
[2018-07-14] MEDS ORDERED: Magnesium Sulfate/Water 4 GM in Premix Bag 1 BAG IV ONE (10:07)
[2018-07-14] MEDS: Potassium Chloride 20 MEQ Tab.ER PO SCH ×2 (10:39→20:35)
[2018-07-14] MEDS: Spironolactone 25 MG Tab PO SCH ×2 (10:40→20:35)
[2018-07-14] MEDS: Amitriptyline 25 MG Tab PO SCH (10:41)
[2018-07-14] MEDS: Venlafaxine 75 MG Cap.ER PO SCH ×2 (10:42→20:35)
[2018-07-14] MEDS: Thiamine 200 MG/2 ML MDV IV SCH (10:43)
[2018-07-14] MEDS: Divalproex Sodium 500 MG Tab.ER PO SCH ×2 (10:43→20:35)
[2018-07-14] MEDS: Folic Acid 50 MG/10 ML MDV SUBCUT SCH (10:43)
[2018-07-14] MEDS: Folic Acid 1 MG Tab PO SCH (10:44)
[2018-07-14] MEDS: OXYBUTYNIN CHLORIDE 10 MG PO SCH (10:46)
--- NOTE | 2018-07-14 12:36 | PCM.PN ---
- General Info Date of Service: 07/14/18 Subjective Update: Patient is more verbal and communicative today, complaining of wanting her urinary catheter removed as well as some pain in her buttocks area. Patient is also demanding to want to go home. - Patient Data Vitals - Most Recent: Last Vital Signs Temp 36.4 C 07/14/18 12:29 Pulse 106 H 07/14/18 12:29 Resp 16 07/14/18 12:29 BP 144/96 H 07/14/18 12:29 Pulse Ox 100 07/14/18 12:29 Weight - Most Recent: 48.7 kg I&O - Last 24 Hours: Intake & Output 07/13/18 07/14/18 07/14/18 22:59 06:59 14:59 Intake Total 2879 100 Output Total 725 750 Balance 2154 -650 Lab Results Last 24 Hours: Laboratory Results - last 24 hr 07/12/18 07/13/18 07/13/18 Range/Units 17:25 16:12 20:52 WBC (4.0-11.0) K/uL RBC (4.30-5.90) M/uL Hgb (12.0-16.0) g/dL Hct (36.0-46.0) % MCV (80.0-98.0) fL MCH (27.0-32.0) pg MCHC (31.0-37.0) g/dL RDW Std Deviation (28.0-62.0) fl RDW Coeff of Amanda (11.0-15.0) % Plt Count (150-400) K/uL MPV (7.40-12.00) fL Neut % (Auto) (48.0-80.0) % Lymph % (Auto) (16.0-40.0) % [place] % (Auto) (0.0-15.0) % Eos % (Auto) (0.0-7.0) % Baso % (Auto) (0.0-1.5) % Neut # (Auto) (1.4-5.7) K/uL Lymph # (Auto) (0.6-2.4) K/uL [place] # (Auto) (0.0-0.8) K/uL Eos # (Auto) (0.0-0.7) K/uL Baso # (Auto) (0.0-0.1) K/uL Nucleated RBC % /100WBC Nucleated RBCs # K/uL Sodium (136-145) mmol/L Potassium (3.5-5.1) mmol/L Chloride (98-107) mmol/L Carbon Dioxide (21.0-32.0) mmol/L BUN (7.0-18.0) mg/dL Creatinine (0.6-1.0) mg/dL Est Cr Clr Drug Dosing mL/min Estimated GFR (MDRD) ml/min Glucose (74-106) mg/dL POC Glucose 130 H 109 (60-110) mg/dL Calcium (8.5-10.1) mg/dL Phosphorus (2.6-4.7) mg/dL Magnesium (1.8-2.4) mg/dL Total Bilirubin (0.2-1.0) mg/dL AST (15-37) IU/L ALT (14-63) IU/L Alkaline Phosphatase (46-116) U/L Total Protein (6.4-8.2) g/dL Albumin (3.4-5.0) g/dL Globulin (2.6-4.0) g/dL Albumin/Globulin Ratio (0.9-1.6) B-Hydroxybutyrate 7.2 H* (0.0-0.2) mmol/L 07/14/18 07/14/18 07/14/18 Range/Units 05:20 05:20 06:29 WBC 6.59 (4.0-11.0) K/uL RBC 3.50 L (4.30-5.90) M/uL Hgb 11.2 L (12.0-16.0) g/dL Hct 32.4 L (36.0-46.0) % MCV 92.6 (80.0-98.0) fL MCH 32.0 (27.0-32.0) pg MCHC 34.6 (31.0-37.0) g/dL RDW Std Deviation 46.2 (28.0-62.0) fl RDW Coeff of Amanda 14 (11.0-15.0) % Plt Count 240 (150-400) K/uL MPV 10.80 (7.40-12.00) fL Neut % (Auto) 56.3 (48.0-80.0) % Lymph % (Auto) 31.4 (16.0-40.0) % [place] % (Auto) 9.4 (0.0-15.0) % Eos % (Auto) 2.4 (0.0-7.0) % Baso % (Auto) 0.5 (0.0-1.5) % Neut # (Auto) 3.7 (1.4-5.7) K/uL Lymph # (Auto) 2.1 (0.6-2.4) K/uL [place] # (Auto) 0.6 (0.0-0.8) K/uL Eos # (Auto) 0.2 (0.0-0.7) K/uL Baso # (Auto) 0.0 (0.0-0.1) K/uL Nucleated RBC % 0.0 /100WBC Nucleated RBCs # 0 K/uL Sodium 140 (136-145) mmol/L Potassium 2.7 L (3.5-5.1) mmol/L Chloride 110 H (98-107) mmol/L Carbon Dioxide 18.9 L (21.0-32.0) mmol/L BUN 1 L (7.0-18.0) mg/dL Creatinine 0.5 L (0.6-1.0) mg/dL Est Cr Clr Drug Dosing 114.99 mL/min Estimated GFR (MDRD) > 60.0 ml/min Glucose 116 H (74-106) mg/dL POC Glucose 105 (60-110) mg/dL Calcium 9.0 (8.5-10.1) mg/dL Phosphorus 3.0 (2.6-4.7) mg/dL Magnesium 1.4 L (1.8-2.4) mg/dL Total Bilirubin 0.4 (0.2-1.0) mg/dL AST 29 (15-37) IU/L ALT 12 L (14-63) IU/L Alkaline Phosphatase 107 (46-116) U/L Total Protein 5.5 L (6.4-8.2) g/dL Albumin 1.2 L (3.4-5.0) g/dL Globulin 4.3 H (2.6-4.0) g/dL Albumin/Globulin Ratio 0.3 L (0.9-1.6) B-Hydroxybutyrate (0.0-0.2) mmol/L 07/14/18 Range/Units 11:36 WBC (4.0-11.0) K/uL RBC (4.30-5.90) M/uL Hgb (12.0-16.0) g/dL Hct (36.0-46.0) % MCV (80.0-98.0) fL MCH (27.0-32.0) pg MCHC (31.0-37.0) g/dL RDW Std Deviation (28.0-62.0) fl RDW Coeff of Amanda (11.0-15.0) % Plt Count (150-400) K/uL MPV (7.40-12.00) fL Neut % (Auto) (48.0-80.0) % Lymph % (Auto) (16.0-40.0) % [place] % (Auto) (0.0-15.0) % Eos % (Auto) (0.0-7.0) % Baso % (Auto) (0.0-1.5) % Neut # (Auto) (1.4-5.7) K/uL Lymph # (Auto) (0.6-2.4) K/uL [place] # (Auto) (0.0-0.8) K/uL Eos # (Auto) (0.0-0.7) K/uL Baso # (Auto) (0.0-0.1) K/uL Nucleated RBC % /100WBC Nucleated RBCs # K/uL Sodium (136-145) mmol/L Potassium (3.5-5.1) mmol/L Chloride (98-107) mmol/L Carbon Dioxide (21.0-32.0) mmol/L BUN (7.0-18.0) mg/dL Creatinine (0.6-1.0) mg/dL Est Cr Clr Drug Dosing mL/min Estimated GFR (MDRD) ml/min Glucose (74-106) mg/dL POC Glucose 98 (60-110) mg/dL Calcium (8.5-10.1) mg/dL Phosphorus (2.6-4.7) mg/dL Magnesium (1.8-2.4) mg/dL Total Bilirubin (0.2-1.0) mg/dL AST (15-37) IU/L ALT (14-63) IU/L Alkaline Phosphatase (46-116) U/L Total Protein (6.4-8.2) g/dL Albumin (3.4-5.0) g/dL Globulin (2.6-4.0) g/dL Albumin/Globulin Ratio (0.9-1.6) B-Hydroxybutyrate (0.0-0.2) mmol/L Epifanio Results Last 24 Hours: Microbiology 07/11/18 13:30 Urine Culture - Final Urine, Catheterized Enterococcus Faecalis 07/12/18 00:50 Aerobic Blood Culture - Preliminary Blood - Venous - Lab Draw NO GROWTH AFTER 2 DAYS Anaerobic Blood Culture - Preliminary NO GROWTH AFTER 2 DAYS 07/12/18 00:40 Aerobic Blood Culture - Preliminary Blood - Venous NO GROWTH AFTER 2 DAYS Anaerobic Blood Culture - Final Med Orders - Current: Current Medications Amitriptyline HCl (Elavil) 50 mg PO DAILY [facility] Last Admin: 07/14/18 10:41 Dose: 50 mg Divalproex Sodium (Depakote Er) 500 mg PO BID [facility] Last Admin: 07/14/18 10:43 Dose: 500 mg Docusate Sodium (Colace) 100 mg PO BID PRN PRN Reason: Constipation Folic Acid (Folic Acid) 1 mg SUBCUT DAILY [facility] Last Admin: 07/14/18 10:43 Dose: 1 mg Gabapentin (Neurontin) 1,200 mg PO TID [facility] Last Admin: 07/14/18 06:34 Dose: Not Given Heparin Sodium (Porcine) (Heparin Sodium) 5,000 units SUBCUT Q8H [facility] Last Admin: 07/14/18 06:33 Dose: 5,000 units Ceftriaxone Sodium 1 gm/ (Sodium Chloride) 50 mls @ 100 mls/hr IV Q24H [facility] Last Admin: 07/14/18 00:51 Dose: 100 mls/hr Dextrose/Sodium Chloride (Dextrose 5%-Normal Saline) 1,000 mls @ 125 mls/hr IV ASDIRECTED [facility] Last Admin: 07/13/18 19:51 Dose: 125 mls/hr Magnesium Sulfate 4 gm/ Premix 100 mls @ 25 mls/hr IV ONETIME ONE Stop: 07/14/18 14:06 Last Admin: 07/14/18 10:43 Dose: 25 mls/hr Mirtazapine (Remeron) 45 mg PO BEDTIME [facility] Last Admin: 07/13/18 21:27 Dose: Not Given Omeprazole (Omeprazole) 20 mg PO ACBREAKFAST [facility] Last Admin: 07/14/18 06:34 Dose: Not Given Ondansetron HCl (Zofran) 4 mg IVPUSH Q4H PRN PRN Reason: Nausea/Vomiting Oxybutynin Chloride ([Ditropan Xl] 10 Mg) 1 each PO DAILY [facility] Last Admin: 07/14/18 10:46 Dose: Not Given Methocarbamol [ Methocarbamol] 750 Mg 1 each PO TID [facility] Last Admin: 07/14/18 06:34 Dose: Not Given Potassium Chloride (Klor-Con M20) 40 meq PO BID [facility] Last Admin: 07/14/18 10:39 Dose: 40 meq Sodium Chloride (Saline Flush) 10 ml FLUSH ASDIRECTED PRN PRN Reason: Keep Vein Open Sodium Chloride (Saline Flush) 2.5 ml FLUSH ASDIRECTED PRN PRN Reason: Keep Vein Open Sodium Phosphate (Neutra-Phos) 250 mg PO QID [facility] Last Admin: 07/14/18 06:34 Dose: Not Given Spironolactone (Aldactone) 25 mg PO BID [facility] Last Admin: 07/14/18 10:40 Dose: 25 mg Temazepam (Restoril) 15 mg PO BEDTIME PRN PRN Reason: Sleep Thiamine HCl (Vitamin B-1) 100 mg IV DAILY [facility] Last Admin: 07/14/18 10:43 Dose: 100 mg Venlafaxine HCl (Effexor Xr) 150 mg PO BID [facility] Last Admin: 07/14/18 10:42 Dose: 150 mg Discontinued Medications Dextrose/Water (Dextrose 50% In Water) 50 ml IVPUSH ONETIME ONE Stop: 07/12/18 08:35 Last Admin: 07/12/18 08:58 Dose: 50 ml Folic Acid (Folic Acid) 1 mg PO DAILY [facility] Last Admin: 07/14/18 10:44 Dose: Not Given Sodium Chloride (Normal Saline) 1,000 mls @ 999 mls/hr IV .Bolus ONE Stop: 07/11/18 13:49 Last Admin: 07/11/18 13:10 Dose: 999 mls/hr Sodium Chloride (Normal Saline) 1,000 mls @ 125 mls/hr IV ASDIRECTED [facility] Last Admin: 07/12/18 09:01 Dose: 125 mls/hr Ceftriaxone Sodium/Dextrose 1 (gm/ Premix) 50 mls @ 100 mls/hr IV ONETIME ONE Stop: 07/12/18 00:37 Last Admin: 07/12/18 01:08 Dose: 100 mls/hr Sodium Chloride (Normal Saline) 1,000 mls @ 999 mls/hr IV ONETIME ONE Stop: 07/12/18 01:09 Last Admin: 07/12/18 01:10 Dose: 999 mls/hr Magnesium Sulfate 4 gm/ Premix 100 mls @ 25 mls/hr IV ONETIME ONE Stop: 07/12/18 12:34 Last Admin: 07/12/18 08:58 Dose: 25 mls/hr Levofloxacin/Dextrose 750 mg/ (Premix) 150 mls @ 100 mls/hr IV Q24H [facility] Last Admin: 07/12/18 11:23 Dose: Not Given Levofloxacin/Dextrose 750 mg/ (Premix) 150 mls @ 100 mls/hr IV Q24H [facility] Dextrose/Sodium Chloride (Dextrose 5%-1/2 Ns) 1,000 mls @ 125 mls/hr IV ASDIRECTED [facility] Sodium Phosphate 15 mmole/ (Sodium Chloride) 105 mls @ 52.5 mls/hr IV Q2H [facility] Stop: 07/12/18 21:29 Last Admin: 07/12/18 21:12 Dose: 52.5 mls/hr Mirtazapine (Remeron) 45 mg PO DAILY [facility] Morphine Sulfate (Morphine) 2 mg IVPUSH Q2H PRN PRN Reason: Pain (severe 7-10) Stop: 07/12/18 14:52 Last Admin: 07/11/18 20:36 Dose: 2 mg Morphine Sulfate (Morphine) 2 mg IVPUSH Q2H PRN PRN Reason: Pain (severe 7-10) Stop: 07/12/18 14:52 Non-Formulary Medication (Amitriptyline Hcl [Amitriptyline Hcl]) 50 mg PO DAILY [facility] Non-Formulary Medication (Gabapentin [Gralise]) 1,200 mg PO TID [facility] Last Admin: 07/12/18 05:13 Dose: Not Given Non-Formulary Medication (Methocarbamol [Methocarbamol]) 750 mg PO TID [facility] Last Admin: 07/12/18 05:13 Dose: Not Given Non-Formulary Medication (Mirtazapine [Mirtazapine]) 45 mg PO DAILY [facility] Non-Formulary Medication (Oxybutynin Chloride [Ditropan Xl]) 10 mg PO DAILY [facility] Non-Formulary Medication (Valproic Acid) 500 mg PO BID [facility] Last Admin: 07/11/18 21:08 Dose: Not Given Non-Formulary Medication (Venlafaxine Hcl [Venlafaxine Hcl Er]) 150 mg PO BID [facility] Last Admin: 07/11/18 21:08 Dose: Not Given Potassium Chloride (Klor-Con M20) 40 meq PO ONETIME ONE Stop: 07/14/18 08:50 Last Admin: 07/14/18 10:45 Dose: 40 meq Sodium Phosphate (Sodium Phosphate) 15 mmole IV ONETIME ONE Stop: 07/12/18 19:08 - Exam General: Alert Lungs: Clear to Auscultation, Normal Respiratory Effort Cardiovascular: Regular Rate, Regular Rhythm (Female) Exam: Other (Stage I pressure ulcers seen bilaterally on the buttocks) Extremities: Normal Inspection - Problem List Review Problem List Initiated/Reviewed/Updated: Yes - My Orders Last 24 Hours: My Active Orders 07/13/18 12:00 Phosphorus #1 [Neutra-Phos] 250 mg PO QID 07/14/18 10:06 Pressure Ulcer Assessment [RC] .As Directed Urinary Catheter Removal [RC] Per Unit Routine Pressure Ulcer Prevention [OM.PC] Routine 07/14/18 10:07 Magnesium Sulfate/Water [Magnesium Sulfate 4 GM in Water 100 ML] 4 gm Premix Bag 1 bag IV ONETIME 07/14/18 Dinner Advance Diet Instructions [DIET] 07/14/18 Lunch Regular Diet [DIET] - Plan Plan:: This is a 42-year-old female that is admitted secondary to somnolence likely in the setting of starvation ketosis due to severe malnutrition. Patient has a significant and complex medical history secondary to traumatic brain injury. Patient is awake and somewhat alert today not oriented, is able to answer some questions but does not appear to comprehend most of what is being asked of her Evans. Problems: #1. WBC has normalized, UA indicating UTI, Ucx indicating enterococcus M.I.C. indicating sensitivity to penicillin as well as ceftriaxone -Patient on ceftriaxone 1 g every 24 hours -Upon discharge she'll switch the patient over to penicillin #2. Altered mental status is improving, her status is in the setting of past medical history of traumatic brain injury, dehydration, possible infection, hypoglycemia -Shall continue to watch the patient's status, she is awake and alert and much more than even yesterday is more communicative and talkative demanded to go home however is not understanding of her disease process including her severe malnutrition and weakness #3. Severe malnutrition -Dietitian has spoken with the patient and her and has given instructions as far as nutritional supplementation to be done. #4. Starvation ketoacidosis -Patient starvation ketosis has significantly improved continue with the D5 normal saline up until we can ensure that the patient oral intake is adequate. #5. Hypomagnesemia, hypokalemia Patient to have her magnesium and potassium replaced due to low levels. Continue to monitor. #6. Strength/ambulation issues in the setting of severe malnutrition -Physical therapy has been consulted yesterday and continues to work with this patient to increase her strength and ambulation.
[2018-07-14] MEDS: Mirtazapine 15 MG Tab PO SCH (20:53)
[2018-07-14] MEDS: Cephalexin 500 MG Cap PO SCH (21:16)
[2018-07-15] MEDS: Phosphorus #1 250 MG Tab PO SCH ×3 (00:55→12:30)
[2018-07-15] MEDS: Gabapentin 300 MG Cap PO SCH ×2 (05:02→14:15)
[2018-07-15] MEDS: Heparin Sodium 5,000 Units/ML Vial SUBCUT SCH ×2 (06:35→14:14)
[2018-07-15] MEDS: Omeprazole 20 MG Cap.CR PO SCH (06:35)
[2018-07-15] MEDS: METHOCARBAMOL 750 MG PO SCH ×2 (06:36→14:17)
[2018-07-15] MEDS: Amitriptyline 25 MG Tab PO SCH (09:53)
[2018-07-15] MEDS: Divalproex Sodium 500 MG Tab.ER PO SCH (09:54)
[2018-07-15] MEDS: Venlafaxine 75 MG Cap.ER PO SCH (09:54)
[2018-07-15] MEDS: Spironolactone 25 MG Tab PO SCH (09:54)
[2018-07-15] MEDS: Cephalexin 500 MG Cap PO SCH (09:55)
[2018-07-15] MEDS: Potassium Chloride 20 MEQ Tab.ER PO SCH (09:55)
[2018-07-15] MEDS: Folic Acid 50 MG/10 ML MDV SUBCUT SCH (09:56)
[2018-07-15] MEDS: OXYBUTYNIN CHLORIDE 10 MG PO SCH (10:02)
[2018-07-15] MEDS: Thiamine 200 MG/2 ML MDV IV SCH (10:02)
[2018-07-15 10:26] LABS: CHLORIDE,CL 112 mmol/L (98-107); SODIUM,NA 143 mmol/L (136-145)
--- NOTE | 2018-07-15 12:50 | PCM.DCSUM1 ---
Discharge Summary - Hospital Course HPI Initial Comments: Discharge Summary Date of admission: 07/11/18 Date of discharge: 07/15/18 Admitting diagnosis: #1. Dehydration/altered mental status #2. Poor self-care deficit #3. History of TBI #4. #5. Discharge diagnoses: #1. Starvation ketosis now resolved #2. History of TBI Consultations: None Procedures: None Hospitalization course: The patient was aggressively hydrated dehydration and altered mental status, upon assessment and further laboratory investigations irritated. The patient had elevated ketones and was in starvation ketosis secondary to poor caloric intake which has been an ongoing issue for this patient. Patient was initially hydrated with D5 normal saline which provided both dehydration dehydration status as well as the appropriate caloric intake needed for the caloric deficit that resulted in the starvation ketosis which the patient was experiencing. UA and cultures did indicate a urinary tract infection was treated with ceftriaxone 1 g every 24 hours while inpatient and was subsequently discharged home on Keflex for a total of 4 more days. Once the patient was stabilized from starvation ketosis status, a dietitian consult was placed and the dietitian did speak with the patient and family in regards to increase the patient's caloric intake. The family also indicated that they would like to switch providers over to Dr. Gurrola is a second-year director of family service center at our clinic here. Patient was then subsequently discharged after being stable with follow-up appointment with her PCP. Diagnosis: Stroke: No - Discharge Data Discharge Date: 07/15/18 Discharge Disposition: Home, Self-Care 01 Condition: Fair - Patient Summary/Data Consults: Consultations 07/11/18 16:45 Consult to Case Management/Admissions Dean [CONS] Routine 07/13/18 09:34 Consult to Avionics Engineer [CONS] Routine 07/13/18 10:08 PT Evaluation and Treatment [CONS] Routine - Patient Instructions Diet: Usual Diet as Tolerated, Regular Diet as Tolerated Activity: As Tolerated Driving: Do Not Drive Showering/Bathing: May Shower Notify Provider of: Fever, Swelling and Redness, Drainage, Nausea and/or Vomiting - Discharge Plan Prescriptions/Med Rec: cephALEXin [Keflex] 500 mg PO Q12H 4 Days #8 cap Thiamine [Vitamin B-1] 100 mg PO BEDTIME 30 Days #30 tab Home Medications: Home Meds Amitriptyline HCl 50 mg PO DAILY 07/11/18 [History] Folic Acid 1 mg PO DAILY 07/11/18 [History] Gabapentin [Gralise] 1,200 mg PO TID 07/11/18 [History] Methocarbamol 750 mg PO TID 07/11/18 [History] Mirtazapine 45 mg PO BEDTIME 07/11/18 [History] Omeprazole 20 mg PO ACBREAKFAST 07/11/18 [History] Oxybutynin Chloride [Ditropan Xl] 10 mg PO DAILY 07/11/18 [History] Spironolactone [Aldactone] 25 mg PO BID 07/11/18 [History] Valproic Acid 500 mg PO BID 07/11/18 [History] Venlafaxine HCl [Venlafaxine HCl ER] 150 mg PO BID 07/11/18 [History] Thiamine [Vitamin B-1] 100 mg PO BEDTIME 30 Days #30 tab 07/15/18 [Rx] cephALEXin [Keflex] 500 mg PO Q12H 4 Days #8 cap 07/15/18 [Rx] Patient Handouts: Thiamine, Vitamin B1 tablets, Dehydration, Adult, Easy-to- Read, Malnutrition, Head Injury, Adult, [id number], Cephalexin tablets or capsules Referrals: Roc Oneill MD [Resident] - 07/26/18 3:45 pm - Discharge Summary/Plan Comment DC Time >30 min.: No - Patient Data Vitals - Most Recent: Last Vital Signs Temp 36.8 C 07/15/18 11:31 Pulse 95 07/15/18 11:31 Resp 22 H 07/15/18 11:31 BP 151/97 H 07/15/18 11:31 Pulse Ox 100 07/15/18 11:31 Weight - Most Recent: 48.7 kg I&O - Last 24 hours: Intake & Output 07/14/18 07/15/18 07/15/18 22:59 06:59 14:59 Intake Total 450 1000 Output Total 250 Balance 200 1000 Lab Results - Last 24 hrs: Laboratory Results - last 24 hr 07/14/18 07/14/18 07/15/18 Range/Units 16:38 21:06 06:40 Sodium (136-145) mmol/L Potassium (3.5-5.1) mmol/L Chloride (98-107) mmol/L Carbon Dioxide (21.0-32.0) mmol/L BUN (7.0-18.0) mg/dL Creatinine (0.6-1.0) mg/dL Est Cr Clr Drug Dosing mL/min Estimated GFR (MDRD) ml/min Glucose (74-106) mg/dL POC Glucose 86 124 H 75 (60-110) mg/dL Calcium (8.5-10.1) mg/dL 07/15/18 07/15/18 Range/Units 09:36 11:45 Sodium 143 (136-145) mmol/L Potassium 3.8 (3.5-5.1) mmol/L Chloride 112 H (98-107) mmol/L Carbon Dioxide 24.7 (21.0-32.0) mmol/L BUN 2 L (7.0-18.0) mg/dL Creatinine 0.5 L (0.6-1.0) mg/dL Est Cr Clr Drug Dosing 114.99 mL/min Estimated GFR (MDRD) > 60.0 ml/min Glucose 79 (74-106) mg/dL POC Glucose 76 (60-110) mg/dL Calcium 9.0 (8.5-10.1) mg/dL JANET Results - Last 24 hrs: Microbiology 07/12/18 00:50 Aerobic Blood Culture - Preliminary Blood - Venous - Lab Draw NO GROWTH AFTER 3 DAYS Anaerobic Blood Culture - Preliminary NO GROWTH AFTER 3 DAYS 07/12/18 00:40 Aerobic Blood Culture - Preliminary Blood - Venous NO GROWTH AFTER 3 DAYS Anaerobic Blood Culture - Final 07/11/18 13:30 Urine Culture - Final Urine, Catheterized Enterococcus Faecalis Med Orders - Current: Current Medications Amitriptyline HCl (Elavil) 50 mg PO DAILY [facility] Last Admin: 07/15/18 09:53 Dose: 50 mg Cephalexin (Keflex) 500 mg PO Q12H [facility] Last Admin: 07/15/18 09:55 Dose: 500 mg Divalproex Sodium (Depakote Er) 500 mg PO BID [facility] Last Admin: 07/15/18 09:54 Dose: 500 mg Docusate Sodium (Colace) 100 mg PO BID PRN PRN Reason: Constipation Last Admin: 07/15/18 12:30 Dose: 100 mg Folic Acid (Folic Acid) 1 mg SUBCUT DAILY [facility] Last Admin: 07/15/18 09:56 Dose: 1 mg Gabapentin (Neurontin) 1,200 mg PO TID [facility] Last Admin: 07/15/18 05:02 Dose: 1,200 mg Heparin Sodium (Porcine) (Heparin Sodium) 5,000 units SUBCUT Q8H [facility] Last Admin: 07/15/18 06:35 Dose: 5,000 units Dextrose/Sodium Chloride (Dextrose 5%-Normal Saline) 1,000 mls @ 125 mls/hr IV ASDIRECTED [facility] Last Admin: 07/13/18 19:51 Dose: 125 mls/hr Mirtazapine (Remeron) 45 mg PO BEDTIME [facility] Last Admin: 07/14/18 20:53 Dose: 45 mg Omeprazole (Omeprazole) 20 mg PO ACBREAKFAST [facility] Last Admin: 07/15/18 06:35 Dose: 20 mg Ondansetron HCl (Zofran) 4 mg IVPUSH Q4H PRN PRN Reason: Nausea/Vomiting Oxybutynin Chloride ([Ditropan Xl] 10 Mg) 1 each PO DAILY [facility] Last Admin: 07/15/18 10:02 Dose: Not Given Methocarbamol [ Methocarbamol] 750 Mg 1 each PO TID [facility] Last Admin: 07/15/18 06:36 Dose: Not Given Potassium Chloride (Klor-Con M20) 40 meq PO BID [facility] Last Admin: 07/15/18 09:55 Dose: 40 meq Sodium Chloride (Saline Flush) 10 ml FLUSH ASDIRECTED PRN PRN Reason: Keep Vein Open Sodium Chloride (Saline Flush) 2.5 ml FLUSH ASDIRECTED PRN PRN Reason: Keep Vein Open Sodium Phosphate (Neutra-Phos) 250 mg PO QID [facility] Last Admin: 07/15/18 12:30 Dose: 250 mg Spironolactone (Aldactone) 25 mg PO BID [facility] Last Admin: 07/15/18 09:54 Dose: 25 mg Temazepam (Restoril) 15 mg PO BEDTIME PRN PRN Reason: Sleep Thiamine HCl (Vitamin B-1) 100 mg IV DAILY [facility] Last Admin: 07/15/18 10:02 Dose: Not Given Venlafaxine HCl (Effexor Xr) 150 mg PO BID [facility] Last Admin: 07/15/18 09:54 Dose: 150 mg Discontinued Medications Dextrose/Water (Dextrose 50% In Water) 50 ml IVPUSH ONETIME ONE Stop: 07/12/18 08:35 Last Admin: 07/12/18 08:58 Dose: 50 ml Folic Acid (Folic Acid) 1 mg PO DAILY [facility] Last Admin: 07/14/18 10:44 Dose: Not Given Sodium Chloride (Normal Saline) 1,000 mls @ 999 mls/hr IV .Bolus ONE Stop: 07/11/18 13:49 Last Admin: 07/11/18 13:10 Dose: 999 mls/hr Sodium Chloride (Normal Saline) 1,000 mls @ 125 mls/hr IV ASDIRECTED [facility] Last Admin: 07/12/18 09:01 Dose: 125 mls/hr Ceftriaxone Sodium/Dextrose 1 (gm/ Premix) 50 mls @ 100 mls/hr IV ONETIME ONE Stop: 07/12/18 00:37 Last Admin: 07/12/18 01:08 Dose: 100 mls/hr Sodium Chloride (Normal Saline) 1,000 mls @ 999 mls/hr IV ONETIME ONE Stop: 07/12/18 01:09 Last Admin: 07/12/18 01:10 Dose: 999 mls/hr Magnesium Sulfate 4 gm/ Premix 100 mls @ 25 mls/hr IV ONETIME ONE Stop: 07/12/18 12:34 Last Admin: 07/12/18 08:58 Dose: 25 mls/hr Levofloxacin/Dextrose 750 mg/ (Premix) 150 mls @ 100 mls/hr IV Q24H [facility] Last Admin: 07/12/18 11:23 Dose: Not Given Levofloxacin/Dextrose 750 mg/ (Premix) 150 mls @ 100 mls/hr IV Q24H [facility] Ceftriaxone Sodium 1 gm/ (Sodium Chloride) 50 mls @ 100 mls/hr IV Q24H [facility] Last Admin: 07/14/18 00:51 Dose: 100 mls/hr Dextrose/Sodium Chloride (Dextrose 5%-1/2 Ns) 1,000 mls @ 125 mls/hr IV ASDIRECTED [facility] Sodium Phosphate 15 mmole/ (Sodium Chloride) 105 mls @ 52.5 mls/hr IV Q2H [facility] Stop: 07/12/18 21:29 Last Admin: 07/12/18 21:12 Dose: 52.5 mls/hr Magnesium Sulfate 4 gm/ Premix 100 mls @ 25 mls/hr IV ONETIME ONE Stop: 07/14/18 14:06 Last Admin: 07/14/18 10:43 Dose: 25 mls/hr Mirtazapine (Remeron) 45 mg PO DAILY [facility] Morphine Sulfate (Morphine) 2 mg IVPUSH Q2H PRN PRN Reason: Pain (severe 7-10) Stop: 07/12/18 14:52 Last Admin: 07/11/18 20:36 Dose: 2 mg Morphine Sulfate (Morphine) 2 mg IVPUSH Q2H PRN PRN Reason: Pain (severe 7-10) Stop: 07/12/18 14:52 Non-Formulary Medication (Amitriptyline Hcl [Amitriptyline Hcl]) 50 mg PO DAILY [facility] Non-Formulary Medication (Gabapentin [Gralise]) 1,200 mg PO TID [facility] Last Admin: 07/12/18 05:13 Dose: Not Given Non-Formulary Medication (Methocarbamol [Methocarbamol]) 750 mg PO TID [facility] Last Admin: 07/12/18 05:13 Dose: Not Given Non-Formulary Medication (Mirtazapine [Mirtazapine]) 45 mg PO DAILY [facility] Non-Formulary Medication (Oxybutynin Chloride [Ditropan Xl]) 10 mg PO DAILY [facility] Non-Formulary Medication (Valproic Acid) 500 mg PO BID [facility] Last Admin: 07/11/18 21:08 Dose: Not Given Non-Formulary Medication (Venlafaxine Hcl [Venlafaxine Hcl Er]) 150 mg PO BID [facility] Last Admin: 07/11/18 21:08 Dose: Not Given Potassium Chloride (Klor-Con M20) 40 meq PO ONETIME ONE Stop: 07/14/18 08:50 Last Admin: 07/14/18 10:45 Dose: 40 meq Sodium Phosphate (Sodium Phosphate) 15 mmole IV ONETIME ONE Stop: 07/12/18 19:08
[2018-07-15 17:25] VITALS: BP 145/82
== END 2018-07-15 17:05 | disposition home or self-care (01) | DRG 422 ==
LOC: MW.ED 12:48 → MW.MS 14:53 → OBSVTOIN 07-12 08:42 → MW.MS 07-12 08:43
PROVIDERS: ADMIT Internal Medicine; ATTEND Internal Medicine
DX: E86.0 Dehydration (principal); G40.919 Epilepsy, unspecified, intractable, without status epilepticus; E43 Unspecified severe protein-calorie malnutrition; L89.321 Pressure ulcer of left buttock, stage 1; L89.311 Pressure ulcer of right buttock, stage 1; N39.0 Urinary tract infection, site not specified; B95.2 Enterococcus as the cause of diseases classified elsewhere; E83.42 Hypomagnesemia; E87.6 Hypokalemia; E83.39 Other disorders of phosphorus metabolism; E16.2 Hypoglycemia, unspecified; M54.5 Low back pain; G89.29 Other chronic pain; F32.9 Major depressive disorder, single episode, unspecified; F43.10 Post-traumatic stress disorder, unspecified; I10 Essential (primary) hypertension; Z86.711 Personal history of pulmonary embolism; Z87.820 Personal history of traumatic brain injury; Z79.899 Other long term (current) drug therapy; Z87.891 Personal history of nicotine dependence; Z87.11 Personal history of peptic ulcer disease; Z68.1 Body mass index [BMI] 19.9 or less, adult
CPT/HCPCS: 36415; 36600; 51702; 70450; 70450-26; 71045; 71045-26; 80048; 80053; 80164; 80305-QW; 81001; 81003; 82009; 82010; 82550; 82803; 82962; 83036; 83605; 83735; 84100; 84134; 85025; 87040; 87086; 87088; 87186; 93005; 96360; 96361; 96372; 96374; 96375; 97161-GP; 97530-GP; 99285-25; A9270-GY; G0378; G0480; J0696; J1644; J2270; J3411; J3475; J7030; J7040; J7042; J7050; J7060